=== PATIENT | male | born 1960 | race Caucasian/White ===

== ENCOUNTER 2020-01-11 12:15 | Inpatient (IN) | payer MEDICARE, SELFPAY ==
[2020-01-11] VITALS (27 sets, daily range): BP systolic 100–215; BP diastolic 79–154; PULSE 66–146; RESP 15–24; TEMP 36.6–37; O2SAT 95–100; BMI 47.4; BMI 43.9
--- NOTE | 2020-01-11 12:47 | RAD_ITS ---
STUDY: X-RAY CHEST REASON FOR EXAM: Male, 59 years old. DYSPNEA, STENT X 7 YEARS AGO, H/O HTN TECHNIQUE: PA and lateral views of the chest. COMPARISON: None. FINDINGS: Cardiac silhouette increased. Pulmonary vascularity increased. Aorta unremarkable. No focal airspace proximal nodular density within the right upper lobe. Blunting is noted at the right costophrenic angle. Upper abdomen unremarkable. Osseous structures intact. No pneumothorax. RAD/Chest PA and Lateral IMPRESSION: Cardiomegaly and pulmonary vascular congestion. Small right effusion. Possible right upper lobe nodule may be further assessed with chest CT as clinically indicated. Electronically Signed: Wan Helton, at 15:36 EST Tel , Service support ,
--- NOTE | 2020-01-11 12:47 | EKG12_ITS ---
Test Reason : Blood Pressure : / mmHG Vent. Rate : 144 BPM Atrial Rate : 256 BPM P-R Int : 000 ms QRS Dur : 120 ms QT Int : 304 ms P-R-T Axes : 000 035 043 degrees QTc Int : 470 ms Atrial flutter with variable A-V block Non-specific intra-ventricular conduction delay Abnormal ECG Confirmed by SYDNEY BAILEY ([id number]), graphics editor JONG SANTOS ([id number]) on 01/13/2020 9:37:33 AM Referred By: SHAKEEL Confirmed By:SYDNEY BAILEY
--- NOTE | 2020-01-11 12:59 | ED.RN ---
NO OLD EKG
[2020-01-11] MEDS: dilTIAZem 25 MG/5 ML Vial IV BOLUS (13:17)
[2020-01-11 13:27] LABS: Absolute Lymphocyte Count 2.09 X10^3/uL (0.83-4.51); Absolute Neutrophil Count 7.2 X10^3/uL (2.0-7.7); Basophil# 0.04 X10^3/uL; Basophil% 0.4 % (0-1); Eosinophil# 0.08 X10^3/uL; Eosinophils% 0.8 % (0-5); Hematocrit 48.1 % (40-54); Hemoglobin 15.5 g/dL (13.0-16.5); Lymphocyte # 2.09 X10^3/ul (4.0); Lymphocyte % 21.1 % (19-41); Mean Corp Hgb Conc 32.2 g/dL (32-36); Mean Corpuscular Hgb 28.3 pg (27.0-32.0); Mean Corpuscular Volume 87.8 fL (80-94); Mean Platelet Vol. 9.4 fl (6.2-12.0); Monocyte# 0.52 X10^3/uL; Monocyte% 5.2 % (0-10); NRBC Flagged by Analyzer 0 % (0-5); Neutrophil # 7.15 X10^3/uL (2.7-7.7); Neutrophil % 72.2 % (47-70); Platelet Count 333 K/mm3 (150-450); RBC Distribution Width CV 14.5 % (11.6-14.6); Red Blood Count 5.48 M/mm3 (4.6-6.2); White Blood Count 9.9 K/mm3 (4.4-11.0)
[2020-01-11 13:42] LABS: ALB/GLOB Ratio 0.8 RATIO (0.9-2.4); AST(SGOT) 29 U/L (15-37); Alanine Aminotransfer ALT/SGPT 58 U/L (16-61); Albumin, Serum 3.5 g/dL (3.2-5.0); Alkaline Phosphatase 55 U/L (45-117); Anion Gap 8 (5-15); BUN 32 mg/dL (7-18); BUN/Creat Ratio 20.1 RATIO (10-20); Calcium,Total 9.2 mg/dL (8.5-10.1); Chloride 109 mmol/L (98-107); Creatinine, Serum 1.59 mg/dL (0.70-1.30); EST Glomerular Filtration Rate 47 mL/min (>60); Est Glom Filt Rate - Afr Amer 57 mL/min (>60); Estimated Creatinine Clearance 40.85 ml/min; Globulin 4.4 g/dL (2.2-4.2); Glucose 145 mg/dL (74-106); Potassium 4.2 mmol/L (3.5-5.1); Protein, Total 7.9 g/dL (6.4-8.2); Sodium Level 141 mmol/L (136-145)
[2020-01-11 14:04] LABS: Mucous, Urine 0 SEEN /hpf (<or=2+); Squamous Epithelial Cells - UA 0 SEEN /hpf (0-5); White Blood Cells 0 SEEN /hpf (0-5)
[2020-01-11 14:08] LABS: Color, Urine Yellow (Yellow); Glucose, Dipstick Normal (Normal); Ketone-Dipstick Negative (Negative); Leukocyte Esterase-Dipstick Negative /ul (Negative); Nitrite-Dipstick Negative (Negative); Occult Blood-Urine 10 /ul (Negative); Protein-Dipstick 500 mg/dl (Negative); Specific Gravity, Urine 1.025 (1.002-1.030); Urine Bilirubin Dipstick Negative (Negative); Urine Clarity Clear (Clear); Urine Urobilinogen Normal (Normal)
[2020-01-11 14:22] LABS: Amorphous Sediment 1+; Bacteria RARE /hpf (None Seen); Fine Granular Cast- Urine 0-5 SEEN /lpf (0-5); Red Blood Cells-Urine 0-5 SEEN /hpf (0-5)
--- NOTE | 2020-01-11 14:36 | ED.RN ---
PER DR. BECKFORD VERBAL, SEPSIS SCREEN COMPLETE.
[2020-01-11] MEDS: dilTIAZem 60 MG Tablet PO (15:09)
--- NOTE | 2020-01-11 15:46 | CT_ITS ---
STUDY: CTA CHEST REASON FOR EXAM: Male, 59 years old. Dyspnea, worsening x 4 days, cough. Hx hypertension, coronary stent. RADIATION DOSAGE (If Supplied By Facility): CTDIvol = ( 17.41 ) mGy, DLP = ( 571.91 ) mGycm TECHNIQUE: The examination was performed with the intravenous administration of 100mL Isovue 370. Post-processing of the angiographic images was performed, with multiplanar reformation and 3D reconstruction. Individualized dose optimization techniques were used for this CT. COMPARISON: None. FINDINGS: Normal enhancement of the main pulmonary artery and right and left pulmonary arteries. Normal enhancement of the bilateral peripheral pulmonary arteries. There is no demonstrated pulmonary embolism. Normal thoracic aorta and visualized great vessels. There is no demonstrated aortic dissection. There is a small pericardial effusion. Normal mediastinum. Normal hilar regions. Normal visualized trachea and bronchi. The lungs are well expanded. There is evidence of compressive atelectasis at the right base. There is a small volume right sided pleural effusion. Normal chest wall structures. Normal osseous structures. Normal visualized upper abdomen. CT/CTA Chest W/WO Contrast IMPRESSION: No evidence for pulmonary embolism or aortic dissection. Moderate-sized right pleural effusion with associated compressive atelectasis. Small pericardial effusion. Electronically Signed: Wan Helton, at 16:43 EST Tel , Service support ,
[2020-01-11] MEDS: 0.9% Normal Saline 1,000 ML 1000 ML IV (15:57)
--- NOTE | 2020-01-11 16:08 | ED.DCSUM_ITS ---
- ER Visit Summary Date of Service: 01/11/20 Chief Complaint: Tachycardia and shortness of breath History of Present Illness: The patient is a 59 M who presents with shortness of breath and tachycardia that became worse today. Patient states he feels like he cannot catch his breath. Patient states this has been waxing and waning over the past 2 months. Patient states his breathing is worse when he lays flat. Patient states his breathing improves when he stands. Patient admits to subjective fevers and chills. Patient admits to some cough with a brown sputum. Patient also admits to some back pain. Patient admits to nausea but denies any vomiting. Physical Examination: Vital signs are stable except for a tachycardia of 149. Patient is afebrile. Patient is in no acute distress. Oral mucosa is pink and moist. Neck is supple. Trachea is midline. Is no JVD noted. Heart was irregularly irregular and tachycardic. Lungs are clear and equal bilaterally. Abdomen is soft. Bowel sounds are normal. There is no tenderness. Cranial nerves II through XII are intact. There are no focal motor or sensory deficits noted. Test Results: EKG shows atrial for ablation with a rate of 144. There are no acute ST or T wave changes. There are no prior EKGs available for comparison. CBC was within normal limits. Comprehensive metabolic profile showed a slightly elevated creatinine of 1.59. Troponin was slightly elevated at 0.051. Emergency Department Course and Treatment: Patient was given IV fluids. Patient was given a dose of Cardizem IV and a oral dose of Cardizem. Patient's heart rate improved to 114 but is now increasing back into the 120s. Patient was given a dose of labetalol. Due to the persistent tachycardia, and shortness of breath, a CTA of the chest was ordered. I advised the patient of his need to be admitted to the hospital due to his new onset atrial fibrillation with rapid response as well as his bump in his troponin. Patient states he does not want to be admitted to the hospital and wants to be discharged before it gets dark because he does not drive well in the dark. Patient is requesting a breathing treatment. This was not given initially because of his tachycardia. Patient was advised that the breathing treatment will make his tachycardia worse. Patient still does not want to be admitted to the hospital and will sign out AGAINST MEDICAL ADVICE. Patient was advised that his irregular heartbeat may cause blood clots and strokes. Patient understands and does not want to be admitted to the hospital. Patient will sign out AGAINST MEDICAL ADVICE. While the patient was getting his DuoNeb treatment, he change his mind and is agreeable to be admitted to the hospital. Case was discussed with the hospitalist. Disposition: Admit to hospital Impression: 1. Atrial fibrillation with rapid ventricular response 2. Elevated troponin This note was generated with [employer] dictation software. It may contain incorrect words, spelling, and punctuation that were not noted in review of the chart prior to signing ED Disposition - Plan for ED Patient: Disposition: Acute Care Hospital [facility] Diagnosis: Atrial fibrillation with rapid ventricular response, Elevated troponin Referrals: Radha Kendrick MD [Primary Care Provider] - As soon as possible
[2020-01-11] MEDS: Ipratropium/Albuterol Sulfate 3 ML AMPUL.NEB INHALATION (17:15)
--- NOTE | 2020-01-11 17:48 | NURSING ---
PCU KOTSONIS AFIB WITH RAPID VENTRICULAR RESPONCE, ELEVATED TROP
--- NOTE | 2020-01-11 18:29 | HP.PCM_ITS ---
<Ml Guadalupe - Last Filed: 01/11/20 18:46> Problem List (1) Atrial fibrillation with rapid ventricular response Status: Acute (2) Elevated troponin Status: Acute History of Present Illness Date of Admission: 01/11/20 Chief Complaint: Shortness of breath. The patient is a 59 year old M who presents emergency room due to shortness of breath. Patient reports he initially noticed increase shortness of breath around Tung time. He reports it has gradually worsened since that time. He denies weight gain or lower extremity swelling. He does note he has not been able to sleep lying flat since before Tung. He denies chest pain or palpitations. Patient reports dyspnea with minimal exertion. Patient states he thinks he has pneumonia and reports he had a few cases of severe pneumonia when he was younger. Patient reports he was on multiple medications for his heart which he stopped taking a year ago and states his blood pressure got better. He has had poor outpatient follow-up. He was recommended a sleep study which he did not complete because he did not think it was necessary. He has a past medical history of hypertension and obesity. Past Medical History Allergies No Known Allergies Allergy (Verified 01/11/20 12:19) Home Medications: Ambulatory Orders Medication Instructions Recorded Aspirin E.C. [Ecotrin] 650 mg PO BID PRN PRN 01/11/20 [place]-3/Dha/Epa/Fish Oil [Fish Oil 1,000 mg PO DAILY 01/11/20 1,000 mg Softgel] Surgical History: - - Left great toe surgery. Psychiatric History: No pertinent psych hx Lives: Alone Smoking Status: Current some day smoker Tobacco Use: Cigarettes Alcohol: Sober Drugs: None - *Family History Maternal History Items: Heart Disease Paternal History Items: Heart Disease Review of Systems Constitutional: Denies: Chills, Fever, Weight Change HEENT: Denies: Head Aches, Sinus Congestion, Sinus Drainage Cardiovascular: Denies: Chest Pain, Edema, Palpitations, Syncope Respiratory: Reports: Shortness of Breath, Sputum production. Denies: Cough Gastrointestinal: Denies: Abdominal Pain, Nausea, Vomiting Genitourinary: Denies: Dysuria Musculoskeletal: Denies: Joint Pain, Joint Tenderness Skin: Denies: Rash, Wounds Neurological: Denies: Numbness, Tingling, Focal weakness Psychiatric: Denies: Anxiety, Depression, Homicidal Ideations, Suicidal Ideations Hematologic/ Lymphatic: Denies: Easy Bruising, Easy Bleeding VTE Information - Inpt Only VTE Present on Admission: No VTE Mechan Device Prophylaxis: None VTE Pharm Prophylaxis ordered?: Yes Patient Problems: Active and Suspected Problems Atrial fibrillation with rapid ventricular response (Acute) Elevated troponin (Acute) - Physical Exam Vitals/I&O's: Vital Signs Temp Pulse Resp BP Pulse Ox 98.5 F 127 H 20 H 150/132 H 96 01/11/20 18:05 01/11/20 18:05 01/11/20 18:05 01/11/20 18:05 01/11/20 18:05 Oxygen Flow Rate (L/min) 2 Oxygen Delivery Method Room Air Weight: 276 lb 3.2 oz Body Mass Index (BMI) 47.4 Intake and Output for Last 24 Hours 01/09/20 01/10/20 01/11/20 23:59 23:59 23:59 Intake Total 1000 / 1000 Balance 1000 / 1000 General: Alert, Oriented x3, Cooperative HEENT: Atraumatic, PERRLA, EOMI, Normocephalic Neck: Supple, No JVD, Negative Carotid Bruits Lungs: Diminished, - - Crackles bilateral bases, worse on right Cardiovascular: Tachycardic, - - Atrial fibrillation Abdomen: Bowel Sounds Present, Soft, Non Tender, Non-Distended, Obese Extremities: No clubbing, No cyanosis, No edema, Capillary Refill Less than 3 Seconds Skin: No rashes, No breakdown Musculoskeletal: No Tenderness to Palpation of Joints or Extremities Neurological: Cranial nerves II-XII grossly intact, Neuro grossly intact Psych/Mental Status: Normal Affect, Appropriate Laboratory Results 01/11/20 12:35: WBC 9.9, RBC 5.48, Hgb 15.5, Hct 48.1, MCV 87.8, MCH 28.3, MCHC 32.2, RDW Std Deviation 46.0 H, RDW Coeff of Srinivas 14.5, Plt Count 333, MPV 9.4, Immature Gran % (Auto) 0.300, Neut % (Auto) 72.2 H, Lymph % (Auto) 21.1, [place] % (Auto) 5.2, Eos % (Auto) 0.8, Baso % (Auto) 0.4, Absolute Neuts (auto) 7.2, Absolute Lymphs (auto) 2.09, Nucleated RBC % 0 01/11/20 12:35: Sodium 141, Potassium 4.2, Chloride 109 H, Carbon Dioxide 24.0, Anion Gap 8, BUN 32 H, Creatinine 1.59 H, Estim Creat Clear Calc 40.85, Est GFR (MDRD) Af Amer 57 L, Est GFR (MDRD) Non-Af 47 L, BUN/Creatinine Ratio 20.1 H, Glucose 145 H, Calcium 9.2, Total Bilirubin 0.70, AST 29, ALT 58, Alkaline Phosphatase 55, Troponin I 0.051 H, Total Protein 7.9, Albumin 3.5, Globulin 4.4 H, Albumin/Globulin Ratio 0.8 L 01/11/20 12:35: B-Natriuretic Peptide Pending 01/11/20 13:55: Urine Color Yellow, Urine Clarity Clear, Urine pH 5.0, Ur Specific [place] 1.025, Urine Protein 500 H, Urine Glucose (UA) Normal, Urine Ketones Negative, Urine Occult Blood 10 H, Urine Nitrite Negative, Urine Bilirubin Negative, Urine Urobilinogen Normal, Ur Leukocyte Esterase Negative, Urine RBC 0-5 SEEN, Urine WBC 0 SEEN, Ur Squamous Epith Cells 0 SEEN, Amorphous Sediment 1+, Urine Bacteria RARE, Fine Granular Casts 0-5 SEEN, Urine Mucus 0 SEEN Assessment/Plan All Active Problems Atrial fibrillation with rapid ventricular response (Acute) Elevated troponin (Acute) 1. New onset atrial fibrillation-on Cardizem drip. Check TSH, mag. Obtain echo. Trend enzymes. 2. Abnormal troponin-trend enzymes. Suspect demand ischemia as a result of #1. 3. Right pleural effusion-noted on CTA. Suspect secondary to fluid overload secondary to #1, BNP pending. If BNP is elevated, plan to diurese and repeat imaging to evaluate for improvement. 3. Elevated creatinine-unknown baseline. Trend BMP. Suspect chronic kidney disease. 4. Hypertension-Per pharmacy records, patient previously on lisinopril/HCTZ 20- 25 mg tablet daily, metoprolol 100 mg daily and clonidine 0.2 mg twice daily. Will resume lisinopril/HCTZ alone for now and monitor blood pressure. 5. Obesity- encouraged diet lifestyle modifications. Nutrition consult. 6. Suspected HINA-patient referred for sleep study in the past which she did not complete. Recommend outpatient follow-up for PSG at discharge. DVT prophylaxis-heparin subcu. This patient was seen by HERSON Trent under the supervision of Dr. Mackenzie. <Fredo Mackenzie Jamel - Last Filed: 01/11/20 19:28> History of Present Illness The patient is a 59 year old M [] Past Medical History Allergies No Known Allergies Allergy (Verified 01/11/20 12:19) - Physical Exam Vitals/I&O's: Vital Signs Temp Pulse Resp BP Pulse Ox 98.3 F 127 H 19 H 191/143 H 97 01/11/20 18:48 01/11/20 18:48 01/11/20 18:48 01/11/20 18:48 01/11/20 18:48 Oxygen Flow Rate (L/min) 2 Oxygen Delivery Method Room Air Weight: 272 lb Body Mass Index (BMI) 43.9 Intake and Output for Last 24 Hours 01/09/20 01/10/20 01/11/20 23:59 23:59 23:59 Intake Total 1000 / 1000 Balance 1000 / 1000 Laboratory Results 01/11/20 12:35: WBC 9.9, RBC 5.48, Hgb 15.5, Hct 48.1, MCV 87.8, MCH 28.3, MCHC 32.2, RDW Std Deviation 46.0 H, RDW Coeff of Srinivas 14.5, Plt Count 333, MPV 9.4, Immature Gran % (Auto) 0.300, Neut % (Auto) 72.2 H, Lymph % (Auto) 21.1, [place] % (Auto) 5.2, Eos % (Auto) 0.8, Baso % (Auto) 0.4, Absolute Neuts (auto) 7.2, Absolute Lymphs (auto) 2.09, Nucleated RBC % 0 01/11/20 12:35: Sodium 141, Potassium 4.2, Chloride 109 H, Carbon Dioxide 24.0, Anion Gap 8, BUN 32 H, Creatinine 1.59 H, Estim Creat Clear Calc 40.85, Est GFR (MDRD) Af Amer 57 L, Est GFR (MDRD) Non-Af 47 L, BUN/Creatinine Ratio 20.1 H, Glucose 145 H, Calcium 9.2, Total Bilirubin 0.70, AST 29, ALT 58, Alkaline Phosphatase 55, Troponin I 0.051 H, Total Protein 7.9, Albumin 3.5, Globulin 4.4 H, Albumin/Globulin Ratio 0.8 L 01/11/20 12:35: B-Natriuretic Peptide 284.0 H 01/11/20 13:55: Urine Color Yellow, Urine Clarity Clear, Urine pH 5.0, Ur Specific [place] 1.025, Urine Protein 500 H, Urine Glucose (UA) Normal, Urine Ketones Negative, Urine Occult Blood 10 H, Urine Nitrite Negative, Urine Bilirubin Negative, Urine Urobilinogen Normal, Ur Leukocyte Esterase Negative, Urine RBC 0-5 SEEN, Urine WBC 0 SEEN, Ur Squamous Epith Cells 0 SEEN, Amorphous Sediment 1+, Urine Bacteria RARE, Fine Granular Casts 0-5 SEEN, Urine Mucus 0 SEEN Current Medications Enoxaparin Sodium (Lovenox) 40 mg SC DAILY MARIO Hydrochlorothiazide (Hctz) 25 mg PO DAILY MARIO Diltiazem HCl 125 mg/ Dextrose 125 mls @ 5 mls/hr IV .Q25H MARIO; Protocol Sodium Chloride () 1,000 mls @ 100 mls/hr IV .Q10H MARIO Last Admin: 01/11/20 18:38 Dose: 100 mls/hr Documented by: Lisinopril (Zestril) 20 mg PO DAILY MARIO Sodium Chloride () 10 - 40 ml IV UD PRN PRN Reason: SALINE FLUSH Code Visit Addendum: Dr. Mackenzie I personally examined the patient and reviewed the chart. I agree with the above. 59-year-old male who had previously been on blood pressure medications and he stopped them on his own, presents with shortness of breath chest pain as well as palpitations. He was found to be in A. fib with RVR and had difficulty controlling his heart rate. He was started on a Cardizem drip. Because of his shortness of breath he had a CTA of his chest performed which demonstrated a moderate sized pleural effusion. He did add a BNP that was also ordered that was 284 as well as an initial troponin of 0.051. Will obtain serial troponin as well as an echo. He stopped seeing his doctor about a year and a half ago took himself off of all of his medications. He states that this always happens whenever he gets pneumonia and that he coughs up a lot of sputum. CTA of his chest did not show any pneumonia and he has no fever and no leukocytosis. We will continue the Cardizem drip for now and restart his lisinopril and hydrochlorothiazide that he was supposed to be on. Inpatient E&M: 39215 Init Hosp L2
[2020-01-11] MEDS: 0.9% Normal Saline 1,000 ML 100 ML IV (18:38)
--- NOTE | 2020-01-11 19:20 | EKG12_ITS ---
Test Reason : A FIB Blood Pressure : / mmHG Vent. Rate : 127 BPM Atrial Rate : 254 BPM P-R Int : 000 ms QRS Dur : 118 ms QT Int : 368 ms P-R-T Axes : 256 018 -66 degrees QTc Int : 534 ms Atrial flutter Inferior infarct , age undetermined Abnormal ECG When compared with ECG of 11-JAN-2020 12:25, MANUAL COMPARISON REQUIRED, DATA IS UNCONFIRMED Confirmed by SYDNEY BAILEY ([id number]), publishing editor JONG SANTOS ([id number]) on 01/13/2020 9:59:51 AM Referred By: ELLEN Confirmed By:SYDNEY BAILEY
[2020-01-11] MEDS: Metoprolol Tartrate 5 MG/5 ML Vial IV (20:37)
[2020-01-11] MEDS: Lisinopril 20 MG Tablet PO (20:37)
[2020-01-11] MEDS: hydroCHLOROthiazide 25 MG Tablet PO (20:37)
[2020-01-11] MEDS: Metoprolol Tartrate 100 MG Tablet PO (22:23)
[2020-01-12] VITALS (58 sets, daily range): BP systolic 110–211; BP diastolic 83–145; PULSE 61–131; RESP 16–28; TEMP 36.2–37.1; O2SAT 92–100
--- NOTE | 2020-01-12 04:02 | CPS ---
Pt. was tried on BiPAP with poor tolerance. Settings were 10/5. HUMAN RESOURCES PROFESSIONAL tried multiple different pressures with pt. agreeing to try 10/5. Shortly after trying it on, pt. took BiPAP off. Told this HUMAN RESOURCES PROFESSIONAL that it was to much pressure and was hard on his lungs. Pt. refusing BiPAP for the rest of this morning.
[2020-01-12] MEDS: 0.9% Normal Saline 1,000 ML 100 ML IV (04:39)
[2020-01-12] MEDS: Ondansetron 4 MG/2 ML Vial IV (05:21)
--- NOTE | 2020-01-12 05:55 | ECHOCS_ITS ---
Reason For Study: ATRIAL FIB-FLUTTER Procedure This was a 2D Doppler, Color Flow transthoracic echocardiogram. The study was technically difficult. Exam performed portable in patient room. Left Ventricle Moderately dilated left ventricle. The estimated ejection fraction is 45-50 %. Unable to assess diastolic dysfunction due to arrhythmia. Anterio-Basal: Mildly hypokinetic. Basal anteroseptal: Mildly hypokinetic. Right Ventricle Normal size and thickness. Normal systolic function. Atria The left atrium is severely enlarged. The right atrium is severely enlarged. Normal atrial septum. Mitral Valve The mitral valve is structurally normal. No prolapse or stenosis seen. Tricuspid Valve Normal tricuspid valve. Unable to estimate RV systolic pressure due to insufficient tricuspid regurgitant envelope. Aortic Valve Normal aortic valve. Trisinus/trileaflet aortic valve. Pulmonic Valve The pulmonic valve is not well visualized. Great Vessels Normal aortic root. Normal arch. Normal inferior vena cava. Inferior vena cava collapse with sniff. Pericardium/Pleural Trivial pericardial effusion. There are no echocardiographic indications of cardiac tamponade. Medication Diluted definity 5ml given slow IV push to enhance endocardial definition. MMode/2D Measurements & Calculations LVIDd: 5.3 cm IVSd: 0.91 cm Ao root diam: 3.1 cm LVIDs: 3.8 cm LVPWd: 1.1 cm RVDd: 3.2 cm FS: 28.4 % LAV(MOD-bp): 91.2 ml LVAd ap4: 32.4 cm2 SV(MOD-sp4): 50.1 ml LAV(MOD-bp) Indexed: 40.0 ml/m2 EDV(MOD-sp4): 96.0 ml LAV(MOD-sp2): 96.0 ml EDV(sp4-el): 101.0 ml LAV(MOD-sp4): 82.5 ml LVAs ap4: 21.3 cm2 ESV(MOD-sp4): 46.0 ml ESV(sp4-el): 47.6 ml EF(MOD-sp4): 52.1 % EF(sp4-el): 52.9 % SV(sp4-el): 53.4 ml LA A4 area: 26.2 cm2 LA dimension(2D): 5.1 cm RA A4 area: 22.3 cm2 Doppler Measurements & Calculations MV E max sherif: 129.3 cm/sec Ao V2 max: 122.5 cm/sec LV V1 max: 82.8 cm/sec Ao max P.0 mmHg LV V1 max P.8 mmHg PA V2 max: 57.0 cm/sec Interpretation Summary Moderately dilated left ventricle. The estimated ejection fraction is 45-50 %. Unable to assess diastolic dysfunction due to arrhythmia. Anterio-Basal: Mildly hypokinetic Basal anteroseptal: Mildly hypokinetic The left atrium is severely enlarged. The right atrium is severely enlarged. Unable to estimate RV systolic pressure due to insufficient tricuspid regurgitant envelope. Trivial pericardial effusion. There are no echocardiographic indications of cardiac tamponade. Pt appears to be in atrial fibrillation. The study was technically difficult. Contrast injection was performed. There is no comparison study available. Ordering Physician: Fredo Mackenzie Referring Physician: TIERNEY KRISHNAN Performed By: Marie Rios RDCS
[2020-01-12 06:48] LABS: Absolute Lymphocyte Count 1.98 X10^3/uL (0.83-4.51); Absolute Neutrophil Count 9.3 X10^3/uL (2.0-7.7); Basophil# 0.03 X10^3/uL; Basophil% 0.2 % (0-1); Eosinophil# 0.04 X10^3/uL; Eosinophils% 0.3 % (0-5); Hematocrit 48.6 % (40-54); Hemoglobin 15.3 g/dL (13.0-16.5); Lymphocyte # 1.98 X10^3/ul (4.0); Lymphocyte % 16.3 % (19-41); Mean Corp Hgb Conc 31.5 g/dL (32-36); Mean Corpuscular Hgb 28.1 pg (27.0-32.0); Mean Corpuscular Volume 89.2 fL (80-94); Mean Platelet Vol. 9.1 fl (6.2-12.0); Monocyte# 0.74 X10^3/uL; Monocyte% 6.1 % (0-10); NRBC Flagged by Analyzer 0 % (0-5); Neutrophil # 9.33 X10^3/uL (2.7-7.7); Neutrophil % 76.7 % (47-70); Platelet Count 321 K/mm3 (150-450); RBC Distribution Width SD 48.1 fl (35.1-43.9); Red Blood Count 5.45 M/mm3 (4.6-6.2); White Blood Count 12.2 K/mm3 (4.4-11.0)
[2020-01-12 07:29] LABS: Anion Gap 5 (5-15); BUN 27 mg/dL (7-18); BUN/Creat Ratio 16.7 RATIO (10-20); Calcium,Total 8.6 mg/dL (8.5-10.1); Chloride 110 mmol/L (98-107); Cholesterol 188 mg/dL (200); Creatinine, Serum 1.62 mg/dL (0.70-1.30); EST Glomerular Filtration Rate 46 mL/min (>60); Est Glom Filt Rate - Afr Amer 56 mL/min (>60); Estimated Creatinine Clearance 43.21 ml/min; Glucose 121 mg/dL (74-106); High Density Lipoprotein 35 mg/dL; Potassium 4.7 mmol/L (3.5-5.1); Sodium Level 141 mmol/L (136-145); Triglycerides 153 mg/dL; Very Low Density Lipoprotein 31 mg/dL (5-40)
[2020-01-12] MEDS: Lisinopril 20 MG Tablet PO (08:44)
[2020-01-12] MEDS: Metoprolol Tartrate 100 MG Tablet PO (08:45)
[2020-01-12] MEDS: Enoxaparin 40 MG/0.4 ML Syringe SC (08:45)
[2020-01-12] MEDS: hydroCHLOROthiazide 25 MG Tablet PO (08:45)
[2020-01-12] MEDS: hydrALAZINE 20 MG/ML Vial 10 MG IV (11:14)
--- NOTE | 2020-01-12 12:13 | NURSING ---
pt frustrated and asking staff how long this is going to take because he has to get home because his pipes are going to freeze because the house has no heat. education provided that we need to monitor closely d/t elevated blood pressure and elevated and irregular heart rate. pt states 'I sat in the emergency room for 8 hours yesterday and they should have figured it out then. there's not a damn doctor here that knows what they are doing. I have had this before and they just clean out my lungs and I am good to go. I've sat here wheezing and no one will give me anything for my lungs.' explained to patient that his oxygenation is within normal limits, RR 18-22, 98-100% on RA, LS diminished. Explained that it is more than his lungs and that we are concerned about his heart rate and blood pressure. Explained that we restarted patient on his blood pressure medications that he stopped taking awhile back and it will take time to figure out if this is appropriate medication regimen to control blood pressure and heart rate. offered multiple times to call patient's son for him and patient decline stating he doesn't know when the son will be home. explained to patient that he can leave at any time but he will have to sign a paper stating he understands the risks of leaving Against medical advice. pt repeats prior statements made and education provided again.
--- NOTE | 2020-01-12 12:18 | CASEMGMT ---
MIGUEL ANGEL RUIZ assessment: Face to Face with patient for initial transition planning/care coordination assessment. MIGUEL ANGEL RUIZ introduced self and role at [facility], pt voices understanding and consents to assessment at this time. Pt is standing at bedside due to back pain per pt, Gretta MICHELLE aware and voices understanding. Pt is A/Ox4 at this time and answers questions appropriately but states that he 'wants answers and needs to get home.' Dr. Sharma aware and into room to speak with pt. Care providers, pharmacy, and demographics verified at this time. 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 Preferred Pharmacy: [facility] Insurance: [facility] A/B Prescription Benefit: [employer] Living Will/HPOA: Pt states does not have LW/HPOA but is 'working on it with my gas fitter.' Pt declines AD info. LNOK: Peewee Flores, son Living Arrangements: Pt states lives alone in home and states no concerns at home at this time. Pt states is independent with ADL's. Transportation: Pt states drives self and states no transportation concerns at this time. DME/HHC: Pt states no current DME or need for any at this time. Pt states no hx of HHC or SNF. Pt states no concerns with going home at time of discharge. Pt states is retired. Pt states smokes 3-5 cigarettes/week and does not drink ETOH. Pt states no further concerns/needs at this time. CM to follow for any further discharge planning/needs. Advised pt to ask for CM if any further questions/concerns/needs arise, voices understanding. Pt Goal: Home Plan[place] MIGUEL ANGEL RUIZ
--- NOTE | 2020-01-12 12:20 | NURSING ---
pt refusing fall bracelet to be placed on arm
--- NOTE | 2020-01-12 13:17 | CHAPLAIN ---
Type of Pastoral Visit _x__ Initial Visit ___ Follow-up Visit ___ On-call Visit ___ General Patient Visit ___ Spiritual Assessment ___ Family Conference ___ Bereavement ___ Rapid Response ___ Code Blue ___ Other (describe below) Pastoral Care Referral From _x__ Patient ___ Family ___ Nurse ___ Physician ___ Regional Controller ___ Family Preservation Caseworker ___ Other (describe below) Sacrament/Intervention _x__ Active listening ___ Anointing ___ Synagogue ___ Bereavement ___ Communion ___ Jessica exploration ___ ___ Life review ___ Prayer ___ Reconciliation ___ Sacrament of Sick _x__ Supportive presence ___ Wedding ___ Other (describe below) Pastoral Comments patient sitting at side of bed; pt states he has not slept in several days and is impatient about waiting for test results and discharge; pt given time to talk and express his feelings; pt declines any further need for support
[2020-01-12] MEDS: hydrALAZINE 50 MG Tablet PO (13:30)
[2020-01-12] MEDS: 0.9% Saline Lock 10 ML Syringe IV ×4 (13:30→23:30)
[2020-01-12] MEDS: Furosemide 40 MG/4 ML Vial IV ×2 (13:30→17:19)
[2020-01-12] MEDS: Acetaminophen 500 MG Tablet 1000 MG PO (13:30)
--- NOTE | 2020-01-12 13:33 | PN_ITS ---
<Ml Guadalupe - Last Filed: 01/12/20 13:46> Patient Problems: Active and Suspected Problems Atrial fibrillation with rapid ventricular response (Acute) Elevated troponin (Acute) Subjective: Patient seen and examined. Reports improvement in breathing however he states he sat on side of bed all night and is unable to lie flat. Denies chest pain. - Physical Exam Vitals/I&O's: Vital Signs Temp Pulse Resp BP Pulse Ox 98.1 F 91 19 H 170/114 H 99 01/12/20 07:00 01/12/20 13:30 01/12/20 11:00 01/12/20 11:00 01/12/20 11:00 Oxygen Flow Rate (L/min) 2 Oxygen Delivery Method Room Air Weight: 272 lb Body Mass Index (BMI) 43.9 Intake and Output for Last 24 Hours 01/10/20 01/11/20 01/12/20 23:59 23:59 23:59 Intake Total 1180.75 / 1183.25 1772.68 / 1772.68 Output Total 275 / 275 500 / 500 Balance 905.75 / 908.25 1272.68 / 1272.68 General: Alert, Oriented x3, Cooperative HEENT: Atraumatic, PERRLA, EOMI, Normocephalic Neck: Supple, No JVD, Negative Carotid Bruits Lungs: Diminished, - - Crackles right base Cardiovascular: - - Atrial fibrillation, tachycardic Abdomen: Bowel Sounds Present, Soft, Non Tender, Non-Distended, Obese Extremities: No clubbing, No cyanosis, No edema, Capillary Refill Less than 3 Seconds Skin: No rashes, No breakdown Musculoskeletal: No Tenderness to Palpation of Joints or Extremities Neurological: Cranial nerves II-XII grossly intact, Neuro grossly intact Psych/Mental Status: Normal Affect, Appropriate Laboratory Results 01/11/20 12:35: Sodium 141, Potassium 4.2, Chloride 109 H, Carbon Dioxide 24.0, Anion Gap 8, BUN 32 H, Creatinine 1.59 H, Estim Creat Clear Calc 40.85, Est GFR (MDRD) Af Amer 57 L, Est GFR (MDRD) Non-Af 47 L, BUN/Creatinine Ratio 20.1 H, Glucose 145 H, Calcium 9.2, Total Bilirubin 0.70, AST 29, ALT 58, Alkaline Phosphatase 55, Troponin I 0.051 H, Total Protein 7.9, Albumin 3.5, Globulin 4.4 H, Albumin/Globulin Ratio 0.8 L 01/11/20 12:35: B-Natriuretic Peptide 284.0 H 01/11/20 13:55: Urine Color Yellow, Urine Clarity Clear, Urine pH 5.0, Ur Specific [place] 1.025, Urine Protein 500 H, Urine Glucose (UA) Normal, Urine Ketones Negative, Urine Occult Blood 10 H, Urine Nitrite Negative, Urine Bilirubin Negative, Urine Urobilinogen Normal, Ur Leukocyte Esterase Negative, Urine RBC 0-5 SEEN, Urine WBC 0 SEEN, Ur Squamous Epith Cells 0 SEEN, Amorphous Sediment 1+, Urine Bacteria RARE, Fine Granular Casts 0-5 SEEN, Urine Mucus 0 SEEN 01/11/20 19:19: Troponin I 0.055 H 01/11/20 22:14: Troponin I 0.057 H 01/12/20 00:56: Troponin I 0.046 H 01/12/20 06:10: Sodium 141, Potassium 4.7, Chloride 110 H, Carbon Dioxide 26.0, Anion Gap 5, BUN 27 H, Creatinine 1.62 H, Estim Creat Clear Calc 43.21, Est GFR (MDRD) Af Amer 56 L, Est GFR (MDRD) Non-Af 46 L, BUN/Creatinine Ratio 16.7, Glucose 121 H, Calcium 8.6, Triglycerides 153, Cholesterol 188, LDL Cholesterol 122, VLDL Cholesterol 31, HDL Cholesterol 35 L, TSH 2.70 01/12/20 06:10: WBC 12.2 H, RBC 5.45, Hgb 15.3, Hct 48.6, MCV 89.2, MCH 28.1, MCHC 31.5 L, RDW Std Deviation 48.1 H, RDW Coeff of Srinivas 15.0 H, Plt Count 321, MPV 9.1, Immature Gran % (Auto) 0.400, Neut % (Auto) 76.7 H, Lymph % (Auto) 16.3 L, [place] % (Auto) 6.1, Eos % (Auto) 0.3, Baso % (Auto) 0.2, Absolute Neuts (auto) 9.3 H, Absolute Lymphs (auto) 1.98, Nucleated RBC % 0 Current Medications Acetaminophen (Tylenol) 1,000 mg PO Q8 MARIO Last Admin: 01/12/20 13:30 Dose: 1,000 mg Documented by: Enoxaparin Sodium (Lovenox) 40 mg SC DAILY [facility] Last Admin: 01/12/20 08:45 Dose: 40 mg Documented by: Furosemide (Lasix) 40 mg IV BID@1000,1800 [facility] Hydralazine HCl (Apresoline) 50 mg PO TID [facility] Last Admin: 01/12/20 13:30 Dose: 50 mg Documented by: Hydrochlorothiazide (Hctz) 25 mg PO DAILY [facility] Last Admin: 01/12/20 08:45 Dose: 25 mg Documented by: Diltiazem HCl 125 mg/ Dextrose 125 mls @ 5 mls/hr IV .Q25H [facility]; Protocol Last Titration: 01/12/20 11:00 Dose: Infused Documented by: Lisinopril (Zestril) 20 mg PO DAILY [facility] Last Admin: 01/12/20 08:44 Dose: 20 mg Documented by: Metoprolol Tartrate (Lopressor (Beta Jose Raul)) 100 mg PO BID [facility] Ondansetron HCl (Zofran) 4 mg IV Q6H PRN PRN PRN Reason: NAUSEA/VOMITING Last Admin: 01/12/20 05:21 Dose: 4 mg Documented by: Oxycodone HCl (Oxyir) 5 mg PO Q6H PRN PRN PRN Reason: Pain Score 6-10/10 Sodium Chloride () 10 - 40 ml IV UD PRN PRN Reason: SALINE FLUSH Last Admin: 01/12/20 13:30 Dose: 10 ml Documented by: Medical Necessity - Tobacco Use Smoking Status: Current some day smoker Tobacco Use: Cigarettes Assessment/Plan All Active Problems Atrial fibrillation with rapid ventricular response (Acute) Elevated troponin (Acute) 1. New onset atrial fibrillation-Cardizem drip discontinued. Continue metoprolol 100 mg twice daily. TSH within imbalance. Check mag. Echocardiogram pending. 2. Abnormal troponin-Suspect demand ischemia as a result of #1 however patient has history of CAD with stents 2012 without follow-up and stopped taking all cardiac medications 1 year ago. Echocardiogram pending as noted above. Cardiology consult placed. Patient is not established with cardiology. 3. Right pleural effusion-noted on CTA. Suspect secondary to fluid overload secondary to #1, BNP not significantly elevated, 284. Plan to diuresis and repeat chest x-ray in a.m. Oxygen currently stable on room air. Consider thoracentesis if worsening or no improvement with diuresis. 3. Elevated creatinine-unknown baseline. Trend BMP. Suspect chronic kidney disease. 4. Hypertension, uncontrolled-Per pharmacy records, patient previously on lisinopril/HCTZ 20-25 mg tablet daily, metoprolol 100 mg daily and clonidine 0.2 mg twice daily. Restarted on lisinopril/HCTZ regimen. Metoprolol increased to 100 mg twice daily. Also initiated on hydralazine 50 mg 3 times daily given blood pressure remains uncontrolled. Did not resume clonidine given rebound hypertension with sudden discontinuation and patient history with noncompliance. 5. Obesity- encouraged diet lifestyle modifications. Nutrition consult. 6. Suspected HINA-patient referred for sleep study in the past which she did not complete. Recommend outpatient follow-up for PSG at discharge. DVT prophylaxis-Lovenox subcu. This patient was seen by HERSON Trent under the supervision of Dr. Sharma. <Bonnie Sharma - Last Filed: 01/12/20 14:59> - Physical Exam Vitals/I&O's: Vital Signs Temp Pulse Resp BP Pulse Ox 97.1 F L 102 H 20 H 151/103 H 98 01/12/20 13:00 01/12/20 14:00 01/12/20 13:00 01/12/20 14:00 01/12/20 14:00 Oxygen Flow Rate (L/min) 2 Oxygen Delivery Method Room Air Weight: 123.377 kg Body Mass Index (BMI) 43.9 Intake and Output for Last 24 Hours 01/10/20 01/11/20 01/12/20 23:59 23:59 23:59 Intake Total 1180.75 / 1183.25 1892.68 / 1892.68 Output Total 275 / 275 950 / 950 Balance 905.75 / 908.25 942.68 / 942.68 Laboratory Results 01/11/20 12:35: B-Natriuretic Peptide 284.0 H 01/11/20 19:19: Troponin I 0.055 H 01/11/20 22:14: Troponin I 0.057 H 01/12/20 00:56: Troponin I 0.046 H 01/12/20 00:56: Magnesium 2.0 01/12/20 06:10: Sodium 141, Potassium 4.7, Chloride 110 H, Carbon Dioxide 26.0, Anion Gap 5, BUN 27 H, Creatinine 1.62 H, Estim Creat Clear Calc 43.21, Est GFR (MDRD) Af Amer 56 L, Est GFR (MDRD) Non-Af 46 L, BUN/Creatinine Ratio 16.7, Glucose 121 H, Calcium 8.6, Triglycerides 153, Cholesterol 188, LDL Cholesterol 122, VLDL Cholesterol 31, HDL Cholesterol 35 L, TSH 2.70 01/12/20 06:10: WBC 12.2 H, RBC 5.45, Hgb 15.3, Hct 48.6, MCV 89.2, MCH 28.1, MCHC 31.5 L, RDW Std Deviation 48.1 H, RDW Coeff of Srinivas 15.0 H, Plt Count 321, MPV 9.1, Immature Gran % (Auto) 0.400, Neut % (Auto) 76.7 H, Lymph % (Auto) 16.3 L, [place] % (Auto) 6.1, Eos % (Auto) 0.3, Baso % (Auto) 0.2, Absolute Neuts (auto) 9.3 H, Absolute Lymphs (auto) 1.98, Nucleated RBC % 0 Current Medications Acetaminophen (Tylenol) 1,000 mg PO Q8 [facility] Last Admin: 01/12/20 13:30 Dose: 1,000 mg Documented by: Enoxaparin Sodium (Lovenox) 40 mg SC DAILY [facility] Last Admin: 01/12/20 08:45 Dose: 40 mg Documented by: Furosemide (Lasix) 40 mg IV BID@1000,1800 [facility] Hydralazine HCl (Apresoline) 50 mg PO TID [facility] Last Admin: 01/12/20 13:30 Dose: 50 mg Documented by: Hydrochlorothiazide (Hctz) 25 mg PO DAILY [facility] Last Admin: 01/12/20 08:45 Dose: 25 mg Documented by: Diltiazem HCl 125 mg/ Dextrose 125 mls @ 5 mls/hr IV .Q25H [facility]; Protocol Last Titration: 01/12/20 11:00 Dose: Infused Documented by: Lisinopril (Zestril) 20 mg PO DAILY [facility] Last Admin: 01/12/20 08:44 Dose: 20 mg Documented by: Metoprolol Tartrate (Lopressor (Beta Jose Raul)) 100 mg PO BID [facility] Ondansetron HCl (Zofran) 4 mg IV Q6H PRN PRN PRN Reason: NAUSEA/VOMITING Last Admin: 01/12/20 05:21 Dose: 4 mg Documented by: Oxycodone HCl (Oxyir) 5 mg PO Q6H PRN PRN PRN Reason: Pain Score 6-10/10 Sodium Chloride () 10 - 40 ml IV UD PRN PRN Reason: SALINE FLUSH Last Admin: 01/12/20 13:30 Dose: 10 ml Documented by: Assessment/Plan This patient was seen in conjunction with Ml Guadalupe NP. I have independently interviewed and examined the patient and reviewed pertinent historical, laboratory, and other data. Please refer to her note for patient's presentation, findings, and recommendations. Patient was seen and examined. He had multiple complaints. He is frustrated that he has to stay in the hospital. Denied any chest pain. Complains of progressive shortness of breath. Has been off the Cardizem drip, remains in atrial fibrillation Vitals were reviewed -stable Physical Exam: Gen: Comfortable, not pale, not jaundiced, alert oriented x3 CVS:HS I +II, regular, no murmurs RESP: Diminished at lung bases GI: BS present and normal, nontender, no palpable organs EXT:Bilateral leg edema +1-2 Labs reviewed: ASSESSMENT: 1. New onset A. fib 2. Indeterminate troponins 3. Uncontrolled hypertension 4. POssible CHF 5. Right sided pleural effusion 6. Morbid obesity 7. Suspected HINA 8. Suspected neuropathy Meds reviewed Plan: Lasix 40mg IV BID Continue on HCTZ, lisinopril, metoprolol, hydralazine Cardiology consult Repeat imaging in a couple of days after diuresis Podiatry consult Code Visit Inpatient E&M: 55878 Subs Hosp L2
--- NOTE | 2020-01-12 14:58 | PCM.CONS.C ---
Problem List (1) Hypertensive urgency Status: Acute (2) Medical non-compliance Status: Acute (3) Coronary artery disease Status: Acute (4) Non-STEMI (non-ST elevated myocardial infarction) Status: Acute (5) Atrial fibrillation with rapid ventricular response Status: Acute (6) Elevated troponin Status: Acute Reason for Consult Date of Consultation: 01/12/20 Reason for Consultation: Dyspnea on exertion, hypertensive urgency, non-STEMI, coronary disease, medical noncompliance, obesity History of Present Illness: The patient is a 59 year old M morbidly obese gentleman, who does not follow-up with a local heart group [employer], nondiabetic, occasional tobacco use of approximately 1/2 pack/day for the past 40 years, history of atrial fibrillation on no anticoagulation, former patient of at [facility]. According to the patient he underwent a catheterization in 2012 at [facility] and apparently had an angioplasty of an unknown vessel. Patient was compliant with his medications but did not follow-up with his physician. He stopped all of his medicines about 1 year ago as he did not feel well and due to lethargy. The patient was in normal health up until around the last 1 to 2 weeks when he developed progressively worsening shortness of breath, dyspnea on exertion, lower extremity edema, but no associated chest pain. When he could not catch his breath he sought medical attention [facility] where he was found to be severely hypertensive. Initial EKG showed atrial fibrillation with rapid ventricular response with evidence of old inferior wall myocardial infarction but no acute changes. His initial troponin was 0.050, and is leveled off around that amount. Currently the patient sitting in a chair, is unable to lay down flat, with severe hypertension and atrial fibrillation with rapid ventricular response. Chest x-ray demonstrates pulmonary congestion bilaterally, and a right subpulmonic effusion which did not appear to be amenable to thoracentesis. Patient denies any palpitations or awareness that he is in atrial fibrillation. [] Past Medical History Allergies/Adverse Reactions: Allergies No Known Allergies Allergy (Verified 01/11/20 12:19) Home Medications: Ambulatory Orders Medication Instructions Recorded Aspirin E.C. [Ecotrin] 650 mg PO BID PRN PRN 01/11/20 [place]-3/Dha/Epa/Fish Oil [Fish Oil 1,000 mg PO DAILY 01/11/20 1,000 mg Softgel] Surgical History: - - Left great toe surgery. Psychiatric History: No pertinent psych hx - *Family History Maternal History Items: Heart Disease Paternal History Items: Heart Disease Lives: Alone Smoking Status: Current some day smoker Tobacco Use: Cigarettes Alcohol: Sober Drugs: None Review of Systems - Review of Systems General: Denies: Fever, Night Sweats, Fatigue Cardiovascular: Reports: Shortness of Breath, Shortness of Breath at Rest, Shortness of Breath with Exertion, Orthopnea, Peripheral Edema. Denies: Chest Discomfort, PND, Palpitations, Lightheadedness, Dizziness, Near Syncope, Syncope Respiratory: Denies: Cough, Sputum Production, Hemoptysis Gastrointestinal: Denies: Hematemesis, Hematochezia, Melena Genitourinary: Denies: Dysuria, Hematuria Skin: Denies: Rash Subjectve: Patient sitting in a chair, no acute distress. Somewhat combative with respect to his health care. Extraordinarily medically challenged. Patient states that he is illiterate, and does not read or write. Objective: Vital Signs Temp Pulse Resp BP Pulse Ox 97.1 F L 102 H 20 H 151/103 H 98 01/12/20 13:00 01/12/20 14:00 01/12/20 13:00 01/12/20 14:00 01/12/20 14:00 Oxygen Flow Rate (L/min) 2 Oxygen Delivery Method Room Air Weight: 272 lb Body Mass Index (BMI) 43.9 Intake and Output for Last 24 Hours 01/10/20 01/11/20 01/12/20 23:59 23:59 23:59 Intake Total 1180.75 / 1183.25 1892.68 / 1892.68 Output Total 275 / 275 950 / 950 Balance 905.75 / 908.25 942.68 / 942.68 General: Awake, Alert, Oriented x 3 HEENT: PERRL, EOMI, Sclera Non Icteric Neck: Supple, Good ROM, No Lymph Node Enlargement Cardiovascular: Irregular Rhythm, Normal S1, Normal S2, No Murmurs, No Rubs, No Gallops Vascular: No Carotid Bruits, Normal Femoral Pulses, Normal Radial Pulses, Normal Dorsalis Pedal Pulse, Normal Posterior Tibial Pulses Abdomen: Bowel Sounds Present, Soft, Non Tender, No HSM, No Organomegaly Extremities: No Cyanosis, No Clubbing, Bilateral Edema +2 Neurological: No Focal Motor or Sensory Deficit 01/11/20 12:35: B-Natriuretic Peptide 284.0 H 01/11/20 19:19: Troponin I 0.055 H 01/11/20 22:14: Troponin I 0.057 H 01/12/20 00:56: Troponin I 0.046 H 01/12/20 00:56: Magnesium 2.0 01/12/20 06:10: Sodium 141, Potassium 4.7, Chloride 110 H, Carbon Dioxide 26.0, Anion Gap 5, BUN 27 H, Creatinine 1.62 H, Est GFR (MDRD) Af Amer 56 L, Est GFR (MDRD) Non-Af 46 L, BUN/Creatinine Ratio 16.7, Glucose 121 H, Calcium 8.6, Triglycerides 153, Cholesterol 188, LDL Cholesterol 122, VLDL Cholesterol 31, HDL Cholesterol 35 L 01/12/20 06:10: WBC 12.2 H, RBC 5.45, Hgb 15.3, Hct 48.6, MCV 89.2, MCH 28.1, MCHC 31.5 L, Plt Count 321, MPV 9.1, Immature Gran % (Auto) 0.400, Neut % (Auto) 76.7 H, Lymph % (Auto) 16.3 L, [place] % (Auto) 6.1, Eos % (Auto) 0.3, Baso % (Auto) 0.2, Absolute Neuts (auto) 9.3 H, Nucleated RBC % 0 Rhythm: EKG: Atrial fibrillation with rapid ventricular response, old inferior wall myocardial infarction, no acute changes. ECHO: Pending Stress Test: Pending Cardiac Cath: PCI: CT Surgery: Holter monitor: EPS: PPM: CXR: Chest CT Scan: Assessment/Plan 1. Hypertensive urgency: The patient presents with dyspnea on exertion, shortness of breath, and newly discovered atrial fibrillation with rapid ventricular response superimposed on severe hypertension. I recommended the patient be treated with baby aspirin 324 mg x 1 now if not already done so followed by 81 mg p.o. daily given his previous coronary artery disease. In addition I recommend he be treated with Lasix IV 40 mg twice daily until he is reached his dry weight and his edema has resolved. In addition I recommend he undergo a 2D echo with Doppler to document function, pulmonary pressures, and valvular status. Once his medical management has been optimized, and recommend he undergo a treadmill echocardiogram or equivalent stress test to evaluate for possible ischemia. I would also recommend that we ascertain his previous catheterization and angioplasty from [facility]. Patient's hospitalist has started him on metoprolol 100 mg p.o. twice daily, hydralazine 50 mg 3 times daily, hydrochlorothiazide 25 mg daily, and lisinopril 20 mg p.o. daily. This is a fairly aggressive initiation of antihypertensive therapy, would recommend decreasing his metoprolol to 25 mg p.o. twice daily given he is in overt heart failure.. I do not see in his medical list what medicines he was on, and the patient has no idea. If the patient's stress test is abnormal, he will require repeat left heart catheterization at which time we will load him with Plavix 300 mg x 1 followed by 75 mg daily. 2. Atrial fibrillation: Would recommend the patient continue his Cardizem drip until his heart rate is well controlled and his beta-igor has been restarted. If the patient does not require catheterization I would recommend starting him on either Coumadin or Xarelto therapy for ease of use. Patient may not be able to afford Xarelto so he may need Coumadin. If he remains in atrial fibrillation we will treated with anticoagulation therapy for 3 to 4 weeks time followed by elective DC cardioversion. 3. Hyperlipidemia: Recommend obtaining a fasting lipid profile and treating his LDL less than 70 with statin based medications if he is able to tolerate it. 4. Tobacco cessation: I had a long thorough discussion with patient regarding tobacco cessation, and strongly encouraged him to discontinue all tobacco products. 5. Discussed with Dr. Shelton. Thank very much for the opportunity to participate in the [facility] of your patient. Consultation time took place between 1 PM and 1:30 PM. Code Visit Inpatient E&M: 83618 Init Hosp L2
--- NOTE | 2020-01-12 17:40 | PCM.CONS.GEN ---
Reason for Consult Date of Consultation: 01/12/20 Reason for Consultation: Feet History of Present Illness: The patient is a 59 year old male who recently came to ER for SOB, was admitted for further evaluation and treatment. Podiatry was consulted for further evaluation feet. 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 At this time patient relates feet tingle, but no pain. He relates he has been told he has neuropathy and was told nothing really can be done for that. He relates he puts capsaicin cream on feet which helps. He has no pain. He relates to history of athletes foot and also has very dry skin on feet. Past Medical History Allergies No Known Allergies Allergy (Verified 01/11/20 12:19) Home Medications: Ambulatory Orders Medication Instructions Recorded Aspirin E.C. [Ecotrin] 650 mg PO BID PRN PRN 01/11/20 [place]-3/Dha/Epa/Fish Oil [Fish Oil 1,000 mg PO DAILY 01/11/20 1,000 mg Softgel] Surgical History: - - Left great toe surgery. Psychiatric History: No pertinent psych hx Lives: Alone Smoking Status: Current some day smoker Tobacco Use: Cigarettes Alcohol: Sober Drugs: None - *Family History Maternal History Items: Heart Disease Paternal History Items: Heart Disease Review of Systems Constitutional: Denies: Chills, Fever Gastrointestinal: Denies: Nausea, Vomiting Patient Problems: Active and Suspected Problems Atrial fibrillation with rapid ventricular response (Acute) Elevated troponin (Acute) Hypertensive urgency (Acute) Medical non-compliance (Acute) Coronary artery disease (Acute) Non-STEMI (non-ST elevated myocardial infarction) (Acute) - Physical Exam Vitals/I&O's: Vital Signs Temp Pulse Resp BP Pulse Ox 97.1 F L 127 H 18 176/114 H 98 01/12/20 13:00 01/12/20 17:20 01/12/20 17:20 01/12/20 17:20 01/12/20 17:20 Oxygen Flow Rate (L/min) 2 Oxygen Delivery Method Room Air Weight: 123.377 kg Body Mass Index (BMI) 43.9 Intake and Output for Last 24 Hours 01/10/20 01/11/20 01/12/20 23:59 23:59 23:59 Intake Total 1180.75 / 1183.25 1892.68 / 1892.68 Output Total 275 / 275 1800 / 1800 Balance 905.75 / 908.25 92.68 / 92.68 General: Alert, Oriented x3, Cooperative, No apparent distress Extremities: No cyanosis, Capillary Refill Less than 3 Seconds, No Calf Tenderness, Edema - diffuse bilateral lower extremity edema, Peripheral Pulses Normal, - - Bilateral foot with no open lesions, no erythema, no cellulitis, no visible abscess, no ecchymosis, no maloder, no blistering, no necrosis, no gangrene present; there is mild 4th interdigital maceration bilateral foot c/w tinea pedis, diffuse xerosis to feet otherwise (bilateral), hair present to toes and dorsal foot bilateral, CFT < 2 seconds to all toes with normal temperature gradient bilateral foot/ankle. Motor function intact bilateral foot/ankle. Sensation is intact to bilateral foot with light touch and proprioception, patient does relate to some tingling in feet bilateral. No evidence of acute ischemia bilateral foot/ankle. Skin: No breakdown - to foot or ankle bilateral. Musculoskeletal: No Tenderness to Palpation of Joints or Extremities - No POP or pain on ROM to the foot/ankle bilateral. No evidence of charcot neuroarthropathy bilateral foot. Psych/Mental Status: Appropriate, Alert and oriented to time, place, person, mood and affect Laboratory Results 01/11/20 12:35: B-Natriuretic Peptide 284.0 H 01/11/20 19:19: Troponin I 0.055 H 01/11/20 22:14: Troponin I 0.057 H 01/12/20 00:56: Troponin I 0.046 H 01/12/20 00:56: Magnesium 2.0 01/12/20 06:10: Sodium 141, Potassium 4.7, Chloride 110 H, Carbon Dioxide 26.0, Anion Gap 5, BUN 27 H, Creatinine 1.62 H, Estim Creat Clear Calc 43.21, Est GFR (MDRD) Af Amer 56 L, Est GFR (MDRD) Non-Af 46 L, BUN/Creatinine Ratio 16.7, Glucose 121 H, Calcium 8.6, Triglycerides 153, Cholesterol 188, LDL Cholesterol 122, VLDL Cholesterol 31, HDL Cholesterol 35 L, TSH 2.70 01/12/20 06:10: WBC 12.2 H, RBC 5.45, Hgb 15.3, Hct 48.6, MCV 89.2, MCH 28.1, MCHC 31.5 L, RDW Std Deviation 48.1 H, RDW Coeff of Srinivas 15.0 H, Plt Count 321, MPV 9.1, Immature Gran % (Auto) 0.400, Neut % (Auto) 76.7 H, Lymph % (Auto) 16.3 L, [place] % (Auto) 6.1, Eos % (Auto) 0.3, Baso % (Auto) 0.2, Absolute Neuts (auto) 9.3 H, Absolute Lymphs (auto) 1.98, Nucleated RBC % 0 Current Medications Acetaminophen (Tylenol) 1,000 mg PO Q8 [facility] Last Admin: 01/12/20 13:30 Dose: 1,000 mg Documented by: Atorvastatin Calcium (Lipitor) 40 mg PO QHS [facility] Clotrimazole (Lotrimin) 1 applicatio TOPICAL DAILY [facility]; Protocol Enoxaparin Sodium (Lovenox) 40 mg SC DAILY [facility] Last Admin: 01/12/20 08:45 Dose: 40 mg Documented by: Furosemide (Lasix) 40 mg IV BID@1000,1800 [facility] Last Admin: 01/12/20 17:19 Dose: 40 mg Documented by: Hydralazine HCl (Apresoline) 50 mg PO TID [facility] Last Admin: 01/12/20 13:30 Dose: 50 mg Documented by: Hydrochlorothiazide (Hctz) 25 mg PO DAILY [facility] Last Admin: 01/12/20 08:45 Dose: 25 mg Documented by: Diltiazem HCl 125 mg/ Dextrose 125 mls @ 5 mls/hr IV .Q25H [facility]; Protocol Last Admin: 01/12/20 17:20 Dose: 5 mg/hr, 5 mls/hr Documented by: Lisinopril (Zestril) 20 mg PO DAILY [facility] Last Admin: 01/12/20 08:44 Dose: 20 mg Documented by: Metoprolol Tartrate (Lopressor (Beta Jose Raul)) 25 mg PO BID [facility] Multi-Ingredient Cream (Eucerin) 1 applic TOPICAL DAILY [facility]; Protocol Ondansetron HCl (Zofran) 4 mg IV Q6H PRN PRN PRN Reason: NAUSEA/VOMITING Last Admin: 01/12/20 05:21 Dose: 4 mg Documented by: Oxycodone HCl (Oxyir) 5 mg PO Q6H PRN PRN PRN Reason: Pain Score 6-10/10 Sodium Chloride () 10 - 40 ml IV UD PRN PRN Reason: SALINE FLUSH Last Admin: 01/12/20 17:19 Dose: 10 ml Documented by: Assessment/Plan All Active Problems Atrial fibrillation with rapid ventricular response (Acute) Elevated troponin (Acute) Hypertensive urgency (Acute) Medical non-compliance (Acute) Coronary artery disease (Acute) Non-STEMI (non-ST elevated myocardial infarction) (Acute) Mild 4th interdigital tinea pedis bilateral - chronic appearing Xerosis of skin bilateral foot - chronic Peripheral neuropathy lower extremity - chronic Foot/ankle exam performed. Reviewed findings with patient. No acute pathology present at this time. Ordered bilateral foot xrays for further evaluation. Tinea pedis: Ordered clotrimazole cream to be applied topically daily. Xerosis of skin bilateral foot: Ordered eucerin cream to be applied to feet daily, but not in between toes. Neuropathy: Chronic, patient relates to tingling otherwise really not bothering him. He uses topical capsaicin cream which he relates really helps. Further medical management per medicine and other teams following patient. Thank you for consultation. Will follow up with patient on xray results, otherwise patient can follow up as outpatient for further foot care.
--- NOTE | 2020-01-12 17:45 | NURSING ---
This RN in room to round on patient. Pt in restroom with door closed, asked patient if he was okay. Pt states 'I am here.' Opened door and patient lying on floor on his left side. Staff assist called and additional PCU staff in room. Asked pt what happened and patient stated that he went to get up off the toilet and he just fell to the left. Pt denies pain, denies hitting his head. Dr Zachary moon. Assist times 4 with gait belt to assist pt to wheelchair. Pt with signs of weakness but pt remains Alert. Pt back to bed. MD in room at this time. Pt presenting with Left sided weakness, left sided facial droop. Stroke alert called at [id number]. See stroke alert documentation.
--- NOTE | 2020-01-12 18:12 | CT_ITS ---
STUDY: CT BRAIN WITHOUT CONTRAST REASON FOR EXAM: Male, 59 years old. CVA, LEFT SIDE WEAKNESS, FACIAL DROOP RADIATION DOSAGE (If Supplied By Facility): CTDIvol = ( 44.99 ) mGy, DLP = ( 1483.96 ) mGycm TECHNIQUE: Transaxial CT imaging of the brain was performed without administration of intravenous contrast material. Individualized dose optimization techniques were used for this CT. COMPARISON: No relevant priors. FINDINGS: Normal soft tissue structures. Normal calvarium. There is mild cerebral atrophy with widening of the extra-axial spaces and ventricular dilatation. Normal white matter tracts of the cerebral hemispheres. Normal basal ganglia and thalami. Normal brainstem. Normal cerebellum. There is no intracranial hemorrhage. There are no findings of an acute ischemic infarction. Normal visualized paranasal sinuses. CT/Brain/Head without Contrast IMPRESSION: Chronic involutional changes of the brain. Results discussed with Gretta Godwin, nurse caring for the patient. N.B. : The above information has been verbally conveyed by Jeremy Adair MD to Gretta Godwin RN, RN, on 01/12/2020 18:36:43 (ET). Electronically Signed: Jeremy Adair MD at 18:37 EST , Service support ,
--- NOTE | 2020-01-12 18:12 | CT_ITS ---
STUDY: CTA HEAD AND NECK WITH CONTRAST REASON FOR EXAM: Male, 59 years old. CVA. Found on floor in bathroom. New onset lt sided facial droop RADIATION DOSAGE (If Supplied By Facility): CTDIvol = ( 23.87 ) mGy, DLP = ( 851.30 ) mGycm TECHNIQUE: CT angiography was performed with a multi-detector CT scanner. Data acquisition was obtained from the skull base through the vertex following intravenous administration of Isovue 370 75ml. MIP images were reconstructed from the axial data set. Post-processing of the angiographic images was performed, with multiplanar reformation and 3D reconstruction. Individualized dose optimization techniques were used for this CT. COMPARISON: No relevant priors. FINDINGS: Normal bilateral petrous carotid arteries. Normal right cavernous carotid artery with a normal supraclinoid bifurcation. There is calcified plaque formation of the left cavernous carotid artery, without a cross-sectional luminal stenosis. Normal right A1 segments of the anterior cerebral artery. There is hypoplastic development of the left A1 segment of the anterior cerebral arteries with an atretic but intact artery. Normal intact anterior communicating artery (ACOM). Normal bilateral A2 segments of the anterior cerebral arteries. Normal right M1 and M2 segments of the middle cerebral arteries, with a normal M1 bifurcation. Normal left M1 and M2 segments of the middle cerebral arteries, with a normal M1 bifurcation. Normal right posterior communicating artery (PCOM). There is non-visualization of the left posterior communicating artery (PCOM). Normal bilateral vertebral arteries. There is tortuosity with elongation of the basilar artery. The visualized bilateral superior cerebellar (SCA) arteries are normal. Normal bilateral P1, P2 and visualized P3 segments of the posterior cerebral arteries. There is no demonstrated aneurysm of the [place]. AORTIC ARCH: There is atherosclerotic calcific plaque formation of the aortic arch and great vessels arising from the aortic arch, without a hemodynamically significant stenosis. There is a normal origin of the brachiocephalic, left common carotid, and left subclavian arteries. Normal origins of the brachiocephalic, left common carotid, and left subclavian arteries. RIGHT CAROTID ARTERIES: Normal right common carotid artery (CCA). There is mild atherosclerotic plaque formation with minimal narrowing of the right carotid bulb. There is mild atherosclerotic plaque formation of the origin of the right internal carotid artery with less than 50% cross sectional diameter stenosis. Normal visualized cervical portion of the right internal carotid artery. Normal origin of the right external carotid artery (ECA). LEFT CAROTID ARTERIES: Normal left common carotid artery (CCA). Normal left common carotid bulb. There is moderate focal atherosclerotic plaque formation of the origin of the left internal carotid artery with an estimated stenosis of approximately 70%. Medialization of the left ICA noted. Normal visualized cervical portion of the left internal carotid artery. Normal origin of the left external carotid artery (ECA). VERTEBRAL ARTERIES: Normal bilateral vertebral arteries. CT/CTA Head AND Neck W/ Contrast IMPRESSION: 1. No hemodynamically significant stenosis or occlusion or aneurysm of the intracranial arteries. 2. There is moderate focal atherosclerotic plaque formation of the origin of the left internal carotid artery with an estimated stenosis of approximately 70%. Medialization of the left ICA noted. Normal visualized cervical portion of the left internal carotid artery. Electronically Signed: Stef García MD at 19:17 EST , Service support ,
--- NOTE | 2020-01-12 18:48 | NURSING ---
Pt transferred from PCU bed into ICU bed in Rm 5;pt alert and oriented, NIH performed and VS obtained.
--- NOTE | 2020-01-12 19:00 | NURSING ---
PRN Labetalol given IVP per during Head CT, BP remains elevated 165/110. Nicardipine gtt started at 5mg/hr as per protocol/order.
[2020-01-12 19:12] LABS: International Normalized Ratio 1.2; Partial Thromboplast Time 34.7 Seconds (24.1-36.2); Prothrombin Time (Protime)PT. 14.6 SECONDS (11.7-14.9)
--- NOTE | 2020-01-12 19:15 | NURSING ---
Nicardipine gtt 20mg/200ml increased to 7.5mg/hr d/t BP 165/119. Cont to wait on PT/INR results, alteplase bolus held at this time.
--- NOTE | 2020-01-12 19:18 | PCM.PN.HOSP ---
<Ml Guadalupe - Last Filed: 01/12/20 19:30> Patient Problems: Active and Suspected Problems Atrial fibrillation with rapid ventricular response (Acute) Elevated troponin (Acute) Hypertensive urgency (Acute) Medical non-compliance (Acute) Coronary artery disease (Acute) Non-STEMI (non-ST elevated myocardial infarction) (Acute) Subjective: Nursing staff assist called at 1745 due to patient fall in restroom. Patient was assisted by nursing staff back into bed and NIH immediately performed. Patient last seen well at 1730. Upon examination, patient's left leg noted to be flaccid and left arm with drift. Stroke alert immediately called and patient taken to CT per stroke protocol. Vitals/I&O's: Vital Signs Temp Pulse Resp BP Pulse Ox 97.1 F L 127 H 18 176/114 H 98 01/12/20 13:00 01/12/20 17:20 01/12/20 17:20 01/12/20 17:20 01/12/20 17:20 Oxygen Flow Rate (L/min) 2 Oxygen Delivery Method Room Air Weight: 272 lb Body Mass Index (BMI) 43.9 Finger Stick Blood Glucose 163 Intake and Output for Last 24 Hours 01/10/20 01/11/20 01/12/20 23:59 23:59 23:59 Intake Total 1180.75 / 1183.25 1892.68 / 1892.68 Output Total 275 / 275 1800 / 1800 Balance 905.75 / 908.25 92.68 / 92.68 General: Alert, Oriented x3, Cooperative HEENT: Atraumatic, PERRLA, EOMI, Normocephalic Neck: Supple, No JVD, Negative Carotid Bruits Lungs: Clear to auscultation, Normal air movement Cardiovascular: Regular rate, Regular Rhythm, Normal S1, Normal S2, No murmurs Abdomen: Bowel Sounds Present, Soft, Non Tender, Non-Distended, Obese Extremities: No clubbing, No cyanosis, No edema, Capillary Refill Less than 3 Seconds Skin: No rashes, No breakdown Musculoskeletal: No Tenderness to Palpation of Joints or Extremities Neurological: Cranial nerves II-XII grossly intact, - - Flaccid left lower extremity, left upper extremity weakness with drift, left facial droop Psych/Mental Status: Normal Affect, Appropriate Laboratory Results 01/11/20 19:19: Troponin I 0.055 H 01/11/20 22:14: Troponin I 0.057 H 01/12/20 00:56: Troponin I 0.046 H 01/12/20 00:56: Magnesium 2.0 01/12/20 06:10: Sodium 141, Potassium 4.7, Chloride 110 H, Carbon Dioxide 26.0, Anion Gap 5, BUN 27 H, Creatinine 1.62 H, Estim Creat Clear Calc 43.21, Est GFR (MDRD) Af Amer 56 L, Est GFR (MDRD) Non-Af 46 L, BUN/Creatinine Ratio 16.7, Glucose 121 H, Calcium 8.6, Triglycerides 153, Cholesterol 188, LDL Cholesterol 122, VLDL Cholesterol 31, HDL Cholesterol 35 L, TSH 2.70 01/12/20 06:10: WBC 12.2 H, RBC 5.45, Hgb 15.3, Hct 48.6, MCV 89.2, MCH 28.1, MCHC 31.5 L, RDW Std Deviation 48.1 H, RDW Coeff of Srinivas 15.0 H, Plt Count 321, MPV 9.1, Immature Gran % (Auto) 0.400, Neut % (Auto) 76.7 H, Lymph % (Auto) 16.3 L, Gonzales % (Auto) 6.1, Eos % (Auto) 0.3, Baso % (Auto) 0.2, Absolute Neuts (auto) 9.3 H, Absolute Lymphs (auto) 1.98, Nucleated RBC % 0 01/12/20 18:53: PT 14.6, INR 1.2, APTT 34.7 Current Medications Acetaminophen (Tylenol) 1,000 mg PO Q8 [facility] Last Admin: 01/12/20 13:30 Dose: 1,000 mg Documented by: Acetaminophen (Tylenol) 650 mg PO Q6H PRN PRN PRN Reason: Temp > 99.6 F Atorvastatin Calcium (Lipitor) 40 mg PO QHS [facility] Clotrimazole (Lotrimin) 1 applicatio TOPICAL DAILY [facility]; Protocol Diphenhydramine HCl (Benadryl) 50 mg IV X1 PRN PRN Reason: Allergic Reaction Stop: 01/14/20 18:33 Epinephrine HCl () 0.3 mg IM X1 PRN PRN Reason: Allergic Reaction Stop: 01/14/20 18:33 Furosemide (Lasix) 40 mg IV BID@1000,1800 [facility] Last Admin: 01/12/20 17:19 Dose: 40 mg Documented by: Hydralazine HCl (Apresoline) 50 mg PO TID [facility] Last Admin: 01/12/20 13:30 Dose: 50 mg Documented by: Hydrochlorothiazide (Hctz) 25 mg PO DAILY [facility] Last Admin: 01/12/20 08:45 Dose: 25 mg Documented by: Diltiazem HCl 125 mg/ Dextrose 125 mls @ 5 mls/hr IV .Q25H [facility]; Protocol Last Admin: 01/12/20 17:20 Dose: 5 mg/hr, 5 mls/hr Documented by: Nicardipine/Dextrose (Cardene-Dex 20 Mg/200 Ml Soln) 20 mg in 200 mls @ 50 mls/hr IV .Q4H PRN; Protocol PRN Reason: see instructions Famotidine 20 mg/ Sodium (Chloride) 10 mls @ 300 mls/hr IV X1 PRN PRN Reason: Allergic Reaction Stop: 01/14/20 18:33 Alteplase, Recombinant 81 mg/ (N/A) 81 mls @ 81 mls/hr IV X1 ONE Stop: 01/12/20 19:45 Labetalol HCl (Trandate) 20 mg IV X1 PRN PRN Reason: BP MANAGEMENT Lisinopril (Zestril) 20 mg PO DAILY [facility] Last Admin: 01/12/20 08:44 Dose: 20 mg Documented by: Methylprednisolone (Solu-Medrol) 125 mg IV X1 PRN PRN Reason: Allergic Reaction Stop: 01/14/20 18:33 Metoprolol Tartrate (Lopressor (Beta Jose Raul)) 25 mg PO BID [facility] Multi-Ingredient Cream (Eucerin) 1 applic TOPICAL DAILY [facility]; Protocol Ondansetron HCl (Zofran) 4 mg IV Q6H PRN PRN PRN Reason: NAUSEA/VOMITING Last Admin: 01/12/20 05:21 Dose: 4 mg Documented by: Oxycodone HCl (Oxyir) 5 mg PO Q6H PRN PRN PRN Reason: Pain Score 6-10/10 Sodium Chloride () 10 - 40 ml IV UD PRN PRN Reason: SALINE FLUSH Last Admin: 01/12/20 17:19 Dose: 10 ml Documented by: STROKE Vital Signs/Narrative: Vital Signs Pulse Resp BP Pulse Ox 01/12/20 17:20 127 H 18 176/114 H 98 Inital Vital Signs reviewed: Yes Neurological: Weakness - Left-sided, Left side facial droop Medical Necessity - Tobacco Use Smoking Status: Current some day smoker Tobacco Use: Cigarettes Assessment/Plan All Active Problems Atrial fibrillation with rapid ventricular response (Acute) Elevated troponin (Acute) Hypertensive urgency (Acute) Medical non-compliance (Acute) Coronary artery disease (Acute) Non-STEMI (non-ST elevated myocardial infarction) (Acute) [facility] telemetry stroke consulted, recommended TPA. Discussed benefits and risks with patient by neurology, patient agreeable. CTA read showing moderate focal atherosclerotic plaque formation of the origin of the left internal carotid area with an estimated stenosis of approximately 70%. Medialization of the left ICA noted. MRI of brain ordered. Discussed CTA head with [facility], did not feel significant to current presentation. We will continue with post TPA management. <Bonnie Sharma - Last Filed: 01/12/20 19:53> Reason for Visit: Acute stroke alert Vitals/I&O's: Vital Signs Temp Pulse Resp BP Pulse Ox 97.1 F L 127 H 18 176/114 H 98 01/12/20 13:00 01/12/20 17:20 01/12/20 17:20 01/12/20 17:20 01/12/20 17:20 Oxygen Flow Rate (L/min) 2 Oxygen Delivery Method Room Air Weight: 123.377 kg Body Mass Index (BMI) 43.9 Finger Stick Blood Glucose 163 Intake and Output for Last 24 Hours 01/10/20 01/11/20 01/12/20 23:59 23:59 23:59 Intake Total 1180.75 / 1183.25 1892.68 / 1892.68 Output Total 275 / 275 1800 / 1800 Balance 905.75 / 908.25 92.68 / 92.68 Laboratory Results 01/11/20 19:19: Troponin I 0.055 H 01/11/20 22:14: Troponin I 0.057 H 01/12/20 00:56: Troponin I 0.046 H 01/12/20 00:56: Magnesium 2.0 01/12/20 06:10: Sodium 141, Potassium 4.7, Chloride 110 H, Carbon Dioxide 26.0, Anion Gap 5, BUN 27 H, Creatinine 1.62 H, Estim Creat Clear Calc 43.21, Est GFR (MDRD) Af Amer 56 L, Est GFR (MDRD) Non-Af 46 L, BUN/Creatinine Ratio 16.7, Glucose 121 H, Calcium 8.6, Triglycerides 153, Cholesterol 188, LDL Cholesterol 122, VLDL Cholesterol 31, HDL Cholesterol 35 L, TSH 2.70 01/12/20 06:10: WBC 12.2 H, RBC 5.45, Hgb 15.3, Hct 48.6, MCV 89.2, MCH 28.1, MCHC 31.5 L, RDW Std Deviation 48.1 H, RDW Coeff of Srinivas 15.0 H, Plt Count 321, MPV 9.1, Immature Gran % (Auto) 0.400, Neut % (Auto) 76.7 H, Lymph % (Auto) 16.3 L, Gonzales % (Auto) 6.1, Eos % (Auto) 0.3, Baso % (Auto) 0.2, Absolute Neuts (auto) 9.3 H, Absolute Lymphs (auto) 1.98, Nucleated RBC % 0 01/12/20 18:53: PT 14.6, INR 1.2, APTT 34.7 Current Medications Acetaminophen (Tylenol) 1,000 mg PO Q8 [facility] Last Admin: 01/12/20 13:30 Dose: 1,000 mg Documented by: Acetaminophen (Tylenol) 650 mg PO Q6H PRN PRN PRN Reason: Temp > 99.6 F Atorvastatin Calcium (Lipitor) 40 mg PO QHS [facility] Clotrimazole (Lotrimin) 1 applicatio TOPICAL DAILY [facility]; Protocol Diphenhydramine HCl (Benadryl) 50 mg IV X1 PRN PRN Reason: Allergic Reaction Stop: 01/14/20 18:33 Epinephrine HCl () 0.3 mg IM X1 PRN PRN Reason: Allergic Reaction Stop: 01/14/20 18:33 Furosemide (Lasix) 40 mg IV BID@1000,1800 [facility] Last Admin: 01/12/20 17:19 Dose: 40 mg Documented by: Hydralazine HCl (Apresoline) 50 mg PO TID [facility] Last Admin: 01/12/20 13:30 Dose: 50 mg Documented by: Hydrochlorothiazide (Hctz) 25 mg PO DAILY [facility] Last Admin: 01/12/20 08:45 Dose: 25 mg Documented by: Diltiazem HCl 125 mg/ Dextrose 125 mls @ 5 mls/hr IV .Q25H [facility]; Protocol Last Admin: 01/12/20 17:20 Dose: 5 mg/hr, 5 mls/hr Documented by: Nicardipine/Dextrose (Cardene-Dex 20 Mg/200 Ml Soln) 20 mg in 200 mls @ 50 mls/hr IV .Q4H PRN; Protocol PRN Reason: see instructions Last Admin: 01/12/20 19:00 Dose: 50 mls/hr Documented by: Famotidine 20 mg/ Sodium (Chloride) 10 mls @ 300 mls/hr IV X1 PRN PRN Reason: Allergic Reaction Stop: 01/14/20 18:33 Alteplase, Recombinant 81 mg/ (N/A) 81 mls @ 81 mls/hr IV X1 ONE Stop: 01/12/20 19:45 Labetalol HCl (Trandate) 20 mg IV X1 PRN PRN Reason: BP MANAGEMENT Lisinopril (Zestril) 20 mg PO DAILY [facility] Last Admin: 01/12/20 08:44 Dose: 20 mg Documented by: Methylprednisolone (Solu-Medrol) 125 mg IV X1 PRN PRN Reason: Allergic Reaction Stop: 01/14/20 18:33 Metoprolol Tartrate (Lopressor (Beta Jose Raul)) 25 mg PO BID [facility] Multi-Ingredient Cream (Eucerin) 1 applic TOPICAL DAILY [facility]; Protocol Ondansetron HCl (Zofran) 4 mg IV Q6H PRN PRN PRN Reason: NAUSEA/VOMITING Last Admin: 01/12/20 05:21 Dose: 4 mg Documented by: Oxycodone HCl (Oxyir) 5 mg PO Q6H PRN PRN PRN Reason: Pain Score 6-10/10 Sodium Chloride () 10 - 40 ml IV UD PRN PRN Reason: SALINE FLUSH Last Admin: 01/12/20 17:19 Dose: 10 ml Documented by: STROKE Vital Signs/Narrative: Vital Signs Pulse Resp BP Pulse Ox 01/12/20 17:20 127 H 18 176/114 H 98 Assessment/Plan This patient was seen in conjunction with Ml Guadalupe NP. I have independently interviewed and examined the patient and reviewed pertinent historical, laboratory, and other data. Please refer to her note for patient's presentation, findings, and recommendations. 59-year-old male admitted with Fritz colon with RVR and uncontrolled hypertension. Patient was seen during the day. Multiple medications were tried to control his blood pressure. Patient was last known well at 5:30 PM. Found on the floor in the bathroom at 5:45 pm. He was brought back to bed. He was noted to have significant left-sided weakness, worse in the left leg. NIHSS score was 8. Stroke alert was called. CT of the head did not show any acute bleed. CTA of the head and neck was significant for 70% stenosis of the left carotid artery and less than 50% plaque in the right ICA. This was discussed with [facility] tele-neurology. Patient likely has acute stroke. Patient was recommended to have TPA. Risks and benefits explained to the patient. Patient verbalised agreement to TPA. TPA order set put in. Blood pressure initially was more than 200 systolic. IV labetalol 20 mg x 1 was given. Patient was sent to the ICU. In the ICU, patient's blood pressure was still elevated more than 150/125. Started on IV nicardipine. Blood for PT/PTT was drawn in the ICU. TPA was present in ICU but had to be started at 1930HRS because BP was not less than 185/105. TPA orderset placed; will continue per protocol. [employer] informed Discussed with [facility] tele-neurologist about results of CTA - No large vessel occlusion seen. Feels 70% Left carotid plaque is an incidental findings as it does not contribute to the neurological presentation. Will continue with Post-TPA protocol. In the ICU, patient was alert, oriented x 3 Physical Exam: CVS:HS I +II, regular, tachycardic, no murmurs RESP: Diminished at lung bases GI: BS present and normal, nontender, no palpable organs EXT:Bilateral leg edema +1 [employer]: CNii-XII intact except for mild right facial droop, Power is 5/5 in both RUE/RLE, 4/5 in LUE, 1/5 in LLE, finger to nose test is present in both upper extremities, unable to do heel to mclaughlin in left lower leg. Able to perform heel to mclaughlin in right lower leg. Time spent during stroke alert and taken to patient, coordinating with [facility], monitor in ICU >65 minutes. Code Visit Procedures: 91277 Prolonged Physician INPT
--- NOTE | 2020-01-12 19:29 | NURSING ---
BP 144/87, alteplase bolus 9mg IVP given over 1min s/p verification of pt, medication and order. Nicardipine gtt remains at 7.5mg/hr.
--- NOTE | 2020-01-12 19:30 | NURSING ---
Alteplase infusion of 81mg/hr begins
--- NOTE | 2020-01-12 20:15 | NURSING ---
Nicardipine drip reduced to 5mg/hr, BP 139/83.
--- NOTE | 2020-01-12 21:15 | NURSING ---
Nicardipine drip reduced to 2.5mg/hr, BP148/91.
--- NOTE | 2020-01-12 21:48 | PCM.PN.BLA ---
Progress Note Will discontinue all po bp meds now in the setting of acute CVA < 24 hours STROKE Vital Signs/Narrative: Vital Signs Temp Pulse Resp BP Pulse Ox 01/12/20 20:15 127 H 18 139/83 H 92 01/12/20 20:00 125 H 27 H 155/93 H 95 01/12/20 19:45 125 H 22 H 139/90 H 94 01/12/20 19:30 124 H 25 H 144/87 H 95 01/12/20 19:15 129 H 21 H 165/119 H 96 01/12/20 19:00 123 H 21 H 165/110 H 97 01/12/20 18:48 98 F 124 H 27 H 168/123 H 95 01/12/20 18:45 125 H 22 H 163/106 H 98 01/12/20 18:30 131 H 19 H 211/128 H 96 01/12/20 18:15 125 H 18 151/107 H 95 01/12/20 17:55 126 H 20 H 190/92 H 95
--- NOTE | 2020-01-12 22:30 | NURSING ---
Nicardipine gtt placed on hold prior to giving Digoxin 0.5mg IVP x1.
[2020-01-12] MEDS: Digoxin 250 MCG/ML Ampul 500 MCG IV (22:40)
--- NOTE | 2020-01-12 23:00 | NURSING ---
Nicardipine gtt remains on hold.
[2020-01-12] MEDS: Metoprolol Tartrate 5 MG/5 ML Vial IV (23:30)
[2020-01-13] VITALS (64 sets, daily range): BP systolic 109–175; BP diastolic 57–122; PULSE 72–134; RESP 11–26; TEMP 37.2–38; O2SAT 91–99; BMI 43.9
[2020-01-13] MEDS: Digoxin 250 MCG/ML Ampul IV (02:33)
[2020-01-13] MEDS: 0.9% Saline Lock 10 ML Syringe IV ×2 (02:35→05:58)
--- NOTE | 2020-01-13 02:35 | NURSING ---
Nicardipine 20mg/200ml restarted at 5mg/hr, BP 162/122 after several checks and cuff site rotation.
--- NOTE | 2020-01-13 02:45 | NURSING ---
Nicardipine gtt remains on at 5mg/hr, BP160/115; not within time parameter to titrate
--- NOTE | 2020-01-13 03:00 | NURSING ---
Nicardipine gtt at 5mg/hr, BP 169/107; cont to monitor BP trend.
--- NOTE | 2020-01-13 04:00 | NURSING ---
Nicardipine gtt remains at 5mg/hr
[2020-01-13 04:56] LABS: Hematocrit 48.7 % (40-54); Mean Corp Hgb Conc 32.9 g/dL (32-36); Mean Corpuscular Volume 85.3 fL (80-94); Platelet Count 154 K/mm3 (150-450); RBC Distribution Width CV 14.8 % (11.6-14.6); RBC Distribution Width SD 44.8 fl (35.1-43.9); Red Blood Count 5.71 M/mm3 (4.6-6.2)
--- NOTE | 2020-01-13 05:00 | NURSING ---
Nicardipine drip cont at 5mg/hr
[2020-01-13 05:07] LABS: Anion Gap 8 (5-15); BUN 28 mg/dL (7-18); BUN/Creat Ratio 18.9 RATIO (10-20); Calcium,Total 9.1 mg/dL (8.5-10.1); Chloride 103 mmol/L (98-107); Creatinine, Serum 1.48 mg/dL (0.70-1.30); EST Glomerular Filtration Rate 51 mL/min (>60); Est Glom Filt Rate - Afr Amer 62 mL/min (>60); Glucose 133 mg/dL (74-106); Potassium 3.5 mmol/L (3.5-5.1); Sodium Level 141 mmol/L (136-145)
[2020-01-13] MEDS: Metoprolol Tartrate 5 MG/5 ML Vial IV (05:57)
--- NOTE | 2020-01-13 06:50 | NURSING ---
at bedside, pt's history and careplan reviewed. Discussed holding any further metoprolol doses to avoid beta igor administration concurrently w/nicardipine.
--- NOTE | 2020-01-13 07:00 | NURSING ---
Nicardipine 20mg/200ml cont infusing at 5mg/hr thru LAC 20g.
[2020-01-13 07:18] LABS: Magnesium 1.9 mg/dL (1.6-2.6); Phosphorus 3.7 mg/dL (2.5-4.9)
--- NOTE | 2020-01-13 07:39 | PN_ITS ---
Patient Problems: Active and Suspected Problems Atrial fibrillation with rapid ventricular response (Acute) Elevated troponin (Acute) Hypertensive urgency (Acute) Medical non-compliance (Acute) Coronary artery disease (Acute) Non-STEMI (non-ST elevated myocardial infarction) (Acute) Reason for Visit: Follow-up on acute stroke Subjective: Patient was seen and examined. Overnight his blood pressure was not controlled. He also had A. fib with RVR requiring use of IV metoprolol and digoxin. He has since been started on Cardizem drip. His NIHSS score still remains high 11. He is still unable to use his left lower leg. Denies any dizziness or chest pain or shortness of breath Vitals/I&O's: Vital Signs Temp Pulse Resp BP Pulse Ox 99.2 F H 100 19 H 138/87 H 96 01/13/20 07:00 01/13/20 07:15 01/13/20 07:15 01/13/20 07:15 01/13/20 07:15 Oxygen Flow Rate (L/min) 2 Oxygen Delivery Method Nasal Cannula Weight: 123.377 kg Body Mass Index (BMI) 43.9 Finger Stick Blood Glucose 163 Intake and Output for Last 24 Hours 01/11/20 01/12/20 01/13/20 23:59 23:59 23:59 Intake Total 1180.75 / 1183.25 2315.76 / 2315.76 Output Total 275 / 275 3350 / 4450 1550 / 1550 Balance 905.75 / 908.25 -1034.24 / -2134.24 -1550 / -1550 General: Alert, Oriented x3, Cooperative HEENT: Atraumatic, PERRLA, EOMI, Normocephalic Oral: Moist Mucosa Neck: Supple Lungs: Clear to auscultation, Normal air movement Cardiovascular: Regular rate, Regular Rhythm, Normal S1, Normal S2, No murmurs Abdomen: Bowel Sounds Present, Soft, Non Tender, Non-Distended, No Hepato- splenomegaly Extremities: No edema, Capillary Refill Less than 3 Seconds Skin: No rashes, No breakdown Musculoskeletal: No Tenderness to Palpation of Joints or Extremities Neurological: Cranial nerves II-XII grossly intact - except for left facial droop, Motor Exam 5/5 strength throughout - except 4/5 in LUE and 0-1 in LLL Psych/Mental Status: Normal Affect, Appropriate Laboratory Results 01/12/20 00:56: Magnesium 2.0 01/12/20 18:53: PT 14.6, INR 1.2, APTT 34.7 01/13/20 04:40: WBC 9.0, RBC 5.71, Hgb 16.0, Hct 48.7, MCV 85.3, MCH 28.0, MCHC 32.9, RDW Std Deviation 44.8 H, RDW Coeff of Srinivas 14.8 H, Plt Count 154, MPV 9.0 01/13/20 04:40: Sodium 141, Potassium 3.5, Chloride 103, Carbon Dioxide 30.0, Anion Gap 8, BUN 28 H, Creatinine 1.48 H, Estim Creat Clear Calc 47.30, Est GFR (MDRD) Af Amer 62, Est GFR (MDRD) Non-Af 51 L, BUN/Creatinine Ratio 18.9, Glucose 133 H, Calcium 9.1 01/13/20 04:40: Phosphorus 3.7, Magnesium 1.9 Current Medications Acetaminophen (Tylenol) 1,000 mg PO Q8 [facility] Last Admin: 01/13/20 05:32 Dose: Not Given Documented by: Acetaminophen (Tylenol) 650 mg PO Q6H PRN PRN PRN Reason: Temp > 99.6 F Atorvastatin Calcium (Lipitor) 40 mg PO QHS [facility] Last Admin: 01/12/20 22:05 Dose: Not Given Documented by: Clotrimazole (Lotrimin) 1 applicatio TOPICAL DAILY [facility]; Protocol Diphenhydramine HCl (Benadryl) 50 mg IV X1 PRN PRN Reason: Allergic Reaction Stop: 01/14/20 18:33 Epinephrine HCl () 0.3 mg IM X1 PRN PRN Reason: Allergic Reaction Stop: 01/14/20 18:33 Furosemide (Lasix) 40 mg IV BID@1000,1800 [facility] Last Admin: 01/12/20 17:19 Dose: 40 mg Documented by: Diltiazem HCl 125 mg/ Dextrose 125 mls @ 5 mls/hr IV .Q25H [facility]; Protocol Last Titration: 01/12/20 17:45 Dose: Infused Documented by: Nicardipine/Dextrose (Cardene-Dex 20 Mg/200 Ml Soln) 20 mg in 200 mls @ 50 mls/hr IV .Q4H PRN; Protocol PRN Reason: see instructions Last Admin: 01/13/20 06:56 Dose: 50 mls/hr Documented by: Famotidine 20 mg/ Sodium (Chloride) 10 mls @ 300 mls/hr IV X1 PRN PRN Reason: Allergic Reaction Stop: 01/14/20 18:33 Magnesium Sulfate 2 gm/ Sodium (Chloride) 104 mls @ 52 mls/hr IV X1 ONE Stop: 01/13/20 09:31 Labetalol HCl (Trandate) 20 mg IV X1 PRN PRN Reason: BP MANAGEMENT Last Admin: 01/12/20 18:38 Dose: 20 mg Documented by: Methylprednisolone (Solu-Medrol) 125 mg IV X1 PRN PRN Reason: Allergic Reaction Stop: 01/14/20 18:33 Metoprolol Tartrate (Lopressor (Beta Jose Raul)) 5 mg IV Q6H PRN PRN PRN Reason: tachy Last Admin: 01/13/20 05:57 Dose: 5 mg Documented by: Multi-Ingredient Cream (Eucerin) 1 applic TOPICAL DAILY [facility]; Protocol Ondansetron HCl (Zofran) 4 mg IV Q6H PRN PRN PRN Reason: NAUSEA/VOMITING Last Admin: 01/12/20 05:21 Dose: 4 mg Documented by: Oxycodone HCl (Oxyir) 5 mg PO Q6H PRN PRN PRN Reason: Pain Score 6-10/10 Sodium Chloride () 10 - 40 ml IV UD PRN PRN Reason: SALINE FLUSH Last Admin: 01/13/20 05:58 Dose: 10 ml Documented by: STROKE Vital Signs/Narrative: Vital Signs Temp Pulse Resp BP BP Pulse Ox 01/13/20 07:15 100 19 H 138/87 H 96 01/13/20 07:00 99.2 F H 120 H 21 H 160/87 H 97 01/13/20 06:45 123 H 16 160/102 H 98 01/13/20 06:30 128 H 22 H 171/114 H 98 01/13/20 06:15 130 H 18 152/100 H 97 01/13/20 06:00 99.2 F H 130 H 14 154/105 H 97 01/13/20 05:57 129 H 143/100 H 01/13/20 05:45 113 H 19 H 143/100 H 97 01/13/20 05:30 120 H 19 H 162/82 H 98 01/13/20 05:15 129 H 24 H 147/102 H 99 01/13/20 05:00 99.2 F H 130 H 19 H 149/94 H 95 01/13/20 04:45 129 H 17 175/97 H 98 01/13/20 04:30 130 H 14 136/105 H 98 01/13/20 04:15 129 H 14 137/87 H 98 01/13/20 04:00 99.3 F H 105 H 18 149/91 H 95 01/13/20 03:45 127 H 19 H 139/90 H 97 Medical Necessity - Tobacco Use Smoking Status: Current some day smoker Tobacco Use: Cigarettes Assessment/Plan All Active Problems Atrial fibrillation with rapid ventricular response (Acute) Elevated troponin (Acute) Hypertensive urgency (Acute) Medical non-compliance (Acute) Coronary artery disease (Acute) Non-STEMI (non-ST elevated myocardial infarction) (Acute) 1. Acute right frontal and left occipital infarcts, likely acute cardioembolic in nature, history of underlying A. fib Status post TPA, MRI of the head confirms stroke, still on nicardipine drip per post TPA protocol We will continue post TPA protocol, CT of the head is pending at 24-hour aline, follow-up with telemetry neurology-consulted T chol 188, triglyceride 153, LDL 122, HDL is 35, TSH 2.7 Increase atorvastatin to 80mg daily, the echo shows EF of 45 to 50%, no valvular abnormalities PT/OT/ST consulted 2. A. fib with RVR, on metoprolol and Cardizem drip, will need neurology to clarify anticoagulation for the future 3. Hypertension, better controlled, continue on medications as in #1 and #2 4. Indeterminate troponins, likely secondary to uncontrolled hypertension, being followed by cardiology 5. Right-sided pleural effusion, small pericardial effusion, seen on CT, not seen on 2D echo, possible acute diastolic CHF Diuresing on Lasix, continue with strict I's and O's 6. Hypomagnesemia, magnesium is 1.9, replaced, will check in a.m. 7. CKD stage III, likely secondary to hypertension, creatinine slightly improved, will continue to trend 8. Morbid obesity, lifestyle modification recommended 9. Suspected HINA, will need sleep study on discharge 10. DVT prophylaxis-SCDs, s/p TPA Code Visit Inpatient E&M: 33471 Subs Hosp L2
--- NOTE | 2020-01-13 08:43 | PCM.PN.CARD ---
Subjectve: Patient seen and examined in ICU. At approximately 5:45 PM last evening he was found in the bathroom on the floor, and helped back to bed. At that time he was found to have weakness of his left upper and lower extremity. Acute stroke team was called, and emergent CTA of his head was negative for acute bleed. He was found to have a 70% left internal carotid stenosis and a 50% right internal carotid stenosis. Patient was transferred to the ICU, but was found to be very hypertensive which made it difficult to give TPA in a timely way. Nicardipine drip was started, and initial dose of TPA was given. This morning the patient is awake, answers minimal questions, has weakness of his left upper and left lower extremity. Telemetry showed atrial fibrillation with rapid ventricular response, PVC and he is hypertensive today 160/87. Objective: Vital Signs Temp Pulse Resp BP Pulse Ox 99.2 F H 129 H 19 H 138/87 H 96 01/13/20 07:00 01/13/20 07:53 01/13/20 07:15 01/13/20 07:15 01/13/20 07:15 Oxygen Flow Rate (L/min) 2 Oxygen Delivery Method Nasal Cannula Weight: 272 lb Body Mass Index (BMI) 43.9 Finger Stick Blood Glucose 163 Intake and Output for Last 24 Hours 01/11/20 01/12/20 01/13/20 23:59 23:59 23:59 Intake Total 1180.75 / 1183.25 2315.76 / 2315.76 Output Total 275 / 275 3350 / 4450 1550 / 1550 Balance 905.75 / 908.25 -1034.24 / -2134.24 -1550 / -1550 General: Awake, Alert, Oriented x 3 HEENT: PERRL, EOMI, Sclera Non Icteric Neck: Supple, Good ROM, No Lymph Node Enlargement Lungs: Clear to auscultation Cardiovascular: Irregular Rhythm, Normal S1, Normal S2, No Murmurs, No Rubs, No Gallops 01/12/20 00:56: Magnesium 2.0 01/12/20 18:53: PT 14.6, INR 1.2, APTT 34.7 01/13/20 04:40: WBC 9.0, RBC 5.71, Hgb 16.0, Hct 48.7, MCV 85.3, MCH 28.0, MCHC 32.9, Plt Count 154, MPV 9.0 01/13/20 04:40: Sodium 141, Potassium 3.5, Chloride 103, Carbon Dioxide 30.0, Anion Gap 8, BUN 28 H, Creatinine 1.48 H, Est GFR (MDRD) Af Amer 62, Est GFR (MDRD) Non-Af 51 L, BUN/Creatinine Ratio 18.9, Glucose 133 H, Calcium 9.1 01/13/20 04:40: Phosphorus 3.7, Magnesium 1.9 Rhythm: EKG: ECHO: EF of 45 to 50% with mild mid anterior septal hypokinesis, unable to quantitate RVSP. Stress Test: Cardiac Cath: PCI: CT Surgery: Holter monitor: EPS: PPM: CXR: Chest CT Scan: Medical Necessity - Tobacco Use Smoking Status: Current some day smoker Tobacco Use: Cigarettes Assessment/Plan 1. Hypertensive urgency: The patient presents with dyspnea on exertion, shortness of breath, and newly discovered atrial fibrillation with rapid ventricular response superimposed on severe hypertension. I recommended the patient be treated with baby aspirin 324 mg x 1 now if not already done so followed by 81 mg p.o. daily given his previous coronary artery disease. In addition I recommend he be treated with Lasix IV 40 mg twice daily until he is reached his dry weight and his edema has resolved. Patient is 2D echo with Doppler took place on 01/12/2020 which demonstrated mild to moderate LV dysfunction with an EF around 45 to 50%, unable to quantitate RVSP, and biatrial enlargement. Unfortunately several hours after I saw the patient, he suffered what appears to be an acute CVA with left upper and lower extremity weakness receiving TPA. This is superimposed on severe hypertension with atrial fibrillation with rapid ventricular response. I recommend continuing the patient on his Cardene drip, and I would re-invoke his Cardizem drip to maintain his heart rate less than 100. Will await guidance from neurology with respect to anticoagulation therapy. As his peak troponin was 0.057, and in light of his recent CVA, I would not recommend repeat catheterization at this time. We will await to determine the outcome of his stroke before we proceed with stress testing. 2. Atrial fibrillation: Would recommend the patient continue his Cardizem drip until his heart rate is well controlled and his beta-igor has been restarted. Again, we await guidance from neurology with respect anticoagulation therapy. Once his blood pressure and heart rate are optimized, and depending upon the outcome of his stroke will determine whether we will proceed with DC cardioversion in 4 to 6 weeks time. 3. Hyperlipidemia: Recommend obtaining a fasting lipid profile and treating his LDL less than 70 with statin based medications if he is able to tolerate it. 4. Tobacco cessation: I had a long thorough discussion with patient regarding tobacco cessation, and strongly encouraged him to discontinue all tobacco products. 5. Thank you very much for the opportunity to participate in the cardiac care of your patient. Code Visit Inpatient E&M: 83399 Subs Hosp L2
[2020-01-13] MEDS: Furosemide 40 MG/4 ML Vial IV (09:03)
--- NOTE | 2020-01-13 09:08 | MRI_ITS ---
We are attempting to reach an attending provider to discuss findings. An addendum with communication details will be sent when the communication is complete. STUDY: MRI BRAIN WITHOUT CONTRAST REASON FOR EXAM: Male, 59 years old. CVA, flaccid on left side, S/P TPA ON 01/12/20 TECHNIQUE: Standardized multiplanar fat and water weighted pulse sequences were obtained. COMPARISON: CT January 12, 2020 FINDINGS: Normal size of the ventricles and extra-axial spaces for the patient''s age. There is restricted diffusion with recent infarcts of the right medial frontal and left medial occipital lobes, series 4 images 56 through . There is punctate focus of restricted diffusion with recent infarct of the periphery of the left frontal lobe, series 4 image . Normal T2* images of the brain without demonstrated susceptibility artifact. There is no demonstrated hemosiderin stain. Normal bilateral basal ganglia. Normal thalami. There is no extra-axial fluid accumulation. Normal flow voids within the major intracranial circulation suggesting patency by spin echo criteria. Normal sella turcica, pituitary gland, infundibular stalk, optic chiasm and hypothalamus. Normal tectal plate and pineal gland. Normal midbrain, hemanth and medulla. Normal cerebellum. Normal basal cisterns. Normal bilateral temporal bones. Normal bilateral internal auditory canals. No demonstrated orbital abnormality, within the constraints of a routine brain study. Normal visualized paranasal sinuses. Normal calvarium and skull base. Normal visualized soft tissue structures. Normal visualized upper cervical spine. MRI/Brain without Contrast IMPRESSION: Recent, acute or subacute, right larger than left frontal and left occipital infarcts. No hemorrhage. Electronically Signed: Jeremy Adair MD at 10:53 EST , Service support ,
--- NOTE | 2020-01-13 09:10 | NURSING ---
bp 137/82 cardene decreased to 2.5mg/hr
[2020-01-13] MEDS: dilTIAZem 25 MG/5 ML Vial 10 MG IV BOLUS (11:08)
--- NOTE | 2020-01-13 11:19 | NURSING ---
cardene gtt stopped , given cardizem bolus 10 mg cardizem gtt started @ 5mg/5ml hr
[2020-01-13] MEDS: Famotidine 200 MG/20 ML MDV 20 MG in 0.9% Normal Saline (Pres. free 8 ML 300 MG IV (12:04)
--- NOTE | 2020-01-13 12:16 | CON.PCM_ITS ---
Problem List (1) Atrial fibrillation with rapid ventricular response Status: Acute (2) Elevated troponin Status: Acute (3) Hypertensive urgency Status: Acute (4) Medical non-compliance Status: Acute (5) Coronary artery disease Status: Acute (6) Non-STEMI (non-ST elevated myocardial infarction) Status: Acute Reason for Consult Date of Consultation: 01/13/20 Reason for Consultation: Hypertensive urgency, acute CVA History of Present Illness: The patient is a 59 year old M, with past medical history listed below, who presented [facility] on 01/11/2020 secondary to tachycardia and tachypnea. Patient reportedly had had a waxing and waning course over the previous 2 months, but was unable to breathe while lying flat, so came in for evaluation. Patient reportedly had subjective fevers, chills, cough with brown sputum and some back pain. Patient had also had some nausea, but no vomiting. Patient did report that he was diagnosed with hypertension the past, but discontinued all of his medications approximately a year ago. In the ER, patient was noted to be tachycardic at [address] changes. Patient also had an elevated creatinine of 1.59 and a slightly elevated troponin. Patient was given Cardizem and labetalol in the ER. CTA of the chest was obtained. Patient was not given any DuoNeb initially secondary to concerns for tachycardia. However, after receiving this he thought he was improved and agreed to be admitted to the hospital. While in the PCU, patient had acute onset of weakness leading to a fall in the restroom at 1745. Patient was taken back to bed and had an NIH performed showing 12. Patient was noted to have a left lower extremity flaccid paralysis and a left upper extremity drift. Patient was taken to CT per protocol and ended up receiving TPA at approximately 1930. Patient was transferred to the intensive care unit for further evaluation. Patient did have significant hypertension requiring nicardipine drip. Patient also had significant A. fib w ith RVR throughout the evening. Patient was given some IV Lopressor without improvement. On my evaluation this morning, patient was noted to have an NIH of 9, primarily from left arm weakness and leg paralysis. Patient was diaphoretic and reported that he felt like shit. Patient was unable to provide any additional information. Patient subsequently went down for an MRI showing a right frontal, left occipital and tiny left frontal acute changes. No hemorrhage was noted. No nausea or vomiting of been reported. Patient has subsequently been placed on a Cardizem drip. Review of systems otherwise negative from a constitutional, HEENT, respiratory, cardiovascular, GI, genitourinary, musculoskeletal, skin, neurologic, psychiatric and hematologic system unless stated above. Past Medical History Allergies No Known Allergies Allergy (Verified 01/11/20 12:19) Home Medications: Ambulatory Orders Medication Instructions Recorded Aspirin E.C. [Ecotrin] 650 mg PO BID PRN PRN 01/11/20 [place]-3/Dha/Epa/Fish Oil [Fish Oil 1,000 mg PO DAILY 01/11/20 1,000 mg Softgel] Surgical History: - - Left great toe surgery. Psychiatric History: No pertinent psych hx Lives: Alone Smoking Status: Current some day smoker Tobacco Use: Cigarettes Alcohol: Sober Drugs: None - *Family History Maternal History Items: Heart Disease Paternal History Items: Heart Disease Review of Systems Comment: See HPI Patient Problems: Active and Suspected Problems Atrial fibrillation with rapid ventricular response (Acute) Elevated troponin (Acute) Hypertensive urgency (Acute) Medical non-compliance (Acute) Coronary artery disease (Acute) Non-STEMI (non-ST elevated myocardial infarction) (Acute) Objective: All imaging was reviewed. Echocardiogram shows an EF of 45 to 50% with slightly hypokinetic basal anteroseptal area. Severely enlarged atria noted. There was no report of left ventricular thrombus. CTA of the chest showed no PE with a moderate sized right pleural effusion with associated compressive atelectasis. - Physical Exam Vitals/I&O's: Vital Signs Temp Pulse Resp BP Pulse Ox 37.3 C H 130 H 23 H 134/80 H 97 01/13/20 07:00 01/13/20 12:00 01/13/20 12:00 01/13/20 12:00 01/13/20 12:00 Oxygen Flow Rate (L/min) 2 Oxygen Delivery Method Nasal Cannula Weight: 123.377 kg Body Mass Index (BMI) 43.9 Finger Stick Blood Glucose 163 Intake and Output for Last 24 Hours 01/11/20 01/12/20 01/13/20 23:59 23:59 23:59 Intake Total 1180.75 / 1183.25 2315.76 / 2315.76 108.17 / 108.17 Output Total 275 / 275 3350 / 4450 1550 / 1550 Balance 905.75 / 908.25 -1034.24 / -2134.24 -1441.83 / -1441.83 General: Alert, Cooperative - Intermittently, - - Mild distress. Morbidly obese. HEENT: Atraumatic, PERRLA, EOMI, Normocephalic, - - Scleral injection without icterus Oral: Moist Mucosa, No Gingival or Mucosal Lesions/ Ulcerations, - - Crowded posterior pharynx. Neck: Supple, No Nodes, Trachea Midline, JVD, Right Lungs: No rhonchi, No wheeze, No rales, Diminished, - - Symmetric expansion. Cardiovascular: Normal S1, Normal S2, No murmurs, Irregular Rate, No rub noted, No Gallop, Tachycardic Abdomen: Bowel Sounds Present, Soft, Non Tender, Non-Distended, Obese Extremities: No clubbing, No cyanosis, Edema - Bilateral lower extremities Skin: No rashes, No breakdown Musculoskeletal: No Tenderness to Palpation of Joints or Extremities Lymphatic: No Cervical, Supraclavicular, or Inguinal Adenopathy Neurological: - - Left lower extremity 0 out of 5 strength, left upper extremity 4 out of 5 strength, left facial droop Psych/Mental Status: Anxious, Restless Laboratory Results 01/12/20 00:56: Magnesium 2.0 01/12/20 18:53: PT 14.6, INR 1.2, APTT 34.7 01/13/20 04:40: WBC 9.0, RBC 5.71, Hgb 16.0, Hct 48.7, MCV 85.3, MCH 28.0, MCHC 32.9, RDW Std Deviation 44.8 H, RDW Coeff of Srinivas 14.8 H, Plt Count 154, MPV 9.0 01/13/20 04:40: Sodium 141, Potassium 3.5, Chloride 103, Carbon Dioxide 30.0, Anion Gap 8, BUN 28 H, Creatinine 1.48 H, Estim Creat Clear Calc 47.30, Est GFR (MDRD) Af Amer 62, Est GFR (MDRD) Non-Af 51 L, BUN/Creatinine Ratio 18.9, Glucose 133 H, Calcium 9.1 01/13/20 04:40: Phosphorus 3.7, Magnesium 1.9 Current Medications Acetaminophen (Tylenol) 650 mg PO Q6H PRN PRN PRN Reason: Temp > 99.6 F Atorvastatin Calcium (Lipitor) 40 mg PO QHS MARIO Last Admin: 01/12/20 22:05 Dose: Not Given Documented by: Clotrimazole (Lotrimin) 1 applicatio TOPICAL DAILY [facility]; Protocol Diphenhydramine HCl (Benadryl) 50 mg IV X1 PRN PRN Reason: Allergic Reaction Stop: 01/14/20 18:33 Epinephrine HCl () 0.3 mg IM X1 PRN PRN Reason: Allergic Reaction Stop: 01/14/20 18:33 Furosemide (Lasix) 40 mg IV BID@1000,1800 [facility] Last Admin: 01/13/20 09:03 Dose: 40 mg Documented by: Diltiazem HCl 125 mg/ Dextrose 125 mls @ 10 mls/hr IV .[id number] [facility]; Protocol Last Titration: 01/13/20 12:00 Dose: 10 mg/hr, 10 mls/hr Documented by: Nicardipine/Dextrose (Cardene-Dex 20 Mg/200 Ml Soln) 20 mg in 200 mls @ 50 mls/hr IV .Q4H PRN; Protocol PRN Reason: see instructions Last Admin: 01/13/20 06:56 Dose: 50 mls/hr Documented by: Famotidine 20 mg/ Sodium (Chloride) 10 mls @ 300 mls/hr IV X1 PRN PRN Reason: Allergic Reaction Stop: 01/14/20 18:33 Famotidine 20 mg/ Sodium (Chloride) 10 mls @ 300 mls/hr IV DAILY [facility] Last Admin: 01/13/20 12:04 Dose: 300 mls/hr Documented by: Labetalol HCl (Trandate) 20 mg IV X1 PRN PRN Reason: BP MANAGEMENT Last Admin: 01/12/20 18:38 Dose: 20 mg Documented by: Methylprednisolone (Solu-Medrol) 125 mg IV X1 PRN PRN Reason: Allergic Reaction Stop: 01/14/20 18:33 Metoprolol Tartrate (Lopressor (Beta Jose Raul)) 5 mg IV Q6H PRN PRN PRN Reason: tachy Last Admin: 01/13/20 05:57 Dose: 5 mg Documented by: Multi-Ingredient Cream (Eucerin) 1 applic TOPICAL DAILY [facility]; Protocol Ondansetron HCl (Zofran) 4 mg IV Q6H PRN PRN PRN Reason: NAUSEA/VOMITING Last Admin: 01/12/20 05:21 Dose: 4 mg Documented by: Oxycodone HCl (Oxyir) 5 mg PO Q6H PRN PRN PRN Reason: Pain Score 6-10/10 Sodium Chloride () 10 - 40 ml IV UD PRN PRN Reason: SALINE FLUSH Last Admin: 01/13/20 05:58 Dose: 10 ml Documented by: Clinical Impression(s) from Imaging Studies Chest X-Ray 01/11/20 12:47 IMPRESSION: Cardiomegaly and pulmonary vascular congestion. Small right effusion. Possible right upper lobe nodule may be further assessed with chest CT as clinically indicated. Electronically Signed: Wan Helton, at 15:36 EST Tel , Service support , Chest CTA 01/11/20 15:46 IMPRESSION: No evidence for pulmonary embolism or aortic dissection. Moderate-sized right pleural effusion with associated compressive atelectasis. Small pericardial effusion. Electronically Signed: Wan Helton, at 16:43 EST Tel , Service support , Brain CT 01/12/20 18:12 IMPRESSION: Chronic involutional changes of the brain. Results discussed with Gretta Godwin, nurse caring for the patient. N.B. : The above information has been verbally conveyed by Jeremy Adair MD to Gretta Godwin RN, RN, on 01/12/2020 18:36:43 (ET). Electronically Signed: Jeremy Adair MD at 18:37 EST , Service support , ADDENDUM: 01/12/20 1844 IMPRESSION: Chronic involutional changes of the brain. Results discussed with Gretta Godwin, nurse caring for the patient. N.B. : The above information has been verbally conveyed by Jeremy Adair MD to Gretta oGdwin RN, RN, on 01/12/2020 18:36:43 (ET). Electronically Signed: Jeremy Adair MD at 18:37 EST , Service support , Head/Neck CTA 01/12/20 18:12 IMPRESSION: 1. No hemodynamically significant stenosis or occlusion or aneurysm of the intracranial arteries. 2. There is moderate focal atherosclerotic plaque formation of the origin of the left internal carotid artery with an estimated stenosis of approximately 70%. Medialization of the left ICA noted. Normal visualized cervical portion of the left internal carotid artery. Electronically Signed: Stef García MD at 19:17 EST , Service support , Brain MRI 01/13/20 09:08 IMPRESSION: Recent, acute or subacute, right larger than left frontal and left occipital infarcts. No hemorrhage. Electronically Signed: Jeremy Adair MD at 10:53 EST , Service support , ADDENDUM: 01/13/20 1105 IMPRESSION: Recent, acute or subacute, right larger than left frontal and left occipital infarcts. No hemorrhage. N.B. : The above information has been verbally conveyed by Jeremy Adair MD to Dr Jose Cody MD, on 01/13/2020 10:58:19 (ET). Electronically Signed: Jeremy Adair MD at 10:53 EST , Service support , Assessment/Plan Active and Suspected Problems Atrial fibrillation with rapid ventricular response (Acute) Elevated troponin (Acute) Hypertensive urgency (Acute) Medical non-compliance (Acute) Coronary artery disease (Acute) Non-STEMI (non-ST elevated myocardial infarction) (Acute) RECOMMENDATIONS: 1. Post TPA protocol 2. Initiate Cardizem, potentially discontinue nicardipine 3. Agree with diuresis 4. Bedside swallow evaluation, p.o. antihypertensives if tolerated 5. Wean oxygen as tolerated 6. Outpatient PSG IMPRESSIONS: 1. Acute CVA secondary to new onset A. fib Patient status post TPA, but appears to have had an infarct of multiple areas. Patient's NIH has been relatively stable despite TPA. TPA protocol in place. Therapies to evaluate. If patient is able to tolerate p.o., addition of p.o. antihypertensives would be helpful. High clinical suspicion for embolism secondary to new onset A. fib 2. Hypertensive urgency Patient with elevated blood pressures by TPA protocol. Patient was on a nicardipine drip with tachycardia. Will attempt to initiate Cardizem drip and see if nicardipine can be discontinued. Patient does need an element of permissive hypertension given recent embolic stroke. Patient has been noncompliant with antihypertensives for over a year, so will have an element of autoregulation. 3. Acute on chronic systolic congestive heart failure/right pleural effusion Cardiology is following. Patient had an echo during this hospitalization to characterize. Cannot exclude an element of coronary artery disease. Patient is receiving diuresis. Patient currently n.p.o. secondary to recent stroke, but will be evaluated by speech therapy. 4. Suspected neuropathy and HINA/noncompliance/morbid obesity Complicates care, management, recovery and prognosis. Patient will need an outpatient polysomnogram. Case management and social work currently following TIME: 40 minutes of critical care time spent addressing patient's acute CVA, hypertensive urgency, CHF, review of all data and collaboration with care team (8 AM to 12 PM) Code Visit 9xxxx: [id number] Critical care first hour
--- NOTE | 2020-01-13 16:32 | CHAPLAIN ---
Type of Pastoral Visit ___ Initial Visit _x__ Follow-up Visit ___ On-call Visit ___ General Patient Visit ___ Spiritual Assessment ___ Family Conference ___ Bereavement ___ Rapid Response ___ Code Blue ___ Other (describe below) Pastoral Care Referral From _x__ Patient ___ Family ___ Nurse ___ Physician ___ Sanitation Worker Cleaning Machinery ___ Emissions Testing And Repair Technician ___ Other (describe below) Sacrament/Intervention x__ Active listening ___ Anointing ___ Religious ___ Bereavement ___ Communion ___ Jessica exploration ___ ___ Life review _x__ Prayer ___ Reconciliation ___ Sacrament of Sick _x__ Supportive presence ___ Wedding ___ Other (describe below) Pastoral Comments since first visit with patient yesterday the pt had a stroke and is now in ICU; pt speaks of gratitude for help by staff and is open to spiritual care and prayer today;
[2020-01-13] MEDS: Furosemide 20 MG/2 ML VIAL IV (17:03)
--- NOTE | 2020-01-13 17:35 | RAD_ITS ---
STUDY: X-RAY - LEFT FOOT CLINICAL: Male, 59 years old. B/L LOWER EXTREMITY NEUROPATHY TECHNIQUE: 3 view(s) of the foot. COMPARISON: None. FINDINGS: Age-related degenerative changes of the left foot. No acute fracture or dislocation. Normal mineralization. Trace forefoot soft tissue swelling. RAD/Foot min 3 Views IMPRESSION: No acute finding Electronically Signed: Jeremy Bonilla DO at 14:51 EST Tel , Service support ,
--- NOTE | 2020-01-13 17:42 | RAD_ITS ---
STUDY: X-RAY - RIGHT FOOT CLINICAL: Male, 59 years old. B/L LOWER EXTREMITY NEUROPATHY, HX STROKE, BEST IMAGES POSSIBLE DUE TO PT INABILITY TO KEEP LEG BENT TECHNIQUE: 3 view(s) of the foot. COMPARISON: None. FINDINGS: No acute fracture or dislocation. Mild age-related degenerative changes. Small amount of forefoot soft tissue swelling. Normal mineralization. RAD/Foot min 3 Views IMPRESSION: No acute finding Electronically Signed: Jeremy Bonilla DO at 14:50 EST Tel , Service support ,
--- NOTE | 2020-01-13 20:00 | CT_ITS ---
We are attempting to reach an attending provider to discuss findings. An addendum with communication details will be sent when the communication is complete. STUDY: CT BRAIN WITHOUT CONTRAST REASON FOR EXAM: Male, 59 years old. 24HR F/U TO TPA RADIATION DOSAGE (If Supplied By Facility): CTDIvol = ( 44.99 ) mGy, DLP = ( 829.85 ) mGycm TECHNIQUE: Transaxial CT imaging of the brain was performed without administration of intravenous contrast material. Individualized dose optimization techniques were used for this CT. COMPARISON: Noncontrast head CT dated January 12, 2020. MRI of the brain dated January 13, 2020 FINDINGS: Interval development of a large acute infarct with edema, sulcal effacement, loss of lowry-white differentiation of the right frontal lobe in the parasagittal region extending up to the cranial vertex, which was not seen on the previous head CT but was detected on the MRI of the brain performed today. Acute infarction of the left parietal lobe with hypodensity and sulcal effacement is also present. Mild parenchymal volume loss in the bilateral high posterior parietal regions is likely due to previous infarcts. There is mild cerebral atrophy with widening of the extra-axial spaces and ventricular dilatation. There are areas of decreased attenuation within the white matter tracts of the supratentorial brain, consistent with microvascular disease changes. Normal basal ganglia and thalami. Normal brainstem. Normal cerebellum. There is no demonstrated intracranial hemorrhage. No midline shift. No hydrocephalus. Normal visualized paranasal sinuses. Unremarkable osseous structures. CT/Brain/Head without Contrast IMPRESSION: 1. Large acute right frontal lobe infarct which was seen on the MRI of the brain performed on January 13, 2020 2. Acute left occipital lobe infarct. 3. Both infarcts were identified on the earlier MRI of the brain dated January 13, 2020. 4. No demonstrated intracranial hemorrhage. Electronically Signed: Stef García MD at 22:01 EST , Service support ,
--- NOTE | 2020-01-13 20:50 | NURSING ---
Pt taken to/ returned from CT for repeat Head via bed w/out difficulty or complaints. Pt gee all well.
[2020-01-13] MEDS: Atorvastatin Calcium 80 MG Tablet PO (22:06)
[2020-01-13] MEDS: Acetaminophen 325 MG Tablet 650 MG PO (22:08)
[2020-01-14] VITALS (46 sets, daily range): BP systolic 118–192; BP diastolic 71–113; PULSE 73–112; RESP 12–25; TEMP 37.2–37.9; O2SAT 92–98; BMI 43.9
[2020-01-14] MEDS: 0.9% Saline Lock 10 ML Syringe IV ×4 (05:34→16:19)
[2020-01-14 05:58] LABS: ALB/GLOB Ratio 0.7 RATIO (0.9-2.4); AST(SGOT) 43 U/L (15-37); Alanine Aminotransfer ALT/SGPT 53 U/L (16-61); Albumin, Serum 3.2 g/dL (3.2-5.0); Alkaline Phosphatase 54 U/L (45-117); Anion Gap 7 (5-15); BUN 29 mg/dL (7-18); BUN/Creat Ratio 18.2 RATIO (10-20); Calcium,Total 8.7 mg/dL (8.5-10.1); Chloride 104 mmol/L (98-107); Creatinine, Serum 1.59 mg/dL (0.70-1.30); EST Glomerular Filtration Rate 47 mL/min (>60); Est Glom Filt Rate - Afr Amer 57 mL/min (>60); Estimated Creatinine Clearance 44.03 ml/min; Globulin 4.4 g/dL (2.2-4.2); Glucose 121 mg/dL (74-106); Potassium 3.5 mmol/L (3.5-5.1); Protein, Total 7.6 g/dL (6.4-8.2); Sodium Level 142 mmol/L (136-145)
--- NOTE | 2020-01-14 06:59 | PCM.PN.HOSP ---
Patient Problems: Active and Suspected Problems Atrial fibrillation with rapid ventricular response (Acute) Elevated troponin (Acute) Hypertensive urgency (Acute) Medical non-compliance (Acute) Coronary artery disease (Acute) Non-STEMI (non-ST elevated myocardial infarction) (Acute) Reason for Visit: Follow-up on acute stroke, status post TPA on 01/12/20 Subjective: Patient was seen and examined. He complains of headache that he feels it is due to sinus pressure. He denies chest pain or dizziness. His heart rate and BP remains uncontrolled. On Cardizem drip. He has progressive left upper extremity weakness. Objective: Physical exam: General: Alert, Oriented x3, Cooperative HEENT: Atraumatic, PERRLA, EOMI, Normocephalic Oral: Moist Mucosa Neck: Supple Lungs: Clear to auscultation, Normal air movement Cardiovascular: Regular rate, Regular Rhythm, Normal S1, Normal S2, No murmurs Abdomen: Bowel Sounds Present, Soft, Non Tender, Non-Distended, No Hepato-splenomegaly Extremities: No edema, Capillary Refill Less than 3 Seconds Skin: No rashes, No breakdown Musculoskeletal: No Tenderness to Palpation of Joints or Extremities Neurological: Cranial nerves II-XII grossly intact - except for left facial droop, Motor Exam 5/5 strength throughout - except 2/5 in LUE and 0-1 in LLL, sensation is intact Psych/Mental Status: Normal Affect, Appropriate Vitals/I&O's: Vital Signs Temp Pulse Resp BP Pulse Ox 98.9 F 75 20 H 169/94 H 92 01/14/20 06:00 01/14/20 06:00 01/14/20 06:00 01/14/20 06:00 01/14/20 06:00 Oxygen Flow Rate (L/min) 2 Oxygen Delivery Method Room Air Weight: 118.2 kg Body Mass Index (BMI) 43.9 Finger Stick Blood Glucose 163 Intake and Output for Last 24 Hours 01/12/20 01/13/20 01/14/20 23:59 23:59 23:59 Intake Total 2315.76 / 2315.76 830.67 / 840.67 237.83 / 237.83 Output Total 3350 / 4450 4050 / 4050 300 / 300 Balance -1034.24 / -2134.24 -3219.33 / -3209.33 -62.17 / -62.17 Laboratory Results 01/13/20 04:40: Phosphorus 3.7, Magnesium 1.9 01/14/20 05:30: Sodium 142, Potassium 3.5, Chloride 104, Carbon Dioxide 31.0, Anion Gap 7, BUN 29 H, Creatinine 1.59 H, Estim Creat Clear Calc 44.03, Est GFR (MDRD) Af Amer 57 L, Est GFR (MDRD) Non-Af 47 L, BUN/Creatinine Ratio 18.2, Glucose 121 H, Calcium 8.7, Total Bilirubin 1.60 H, AST 43 H, ALT 53, Alkaline Phosphatase 54, Total Protein 7.6, Albumin 3.2, Globulin 4.4 H, Albumin/Globulin Ratio 0.7 L Current Medications Acetaminophen (Tylenol) 650 mg PO Q6H PRN PRN PRN Reason: Temp > 99.6 F Last Admin: 01/13/20 22:08 Dose: 650 mg Documented by: Amlodipine Besylate (Norvasc) 10 mg PO DAILY [facility] Aspirin (Aspirin) 325 mg PO DAILY@0800 [facility] Atorvastatin Calcium (Lipitor) 80 mg PO QHS [facility] Last Admin: 01/13/20 22:06 Dose: 80 mg Documented by: Clotrimazole (Lotrimin) 1 applicatio TOPICAL DAILY [facility]; Protocol Last Admin: 01/13/20 17:03 Dose: 1 applicatio Documented by: Furosemide (Lasix) 20 mg IV DAILY [facility] Diltiazem HCl 125 mg/ Dextrose 125 mls @ 10 mls/hr IV .[id number] [facility]; Protocol Last Admin: 01/14/20 05:34 Dose: 5 mg/hr, 5 mls/hr Documented by: Famotidine 20 mg/ Sodium (Chloride) 10 mls @ 300 mls/hr IV DAILY [facility] Last Infusion: 01/13/20 12:15 Dose: Infused Documented by: Nicardipine/Dextrose (Cardene-Dex 20 Mg/200 Ml Soln) 20 mg in 200 mls @ 50 mls/hr IV .Q4H PRN; Protocol PRN Reason: See Instructions Labetalol HCl (Trandate) 20 mg IV X1 PRN PRN Reason: BP MANAGEMENT Last Admin: 01/12/20 18:38 Dose: 20 mg Documented by: Metoprolol Tartrate (Lopressor (Beta Jose Raul)) 5 mg IV Q6H PRN PRN PRN Reason: tachy Last Admin: 01/13/20 05:57 Dose: 5 mg Documented by: Multi-Ingredient Cream (Eucerin) 1 applic TOPICAL DAILY [facility]; Protocol Last Admin: 01/13/20 17:06 Dose: Not Given Documented by: Ondansetron HCl (Zofran) 4 mg IV Q6H PRN PRN PRN Reason: NAUSEA/VOMITING Last Admin: 01/12/20 05:21 Dose: 4 mg Documented by: Oxycodone HCl (Oxyir) 5 mg PO Q6H PRN PRN PRN Reason: Pain Score 6-10/10 Sodium Chloride () 10 - 40 ml IV UD PRN PRN Reason: SALINE FLUSH Last Admin: 01/14/20 05:34 Dose: 10 ml Documented by: STROKE Vital Signs/Narrative: Vital Signs Temp Pulse Resp BP BP Pulse Ox 01/14/20 06:00 98.9 F 75 20 H 169/94 H 92 01/14/20 05:00 98.9 F 88 24 H 164/100 H 95 01/14/20 04:00 98.9 F 97 24 H 167/87 H 92 01/14/20 03:23 147/102 H 01/14/20 03:04 171/107 H 01/14/20 03:00 99.1 F 95 22 H 165/110 H 97 Medical Necessity - Tobacco Use Smoking Status: Current some day smoker Tobacco Use: Cigarettes Assessment/Plan All Active Problems Atrial fibrillation with rapid ventricular response (Acute) Elevated troponin (Acute) Hypertensive urgency (Acute) Medical non-compliance (Acute) Coronary artery disease (Acute) Non-STEMI (non-ST elevated myocardial infarction) (Acute) 1. Acute right frontal? left parietal and left occipital infarcts, likely acute cardioembolic in nature, history of underlying A. fib Status post TPA, MRI of the head confirms stroke in both places, post TPA CT scan is negative for acute bleed T chol 188, triglyceride 153, LDL 122, HDL is 35, TSH 2.7 2d-echo shows EF of 45 to 50%, no valvular abnormalities NIHSS today is a 7; down from 11 yesterday but patient has progressive LUE weakness Will obtain repeat CT scan of brain to rule out new bleed, worsening edema Continue on aspirin 325mg daily, atorvastatin, teleneurology consult 2. A. fib with RVR, on metoprolol and Cardizem drip, HR is still not controlled Continue on cardizem drip, start coreg, continue to monitor 3. Hypertension, remains uncontrolled, continue on amlodipine, Coreg, cardizem drip 4. Indeterminate troponins, likely secondary to uncontrolled hypertension, being followed by cardiology 5. Right-sided pleural effusion, small pericardial effusion, seen on CT, not seen on 2D echo, possible acute diastolic CHF Continueon Lasix, continue with strict I's and O's 6. Hypomagnesemia, replaced 7. CKD stage III, likely secondary to hypertension, creatinine slightly improved, will continue to trend 8. Morbid obesity, lifestyle modification recommended 9. Suspected HINA, will need sleep study on discharge 10. DVT prophylaxis-SCDs, s/p TPA Code Visit Inpatient E&M: 35512 Subs Hosp L3
--- NOTE | 2020-01-14 07:05 | PCM.PN.INT ---
Subjective: Patient did well overnight. Patient continues to have a facial droop, flaccid leg paralysis and drift. However, patient appears to be improving with strength. Patient remains on a Cardizem drip, but this is been relatively stable. Patient is tolerating p.o. and is on minimal nasal cannula oxygen. Fever was noted overnight. Objective: MRI and CT scan both show significant ischemic events. General: Alert, Oriented x3, Cooperative, No apparent distress, - - Morbidly obese. Slight dysarthria. HEENT: Atraumatic, PERRLA, EOMI, Normocephalic, - - Scleral injection without icterus Oral: Moist Mucosa, No Gingival or Mucosal Lesions/ Ulcerations Neck: Supple, No JVD, No Nodes, Trachea Midline Lungs: No rhonchi, No wheeze, No rales, Diminished, - - Fair effort. Symmetric expansion. Cardiovascular: Normal S1, Normal S2, No murmurs, Irregular Rate, No rub noted, No Gallop Abdomen: Bowel Sounds Present, Soft, Non Tender, Non-Distended, Obese Extremities: No clubbing, No cyanosis, No edema, Capillary Refill Less than 3 Seconds Skin: No rashes, No breakdown Musculoskeletal: No Tenderness to Palpation of Joints or Extremities Lymphatic: No Cervical, Supraclavicular, or Inguinal Adenopathy Neurological: - - Grossly unchanged compared to yesterday except strength appears to be slightly improved. Patient is able to complete [id number] today Psych/Mental Status: Alert and oriented to time, place, person, mood and affect Vital Signs Temp Pulse Resp BP Pulse Ox 37.2 C 75 20 H 169/94 H 92 01/14/20 06:00 01/14/20 06:00 01/14/20 06:00 01/14/20 06:00 01/14/20 06:00 Oxygen Flow Rate (L/min) 2 Oxygen Delivery Method Room Air Weight: 118.2 kg Body Mass Index (BMI) 43.9 Finger Stick Blood Glucose 163 Intake and Output for Last 24 Hours 01/12/20 01/13/20 01/14/20 23:59 23:59 23:59 Intake Total 2315.76 / 2315.76 830.67 / 840.67 237.83 / 237.83 Output Total 3350 / 4450 4050 / 4050 300 / 300 Balance -1034.24 / -2134.24 -3219.33 / -3209.33 -62.17 / -62.17 Labs (Last 48 Hours) 01/12/20 01/12/20 01/12/20 00:56 06:10 18:53 WBC RBC Hgb Hct MCV MCH MCHC RDW Std Deviation RDW Coeff of Srinivas Plt Count MPV PT 14.6 INR 1.2 APTT 34.7 Sodium 141 Potassium 4.7 Chloride 110 H Carbon Dioxide 26.0 Anion Gap 5 BUN 27 H Creatinine 1.62 H Estim Creat Clear Calc 43.21 Est GFR (MDRD) Af Amer 56 L Est GFR (MDRD) Non-Af 46 L BUN/Creatinine Ratio 16.7 Glucose 121 H Calcium 8.6 Phosphorus Magnesium 2.0 Total Bilirubin AST ALT Alkaline Phosphatase Total Protein Albumin Globulin Albumin/Globulin Ratio Triglycerides 153 Cholesterol 188 LDL Cholesterol 122 VLDL Cholesterol 31 HDL Cholesterol 35 L TSH 2.70 01/13/20 01/13/20 01/13/20 04:40 04:40 04:40 WBC 9.0 RBC 5.71 Hgb 16.0 Hct 48.7 MCV 85.3 MCH 28.0 MCHC 32.9 RDW Std Deviation 44.8 H RDW Coeff of Srinivas 14.8 H Plt Count 154 MPV 9.0 PT INR APTT Sodium 141 Potassium 3.5 Chloride 103 Carbon Dioxide 30.0 Anion Gap 8 BUN 28 H Creatinine 1.48 H Estim Creat Clear Calc 47.30 Est GFR (MDRD) Af Amer 62 Est GFR (MDRD) Non-Af 51 L BUN/Creatinine Ratio 18.9 Glucose 133 H Calcium 9.1 Phosphorus 3.7 Magnesium 1.9 Total Bilirubin AST ALT Alkaline Phosphatase Total Protein Albumin Globulin Albumin/Globulin Ratio Triglycerides Cholesterol LDL Cholesterol VLDL Cholesterol HDL Cholesterol TSH 01/14/20 01/14/20 05:30 05:30 WBC RBC Hgb Hct MCV MCH MCHC RDW Std Deviation RDW Coeff of Srinivas Plt Count MPV PT INR APTT Sodium 142 Potassium 3.5 Chloride 104 Carbon Dioxide 31.0 Anion Gap 7 BUN 29 H Creatinine 1.59 H Estim Creat Clear Calc 44.03 Est GFR (MDRD) Af Amer 57 L Est GFR (MDRD) Non-Af 47 L BUN/Creatinine Ratio 18.2 Glucose 121 H Calcium 8.7 Phosphorus Magnesium Pending Total Bilirubin 1.60 H AST 43 H ALT 53 Alkaline Phosphatase 54 Total Protein 7.6 Albumin 3.2 Globulin 4.4 H Albumin/Globulin Ratio 0.7 L Triglycerides Cholesterol LDL Cholesterol VLDL Cholesterol HDL Cholesterol TSH Clinical Impression(s) from Imaging Studies Brain MRI 01/13/20 09:08 IMPRESSION: Recent, acute or subacute, right larger than left frontal and left occipital infarcts. No hemorrhage. Electronically Signed: Jeremy Adair MD at 10:53 EST , Service support , ADDENDUM: 01/13/20 1105 IMPRESSION: Recent, acute or subacute, right larger than left frontal and left occipital infarcts. No hemorrhage. N.B. : The above information has been verbally conveyed by Jeremy Adair MD to Dr Jose Cody MD, on 01/13/2020 10:58:19 (ET). Electronically Signed: Jeremy Adair MD at 10:53 EST , Service support , Foot X-Ray 01/13/20 17:35 IMPRESSION: No acute finding Electronically Signed: Jeremy Bonilla DO at 14:51 EST Tel , Service support , Foot X-Ray 01/13/20 17:42 IMPRESSION: No acute finding Electronically Signed: Jeremy Bonilla DO at 14:50 EST Tel , Service support , Brain CT 01/13/20 20:00 IMPRESSION: 1. Large acute right frontal lobe infarct which was seen on the MRI of the brain performed on January 13, 2020 2. Acute left occipital lobe infarct. 3. Both infarcts were identified on the earlier MRI of the brain dated January 13, 2020. 4. No demonstrated intracranial hemorrhage. Electronically Signed: Stef García MD at 22:01 EST , Service support , Medical Necessity - Tobacco Use Smoking Status: Current some day smoker Tobacco Use: Cigarettes Assessment/Plan All Active Problems Atrial fibrillation with rapid ventricular response (Acute) Elevated troponin (Acute) Hypertensive urgency (Acute) Medical non-compliance (Acute) Coronary artery disease (Acute) Non-STEMI (non-ST elevated myocardial infarction) (Acute) RECOMMENDATIONS: 1. Consider transition to p.o. Cardizem 2. Consider discontinuation of Blackmon catheter 3. Possibly add ARELIS inhibitor 4. Post CVA protocol 5. Wean oxygen as tolerated 6. Outpatient PSG 7. Okay to leave the intensive care unit if tolerates p.o. transition of medications IMPRESSIONS: 1. Acute CVA secondary to new onset A. fib Patient status post TPA, but appears to have had an infarct of multiple areas. Patient's NIH is slightly improved compared to yesterday at 5. Therapies are to evaluate. Patient likely could be transitioned over to p.o. medications for rate control given relatively stable Cardizem drip. Would defer to cardiology. 2. Hypertensive urgency Patient with elevated blood pressures by TPA protocol. Patient was initially on a nicardipine drip with tachycardia. Patient has responded well to Cardizem drip. Patient is able to take p.o. medications. Would defer to cardiology, but patient may benefit from transition to oral Cardizem and possible ARELIS inhibitor. 3. Acute on chronic systolic congestive heart failure/right pleural effusion Cardiology is following. Patient had an echo during this hospitalization to characterize. Cannot exclude an element of coronary artery disease. Patient is receiving diuresis. Consider discontinuation of Blackmon catheter. Patient does not have significant respiratory difficulties at this time. 4. Suspected neuropathy and HINA/noncompliance/morbid obesity Complicates care, management, recovery and prognosis. Patient will need an outpatient polysomnogram. Case management and social work currently following Code Visit Inpatient E&M: 99312 [facility] Hosp L3
[2020-01-14 07:12] LABS: Magnesium 2.4 mg/dL (1.6-2.6)
--- NOTE | 2020-01-14 08:03 | CT_ITS ---
STUDY: CT BRAIN WITHOUT CONTRAST REASON FOR EXAM: Male, 59 years old. STROKE, 24 HR FOLLOW UP TO TPA RADIATION DOSAGE (If Supplied By Facility): CTDIvol = ( 44.99 ) mGy, DLP = ( 745.49 ) mGycm TECHNIQUE: Transaxial CT imaging of the brain was performed without administration of intravenous contrast material. Individualized dose optimization techniques were used for this CT. COMPARISON: Comparison is made with prior examination dated January 13, 2020. FINDINGS: Normal soft tissue structures. Normal calvarium. Stable large acute infarct with sulcal effacement and loss of the great white matter differentiation involving the right frontal lobe in the parasagittal region which extends to the vertex of the right frontal lobe. Stable minimal amount of mass effect. Stable appearance of the hypodensity in the left posterior parietal occipital lobe. Normal basal ganglia and thalami. Normal brainstem. Normal cerebellum. There is no intracranial hemorrhage. There are no findings of an acute ischemic infarction. Normal visualized paranasal sinuses. CT/Brain/Head without Contrast IMPRESSION: Stable examination. Electronically Signed: Josafat Lopez, at 9:21 EST , Service support ,
--- NOTE | 2020-01-14 09:35 | PN.CARD_ITS ---
Subjectve: Patient down in CAT scan when I went to go see him. Discussed with Dr. Shelton the patient's condition and progress. Patient apparently has multi- focal areas of cerebral infarct, repeat CT scan pending. Telemetry overnight showed atrial fibrillation with rapid ventricular response superimposed on elevated blood pressure although improved since admission. Objective: Vital Signs Temp Pulse Resp BP Pulse Ox 98.9 F 82 20 H 169/94 H 92 01/14/20 06:00 01/14/20 07:00 01/14/20 06:00 01/14/20 06:00 01/14/20 07:15 Oxygen Flow Rate (L/min) 2 Oxygen Delivery Method Room Air Weight: 260 lb 9.382 oz Body Mass Index (BMI) 43.9 Finger Stick Blood Glucose 163 Intake and Output for Last 24 Hours 01/12/20 01/13/20 01/14/20 23:59 23:59 23:59 Intake Total 2315.76 / 2315.76 830.67 / 840.67 265.00 / 265.00 Output Total 3350 / 4450 4050 / 4050 300 / 300 Balance -1034.24 / -2134.24 -3219.33 / -3209.33 -35.00 / -35.00 General: Awake, Alert, Oriented x 3 HEENT: PERRL, EOMI, Sclera Non Icteric Neck: Supple, Good ROM, No Lymph Node Enlargement Lungs: Clear to auscultation Cardiovascular: Irregular Rhythm, Normal S1, Normal S2, No Murmurs, No Rubs, No Gallops Vascular: No Carotid Bruits, Normal Femoral Pulses, Normal Radial Pulses, Normal Dorsalis Pedal Pulse, Normal Posterior Tibial Pulses Abdomen: Bowel Sounds Present, Soft, Non Tender, No HSM, No Organomegaly Extremities: No Cyanosis, No Clubbing, No edema Neurological: No Focal Motor or Sensory Deficit 01/14/20 05:30: Sodium 142, Potassium 3.5, Chloride 104, Carbon Dioxide 31.0, Anion Gap 7, BUN 29 H, Creatinine 1.59 H, Est GFR (MDRD) Af Amer 57 L, Est GFR (MDRD) Non-Af 47 L, BUN/Creatinine Ratio 18.2, Glucose 121 H, Calcium 8.7, Total Bilirubin 1.60 H 01/14/20 05:30: Magnesium 2.4 Rhythm: EKG: ECHO: Moderately dilated left ventricle. The estimated ejection fraction is 45-50 %. Unable to assess diastolic dysfunction due to arrhythmia. Anterio-Basal: Mildly hypokinetic Basal anteroseptal: Mildly hypokinetic The left atrium is severely enlarged. The right atrium is severely enlarged. Unable to estimate RV systolic pressure due to insufficient tricuspid regurgitant envelope. Trivial pericardial effusion. There are no echocardiographic indications of cardiac tamponade. Pt appears to be in atrial fibrillation. The study was technically difficult. Contrast injection was performed. There is no comparison study available. Stress Test: Cardiac Cath: PCI: CT Surgery: Holter monitor: EPS: PPM: CXR: Chest CT Scan: Medical Necessity - Tobacco Use Smoking Status: Current some day smoker Tobacco Use: Cigarettes Assessment/Plan 1. Hypertensive urgency: The patient presents with dyspnea on exertion, shortness of breath, and newly discovered atrial fibrillation with rapid ventricular response superimposed on severe hypertension. Recommend continuing baby aspirin going forward. We will hold off on anticoagulation given his multifocal cerebral infarcts that may transition to hemorrhagic infarcts with additional antiplatelet or anti-coagulation therapy. In addition I recommend he be treated with Lasix IV 40 mg twice daily until he is reached his dry weight and his edema has resolved. Patient is 2D echo with Doppler took place on 01/12/2020 which demonstrated mild to moderate LV dysfunction with an EF around 45 to 50%, unable to quantitate RVSP, and biatrial enlargement. Unfortunately the patient suffered what appears to be an acute CVA with left upper and lower extremity weakness receiving TPA. This is superimposed on severe hypertension with atrial fibrillation with rapid ventricular response. Patient's Cardene drip was discontinued and amlodipine 10 mg p.o. daily was started. Recommend titrating up his Cardizem drip to maintain heart rate less than 100. In addition recommend starting him on Coreg 6.25 mg p.o. twice daily and titrating up every other dose to a maximum of 25 mg p.o. twice daily to assist with blood pressure and heart rate control. Once his heart rate is controlled, we can wean off his Cardizem drip. As his peak troponin was 0.057, and in light of his recent CVA, I would not recommend repeat catheterization at this time. We will await repeat CT scan today to determine the progression of his stroke before we proceed with stress testing. 2. Atrial fibrillation: Would recommend the patient continue his Cardizem drip until his heart rate is well controlled and his beta-igor has been restarted. Again, we await guidance from neurology with respect anticoagulation therapy, although it seems like we need to hold on anticoagulation for period of time to avoid converting him to a hemorrhagic stroke. His CVA was most likely embolic from his heart, and therefore he will require lifelong anticoagulation therapy should he be able to tolerate it. Once his blood pressure and heart rate are optimized, and depending upon the outcome of his stroke will determine whether we will proceed with DC cardioversion in 4 to 6 weeks time. 3. Hyperlipidemia: Recommend obtaining a fasting lipid profile and treating his LDL less than 70 with statin based medications if he is able to tolerate it. 4. Tobacco cessation: I had a long thorough discussion with patient regarding tobacco cessation, and strongly encouraged him to discontinue all tobacco products. 5. Thank you very much for the opportunity to participate in the cardiac care of your patient. Discussed with Dr. Mei Code Visit Inpatient E&M: 76523 Subs Hosp L2
[2020-01-14] MEDS: Carvedilol 6.25 MG Tablet PO ×2 (09:39→22:18)
[2020-01-14] MEDS: Aspirin 325 MG Tablet PO (09:39)
[2020-01-14] MEDS: amLODIPine 10 MG Tablet PO (11:12)
[2020-01-14] MEDS: Famotidine 200 MG/20 ML MDV 20 MG in 0.9% Normal Saline (Pres. free 8 ML 300 MG IV (11:12)
[2020-01-14] MEDS: Furosemide 20 MG/2 ML VIAL IV (11:13)
--- NOTE | 2020-01-14 11:16 | CASEMGMT ---
Social Work SW met with pt in room and introduced self. Pt alert and following SW with eyes but very little response to SW questions. SW discussed with pt discharge plan and presented option of Inpatient Rehab as staff is reporting pt is flacid on left side. Pt does state agreement to go to Inpt Rehab at time of d/c. SW asked permission to speak with pt son Peewee to inform of d/c plan and pt agreed. Phone call to Peewee and he is also agreeable to placement in inpatient rehab after hospital stay. Phone call to Margy in Inpt Rehab. They do have a bed available and are able to accept pt when medically ready. Plan: Inpatient Rehab, when medically ready FRANKLIN Suggs
[2020-01-14 12:58] LABS: Hemoglobin A1c 6.1 % (4.2-6.3)
--- NOTE | 2020-01-14 13:01 | CASEMGMT ---
Social Work Pt presenting with new stroke. SW met with pt and completed PHQ9. Pt score of 1 and no indication of depression at this time. Pt did state he feels bad about himself because of what just happened to him. SW explained that depression can follow a stroke and encouraged pt to notify staff if he starts to feel down. FRANKLIN Suggs
--- NOTE | 2020-01-14 14:07 | CHAPLAIN ---
Type of Pastoral Visit ___ Initial Visit _x__ Follow-up Visit ___ On-call Visit ___ General Patient Visit ___ Spiritual Assessment ___ Family Conference ___ Bereavement ___ Rapid Response ___ Code Blue ___ Other (describe below) Pastoral Care Referral From _x__ Patient ___ Family ___ Nurse ___ Physician ___ Plate Worker ___ Telegraph Lineman ___ Other (describe below) Sacrament/Intervention _x__ Active listening ___ Anointing ___ Synagogue ___ Bereavement ___ Communion ___ Jessica exploration ___ ___ Life review _x__ Prayer ___ Reconciliation ___ Sacrament of Sick _x__ Supportive presence ___ Wedding ___ Other (describe below) Pastoral Comments patient said he was watching yazidism programming on TV this morning and he was thinking about what it said which he told about to this architect marine
[2020-01-14] MEDS: Acetaminophen 325 MG Tablet 650 MG PO (16:17)
[2020-01-14] MEDS: hydrALAZINE 20 MG/ML Vial 10 MG IV (16:18)
[2020-01-14] MEDS: Atorvastatin Calcium 80 MG Tablet PO (22:18)
[2020-01-15] VITALS (26 sets, daily range): BP systolic 115–181; BP diastolic 77–113; PULSE 85–149; RESP 12–22; TEMP 36.4–37.7; O2SAT 92–97; BMI 43.9
[2020-01-15] MEDS: 0.9% Saline Lock 10 ML Syringe IV ×3 (04:45→21:34)
[2020-01-15 05:32] LABS: ALB/GLOB Ratio 0.7 RATIO (0.9-2.4); AST(SGOT) 33 U/L (15-37); Alanine Aminotransfer ALT/SGPT 43 U/L (16-61); Alkaline Phosphatase 50 U/L (45-117); Anion Gap 6 (5-15); BUN 31 mg/dL (7-18); BUN/Creat Ratio 23.1 RATIO (10-20); Calcium,Total 8.7 mg/dL (8.5-10.1); Chloride 106 mmol/L (98-107); Creatinine, Serum 1.34 mg/dL (0.70-1.30); EST Glomerular Filtration Rate 57 mL/min (>60); Est Glom Filt Rate - Afr Amer 70 mL/min (>60); Estimated Creatinine Clearance 52.24 ml/min; Globulin 4.5 g/dL (2.2-4.2); Glucose 121 mg/dL (74-106); Potassium 3.7 mmol/L (3.5-5.1); Protein, Total 7.5 g/dL (6.4-8.2); Sodium Level 141 mmol/L (136-145)
[2020-01-15] MEDS: hydrALAZINE 20 MG/ML Vial 10 MG IV ×2 (05:46→21:35)
--- NOTE | 2020-01-15 06:25 | PCM.PN.INT ---
Subjective: The patient was seen and examined at the bedside this morning. Events from the last 24 hours have been reviewed. The patient continues to have a low-grade fever with elevated blood pressures this morning. He remained stable from an oxygenation standpoint on room air. The patient remains in atrial fibrillation with a rapid ventricular rate this morning. He is currently without complaints of pain or shortness of breath. Objective: The patient's most recent lab work, culture data and imaging studies have all been personally reviewed. General: Alert, Cooperative, No apparent distress HEENT: Atraumatic, PERRLA, Normocephalic Oral: No Gingival or Mucosal Lesions/ Ulcerations Neck: Supple, No Nodes, Trachea Midline Lungs: No rhonchi, No wheeze, No rales, Diminished Cardiovascular: Normal S1, Normal S2, Irregular Rate, Tachycardic Abdomen: Bowel Sounds Present, Soft, Non Tender, Obese Extremities: No clubbing, No cyanosis, No edema Skin: No breakdown Musculoskeletal: No Tenderness to Palpation of Joints or Extremities Lymphatic: No Cervical, Supraclavicular, or Inguinal Adenopathy Neurological: - - Left lower extremity remains largely flaccid. Psych/Mental Status: Flat Affect Vital Signs Temp Pulse Resp BP Pulse Ox 99.3 F H 104 H 22 H 162/97 H 95 01/15/20 06:00 01/15/20 06:00 01/15/20 06:00 01/15/20 06:00 01/15/20 06:00 Oxygen Flow Rate (L/min) 2 Oxygen Delivery Method Room Air Weight: 260 lb 9.382 oz Body Mass Index (BMI) 43.9 Finger Stick Blood Glucose 163 Intake and Output for Last 24 Hours 01/13/20 01/14/20 01/15/20 23:59 23:59 23:59 Intake Total 830.67 / 840.67 1857.91 / 1857.91 0 / 0 Output Total 4050 / 4050 2150 / 2150 200 / 200 Balance -3219.33 / -3209.33 -292.09 / -292.09 -200 / -200 Labs (Last 48 Hours) 01/13/20 01/13/20 01/14/20 04:40 04:40 05:30 Sodium 142 Potassium 3.5 Chloride 104 Carbon Dioxide 31.0 Anion Gap 7 BUN 29 H Creatinine 1.59 H Estim Creat Clear Calc 44.03 Est GFR (MDRD) Af Amer 57 L Est GFR (MDRD) Non-Af 47 L BUN/Creatinine Ratio 18.2 Glucose 121 H Hemoglobin A1c 6.1 Calcium 8.7 Phosphorus 3.7 Magnesium 1.9 Total Bilirubin 1.60 H AST 43 H ALT 53 Alkaline Phosphatase 54 Total Protein 7.6 Albumin 3.2 Globulin 4.4 H Albumin/Globulin Ratio 0.7 L 01/14/20 01/15/20 05:30 04:55 Sodium 141 Potassium 3.7 Chloride 106 Carbon Dioxide 29.0 Anion Gap 6 BUN 31 H Creatinine 1.34 H Estim Creat Clear Calc 52.24 Est GFR (MDRD) Af Amer 70 Est GFR (MDRD) Non-Af 57 L BUN/Creatinine Ratio 23.1 H Glucose 121 H Hemoglobin A1c Calcium 8.7 Phosphorus Magnesium 2.4 Total Bilirubin 1.30 H AST 33 ALT 43 Alkaline Phosphatase 50 Total Protein 7.5 Albumin 3.0 L Globulin 4.5 H Albumin/Globulin Ratio 0.7 L Clinical Impression(s) from Imaging Studies Chest X-Ray 01/11/20 12:47 IMPRESSION: Cardiomegaly and pulmonary vascular congestion. Small right effusion. Possible right upper lobe nodule may be further assessed with chest CT as clinically indicated. Electronically Signed: Wan Helton, at 15:36 EST Tel , Service support , Chest CTA 01/11/20 15:46 IMPRESSION: No evidence for pulmonary embolism or aortic dissection. Moderate-sized right pleural effusion with associated compressive atelectasis. Small pericardial effusion. Electronically Signed: Wan Helton, at 16:43 EST Tel , Service support , Brain CT 01/12/20 18:12 IMPRESSION: Chronic involutional changes of the brain. Results discussed with Gretta Godwin, nurse caring for the patient. N.B. : The above information has been verbally conveyed by Jeremy Adair MD to Gretta Godwin RN, RN, on 01/12/2020 18:36:43 (ET). Electronically Signed: Jeremy Adair MD at 18:37 EST , Service support , ADDENDUM: 01/12/20 1844 IMPRESSION: Chronic involutional changes of the brain. Results discussed with Gretta Godwin, nurse caring for the patient. N.B. : The above information has been verbally conveyed by Jeremy Adair MD to Gretta Godwin RN, RN, on 01/12/2020 18:36:43 (ET). Electronically Signed: Jeremy Adair MD at 18:37 EST , Service support , Head/Neck CTA 01/12/20 18:12 IMPRESSION: 1. No hemodynamically significant stenosis or occlusion or aneurysm of the intracranial arteries. 2. There is moderate focal atherosclerotic plaque formation of the origin of the left internal carotid artery with an estimated stenosis of approximately 70%. Medialization of the left ICA noted. Normal visualized cervical portion of the left internal carotid artery. Electronically Signed: Stef García MD at 19:17 EST , Service support , Brain MRI 01/13/20 09:08 IMPRESSION: Recent, acute or subacute, right larger than left frontal and left occipital infarcts. No hemorrhage. Electronically Signed: Jeremy Adair MD at 10:53 EST , Service support , ADDENDUM: 01/13/20 1105 IMPRESSION: Recent, acute or subacute, right larger than left frontal and left occipital infarcts. No hemorrhage. N.B. : The above information has been verbally conveyed by Jeremy Adair MD to Dr Jose Cody MD, on 01/13/2020 10:58:19 (ET). Electronically Signed: Jeremy Adair MD at 10:53 EST , Service support , Foot X-Ray 01/13/20 17:35 IMPRESSION: No acute finding Electronically Signed: Jeremy Bonilla DO at 14:51 EST Tel , Service support , Foot X-Ray 01/13/20 17:42 IMPRESSION: No acute finding Electronically Signed: Jeremy Bonilla DO at 14:50 EST Tel , Service support , Brain CT 01/13/20 20:00 IMPRESSION: 1. Large acute right frontal lobe infarct which was seen on the MRI of the brain performed on January 13, 2020 2. Acute left occipital lobe infarct. 3. Both infarcts were identified on the earlier MRI of the brain dated January 13, 2020. 4. No demonstrated intracranial hemorrhage. Electronically Signed: Stef García MD at 22:01 EST , Service support , Brain CT 01/14/20 08:03 IMPRESSION: Stable examination. Electronically Signed: Josafat Lopez, at 9:21 EST , Service support , Medical Necessity - Tobacco Use Smoking Status: Current some day smoker Tobacco Use: Cigarettes Assessment/Plan All Active Problems Atrial fibrillation with rapid ventricular response (Acute) Elevated troponin (Acute) Hypertensive urgency (Acute) Medical non-compliance (Acute) Coronary artery disease (Acute) Non-STEMI (non-ST elevated myocardial infarction) (Acute) RECOMMENDATIONS: 1. Continue aspirin and high-dose statin. 2. Management of hypertension and A. fib per cardiology recommendations. 3. Repeat CT head in 7 to 10 days with plans to initiate systemic anticoagulation pending stability and head imaging. 4. PT/OT to work with the patient. 5. Continue diuretic therapy. 6. As the patient is without further ICU or pulmonary needs, will sign off. Please call with any additional questions. IMPRESSIONS: 1. Acute CVA secondary to new onset A. fib Continue current supportive measures per neurology recommendations. Per neurology, the patient will require long-term anticoagulation but recommended waiting 3 to 14 days prior to starting. They did recommend that a repeat CT head be obtained in approximately 1 week prior to starting any form of anticoagulation. Additional recommendations included high-dose statin, blood pressure control and PT/OT evaluations. 2. Hypertensive urgency/atrial fibrillation/chronic systolic heart failure Continue current medical management per cardiology recommendations. 3. Suspected neuropathy and HINA/noncompliance/morbid obesity Complicates care, management, recovery and prognosis. Recommend outpatient diagnostic polysomnogram. This note was generated with [employer] dictation software. It may contain incorrect words, spelling, and punctuation that were not noted in checking the note before signing. Code Visit Inpatient E&M: 69743 Subs Hosp L2
--- NOTE | 2020-01-15 08:26 | PN_ITS ---
Patient Problems: Active and Suspected Problems Atrial fibrillation with rapid ventricular response (Acute) Elevated troponin (Acute) Hypertensive urgency (Acute) Medical non-compliance (Acute) Coronary artery disease (Acute) Non-STEMI (non-ST elevated myocardial infarction) (Acute) Reason for Visit: Follow-up on acute CVA, s/p TPA Subjective: Patient was seen and examined. Remains tachycardic this morning after therapy. Blood pressure still is uncontrolled. Patient denies any complaints of pain on his both buttocks. Objective: Physical exam: General: Alert, Oriented x3, Cooperative HEENT: Atraumatic, PERRLA, EOMI, Normocephalic Oral: Moist Mucosa Neck: Supple Lungs: Clear to auscultation, Normal air movement Cardiovascular: Regular rate, Regular Rhythm, Normal S1, Normal S2, No murmurs Abdomen: Bowel Sounds Present, Soft, Non Tender, Non-Distended, No Hepato- splenomegaly Extremities: No edema, Capillary Refill Less than 3 Seconds Skin: No rashes, No breakdown Musculoskeletal: No Tenderness to Palpation of Joints or Extremities Neurological: Cranial nerves II-XII grossly intact - except for left facial droop, Motor Exam 5/5 strength throughout - except 3/5 in LUE and 0-1 in LLL, sensation is intact Psych/Mental Status: Normal Affect, Appropriate Vitals/I&O's: Vital Signs Temp Pulse Resp BP Pulse Ox 99.2 F H 115 H 16 168/110 H 94 01/15/20 07:00 01/15/20 07:00 01/15/20 07:00 01/15/20 07:00 01/15/20 07:00 Oxygen Flow Rate (L/min) 2 Oxygen Delivery Method Room Air Weight: 118.2 kg Body Mass Index (BMI) 43.9 Finger Stick Blood Glucose 163 Intake and Output for Last 24 Hours 01/13/20 01/14/20 01/15/20 23:59 23:59 23:59 Intake Total 830.67 / 840.67 1857.91 / 1857.91 0 / 0 Output Total 4050 / 4050 2150 / 2150 200 / 200 Balance -3219.33 / -3209.33 -292.09 / -292.09 -200 / -200 Laboratory Results 01/13/20 04:40: Hemoglobin A1c 6.1 01/15/20 04:55: Sodium 141, Potassium 3.7, Chloride 106, Carbon Dioxide 29.0, Anion Gap 6, BUN 31 H, Creatinine 1.34 H, Estim Creat Clear Calc 52.24, Est GFR (MDRD) Af Amer 70, Est GFR (MDRD) Non-Af 57 L, BUN/Creatinine Ratio 23.1 H, Glucose 121 H, Calcium 8.7, Total Bilirubin 1.30 H, AST 33, ALT 43, Alkaline Phosphatase 50, Total Protein 7.5, Albumin 3.0 L, Globulin 4.5 H, Albumin/Globulin Ratio 0.7 L Current Medications Acetaminophen (Tylenol) 650 mg PO Q6H PRN PRN PRN Reason: Temp > 99.6 F Last Admin: 01/14/20 16:17 Dose: 650 mg Documented by: Amlodipine Besylate (Norvasc) 10 mg PO DAILY [facility] Last Admin: 01/14/20 11:12 Dose: 10 mg Documented by: Aspirin (Aspirin) 325 mg PO DAILY@0800 [facility] Last Admin: 01/14/20 09:39 Dose: 325 mg Documented by: Atorvastatin Calcium (Lipitor) 80 mg PO QHS [facility] Last Admin: 01/14/20 22:18 Dose: 80 mg Documented by: Carvedilol (Coreg) 6.25 mg PO BID [facility] Last Admin: 01/14/20 22:18 Dose: 6.25 mg Documented by: Clotrimazole (Lotrimin) 1 applicatio TOPICAL DAILY [facility]; Protocol Last Admin: 01/14/20 12:00 Dose: 1 applicatio Documented by: Furosemide (Lasix) 20 mg IV DAILY [facility] Last Admin: 01/14/20 11:13 Dose: 20 mg Documented by: Hydralazine HCl (Apresoline Iv) 10 mg IV Q4H PRN PRN PRN Reason: sbp>160 Last Admin: 01/15/20 05:46 Dose: 10 mg Documented by: Diltiazem HCl 125 mg/ Dextrose 125 mls @ 10 mls/hr IV .[id number] [facility]; Protocol Last Titration: 01/15/20 05:52 Dose: Infused Documented by: Famotidine 20 mg/ Sodium (Chloride) 10 mls @ 300 mls/hr IV DAILY [facility] Last Infusion: 01/14/20 11:14 Dose: Infused Documented by: Labetalol HCl (Trandate) 20 mg IV X1 PRN PRN Reason: BP MANAGEMENT Last Admin: 01/12/20 18:38 Dose: 20 mg Documented by: Labetalol HCl (Trandate) 20 mg IV Q4H PRN PRN PRN Reason: Sbp Greater Than 159 Last Admin: 01/14/20 14:36 Dose: 20 mg Documented by: Multi-Ingredient Cream (Eucerin) 1 applic TOPICAL DAILY [facility]; Protocol Last Admin: 01/14/20 18:05 Dose: Not Given Documented by: Ondansetron HCl (Zofran) 4 mg IV Q6H PRN PRN PRN Reason: NAUSEA/VOMITING Last Admin: 01/12/20 05:21 Dose: 4 mg Documented by: Oxycodone HCl (Oxyir) 5 mg PO Q6H PRN PRN PRN Reason: Pain Score 6-10/10 Sodium Chloride () 10 - 40 ml IV UD PRN PRN Reason: SALINE FLUSH Last Admin: 01/15/20 05:46 Dose: 10 ml Documented by: STROKE Vital Signs/Narrative: Vital Signs Temp Pulse Resp BP BP Pulse Ox 01/15/20 07:00 99.2 F H 115 H 16 168/110 H 94 01/15/20 06:52 96 01/15/20 06:00 99.3 F H 104 H 22 H 162/97 H 95 01/15/20 05:46 113 H 177/109 H 01/15/20 05:00 99.4 F H 102 H 21 H 177/109 H 93 Medical Necessity - Tobacco Use Smoking Status: Current some day smoker Tobacco Use: Cigarettes Assessment/Plan All Active Problems Atrial fibrillation with rapid ventricular response (Acute) Elevated troponin (Acute) Hypertensive urgency (Acute) Medical non-compliance (Acute) Coronary artery disease (Acute) Non-STEMI (non-ST elevated myocardial infarction) (Acute) 1. Acute right frontal, ? left parietal and left occipital infarcts, likely acute cardioembolic in nature, history of underlying A. fib Status post TPA, MRI of the head confirms stroke in both places, post TPA CT scan is negative for acute bleed T chol 188, triglyceride 153, LDL 122, HDL is 35, TSH 2.7 2d-echo shows EF of 45 to 50%, no valvular abnormalities NIHSS today is a 7; down from 11 yesterday but patient has progressive LUE weakness Repeat CT scan of brain negative for worsening edema or bleed Continue on aspirin 325mg daily, atorvastatin, goal for BP <140/90, increase carvedilol to 12.5mg BID, continue on amlodipine Continue on hydralazine prn 2. A. fib with RVR, Hr fairly uncontrolled, waxes and wanes; off Cardizem Will increase Coreg to 12.5mg twice daily, will continue to monitor Continue on aspirin 3 2 5 mg daily for now, would need repeat CT scan in 1 week prior to start of Eliquis. 3. Hypertension, remains uncontrolled, continue in #1 4. Indeterminate troponins, likely secondary to uncontrolled hypertension, being followed by cardiology 5. Right-sided pleural effusion, small pericardial effusion, seen on CT, not seen on 2D echo, possible acute diastolic CHF Continueo n Lasix, continue with strict I's and O's 6. Hypomagnesemia, replaced 7. CKD stage III, likely secondary to hypertension, creatinine slightly improved, will continue to trend 8. Morbid obesity, lifestyle modification recommended 9. Suspected HINA, will need sleep study on discharge 10. DVT prophylaxis-will continue SCDs, start Heparin SC from tomorrow. Code Visit Inpatient E&M: 18339 Subs Hosp L2
[2020-01-15] MEDS: Famotidine 20 MG Tablet PO (10:17)
[2020-01-15] MEDS: Acetaminophen 325 MG Tablet 650 MG PO ×2 (10:17→21:34)
[2020-01-15] MEDS: Carvedilol 12.5 MG Tablet PO ×2 (10:18→21:34)
[2020-01-15] MEDS: Furosemide 20 MG Tablet PO ×2 (10:18→17:32)
[2020-01-15] MEDS: Aspirin 325 MG Tablet PO (10:19)
[2020-01-15] MEDS: amLODIPine 10 MG Tablet PO (10:19)
[2020-01-15] MEDS: Atorvastatin Calcium 80 MG Tablet PO (21:34)
[2020-01-16] VITALS (25 sets, daily range): BP systolic 85–181; BP diastolic 58–142; PULSE 40–131; RESP 16–27; TEMP 36.7–37; O2SAT 93–100; BMI 43.9
--- NOTE | 2020-01-16 03:09 | CPS ---
UNABLE TO TOLERATE BIPAP
[2020-01-16] MEDS: Furosemide 20 MG Tablet PO (08:45)
[2020-01-16] MEDS: Famotidine 20 MG Tablet PO (08:45)
[2020-01-16] MEDS: Heparin Injection (Vial) 5,000 UNIT/ML VIAL 5000 UNIT SC ×3 (08:45→22:18)
[2020-01-16] MEDS: Carvedilol 25 MG Tablet PO (08:45)
[2020-01-16] MEDS: amLODIPine 10 MG Tablet PO (08:45)
[2020-01-16] MEDS: Aspirin 325 MG Tablet PO (08:45)
[2020-01-16] MEDS: hydrALAZINE 25 MG Tablet PO (08:45)
--- NOTE | 2020-01-16 13:04 | PN_ITS ---
Patient Problems: Active and Suspected Problems Atrial fibrillation with rapid ventricular response (Acute) Elevated troponin (Acute) Hypertensive urgency (Acute) Medical non-compliance (Acute) Coronary artery disease (Acute) Non-STEMI (non-ST elevated myocardial infarction) (Acute) Reason for Visit: Follow-up on acute stroke Subjective: Patient was seen and examined. He complains of constipation. He denied any headache or dizziness or palpitations. He worked with physical therapy and was said to doing better than previous. Objective: Physical exam: General: Alert, Oriented x3, Cooperative HEENT: Atraumatic, PERRLA, EOMI, Normocephalic Oral: Moist Mucosa Neck: Supple Lungs: Clear to auscultation, Normal air movement Cardiovascular: Regular rate, Regular Rhythm, Normal S1, Normal S2, No murmurs Abdomen: Bowel Sounds Present, Soft, Non Tender, Non-Distended, No Hepato- splenomegaly Extremities: No edema, Capillary Refill Less than 3 Seconds Skin: No rashes, No breakdown Musculoskeletal: No Tenderness to Palpation of Joints or Extremities Neurological: Cranial nerves II-XII grossly intact - except for left facial droop, Motor Exam 5/5 strength throughout - except 3/5 in LUE and 0-1 in LLL, sensation is intact Vitals/I&O's: Vital Signs Temp Pulse Resp BP Pulse Ox 98.4 F 78 16 127/58 H 98 01/16/20 11:00 01/16/20 11:00 01/16/20 11:00 01/16/20 11:00 01/16/20 11:00 Oxygen Flow Rate (L/min) 2 Oxygen Delivery Method Room Air Weight: 118.2 kg Body Mass Index (BMI) 43.9 Finger Stick Blood Glucose 163 Intake and Output for Last 24 Hours 01/14/20 01/15/20 01/16/20 23:59 23:59 23:59 Intake Total 1857.91 / 1857.91 1190 / 1190 450 / 450 Output Total 2150 / 2150 1725 / 1725 800 / 800 Balance -292.09 / -292.09 -535 / -535 -350 / -350 Current Medications Acetaminophen (Tylenol) 650 mg PO Q6H PRN PRN PRN Reason: Temp > 99.6 F Last Admin: 01/15/20 21:34 Dose: 650 mg Documented by: Amlodipine Besylate (Norvasc) 10 mg PO DAILY [facility] Last Admin: 01/16/20 08:45 Dose: 10 mg Documented by: Aspirin (Aspirin) 325 mg PO DAILY@0800 [facility] Last Admin: 01/16/20 08:45 Dose: 325 mg Documented by: Atorvastatin Calcium (Lipitor) 80 mg PO QHS [facility] Last Admin: 01/15/20 21:34 Dose: 80 mg Documented by: Carvedilol (Coreg) 25 mg PO BID [facility] Last Admin: 01/16/20 08:45 Dose: 25 mg Documented by: Clotrimazole (Lotrimin) 1 applicatio TOPICAL DAILY [facility]; Protocol Last Admin: 01/16/20 08:44 Dose: 1 applicatio Documented by: Famotidine (Pepcid) 20 mg PO DAILY [facility] Last Admin: 01/16/20 08:45 Dose: 20 mg Documented by: Furosemide (Lasix) 20 mg PO BID@1000,1800 [facility] Last Admin: 01/16/20 08:45 Dose: 20 mg Documented by: Heparin Sodium (Porcine) (Heparin Na) 5,000 unit SC Q8 [facility] Last Admin: 01/16/20 08:45 Dose: 5,000 unit Documented by: Hydralazine HCl (Apresoline) 25 mg PO BID [facility] Last Admin: 01/16/20 08:45 Dose: 25 mg Documented by: Labetalol HCl (Trandate) 20 mg IV Q4H PRN PRN PRN Reason: Sbp Greater Than 159 Last Admin: 01/16/20 03:19 Dose: 20 mg Documented by: Multi-Ingredient Cream (Eucerin) 1 applic TOPICAL DAILY [facility]; Protocol Last Admin: 01/16/20 08:44 Dose: 1 applicatio Documented by: Ondansetron HCl (Zofran) 4 mg IV Q6H PRN PRN PRN Reason: NAUSEA/VOMITING Last Admin: 01/12/20 05:21 Dose: 4 mg Documented by: Oxycodone HCl (Oxyir) 5 mg PO Q6H PRN PRN PRN Reason: Pain Score 6-10/10 Sodium Chloride () 10 - 40 ml IV UD PRN PRN Reason: SALINE FLUSH Last Admin: 01/15/20 21:34 Dose: 10 ml Documented by: STROKE Vital Signs/Narrative: Vital Signs Temp Pulse Resp BP Pulse Ox 01/16/20 11:00 98.4 F 78 16 127/58 H 98 Medical Necessity - Tobacco Use Smoking Status: Current some day smoker Tobacco Use: Cigarettes Assessment/Plan All Active Problems Atrial fibrillation with rapid ventricular response (Acute) Elevated troponin (Acute) Hypertensive urgency (Acute) Medical non-compliance (Acute) Coronary artery disease (Acute) Non-STEMI (non-ST elevated myocardial infarction) (Acute) 1. Acute right frontal, ? left parietal and left occipital infarcts, likely acute cardioembolic in nature, history of underlying A. fib Status post TPA, MRI of the head confirms stroke in both places, post TPA CT scan is negative for acute bleed T chol 188, triglyceride 153, LDL 122, HDL is 35, TSH 2.7 2d-echo shows EF of 45 to 50%, no valvular abnormalities Repeat CT scan of brain negative for worsening edema or bleed Continue on aspirin 325mg daily, atorvastatin, goal for BP <140/90, continue on amlodipine, Coreg 25 mg twice daily, start hydralazine 25 mg twice daily 2. A. fib with RVR, Hr fairly uncontrolled, waxes and wanes; off Cardizem Coreg increased to 25 mg twice daily Continue on aspirin 3 2 5 mg daily for now, would need repeat CT scan in 1 week prior to start of Eliquis. 3. Hypertension, remains uncontrolled, continue in #1 4. Indeterminate troponins, likely secondary to uncontrolled hypertension, being followed by cardiology 5. Right-sided pleural effusion, small pericardial effusion, seen on CT, not seen on 2D echo, possible acute diastolic CHF Continue on Lasix, continue with strict I's and O's 6. Hypomagnesemia, replaced 7. CKD stage III, likely secondary to hypertension, creatinine slightly improved, will continue to trend 8. Morbid obesity, lifestyle modification recommended 9. Suspected HINA, will need sleep study on discharge 10. DVT prophylaxis- Heparin subcu Code Visit Inpatient E&M: 18064 Subs Hosp L2
--- NOTE | 2020-01-16 13:37 | EKG12_ITS ---
Test Reason : Blood Pressure : / mmHG Vent. Rate : 085 BPM Atrial Rate : 138 BPM P-R Int : 000 ms QRS Dur : 120 ms QT Int : 376 ms P-R-T Axes : 000 102 158 degrees QTc Int : 447 ms Atrial fibrillation Nonspecific ST & T wave abnormality Abnormal ECG Confirmed by BAY ROE, MAGALY ([id number]), cook candy JONG SANTOS ([id number]) on 01/19/2020 2:04:34 PM Referred By: Confirmed By:MAGALY HERMOSILLO MD
--- NOTE | 2020-01-16 13:51 | CT_ITS ---
STUDY: CT BRAIN WITHOUT CONTRAST REASON FOR EXAM: Male, 59 years old patient with recent syncope, with possible intracranial hemorrhage. Recent stroke on 01/12/2020 RADIATION DOSAGE (If Supplied By Facility): CTDIvol = ( 44.99 ) mGy, DLP = ( 846.73 ) mGycm TECHNIQUE: Transaxial CT imaging of the brain was performed without administration of intravenous contrast material. Multiplanar reformations are submitted for interpretation. Individualized dose optimization techniques were used for this CT. COMPARISON: CT of the head dated January 14, 2020. FINDINGS: Normal soft tissue structures. Normal calvarium. There is mild cerebral atrophy with widening of the extra-axial spaces and ventricular dilatation. There are areas of decreased attenuation within the white matter tracts of the supratentorial brain, consistent with microvascular disease changes. There is continued evolution of the right anterior cerebral artery territory infarct. There is also evidence of for a subacute infarct involving the left paramedian parieto-occipital lobe consistent with a left posterior cerebral artery territory infarct. This may be more acute than the right-sided infarct. Normal basal ganglia and thalami. Normal brainstem. There is mild cerebellar atrophy. There is no intracranial hemorrhage. There is mild atherosclerotic calcification of the intracranial arteries. Normal visualized paranasal sinuses. CT/Brain/Head without Contrast IMPRESSION: 1. Chronic involutional changes of the brain. 2. No CT evidence of acute intracranial hemorrhage. 3. Continued evolution of the right anterior cerebral artery territory infarct. 4. Continued evolution of a left posterior cerebral artery territory infarct. Electronically Signed: Charity Best MD at 14:57 EST , Service support ,
[2020-01-16 13:56] LABS: Base Excess -4 mmol/L (-2 to +2); Bicarbonate 20.6 mmol/L (22-26); Blood Gas Specimen Type ART; FI02 50; PO2 119 mmHG (75-100); SITE L Radial; SO2 99 % (95-99); Time Given 1350; Total Carbon Dioxide 22 mmol/L; pCO2 33.5 mmHg (35-45)
[2020-01-16 14:01] LABS: Bedside Glucose 111 mg/dL (70-110)
[2020-01-16] MEDS: 0.9% Normal Saline 1,000 ML 999 ML IV ×2 (14:51→15:54)
[2020-01-16] MEDS: Magnesium Hydroxide 30 ML UDC PO (17:46)
--- NOTE | 2020-01-16 17:55 | RRT_ITS ---
Rapid Response Note A rapid response was called at 1:40pm for patient who was found to be unresponsive. He had earlier on complained of wanting to move his bowels. His nurse was getting ready to give him a bedpan and check on his vitals. He had said that he wanted to void first. He has a Abbasi catheter. He subsequently became unresponsive. Blood sugar was 111. Blood pressure was initially hard to get. Eventually blood pressure was 80/57. Patient was unresponsive to sternal rubs. Appeared dusky. EKG done was unremarkable. ABG was also unremarkable. He was started on IV fluid bolus 1 L normal saline After about 20 minutes, patient seemed to come around. He seems to be alert oriented to his surroundings. He is able to follow commands. He denied feeling that he was going to pass out. He could not tell us exactly what happened. Review of his blood pressure profile during the day showed that his systolic blood pressure had become better controlled in the 120s and 130s around [address] of head was negative for acute bleed but showed evolution of his infarct. Impression: Acute syncopal episode, likely vasovagal related to use of the urinal We will discontinue oral hydralazine started in the morning Continue on IV fluids Monitor vitals closely Discontinue oral Lasix Hold on removing abbasi catheter Patient Problems: Active and Suspected Problems Atrial fibrillation with rapid ventricular response (Acute) Elevated troponin (Acute) Hypertensive urgency (Acute) Medical non-compliance (Acute) Coronary artery disease (Acute) Non-STEMI (non-ST elevated myocardial infarction) (Acute) - Physical Exam Vitals/I&O's: Vital Signs Temp Pulse Resp BP Pulse Ox 98.4 F 131 H 22 H 153/117 H 99 01/16/20 11:00 01/16/20 17:43 01/16/20 16:30 01/16/20 16:30 01/16/20 16:30 Oxygen Flow Rate (L/min) 3 Oxygen Delivery Method Nasal Cannula Weight: 118.2 kg Body Mass Index (BMI) 43.9 Finger Stick Blood Glucose 163 Intake and Output for Last 24 Hours 01/14/20 01/15/20 01/16/20 23:59 23:59 23:59 Intake Total 1857.91 / 1857.91 1190 / 1190 2450 / 2450 Output Total 2150 / 2150 1725 / 1725 800 / 800 Balance -292.09 / -292.09 -535 / -535 1650 / 1650 Laboratory Results 01/16/20 13:35: POC Glucose 111 H 01/16/20 13:52: Specimen Type ART, Sample Site L Radial, pH 7.40, Bicarbonate Actual 20.6 L, POC Total CO2 22, Base Excess -4 L, O2 Saturation 99, O2 % 50, ABG pCO2 33.5 L, ABG pO2 119 H, Joaquín Test NA, O2 Delivery Device Vent Mask, Blood Gas Notified Whom HOSP MD, Blood Gas Notified Time 1350 Current Medications Acetaminophen (Tylenol) 650 mg PO Q6H PRN PRN PRN Reason: Temp > 99.6 F Last Admin: 01/15/20 21:34 Dose: 650 mg Documented by: Amlodipine Besylate (Norvasc) 10 mg PO DAILY [facility] Last Admin: 01/16/20 08:45 Dose: 10 mg Documented by: Aspirin (Aspirin) 325 mg PO DAILY@0800 [facility] Last Admin: 01/16/20 08:45 Dose: 325 mg Documented by: Atorvastatin Calcium (Lipitor) 80 mg PO QHS [facility] Last Admin: 01/15/20 21:34 Dose: 80 mg Documented by: Carvedilol (Coreg) 25 mg PO BID [facility] Last Admin: 01/16/20 08:45 Dose: 25 mg Documented by: Clotrimazole (Lotrimin) 1 applicatio TOPICAL DAILY [facility]; Protocol Last Admin: 01/16/20 08:44 Dose: 1 applicatio Documented by: Famotidine (Pepcid) 20 mg PO DAILY [facility] Last Admin: 01/16/20 08:45 Dose: 20 mg Documented by: Furosemide (Lasix) 20 mg PO BID@1000,1800 [facility] Last Admin: 01/16/20 08:45 Dose: 20 mg Documented by: Heparin Sodium (Porcine) (Heparin Na) 5,000 unit SC Q8 [facility] Last Admin: 01/16/20 13:31 Dose: 5,000 unit Documented by: Hydralazine HCl (Apresoline Iv) 5 mg IV Q6H PRN PRN PRN Reason: BLOOD PRESSURE Labetalol HCl (Trandate) 20 mg IV Q4H PRN PRN PRN Reason: Sbp Greater Than 159 Last Admin: 01/16/20 03:19 Dose: 20 mg Documented by: Multi-Ingredient Cream (Eucerin) 1 applic TOPICAL DAILY [facility]; Protocol Last Admin: 01/16/20 08:44 Dose: 1 applicatio Documented by: Ondansetron HCl (Zofran) 4 mg IV Q6H PRN PRN PRN Reason: NAUSEA/VOMITING Last Admin: 01/12/20 05:21 Dose: 4 mg Documented by: Psyllium Hydrophilic Mucilloid (Metamucil) 1 packet PO DAILY [facility] Senna/Docusate Sodium (Senokot-S, Eri-Colace) 2 tablet PO DAILY PRN PRN PRN Reason: CONSTIPATION Sodium Chloride () 10 - 40 ml IV UD PRN PRN Reason: SALINE FLUSH Last Admin: 01/15/20 21:34 Dose: 10 ml Documented by: Assessment/Plan All Active Problems Atrial fibrillation with rapid ventricular response (Acute) Elevated troponin (Acute) Hypertensive urgency (Acute) Medical non-compliance (Acute) Coronary artery disease (Acute) Non-STEMI (non-ST elevated myocardial infarction) (Acute)
[2020-01-16] MEDS: 0.9% Saline Lock 10 ML Syringe IV (18:56)
[2020-01-16] MEDS: Atorvastatin Calcium 80 MG Tablet PO (22:17)
[2020-01-17] VITALS (18 sets, daily range): BP systolic 128–187; BP diastolic 80–121; PULSE 88–137; RESP 18–24; TEMP 36.2–36.8; O2SAT 95–100; BMI 43.9
[2020-01-17] MEDS: 0.9% Saline Lock 10 ML Syringe IV ×3 (03:27→22:26)
[2020-01-17] MEDS: Heparin Injection (Vial) 5,000 UNIT/ML VIAL 5000 UNIT SC ×3 (05:31→22:30)
--- NOTE | 2020-01-17 09:55 | CASEMGMT ---
CAROLE received a call from Margy in Rehab and we will need to see how he does today. There is some concern that patient may not be able to do 3 hours of therapy. CAROLE will watch fo rd/c planning. Cinthia NARVAEZ MSW
[2020-01-17] MEDS: Psyllium 1 PACKET PO (11:19)
[2020-01-17] MEDS: Famotidine 20 MG Tablet PO (11:19)
[2020-01-17] MEDS: Aspirin 325 MG Tablet PO (11:19)
--- NOTE | 2020-01-17 13:04 | PN_ITS ---
Patient Problems: Active and Suspected Problems Atrial fibrillation with rapid ventricular response (Acute) Elevated troponin (Acute) Hypertensive urgency (Acute) Medical non-compliance (Acute) Coronary artery disease (Acute) Non-STEMI (non-ST elevated myocardial infarction) (Acute) Reason for Visit: Patient was initially admitted with new onset A. fib on Cardizem drip. Right pleural effusion on CTA. Subsequently he had acute stroke and was given TPA. Patient had syncope, vasovagal syncope yesterday and rapid response was called. Vitals/I&O's: Vital Signs Temp Pulse Resp BP Pulse Ox 98 F 96 23 H 142/92 H 96 01/17/20 11:24 01/17/20 11:24 01/17/20 11:24 01/17/20 11:24 01/17/20 11:24 Oxygen Flow Rate (L/min) 2 Oxygen Delivery Method Nasal Cannula Weight: 260 lb 9.382 oz Body Mass Index (BMI) 43.9 Finger Stick Blood Glucose 163 Intake and Output for Last 24 Hours 01/15/20 01/16/20 01/17/20 23:59 23:59 23:59 Intake Total 1190 / 1190 2650 / 2650 710 / 710 Output Total 1725 / 1725 1200 / 1200 Balance -535 / -535 1450 / 1450 710 / 710 General: Oriented x3, Cooperative, Lethargic HEENT: Atraumatic, PERRLA, EOMI, Normocephalic Neck: Supple, No JVD, Negative Carotid Bruits Lungs: Diminished - air entry diminished in right lung base, Rhonchi, Short of Breath, Wheezes Cardiovascular: Regular rate, Normal S1, Normal S2, No murmurs, Murmur - systolic murmur over LLSB Abdomen: Bowel Sounds Present, Soft, Non Tender, Hyperactive Bowel Sounds, Distended Extremities: Capillary Refill Less than 3 Seconds, Edema Skin: No rashes, No breakdown Musculoskeletal: No Tenderness to Palpation of Joints or Extremities, Arthritic Changes Neurological: Cranial nerves II-XII grossly intact Psych/Mental Status: Normal Affect, Appropriate Laboratory Results 01/16/20 13:35: POC Glucose 111 H 01/16/20 13:52: Specimen Type ART, Sample Site L Radial, pH 7.40, Bicarbonate Actual 20.6 L, POC Total CO2 22, Base Excess -4 L, O2 Saturation 99, O2 % 50, ABG pCO2 33.5 L, ABG pO2 119 H, Joaquín Test NA, O2 Delivery Device Vent Mask, Blood Gas Notified Whom HOSP MD, Blood Gas Notified Time 1350 Current Medications Acetaminophen (Tylenol) 650 mg PO Q6H PRN PRN PRN Reason: Temp > 99.6 F Last Admin: 01/15/20 21:34 Dose: 650 mg Documented by: Amlodipine Besylate (Norvasc) 10 mg PO DAILY [facility] Last Admin: 01/16/20 08:45 Dose: 10 mg Documented by: Aspirin (Aspirin) 325 mg PO DAILY@0800 [facility] Last Admin: 01/16/20 08:45 Dose: 325 mg Documented by: Atorvastatin Calcium (Lipitor) 80 mg PO QHS [facility] Last Admin: 01/16/20 22:17 Dose: 80 mg Documented by: Carvedilol (Coreg) 25 mg PO BID [facility] Last Admin: 01/16/20 08:45 Dose: 25 mg Documented by: Clotrimazole (Lotrimin) 1 applicatio TOPICAL DAILY [facility]; Protocol Last Admin: 01/17/20 11:19 Dose: 1 applicatio Documented by: Famotidine (Pepcid) 20 mg PO DAILY [facility] Last Admin: 01/16/20 08:45 Dose: 20 mg Documented by: Furosemide (Lasix) 20 mg PO BID@1000,1800 [facility] Last Admin: 01/16/20 08:45 Dose: 20 mg Documented by: Heparin Sodium (Porcine) (Heparin Na) 5,000 unit SC Q8 [facility] Last Admin: 01/17/20 05:31 Dose: 5,000 unit Documented by: Hydralazine HCl (Apresoline Iv) 5 mg IV Q6H PRN PRN PRN Reason: BLOOD PRESSURE Labetalol HCl (Trandate) 20 mg IV Q4H PRN PRN PRN Reason: Sbp Greater Than 159 Last Admin: 01/17/20 03:27 Dose: 20 mg Documented by: Multi-Ingredient Cream (Eucerin) 1 applic TOPICAL DAILY [facility]; Protocol Last Admin: 01/17/20 11:20 Dose: 1 applicatio Documented by: Ondansetron HCl (Zofran) 4 mg IV Q6H PRN PRN PRN Reason: NAUSEA/VOMITING Last Admin: 01/12/20 05:21 Dose: 4 mg Documented by: Psyllium Hydrophilic Mucilloid (Metamucil) 1 packet PO DAILY [facility] Senna/Docusate Sodium (Senokot-S, Eri-Colace) 2 tablet PO DAILY PRN PRN PRN Reason: CONSTIPATION Sodium Chloride () 10 - 40 ml IV UD PRN PRN Reason: SALINE FLUSH Last Admin: 01/17/20 03:27 Dose: 10 ml Documented by: STROKE Vital Signs/Narrative: Vital Signs Temp Pulse Resp BP Pulse Ox 01/17/20 11:24 98 F 96 23 H 142/92 H 96 01/17/20 11:00 92 01/17/20 10:29 137 H 01/17/20 09:32 97.9 F 96 24 H 132/118 H 95 Medical Necessity - Tobacco Use Smoking Status: Current some day smoker Tobacco Use: Cigarettes Assessment/Plan All Active Problems Atrial fibrillation with rapid ventricular response (Acute) Elevated troponin (Acute) Hypertensive urgency (Acute) Medical non-compliance (Acute) Coronary artery disease (Acute) Non-STEMI (non-ST elevated myocardial infarction) (Acute) 1. Acute right frontal, left parietal and left occipital infarcts, likely acute cardioembolic in nature, history of underlying A. fib Status post TPA, MRI of the head confirms stroke in both places, post TPA CT scan is negative for acute bleed Fasting lipid profile T chol 188, triglyceride 153, LDL 122, HDL is 35 TSH 2.7 2d-echo shows EF of 45 to 50%, no valvular abnormalities Repeat CT scan of brain negative for worsening edema or bleed Continue on aspirin 325mg daily, atorvastatin, goal for BP <140/90, continue on amlodipine, Coreg 25 mg twice daily, start hydralazine 25 mg twice daily 2. A. fib with RVR, Hr fairly uncontrolled, waxes and wanes; Coreg increased to 25 mg twice daily Continue on aspirin 3 2 5 mg daily for now, would need repeat CT scan in 1 week prior to start of Eliquis. 3. Hypertension, remains uncontrolled, continue in #1 4. Indeterminate troponins, likely secondary to uncontrolled hypertension, being followed by cardiology 5. Right-sided pleural effusion, small pericardial effusion, seen on CT, not seen on 2D echo, possible acute diastolic CHF Continue on Lasix 40 mg IV daily. Chest x-ray review shows moderate pleural effusion on lateral semiprone position. Abdominal x-ray shows bowel gas but no clear obstruction. Mild constipation. On a stool softener. 6. Hypomagnesemia, replaced 7. CKD stage III, likely secondary to hypertension, creatinine slightly improved, will continue to trend 8. Morbid obesity, lifestyle modification recommended 9. Suspected HINA, will need sleep study on discharge 10. DVT prophylaxis- Heparin subcu Total time of the visit including total time spent in counseling or coordination of care, (more than 50% of the total time, spent in obtaining medical information from nurses and other ancillary care providers), discussion with the nurses and machine adjuster leader case trim, review of labs and imaging is 30 minutes Code Visit Inpatient E&M: 97137 Subs Hosp L2
--- NOTE | 2020-01-17 13:35 | RAD_ITS ---
STUDY: X-RAY CHEST REASON FOR EXAM: Male, 59 years old. acute stroke, right pleural effusion, sob TECHNIQUE: PA and lateral views of the chest. COMPARISON: January 11, 2020. FINDINGS: Cardiomegaly. Congestion. Aorta minimally calcified. Small right pleural effusion. Diffuse hazy airspace disease. Upper abdomen unremarkable. Osseous structures intact degenerative features. No pneumothorax. RAD/Chest PA and Lateral IMPRESSION: Diffuse hazy airspace disease likely representing edema Small right pleural effusion Cardiomegaly Electronically Signed: Jose Joy DO at 15:01 EST Tel , Service support ,
--- NOTE | 2020-01-17 13:35 | RAD_ITS ---
STUDY: X-RAY - ABDOMEN/PELVIS REASON FOR EXAM: Male, 59 years old. Abdomen distention, constipation, r/o ileus TECHNIQUE: 4 upright and supine views of the abdomen/pelvis. COMPARISON: None. FINDINGS: See dedicated chest x-ray from the same day. Nonobstructive bowel gas pattern. Mild constipation. Osseous structures intact without significant joint effusions. RAD/Abd Inc Decub and/or Erect IMPRESSION: Nonobstructive bowel gas pattern Mild constipation Electronically Signed: Jose Joy DO at 14:59 EST Tel , Service support ,
[2020-01-17] MEDS: Carvedilol 25 MG Tablet PO (17:49)
[2020-01-17] MEDS: Senna/Docusate Sodium 1 Tablet 2 TABLET PO (17:49)
[2020-01-17] MEDS: Furosemide 40 MG/4 ML Vial IV (17:49)
[2020-01-17] MEDS: Bisacodyl 10 MG Suppository RECTAL (17:49)
[2020-01-17] MEDS: Atorvastatin Calcium 80 MG Tablet PO (22:28)
--- NOTE | 2020-01-17 22:37 | CPS ---
pt unable to tolerate use of bipap
[2020-01-18] VITALS (9 sets, daily range): BP systolic 131–154; BP diastolic 82–108; PULSE 60–108; RESP 18–19; TEMP 35.9–36.7; O2SAT 94–98; BMI 43.9
[2020-01-18] MEDS: Heparin Injection (Vial) 5,000 UNIT/ML VIAL 5000 UNIT SC ×2 (05:14→13:04)
[2020-01-18 06:33] LABS: Absolute Lymphocyte Count 1.66 X10^3/uL (0.83-4.51); Basophil# 0.05 X10^3/uL; Basophil% 0.4 % (0-1); Eosinophil# 0.12 X10^3/uL; Lymphocyte # 1.66 X10^3/ul (4.0); Lymphocyte % 13.9 % (19-41); Mean Corpuscular Hgb 28.3 pg (27.0-32.0); Mean Corpuscular Volume 88.5 fL (80-94); Mean Platelet Vol. 9.9 fl (6.2-12.0); Monocyte# 0.99 X10^3/uL; Monocyte% 8.3 % (0-10); NRBC Flagged by Analyzer 0 % (0-5); Neutrophil # 9.04 X10^3/uL (2.7-7.7); Neutrophil % 75.9 % (47-70); Platelet Count 191 K/mm3 (150-450); RBC Distribution Width CV 14.6 % (11.6-14.6); Red Blood Count 5.65 M/mm3 (4.6-6.2); White Blood Count 11.9 K/mm3 (4.4-11.0)
[2020-01-18 06:56] LABS: Anion Gap 7 (5-15); BUN 37 mg/dL (7-18); BUN/Creat Ratio 28.7 RATIO (10-20); Calcium,Total 8.9 mg/dL (8.5-10.1); Chloride 108 mmol/L (98-107); Creatinine, Serum 1.29 mg/dL (0.70-1.30); EST Glomerular Filtration Rate 60 mL/min (>60); Est Glom Filt Rate - Afr Amer 73 mL/min (>60); Estimated Creatinine Clearance 54.27 ml/min; Glucose 113 mg/dL (74-106); Magnesium 2.4 mg/dL (1.6-2.6); Potassium 3.9 mmol/L (3.5-5.1); Sodium Level 142 mmol/L (136-145)
[2020-01-18] MEDS: amLODIPine 10 MG Tablet PO (08:33)
[2020-01-18] MEDS: Famotidine 20 MG Tablet PO (08:33)
[2020-01-18] MEDS: Senna/Docusate Sodium 1 Tablet 2 TABLET PO (08:34)
[2020-01-18] MEDS: Carvedilol 25 MG Tablet PO (08:34)
[2020-01-18] MEDS: Aspirin 325 MG Tablet PO (08:34)
[2020-01-18] MEDS: Furosemide 40 MG/4 ML Vial IV (08:35)
[2020-01-18] MEDS: Psyllium 1 PACKET PO (08:35)
[2020-01-18] MEDS: 0.9% Saline Lock 10 ML Syringe IV (08:35)
[2020-01-18] MEDS: Polyethylene Glycol 3350 17 GM PACKET PO (08:36)
--- NOTE | 2020-01-18 10:47 | CASEMGMT ---
CAROLE spoke with Samreen from PT and she said patient would do fine in the Inpatient Rehab Unit. CAROLE spoke with Margy and she said they will take him. Patient is up for discharge. CAROLE spoke with patient and let him know about discharge. SW asked if he would like SW to call his son and he said that would be fine. SW called patient's son, Peewee and let him know patient will be discharged to the 4th floor Rehab Unit today. Plan: d/c to [facility] 4th floor Rehab Unit. Cinthia NELSON
--- NOTE | 2020-01-18 11:45 | PCM.DC ---
- Discharge Diagnoses Current Active Problems: Current Active and Chronic Problems Atrial fibrillation with rapid ventricular response (Acute) Elevated troponin (Acute) Hypertensive urgency (Acute) Medical non-compliance (Acute) Coronary artery disease (Acute) Non-STEMI (non-ST elevated myocardial infarction) (Acute) You will use the following diet at home:: Regular - no peas Your food should be the consistency of: Regular Discharge Activity: May Not Drive Weight Bearing Status: Weight bearing as tolerated Call your doctor if you observe: Fever of 101 or Higher, Coldness, Increased Pain, Inability to urinate, Inability to have a bowel movement, Shortness of breath, Dizziness, Swelling in the ankles, Chest pain, Increased palpitations (irregular heartbeat), Calf discomfort, Uncontrolled pain Allergies/Adverse Reactions: Allergies No Known Allergies Allergy (Verified 01/11/20 12:19) Medications to take at Discharge [place]-3/Dha/Epa/Fish Oil [Fish Oil 1,000 mg Softgel] 1,000 mg PO DAILY 01/11/20 Acetaminophen [Tylenol Tablet] 650 mg PO Q6H PRN PRN tablet 01/18/20 Amlodipine [Norvasc] 10 mg PO DAILY tablet 01/18/20 Aspirin 325 mg PO DAILY@0800 tablet 01/18/20 Atorvastatin Calcium [Lipitor] 80 mg PO QHS tablet 01/18/20 Bisacodyl [Dulcolax] 10 mg RECTAL DAILY suppos. 01/18/20 Carvedilol [Coreg (Beta Jose Raul)] 25 mg PO BID tablet 01/18/20 Clotrimazole [Lotrimin] 1 applicatio TOPICAL DAILY tube 01/18/20 Famotidine [Pepcid] 20 mg PO DAILY tablet 01/18/20 Mineral Oil/Petrolatum,White [Eucerin] 1 applic TOPICAL DAILY jar 01/18/20 Polyethylene Glycol 3350 [Miralax] 17 gm PO DAILY packet 01/18/20 Psyllium [Metamucil] 1 packet PO DAILY packet 01/18/20 Senna/Docusate Sodium [Senokot-S] 2 tablet PO BID PRN PRN tablet 01/18/20 Primary Care Physician: Radha Kendrick MD [Primary Care Provider] - As soon as possible Please follow up with your Primary Care Physician in: in 2 weeks Test Results: Test results from this visit will be discussed in further detail at your follow-up appointment, if applicable. Please Follow Up With: Florian Bhakta MD When: in 2 weeks Please Follow Up With: Escobar Garcia MD When: with Edelmira Hill NP in 2 weeks Please Follow Up With: Tim Valenzuela DPM When: in wound center Please Follow Up With: Boy Reyes MD When: in 2-3 weeks for stroke
--- NOTE | 2020-01-18 11:51 | DS.PCM_ITS ---
Discharge Date and Diagnosis - Problem List Patient Problems: Active and Suspected Problems Atrial fibrillation with rapid ventricular response (Acute) Elevated troponin (Acute) Hypertensive urgency (Acute) Medical non-compliance (Acute) Coronary artery disease (Acute) Non-STEMI (non-ST elevated myocardial infarction) (Acute) Date of Admission: 01/11/20 Date of Discharge: 01/18/20 - Primary Discharge Diagnosis Active and Suspected Problems Atrial fibrillation with rapid ventricular response (Acute) Elevated troponin (Acute) Hypertensive urgency (Acute) Medical non-compliance (Acute) Coronary artery disease (Acute) Non-STEMI (non-ST elevated myocardial infarction) (Acute) Hospital Course and Treatment Summary of Care Provided: The patient is a 59 year old M with multiple comorbidities initially admitted with A. fib with RVR and then developed acute cardioembolic stroke, status post TPA and then admitted in ICU and then transferred to PCU. 1. Acute right frontal, left parietal and left occipital infarcts, likely acute cardioembolic in nature, history of underlying A. fib Status post TPA, MRI of the head confirms stroke in both places, post TPA CT scan is negative for acute bleed Fasting lipid profile T chol 188, triglyceride 153, LDL 122, HDL is 35 TSH 2.7 2d-echo shows EF of 45 to 50%, no valvular abnormalities Repeat CT scan of brain negative for worsening edema or bleed Continue on aspirin 325mg daily, atorvastatin, goal for BP <140/90, continue on amlodipine, Coreg 25 mg twice daily, hydralazine 25 mg twice daily 2. A. fib with RVR, Hr fairly uncontrolled, waxes and wanes; Coreg increased to 25 mg twice daily Continue on aspirin 3 2 5 mg daily for now, would need repeat CT scan in 1 week prior to start of Eliquis. 3. Hypertension, remains uncontrolled, continue in #1 4. Indeterminate troponins, likely secondary to uncontrolled hypertension, being followed by cardiology 5. Right-sided pleural effusion, small pericardial effusion, seen on CT, not seen on 2D echo, possible acute diastolic CHF Continue on Lasix 40 mg IV daily. Chest x-ray review shows moderate pleural effusion on lateral semiprone position. Abdominal x-ray shows bowel gas but no clear obstruction. Mild constipation. On a stool softener. 6. Hypomagnesemia, replaced 7. CKD stage III, likely secondary to hypertension, creatinine slightly improv ed, will continue to trend 8. Morbid obesity, lifestyle modification recommended 9. Suspected HINA, will need sleep study on discharge 10. DVT prophylaxis- Heparin subcu Discharge medication reconciliation done. Discharge follow-up instructions completed. Discharge process discussed with the patient and all questions were answered to patient's satisfaction. She has been discharged to acute rehab on fourth floor. Titrate antihypertensive medications to goal of systolic less than 130. Total time spent, exact 35 minutes on discharge meds reconciliation, examination, coordination of care with nurses and ancillary staff, review of imaging and blood test and discussion with the patient on follow-up instructions Patient Problems: Active and Suspected Problems Atrial fibrillation with rapid ventricular response (Acute) Elevated troponin (Acute) Hypertensive urgency (Acute) Medical non-compliance (Acute) Coronary artery disease (Acute) Non-STEMI (non-ST elevated myocardial infarction) (Acute) Subjective: Patient was mild lethargic, could not sleep last night. Follows commands and answers questions appropriately. Objective: General: Oriented x3, Cooperative, Lethargic HEENT: Atraumatic, PERRLA, EOMI, Normocephalic Neck: Supple, No JVD, Negative Carotid Bruits Lungs: air entry diminished in right lung base, Rhonchi Cardiovascular: Regular rate, Normal S1, Normal S2, No murmurs, Murmur - systolic murmur over LLSB Abdomen: Bowel Sounds Present, Soft, Non Tender, Hyperactive Bowel Sounds, Distended Extremities: Capillary Refill Less than 3 Seconds, Edema Skin: No rashes, No breakdown Musculoskeletal: No Tenderness to Palpation of Joints or Extremities, Arthritic Changes Neurological: Cranial nerves II-XII grossly intact Psych/Mental Status: Normal Affect, Appropriate - Physical Exam Vitals/I&O's: Vital Signs Temp Pulse Resp BP Pulse Ox 97.9 F 95 18 140/108 H 98 01/18/20 08:02 01/18/20 11:04 01/18/20 08:02 01/18/20 08:02 01/18/20 08:11 Oxygen Flow Rate (L/min) 2 Oxygen Delivery Method Nasal Cannula Weight: 250 lb 7.122 oz Body Mass Index (BMI) 43.9 Finger Stick Blood Glucose 163 Intake and Output for Last 24 Hours 01/16/20 01/17/20 01/18/20 23:59 23:59 23:59 Intake Total 2650 / 2650 950 / 950 700 / 700 Output Total 1200 / 1200 100 / 100 Balance 1450 / 1450 950 / 950 600 / 600 Laboratory Results 01/18/20 06:03: WBC 11.9 H, RBC 5.65, Hgb 16.0, Hct 50.0, MCV 88.5, MCH 28.3, MCHC 32.0, RDW Std Deviation 47.0 H, RDW Coeff of Srinivas 14.6, Plt Count 191, MPV 9.9, Immature Gran % (Auto) 0.500, Neut % (Auto) 75.9 H, Lymph % (Auto) 13.9 L, [place] % (Auto) 8.3, Eos % (Auto) 1.0, Baso % (Auto) 0.4, Absolute Neuts (auto) 9.0 H, Absolute Lymphs (auto) 1.66, Nucleated RBC % 0 01/18/20 06:03: Sodium 142, Potassium 3.9, Chloride 108 H, Carbon Dioxide 27.0, Anion Gap 7, BUN 37 H, Creatinine 1.29, Estim Creat Clear Calc 54.27, Est GFR (MDRD) Af Amer 73, Est GFR (MDRD) Non-Af 60, BUN/Creatinine Ratio 28.7 H, Glucose 113 H, Calcium 8.9, Magnesium 2.4 Current Medications Acetaminophen (Tylenol) 650 mg PO Q6H PRN PRN PRN Reason: Temp > 99.6 F Last Admin: 01/15/20 21:34 Dose: 650 mg Documented by: Amlodipine Besylate (Norvasc) 10 mg PO DAILY [facility] Last Admin: 01/18/20 08:33 Dose: 10 mg Documented by: Aspirin (Aspirin) 325 mg PO DAILY@0800 [facility] Last Admin: 01/18/20 08:34 Dose: 325 mg Documented by: Atorvastatin Calcium (Lipitor) 80 mg PO QHS [facility] Last Admin: 01/17/20 22:28 Dose: 80 mg Documented by: Bisacodyl (Dulcolax) 10 mg RECTAL DAILY [facility] Stop: 01/19/20 17:01 Last Admin: 01/17/20 17:49 Dose: 10 mg Documented by: Carvedilol (Coreg) 25 mg PO BID [facility] Last Admin: 01/18/20 08:34 Dose: 25 mg Documented by: Clotrimazole (Lotrimin) 1 applicatio TOPICAL DAILY [facility]; Protocol Last Admin: 01/18/20 08:36 Dose: 1 applicatio Documented by: Famotidine (Pepcid) 20 mg PO DAILY [facility] Last Admin: 01/18/20 08:33 Dose: 20 mg Documented by: Furosemide (Lasix) 40 mg IV DAILY [facility] Last Admin: 01/18/20 08:35 Dose: 40 mg Documented by: Heparin Sodium (Porcine) (Heparin Na) 5,000 unit SC Q8 [facility] Last Admin: 01/18/20 05:14 Dose: 5,000 unit Documented by: Hydralazine HCl (Apresoline Iv) 5 mg IV Q6H PRN PRN PRN Reason: BLOOD PRESSURE Labetalol HCl (Trandate) 20 mg IV Q4H PRN PRN PRN Reason: Sbp Greater Than 159 Last Admin: 01/17/20 22:26 Dose: 20 mg Documented by: Multi-Ingredient Cream (Eucerin) 1 applic TOPICAL DAILY [facility]; Protocol Last Admin: 01/18/20 08:35 Dose: 1 applicatio Documented by: Ondansetron HCl (Zofran) 4 mg IV Q6H PRN PRN PRN Reason: NAUSEA/VOMITING Last Admin: 01/12/20 05:21 Dose: 4 mg Documented by: Polyethylene Glycol (Miralax) 17 gm PO DAILY [facility] Last Admin: 01/18/20 08:36 Dose: 17 gm Documented by: Psyllium Hydrophilic Mucilloid (Metamucil) 1 packet PO DAILY [facility] Last Admin: 01/18/20 08:35 Dose: 1 packet Documented by: Senna/Docusate Sodium (Senokot-S, Eri-Colace) 2 tablet PO BID [facility] Last Admin: 01/18/20 08:34 Dose: 2 tablet Documented by: Sodium Chloride () 10 - 40 ml IV UD PRN PRN Reason: SALINE FLUSH Last Admin: 01/18/20 08:35 Dose: 10 ml Documented by: Home Medications: Medications to take at Discharge [place]-3/Dha/Epa/Fish Oil [Fish Oil 1,000 mg Softgel] 1,000 mg PO DAILY 01/11/20 Acetaminophen [Tylenol Tablet] 650 mg PO Q6H PRN PRN tab 01/18/20 Amlodipine [Norvasc] 10 mg PO DAILY tab 01/18/20 Aspirin 325 mg PO DAILY@0800 tab 01/18/20 Atorvastatin Calcium [Lipitor] 80 mg PO QHS tab 01/18/20 Bisacodyl [Dulcolax] 10 mg RECTAL DAILY suppos. 01/18/20 Carvedilol [Coreg (Beta Jose Raul)] 25 mg PO BID tab 01/18/20 Clotrimazole [Lotrimin] 1 applicatio TOPICAL DAILY tube 01/18/20 Famotidine [Pepcid] 20 mg PO DAILY tab 01/18/20 Mineral Oil/Petrolatum,White [Eucerin] 1 applic TOPICAL DAILY jar 01/18/20 Polyethylene Glycol 3350 [Miralax] 17 gm PO DAILY packet 01/18/20 Psyllium [Metamucil] 1 packet PO DAILY packet 01/18/20 Senna/Docusate Sodium [Senokot-S] 2 tab PO BID PRN PRN tab 01/18/20 Primary Care Physician: Radha Kendrick MD [Primary Care Provider] - As soon as possible Medical Necessity - Tobacco Use Smoking Status: Current some day smoker Tobacco Use: Cigarettes Meaningful Use Info Meaningful Use Diagnoses (Choose all that apply): None applicable
[2020-01-18 11:55] LABS: Bedside Glucose 163 mg/dL (70-110)
--- NOTE | 2020-01-18 14:20 | PHA.DC.MR ---
Pharmacy Service has performed discharge medication reconciliation for this patient upon transfer to inpatient rehab. The patient's discharge medication list was reviewed for discrepancies and discrepancies were resolved. Home Medications [place]-3/Dha/Epa/Fish Oil [Fish Oil 1,000 mg Softgel] 1,000 mg PO DAILY 01/11/20 Acetaminophen [Tylenol Tablet] 650 mg PO Q6H PRN PRN tab 01/18/20 Amlodipine [Norvasc] 10 mg PO DAILY tab 01/18/20 Aspirin 325 mg PO DAILY@0800 tab 01/18/20 Atorvastatin Calcium [Lipitor] 80 mg PO QHS tab 01/18/20 Bisacodyl [Dulcolax] 10 mg RECTAL DAILY suppos. 01/18/20 Carvedilol [Coreg (Beta Jose Raul)] 25 mg PO BID tab 01/18/20 Clotrimazole [Lotrimin] 1 applicatio TOPICAL DAILY tube 01/18/20 Famotidine [Pepcid] 20 mg PO DAILY tab 01/18/20 Mineral Oil/Petrolatum,White [Eucerin] 1 applic TOPICAL DAILY jar 01/18/20 Polyethylene Glycol 3350 [Miralax] 17 gm PO DAILY packet 01/18/20 Psyllium [Metamucil] 1 packet PO DAILY packet 01/18/20 Senna/Docusate Sodium [Senokot-S] 2 tab PO BID PRN PRN tab 01/18/20
--- NOTE | 2020-01-18 16:03 | NURSING ---
Called report to rehab unit
== END 2020-01-18 16:30 | DRG 308 ==
LOC: ED 17:35 → PCU 18:00 → ICU 01-12 18:42 → PCU 01-15 19:40
PROVIDERS: Internal Medicine; Internal Medicine Critical Care Medicine; Nurse Practitioner Family; Admitting Provider Family Medicine; Emergency Provider Emergency Medicine; PCP Family Medicine; Visit Provider Internal Medicine
DX: I48.91 Unspecified atrial fibrillation (principal); I50.31 Acute diastolic (congestive) heart failure; I63.40 Cerebral infarction due to embolism of unspecified cerebral artery; Z68.41 Body mass index [BMI] 40.0-44.9, adult; J91.8 Pleural effusion in other conditions classified elsewhere; I13.0 Hypertensive heart and chronic kidney disease with heart failure and stage 1 through stage 4 chronic kidney disease, or unspecified chronic kidney disease; G81.04 Flaccid hemiplegia affecting left nondominant side; F17.210 Nicotine dependence, cigarettes, uncomplicated; E66.01 Morbid (severe) obesity due to excess calories; I16.0 Hypertensive urgency; L85.3 Xerosis cutis; B35.3 Tinea pedis; G62.9 Polyneuropathy, unspecified; E83.42 Hypomagnesemia; N18.3 Chronic kidney disease, stage 3 (moderate); G47.33 Obstructive sleep apnea (adult) (pediatric); R29.810 Facial weakness; R55 Syncope and collapse; R29.712 NIHSS score 12; I25.10 Atherosclerotic heart disease of native coronary artery without angina pectoris; Z95.5 Presence of coronary angioplasty implant and graft; Z91.19 Patient's noncompliance with other medical treatment and regimen; I65.23 Occlusion and stenosis of bilateral carotid arteries
CPT/HCPCS: 36415; 36600; 70450; 70496; 70498; 70551; 71046; 71275; 73630; 74019; 80048; 80053; 80061; 81001; 82803; 82962; 83036; 83735; 83880; 84100; 84443; 84484; 85025; 85027; 85610; 85730; 93005; 93306; 94002; 94640; 97110; 97116; 97163; 97165; 97167; 97530; 97535; 99285; 99406; J2997; J7030; Q9957; Q9967; A4216; C8929; J1940; J2405; J3490

== ENCOUNTER 2020-01-18 16:54 | Inpatient (IN) | payer MEDICARE, SELFPAY ==
[2020-01-18 11:40] VITALS: BMI 43.9
[2020-01-18 17:07] VITALS: BMI 40.4
[2020-01-18 17:09] VITALS: BMI 40.4
[2020-01-18 17:36] VITALS: BP 149/91; PULSE 96; RESP 20; TEMP 37.1; O2SAT 98
--- NOTE | 2020-01-18 18:00 | NURSING ---
bed scale weight was used on admit d/t pt being unable to stand. Will get WC weight when therapy gets pt up.
[2020-01-18 19:05] VITALS: O2SAT 98
[2020-01-18 20:15] VITALS: BP 143/75; PULSE 94; RESP 18; TEMP 37; O2SAT 2; O2SAT 97
[2020-01-18] MEDS: Carvedilol 25 MG Tablet PO (20:43)
[2020-01-18] MEDS: Senna/Docusate Sodium 1 Tablet 2 TABLET PO (20:43)
[2020-01-18] MEDS: Heparin Injection 5,000 UNITS/ML Syringe 5000 UNITS SC (20:43)
[2020-01-18] MEDS: Atorvastatin Calcium 80 MG Tablet PO (20:43)
[2020-01-18] MEDS: Acetaminophen 325 MG Tablet 650 MG PO (20:51)
--- NOTE | 2020-01-18 21:11 | NURSING ---
Addendum entered by Juanita Krueger 01/18/20 21:14: Dr. Rodríguez ordered Ultram 50mg Q6H/PRN and added this order to JAN. Original Note: Hospitalist, Dr Rodríguez, paged re: pt pain. Pt c/o pain in back chest as pt claims he fell off BSC before coming to Rehab. Tylenol [address] Rodríguez stated she would look at his chart and will order something.
[2020-01-18] MEDS: traMADol 50 MG Tablet PO (22:00)
[2020-01-19] MEDS: Heparin Injection 5,000 UNITS/ML Syringe 5000 UNITS SC (06:11)
[2020-01-19 07:33] VITALS: O2SAT 95
[2020-01-19] MEDS: amLODIPine 10 MG Tablet PO (09:22)
[2020-01-19] MEDS: Famotidine 20 MG Tablet PO (09:22)
[2020-01-19] MEDS: Aspirin 325 MG Tablet PO (09:22)
[2020-01-19] MEDS: Carvedilol 25 MG Tablet PO ×2 (09:22→20:48)
[2020-01-19] MEDS: Senna/Docusate Sodium 1 Tablet 2 TABLET PO (09:22)
[2020-01-19] MEDS: 0.9% Saline Lock 10 ML Syringe IV (09:26)
[2020-01-19 09:27] VITALS: BP 133/81; PULSE 102; RESP 18; TEMP 36.8; O2SAT 94
[2020-01-19 09:32] VITALS: O2SAT 2
--- NOTE | 2020-01-19 11:42 | HP.PCM_ITS ---
Problem List (1) Syncope Status: Acute Qualifiers: Encounter type: subsequent encounter Comment: 01/16/20 etioly unknown (2) Obesity (BMI 30-39.9) Status: Chronic (3) Carotid arterial disease Status: Chronic Comment: 70% stenosis left internal carotid artery and < 50% stenosis of the right internal carotid artery (4) Cardiomyopathy Status: Acute Qualifiers: Cardiomyopathy type: dilated Qualified Code(s): I42.0 - Dilated cardiomyopathy Comment: 45-50% EF in Dec 2019 (5) Biatrial enlargement Status: Chronic Comment: severe (6) CVA (cerebral vascular accident) Status: Acute Qualifiers: CVA mechanism: embolism Laterality of affected vessel: bilateral Comment: 01/22/2020 - large R frontal and Left occipital. Pt in AF (7) Tobacco dependence Status: Chronic (8) Glucose intolerance Status: Chronic (9) Hyperbilirubinemia Status: Acute (10) Low serum HDL Status: Chronic (11) Dyslipidemia Status: Chronic (12) Coronary artery disease Status: Chronic Comment: thinks he had a stent at [facility] (13) Elevated troponin Status: Acute Comment: suspect secondary to demand ischemia related to acute CHF and hypertensive urgency (14) Medical non-compliance Status: Chronic Comment: stopped all antihypertensives for the year 2018 and then went into CHF due to hypertensive urgency and subsequently had a R frontal and left occipital CVA's (15) Non-STEMI (non-ST elevated myocardial infarction) Status: Acute Comment: suspect it was demand ischemia History of Present Illness Date of Admission: 01/18/20 Chief Complaint: Debility secondary to right frontal and left occipital ischemic CVAs with subsequent facial droop and weakness of his left side The pt is a 59-year-old male with a PMH of morbid obesity, hypertension, coronary artery disease (states he had a stent at [facility]), paroxysmal atrial fibrillation, dyslipidemia, low HDL, glucose intolerance, cardiomyopathy with a 45 to 50% EF, severe biatrial enlargement, 70% left internal carotid stenosis and less than 50% stenosis in the right internal carotid artery, tobacco dependence and noncompliance with his antihypertensives for the year 2018 who was admitted to the Inpatient rehab unit at [facility] on 01/18/2020 for debility secondary to recent ischemic/embolic CVAs in the right frontal and left occipital areas for greater than 3 hours of therapy daily with a goal of returning home at or near prior level of independence. The patient lives at home by himself and has many steps. The patient was independent with ADL's, mobility and driving prior to hospitalization. Interpretation Summary Moderately dilated left ventricle. The estimated ejection fraction is 45-50 %. Unable to assess diastolic dysfunction due to arrhythmia. Anterio-Basal: Mildly hypokinetic Basal anteroseptal: Mildly hypokinetic The left atrium is severely enlarged. The right atrium is severely enlarged. Unable to estimate RV systolic pressure due to insufficient tricuspid regurgitant envelope. Trivial pericardial effusion. There are no echocardiographic indications of cardiac tamponade. Pt appears to be in atrial fibrillation. The study was technically difficult. Contrast injection was performed. There is no comparison study available. Teleneurology/SOC was consulted after the stroke and recommended starting full dose anticoagulation 1 week after the initial stroke on 01/12 if he was doing well and a repeat CT showed no hemorrhagic transformation. He tells me that he did not get the sleep because his friends told him it was stupid. We went over the sx of HINA with him and he admits he has some of them and when I asked if he would agree to a sleep study if I arranged it he said yes. When I asked him why he stopped taking his meds he told me that too many meds isn't good for you. When I putted out that not taking anti-hypertensives caused a stroke and heart failure he had nothing to say. He used to see Dr. Kendrick before she moved to [place] and when she left her previous practise he was given the option to follow up with 1 of the other 3 docs and he said they screwed him up and then he quit going. Past Medical History Past Medical History (Chronic Problems): Chronic Problems Medical non-compliance (Chronic) stopped all antihypertensives for the year 2019 and then went into CHF due to hypertensive urgency and subsequently had a R frontal and left occipital CVA's Coronary artery disease (Chronic) thinks he had a stent at [facility] Obesity (BMI 30-39.9) (Chronic) Carotid arterial disease (Chronic) 70% stenosis left internal carotid artery and < 50% stenosis of the right internal carotid artery Biatrial enlargement (Chronic) severe Tobacco dependence (Chronic) Glucose intolerance (Chronic) Low serum HDL (Chronic) Dyslipidemia (Chronic) Allergies No Known Allergies Allergy (Verified 01/11/20 12:19) Home Medications: Ambulatory Orders Medication Instructions Recorded [place]-3/Dha/Epa/Fish Oil [Fish Oil 1,000 mg PO DAILY 01/11/20 1,000 mg Softgel] Acetaminophen [Tylenol Tablet] 650 mg PO Q6H PRN PRN 01/18/20 Amlodipine [Norvasc] 10 mg PO DAILY 01/18/20 Aspirin 325 mg PO DAILY@0800 01/18/20 Atorvastatin Calcium [Lipitor] 80 mg PO QHS 01/18/20 Carvedilol [Coreg (Beta Jose Raul)] 25 mg PO BID 01/18/20 Clotrimazole [Lotrimin] 1 applicatio TOPICAL PRN PRN 01/18/20 Famotidine [Pepcid] 20 mg PO DAILY 01/18/20 Heparin Sodium,Porcine/Pf [Heparin 5,000 units SQ Q8 01/18/20 5 Unit/5 ml (1/ml) Syr] Mineral Oil/Petrolatum,White 1 applic TOPICAL PRN PRN 01/18/20 [Eucerin] Surgical History: - - Left great toe surgery. Psychiatric History: Depression - but has never been on an antidepressant Lives: Alone - in an appt, - - he has a son who lives in the area Smoking Status: Current some day smoker - he will not talk about this....can not quantify ands averts his eyes Tobacco Use: Cigarettes Alcohol: Occasional Drugs: None - *Family History Maternal History Items: Cancer - His mother of a blood cancer, Diabetes - His grandmother had diabetes, Heart Disease, - Paternal History Items: Heart Disease, Hypertension - Father had hypertension and of kidney disease, - Sibling History Items: Heart Disease - he has a bother who has had heart disease Review of Systems Constitutional: Denies: Anorexia, Chills, Fever, Weight Change Eyes: Reports: Vision Change. Denies: Blurred vision HEENT: Denies: Difficulty Swallowing, Head Aches, Sinus Congestion, Sinus Drainage, Sore Throat Cardiovascular: Reports: Edema, Orthopnea, Paroxysmal Noc. Dyspnea. Denies: Chest Pain, Light Headedness, Palpitations Respiratory: Reports: Shortness of breath upon exertion, -. Denies: Cough, Hemoptysis, Pleuritic Pain, Shortness of breath at rest, Sputum production Gastrointestinal: Reports: Constipation. Denies: Abdominal Pain, Diarrhea, Nausea, Vomiting Genitourinary: Denies: Dysuria, Retention Musculoskeletal: Reports: Foot Pain - he has pain in both feet and also c/o numbness. Denies: Joint Pain, Joint Tenderness Skin: Reports: Dryness, - - his palms are very dry and the skin is desquamating - consistent with dishidrotic eczema. Denies: Jaundice, Rash, Wounds Neurological: Reports: Focal weakness. Denies: Double vision, Slurred speech, Numbness, Tingling, Tremor, Seizures Psychiatric: Reports: Depression - he did finally admit to me that he may be depressed after we discussed the sx of depression. Denies: Anxiety, Homicidal Ideations, Suicidal Ideations Endocrine: Denies: Hx of Irradiation, Hx of Thyroiditis Hematologic/ Lymphatic: Denies: Easy Bruising, Easy Bleeding, Hx of blood clot VTE Information - Inpt Only VTE Present on Admission: No VTE Mechan Device Prophylaxis: Knee High WERO Hose VTE Pharm Prophylaxis ordered?: Yes Patient Problems: Active and Suspected Problems Syncope (Acute) 01/16/20 etioly unknown Cardiomyopathy (Acute) 45-50% EF in Dec 2019 CVA (cerebral vascular accident) (Acute) 01/22/2020 - large R frontal and Left occipital. Pt in AF Hyperbilirubinemia (Acute) - Physical Exam Vitals/I&O's: Vital Signs Temp Pulse Resp BP Pulse Ox 98.2 F 102 H 18 133/81 H 2 01/19/20 09:27 01/19/20 09:27 01/19/20 09:27 01/19/20 09:27 01/19/20 09:32 Oxygen Flow Rate (L/min) 2 Oxygen Delivery Method Nasal Cannula Weight: 243 lb 9.773 oz Body Mass Index (BMI) 40.4 Finger Stick Blood Glucose 163 Intake and Output for Last 24 Hours 01/17/20 01/18/20 01/19/20 23:59 23:59 23:59 Intake Total 120 / 870 990 / 990 Balance 120 / 870 990 / 990 General: Alert, Oriented x3, Cooperative, No apparent distress - he is sitting in the recliner at the bedside. He is very slow to respond to questions and he will then frequently look away from me....he does make good eye at times HEENT: Atraumatic, PERRLA, EOMI, Normocephalic Oral: Dry Mucosa Neck: Supple, No JVD, Negative Carotid Bruits, No Nodes, Trachea Midline Lungs: Clear to auscultation, No rhonchi, No wheeze, No rales, Diminished, - - He is not tachypneic at rest. He has no conversational dyspnea at rest and the re is no accessory muscle use. Cardiovascular: Regular rate, Regular Rhythm, Normal S1, Normal S2, No murmurs, No Ectopic Activity, No rub noted, No Gallop Abdomen: Bowel Sounds Present, Soft, Non Tender, Non-Distended, Obese, - - No guarding with palpation Extremities: No clubbing, No cyanosis, Capillary Refill Less than 3 Seconds, No Calf Tenderness, Edema - trace of the Left ankle only Skin: No rashes, No breakdown Musculoskeletal: No Tenderness to Palpation of Joints or Extremities, No Muscle Wasting Neurological: Cranial nerves II-XII grossly intact, - - left side weakness, delayed response to questions, no facial droop and no dysarthria Psych/Mental Status: Normal Affect, Appropriate Current Medications Acetaminophen (Tylenol) 650 mg PO Q6H PRN PRN PRN Reason: fever or pain Last Admin: 01/18/20 20:51 Dose: 650 mg Documented by: Amlodipine Besylate (Norvasc) 10 mg PO DAILY [facility] Last Admin: 01/19/20 09:22 Dose: 10 mg Documented by: Aspirin (Aspirin) 325 mg PO DAILY@0800 [facility] Last Admin: 01/19/20 09:22 Dose: 325 mg Documented by: Atorvastatin Calcium (Lipitor) 80 mg PO QHS [facility] Last Admin: 01/18/20 20:43 Dose: 80 mg Documented by: Bisacodyl (Dulcolax) 10 mg RECTAL .PRN X 1 PRN PRN Reason: Constipation Carvedilol (Coreg) 25 mg PO BID [facility] Last Admin: 01/19/20 09:22 Dose: 25 mg Documented by: Clotrimazole (Lotrimin) 1 applicatio TOPICAL DAILY@0600 [facility]; Protocol Last Admin: 01/19/20 06:11 Dose: 1 applicatio Documented by: Famotidine (Pepcid) 20 mg PO DAILY [facility] Last Admin: 01/19/20 09:22 Dose: 20 mg Documented by: Heparin Sodium (Porcine) () 5,000 units SC Q8 [facility] Last Admin: 01/19/20 06:11 Dose: 5,000 units Documented by: Magnesium Hydroxide (Milk Of Magnesia) 30 ml PO .PRN X 1 PRN PRN Reason: Constipation Multi-Ingredient Cream (Eucerin) 1 applic TOPICAL PRN PRN; Protocol PRN Reason: DRY SKIN Senna/Docusate Sodium (Senokot-S, Eri-Colace) 2 tablet PO BID [facility] Last Admin: 01/19/20 09:22 Dose: 2 tablet Documented by: Sodium Chloride () 10 - 40 ml IV UD PRN PRN Reason: SALINE FLUSH Last Admin: 01/19/20 09:26 Dose: 10 ml Documented by: Tramadol HCl (Ultram) 50 mg PO Q6H PRN PRN PRN Reason: Pain Score 1-10/10 Last Admin: 01/18/20 22:00 Dose: 50 mg Documented by: Assessment/Plan All Active Problems Atrial fibrillation with rapid ventricular response (Resolved) Elevated troponin (Acute) Hypertensive urgency (Resolved) Non-STEMI (non-ST elevated myocardial infarction) (Acute) Syncope (Acute) Cardiomyopathy (Acute) CVA (cerebral vascular accident) (Acute) Hyperbilirubinemia (Acute) Impressions 1. Physical debility secondary to recent ischemic/?Embolic CVAs in the right frontal and left occipital areas in a pt admitted to [facility] with hypertensive urgency due to non-compliance with his anti-hypertensives for the past year. 2. Paroxysmal atrial fibrillation with RVR - back in sinus rhythm. Not on full dose anticoagulation due to risk of hemorrhagic transformation of large right frontal CVA and smaller left occipital CVA 3. NSTEMI vs demand ischemia due to hypertensive urgency and PAF with RVR? 4. Cardiomyopathy (more likely than not due to ischemia) - 45-50% EF with wall motion abnormalities 5. sleep disordered breathing - suspect HINA - Pt is agreeable to a sleep study post discharge and we will arrange prior to DC.......STOP BANG puts him at high risk for HINA 6. CAD with hx of a stent at [facility] - will request the records from [facility] 7. non-compliance with medications and follow up his PCP 8. Chronic medical conditions: HTN/morbid obesity/chronic knee and back pain/Glucose intolerance/carotid stenosis/tobacco dependence/dyslipidemia/low HDL - continue meds he was started on in the hospital. Complicate care, managemen, recovery and prognosis PLAN PT for gait stability OT for ADL's ST for evaluation Analgesics as needed Bowel protocol Fall precautions Assess for Anxiety/Depression GI prophylaxis with famotidine DVT prophylaxis with enoxaparin 40 mg subcu daily Follow up with Dr. Kendrick and Dr. Bhakta following DC from [facility]. Will also need to follow up with neurology. Per the SOC consult we should repeat a CT brain in 1 week and if there has been no hemorrhagic transformation start anticoagulation. Will also get a EKG in 1 week. Referral for a sleep study at [place]. Smoking cessation counselling given I suspect he will not be able to go back to his current living situation where he has 1 and 1/2 flights of stairs to climb to his appt. Will need to discuss with family and pt. He may need SNF at discharge from rehab. Despite getting TPA he has marked weakness in the LUE and the LLE. Code Visit Inpatient E&M: 38667 Init Hosp L3
[2020-01-19 12:16] VITALS: O2SAT 92
--- NOTE | 2020-01-19 14:12 | PCM.RU.PYE ---
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 Status Changes from Prescreening?: No changes Identified Actual Problem List:: Falls, Skin Intergrity, Depression, Alteration in Sleep, Mobility Impaired, Self Care Deficit, Ineffective Communication, BP, Hypertension, Alteration-Leisure Activ. Potential Problem List:: DVT, Bleeding, Infection, UTI, Aspiration, Falls, Skin Integrity, Depression Risk of Complications DVT: LMWH, WERO Hose Bleeding: Monitor Lab Values, Nursing to Teach Precautions for anti-coagulation therapy., Wound, if applicable, to be assessed every shift., Stroke patients assessed for lethargy or change in status. Infection: Clinical Staff to Monitor for S/S of infection:, S/S of infection include fever, redness, warmth, etc. Urinary Tract Infection: Monitor for frequency, burning, discomfort, or incontinence., Nursing will obtain urine sample for urinalysis and C&S when ordered. Aspiration: Clinical staff will monitor for coughing, drooling, congestion., Speech will evaluate swallowing and dsyphasia., Nursing will monitor patient swallowing during meals. Falls: Patient will be evaluated for Fall Precautions, Patient will be placed on Fall Precautions as indicated per protocol. Skin Breakdown: Nursing will assess skin daily using assessment tool., Nursing will place on Skin Breakdown Precautions as indicated. Pain: Clinical staff will assess patient's pain level per protocol., Medications will be given, if needed, and the pain level reassessed., Other methods: Massage, distraction, decrease stimulus, etc. used PRN. Plan of Care Patient requires physician specializing in physical medicine and rehab oversight to provide close medical supervision of rehab issues including: Pain Management, Sleep Problems, Bowel and Bladder, Medical and co-morbidity Management, DVT prophylaxis, Rehabilitation Leadership, Coordination of treatment team Patient needs Physical Therapy: For a minimum of 1 hour, At least 5 out of 7 days Patient needs Physical Therapy to improve:: Mobility, Mobility, Mobility, Strengthening, Transfers, Stretching, ROM, Endurance, Stairs, Gait, Balance Patient needs Occupational Therapy: For a minimum of 1 hour, At least 5 out of 7 days Patient needs Occupational Therapy to improve ADL's incl.: Eating, Grooming, Bathing, Dressing, Toileting, Toilet transfers, Community Reintegration, Higher functioning activities, Household tasks, Adaptive Equipment, Splinting, Other activities as determined Patient requires speech therapy: For a minimum of 1 hour, At least 5 out of 7 days Patient requires speech therapy for: Cognition, Language Skills, Compensatory Strategies Patient requires 24/ Rehabilitation Nursing for: Pain Issues, Identifying and preventing risk factors, Monitoring and reporting current medical conditions, Assisting with ambulation, transfer, and all ADL's, Teaching patients about disease process and medications, Family teaching, Providing safe environment, Bowel and Bladder Issues, Skin integrity, Medication Management Patient needs Fabric And Accessories Estimator/ Case Management for: Discharge Planning, Arranging Home Equipment or Services, Family Interventions Patient needs Dietary and Nutrition Services for: Adequate Nutrition, Nutritional Supplements, Nutritional Education Goals Patient will remain: free from falls, or injury at time of discharge. Patient will perform bed mobility at: MOD I level of assist. Patient will complete transfers from bed to chair at: MOD I level of assist. Patient will ambulate: 100 feet, with MOD I assist, with LRD Patient will complete upper body dressing at: MOD I level of assist. Patient will complete lower body dressing at: MOD I level of assist. Patient will complete toileting at: MOD I level of assist. Patient will perform bathing at: MOD I level of assist. Patient will complete grooming at: MOD I level of assist. Patient will complete home management skills at: MOD I level of assist. Patient will achieve: 12 stairs, at MOD I assist Patient will have pain level of: of 3 or less Patient's skin will: remain intact, free from infection. Patient will receive: adequate nutrition. Discharge Planning Pt Prognosis for Sig. Practical Improv. w/in Reasonable Time: Fair Estimated Length of stay (days): 21 Anticipated D/C Destination: he will need a new living situation on 1 floor with no steps and I suspect he may need SNF at [place] Was Preadmission Assessment Accurate?: Yes
--- NOTE | 2020-01-19 14:45 | NURSING ---
saline lock to rt hand discontinued at this time, catheter intact and pt tolerated well.
--- NOTE | 2020-01-19 17:01 | CASEMGMT ---
Social Work Completed PHQ-9 assessment, 02/17. Charity Dowell, social work video production intern Salma Peters, CLIP BOLTER AND WRAPPER TEACHING PASTOR
--- NOTE | 2020-01-19 17:04 | CASEMGMT ---
Social Work Reviewed and agreed with social work planning intern documentation on this date. Salma Peters, FILING MACHINE OPERATOR ADVERTISING COORDINATOR
[2020-01-19] MEDS: Atorvastatin Calcium 80 MG Tablet PO (20:48)
[2020-01-19] MEDS: traMADol 50 MG Tablet PO (20:51)
[2020-01-19 21:00] VITALS: BP 127/78; PULSE 93; RESP 19; TEMP 37.4; O2SAT 94
[2020-01-20 03:00] VITALS: O2SAT 2
[2020-01-20 06:32] LABS: ALB/GLOB Ratio 0.5 RATIO (0.9-2.4); AST(SGOT) 53 U/L (15-37); Alanine Aminotransfer ALT/SGPT 62 U/L (16-61); Albumin, Serum 2.6 g/dL (3.2-5.0); Alkaline Phosphatase 53 U/L (45-117); Anion Gap 5 (5-15); BUN 34 mg/dL (7-18); BUN/Creat Ratio 28.3 RATIO (10-20); Calcium,Total 8.7 mg/dL (8.5-10.1); Chloride 105 mmol/L (98-107); EST Glomerular Filtration Rate 65 mL/min (>60); Est Glom Filt Rate - Afr Amer 79 mL/min (>60); Estimated Creatinine Clearance 58.34 ml/min; Globulin 4.8 g/dL (2.2-4.2); Glucose 108 mg/dL (74-106); Potassium 3.7 mmol/L (3.5-5.1); Protein, Total 7.4 g/dL (6.4-8.2); Sodium Level 137 mmol/L (136-145)
[2020-01-20 07:49] VITALS: BP 118/74; PULSE 93; RESP 18; TEMP 37; O2SAT 94
[2020-01-20 08:10] VITALS: O2SAT 94
[2020-01-20] MEDS: Aspirin 325 MG Tablet PO (08:37)
[2020-01-20] MEDS: Enoxaparin 40 MG/0.4 ML Syringe SC (08:37)
[2020-01-20] MEDS: amLODIPine 10 MG Tablet PO (08:37)
[2020-01-20] MEDS: Famotidine 20 MG Tablet PO (08:38)
[2020-01-20] MEDS: Carvedilol 25 MG Tablet PO ×2 (08:38→20:53)
--- NOTE | 2020-01-20 10:40 | CASEMGMT ---
Social Work IDT met with pt for team meeting. Pt mod to max for transfers and can walk 20 ft at max assist. ADLS to be evaluated today, but nursing reports pt being total assistance. Left arm has limited mobility and left elbow and down is functional. ST to work on short term memory, higher level tasks and med/financial tasks. Pt on PRN Tramadol for pain and is sleeping well. Pt not eating well, is on Remeron for appetite stimulation. Educated pt on coverage and SW to assist with DC. Charity Dowell, social work internal consultant Zahraa Peters, MEDICAL EQUIPMENT REPAIR TECHNICIAN INDEPENDENT SALES REPRESENTATIVE
[2020-01-20] MEDS: traMADol 50 MG Tablet PO ×2 (11:19→22:30)
--- NOTE | 2020-01-20 11:19 | PCM.PN.BLA ---
Progress Note The patient was seen today on team rounds. There was no family present. Afebile VSS-blood pressure is well controlled. Blood pressure this morning is 118/74 and yesterday ranged from 127/78-130 3/81. Heart rate is stable but is still in the 90s. He was in NSR when I examined him yesterday Maintaining appropriate oxygen saturation on RA - 94% today. Oral intake is [] Last BM was 01/19 ( larg, non-formed and liquid - due to stool softeners. He was apparently continent with the BM. He is still incontinent of urine. No significant residuals. Discussed with nursing - no problems that need addressed Reviewed the PT/OT/ST notes Medication list reviewed. Stool softener held today. All lab was personally reviewed. He had a CMP today and this showed a BUN of 34 with a creatinine of 1.20 and both of these are decreasing. He took 1350 PO yesterday. The BUN/creatinine ratio is still markedly increased at 28.3 and he was encouraged to increase his fluid intake. He has a 45-50% EF......not requiring a diuretic. This may improve his mentation. The AST is 53 and the ALT is 62 and this is mildly elevated. Alkaline phosphatase and bilirubin are both within normal limits. Slept well last night. No CP and no N/V. No abdominal pain. MM are still very dry. Still slow to process what I am asking him and then answering me but he is oriented X 3 today Lungs - diminished but, CTA heart - regular with no ectopy and he has no gallop abd- obese, NT, ND, BS's heard in all quadrants no edema Impressions 1. debility due to recent right frontal and left occipital CVAs 2. PAF - has been in SR while in rehab 3. dehydration - encouraged to drink more 4. cognitive dysfunction with slow processing 5. HTN - controlled with Amlodipine 10 mg and Coreg 25 mg twice daily Continue therapy Sleep study referral at discharge STROKE Vital Signs/Narrative: Vital Signs Temp Pulse Resp BP Pulse Ox 01/20/20 08:10 94 01/20/20 07:49 98.6 F 93 18 118/74 94 Code Visit Inpatient E&M: 05205 Subs Hosp L2
[2020-01-20 19:29] VITALS: BP 125/79; PULSE 99; RESP 16; TEMP 36.7; O2SAT 97
[2020-01-20] MEDS: Atorvastatin Calcium 80 MG Tablet PO (20:53)
[2020-01-20 20:56] VITALS: PULSE 90; O2SAT 96
[2020-01-21 07:00] VITALS: BP 127/85; PULSE 101; RESP 16; TEMP 36.9; O2SAT 97
[2020-01-21 08:30] VITALS: PULSE 98
[2020-01-21] MEDS: Aspirin 325 MG Tablet PO (08:31)
[2020-01-21] MEDS: Famotidine 20 MG Tablet PO (08:31)
[2020-01-21] MEDS: Enoxaparin 40 MG/0.4 ML Syringe SC (08:31)
[2020-01-21] MEDS: Carvedilol 25 MG Tablet PO ×2 (08:31→21:09)
[2020-01-21] MEDS: amLODIPine 10 MG Tablet PO (08:31)
[2020-01-21] MEDS: traMADol 50 MG Tablet PO ×2 (08:34→16:21)
[2020-01-21] MEDS: Acetaminophen 500 MG Tablet 1000 MG PO ×2 (14:16→21:09)
[2020-01-21 19:27] VITALS: BP 109/67; PULSE 93; RESP 18; TEMP 36.5; O2SAT 97
[2020-01-21] MEDS: Atorvastatin Calcium 80 MG Tablet PO (21:09)
[2020-01-21] MEDS: Senna/Docusate Sodium 1 Tablet 2 TABLET PO (21:09)
[2020-01-21] MEDS: Capsaicin 0.025% 1 APPLIC Tube TOPICAL (21:11)
[2020-01-22] MEDS: Acetaminophen 500 MG Tablet 1000 MG PO ×3 (06:11→22:46)
[2020-01-22] MEDS: Capsaicin 0.025% 1 APPLIC Tube TOPICAL ×3 (06:12→22:47)
[2020-01-22] MEDS: Aspirin 325 MG Tablet PO (07:53)
[2020-01-22] MEDS: traMADol 50 MG Tablet PO ×3 (07:58→22:46)
[2020-01-22 08:47] VITALS: BP 142/74; PULSE 93; RESP 20; TEMP 36.6; O2SAT 99
[2020-01-22] MEDS: Famotidine 20 MG Tablet PO (08:53)
[2020-01-22] MEDS: amLODIPine 10 MG Tablet PO (08:53)
[2020-01-22] MEDS: Enoxaparin 40 MG/0.4 ML Syringe SC (08:53)
[2020-01-22] MEDS: Carvedilol 25 MG Tablet PO ×2 (08:53→22:46)
[2020-01-22] MEDS: Senna/Docusate Sodium 1 Tablet 2 TABLET PO ×2 (08:53→22:46)
--- NOTE | 2020-01-22 12:43 | PN_ITS ---
Patient Problems: Active and Suspected Problems Syncope (Acute) 01/16/20 etioly unknown Cardiomyopathy (Acute) 45-50% EF in Dec 2019 CVA (cerebral vascular accident) (Acute) 01/22/2020 - large R frontal and Left occipital. Pt in AF Hyperbilirubinemia (Acute) Reason for Visit: Follow-up physical debility Subjective: Patient is a 59-year-old gentleman admitted to the inpatient rehab unit following debility secondary to recent right frontal and left occipital CVA ?Patient was reported by nursing staff to have been asked to push down distress. Appears to have a flat affect low-dose SSRI started for possible depression Objective: GENERAL: cooperative HEENT: Atraumatic; EYES; Anicteric, Normal Conjunctiva NECK; supple, normal thyroid, RESPIRATORY: Diminished to auscultation CARDIOVASCULAR: Regular S1 S2, GI: soft, normoactive bowel sounds, : No Renal angle tenderness; EXTREMITIES: No edema, no clubbing, MUSCULOSKELETAL: no muscle waisting NEURO: Awake; left lower extremity weakness SKIN: No Rash PSYCH; Flat affect Vitals/I&O's: Vital Signs Temp Pulse Resp BP Pulse Ox 97.9 F 93 20 H 142/74 H 99 01/22/20 08:47 01/22/20 08:47 01/22/20 08:47 01/22/20 08:47 01/22/20 08:47 Oxygen Flow Rate (L/min) 2 Oxygen Delivery Method Room Air Weight: 110.5 kg Body Mass Index (BMI) 40.4 Finger Stick Blood Glucose 163 Intake and Output for Last 24 Hours 01/20/20 01/21/20 01/22/20 23:59 23:59 23:59 Intake Total 240 / 240 980 / 980 1500 / 1500 Output Total 200 / 200 Balance 40 / 40 980 / 980 1500 / 1500 Current Medications Acetaminophen (Tylenol) 1,000 mg PO Q8 [facility] Last Admin: 01/22/20 06:11 Dose: 1,000 mg Documented by: Amlodipine Besylate (Norvasc) 10 mg PO DAILY [facility] Last Admin: 01/22/20 08:53 Dose: 10 mg Documented by: Aspirin (Aspirin) 325 mg PO DAILY@0800 [facility] Last Admin: 01/22/20 07:53 Dose: 325 mg Documented by: Atorvastatin Calcium (Lipitor) 80 mg PO QHS [facility] Last Admin: 01/21/20 21:09 Dose: 80 mg Documented by: Bisacodyl (Dulcolax) 10 mg RECTAL .PRN X 1 PRN PRN Reason: Constipation Capsaicin (Zostrix) 1 applic TOPICAL TID [facility]; Protocol Last Admin: 01/22/20 06:12 Dose: 1 applicatio Documented by: Carvedilol (Coreg) 25 mg PO BID [facility] Last Admin: 01/22/20 08:53 Dose: 25 mg Documented by: Clotrimazole (Lotrimin) 1 applicatio TOPICAL DAILY@0600 [facility]; Protocol Last Admin: 01/22/20 06:12 Dose: 1 applicatio Documented by: Enoxaparin Sodium (Lovenox) 40 mg SC DAILY [facility] Last Admin: 01/22/20 08:53 Dose: 40 mg Documented by: Famotidine (Pepcid) 20 mg PO DAILY [facility] Last Admin: 01/22/20 08:53 Dose: 20 mg Documented by: Magnesium Hydroxide (Milk Of Magnesia) 30 ml PO .PRN X 1 PRN PRN Reason: Constipation Multi-Ingredient Cream (Eucerin) 1 applic TOPICAL PRN PRN; Protocol PRN Reason: DRY SKIN Senna/Docusate Sodium (Senokot-S, Eri-Colace) 2 tablet PO BID [facility] Last Admin: 01/22/20 08:53 Dose: 2 tablet Documented by: Sodium Chloride () 10 - 40 ml IV UD PRN PRN Reason: SALINE FLUSH Last Admin: 01/19/20 09:26 Dose: 10 ml Documented by: Tramadol HCl (Ultram) 50 mg PO Q6H PRN PRN PRN Reason: Pain Score 1-10/10 Last Admin: 01/22/20 07:58 Dose: 50 mg Documented by: STROKE Vital Signs/Narrative: Vital Signs Temp Pulse Resp BP Pulse Ox 01/22/20 08:47 97.9 F 93 20 H 142/74 H 99 Medical Necessity - Tobacco Use Smoking Status: Current some day smoker - he will not talk about this....can not quantify ands averts his eyes Tobacco Use: Cigarettes Assessment/Plan All Active Problems Atrial fibrillation with rapid ventricular response (Resolved) Elevated troponin (Acute) Hypertensive urgency (Resolved) Non-STEMI (non-ST elevated myocardial infarction) (Acute) Syncope (Acute) Cardiomyopathy (Acute) CVA (cerebral vascular accident) (Acute) Hyperbilirubinemia (Acute) Patient is a 59-year-old gentleman admitted to the inpatient rehab unit following debility secondary to recent right frontal and left occipital CVA 1. Physical debility secondary to recent left occipital as well as right frontal CVA ?Admitted to the inpatient rehab unit where patient is currently undergoing physical therapy 2. Paroxysmal atrial fibrillation ?Patient has remained in sinus rhythm 3. Dehydration managed with fluids improving 4. Hypertension ~ blood pressure controlled, home medications continued with dose adjustment as needed 5. Residual cognitive impairment ?With slow processing this was thought to be secondary to patient recent CVA 6. DVT prophylaxis ?Lovenox 7. Obesity with BMI of 39.3 ?Weight loss encouraged. Patient also has underlying suspected sleep apnea patient to undergo sleep study following discharge 8. Depression ?Patient started on low-dose SSRI Code Visit Inpatient E&M: 17027 Subs Hosp L2
[2020-01-22 19:14] VITALS: BP 100/64; PULSE 84; RESP 20; TEMP 36.6; O2SAT 96
[2020-01-22] MEDS: Atorvastatin Calcium 80 MG Tablet PO (22:46)
[2020-01-23] MEDS: Acetaminophen 500 MG Tablet 1000 MG PO ×3 (05:06→20:14)
[2020-01-23] MEDS: Capsaicin 0.025% 1 APPLIC Tube TOPICAL ×3 (05:27→20:21)
[2020-01-23] MEDS: Aspirin 325 MG Tablet PO (08:02)
[2020-01-23] MEDS: amLODIPine 10 MG Tablet PO (08:02)
[2020-01-23] MEDS: Carvedilol 25 MG Tablet PO ×2 (08:02→20:14)
[2020-01-23] MEDS: Famotidine 20 MG Tablet PO (08:02)
[2020-01-23] MEDS: Enoxaparin 40 MG/0.4 ML Syringe SC (08:03)
[2020-01-23] MEDS: Menthol/Lanolin/Calamine/Znox 113 GM Tube 1 APPLIC TOPICAL ×2 (08:05→20:15)
[2020-01-23] MEDS: Nystatin Powder 15gm Bottle 1 APPLIC TOPICAL ×2 (08:06→20:16)
[2020-01-23 08:07] VITALS: BP 141/64; PULSE 100; RESP 18; TEMP 36.7; O2SAT 97
[2020-01-23] MEDS: Escitalopram Oxalate 10 MG Tablet PO (13:15)
[2020-01-23 19:10] VITALS: BP 117/79; PULSE 79; RESP 18; TEMP 36.8; O2SAT 97
[2020-01-23 20:00] VITALS: PULSE 79; RESP 16; O2SAT 97
[2020-01-23] MEDS: Atorvastatin Calcium 80 MG Tablet PO (20:14)
[2020-01-23] MEDS: amLODIPine 5 MG Tablet PO (20:14)
--- NOTE | 2020-01-24 02:47 | NURSING ---
Reviewed and agree with GUM MIXER documentation and charting.
[2020-01-24] MEDS: Capsaicin 0.025% 1 APPLIC Tube TOPICAL ×3 (05:19→21:13)
[2020-01-24] MEDS: Enoxaparin 40 MG/0.4 ML Syringe SC (05:20)
[2020-01-24] MEDS: Acetaminophen 500 MG Tablet 1000 MG PO ×3 (05:20→21:12)
[2020-01-24 06:14] LABS: Hematocrit 46.3 % (40-54); Hemoglobin 14.8 g/dL (13.0-16.5); Mean Corpuscular Hgb 28.3 pg (27.0-32.0); Mean Corpuscular Volume 88.5 fL (80-94); Mean Platelet Vol. 9.8 fl (6.2-12.0); Platelet Count 313 K/mm3 (150-450); RBC Distribution Width SD 45.1 fl (35.1-43.9); Red Blood Count 5.23 M/mm3 (4.6-6.2); White Blood Count 10.3 K/mm3 (4.4-11.0)
[2020-01-24 06:36] LABS: Anion Gap 6 (5-15); BUN 27 mg/dL (7-18); BUN/Creat Ratio 24.3 RATIO (10-20); Calcium,Total 9.1 mg/dL (8.5-10.1); Chloride 104 mmol/L (98-107); Creatinine, Serum 1.11 mg/dL (0.70-1.30); EST Glomerular Filtration Rate 71 mL/min (>60); Est Glom Filt Rate - Afr Amer 86 mL/min (>60); Estimated Creatinine Clearance 63.07 ml/min; Glucose 110 mg/dL (74-106); Magnesium 2.1 mg/dL (1.6-2.6); Sodium Level 139 mmol/L (136-145)
[2020-01-24] MEDS: Escitalopram Oxalate 10 MG Tablet PO (08:24)
[2020-01-24] MEDS: Nystatin Powder 15gm Bottle 1 APPLIC TOPICAL ×2 (08:24→21:14)
[2020-01-24] MEDS: Carvedilol 25 MG Tablet PO ×2 (08:24→21:12)
[2020-01-24] MEDS: Aspirin 325 MG Tablet PO (08:24)
[2020-01-24] MEDS: Menthol/Lanolin/Calamine/Znox 113 GM Tube 1 APPLIC TOPICAL ×2 (08:24→21:14)
[2020-01-24] MEDS: amLODIPine 5 MG Tablet PO ×2 (08:25→21:12)
[2020-01-24] MEDS: Famotidine 20 MG Tablet PO (08:25)
[2020-01-24 08:43] VITALS: BP 121/74; PULSE 83; RESP 18; TEMP 37.1; O2SAT 99
--- NOTE | 2020-01-24 08:55 | PCM.PN.BLA ---
Progress Note Afebile VSS-blood pressure is well controlled Maintaining appropriate oxygen saturation on RA Oral intake is fair Last bowel movement 01/23/2020 and he is incontinent Also incontinent of urine Discussed with nursing - no problems that need addressed Reviewed the PT/OT/ST notes Medication list reviewed. All lab was personally reviewed. CBC is normal. BMP shows a BUN of 27 and a creatinine of 1.11, down from 34/1.212 2720. BUN creatinine ratio is 24.3. I reviewed the records we obtained from Dr. Kendrick and the patient's history also includes peripheral neuropathy. He failed Gabapentin in the past for chronic back pain. Has never had a colonoscopy. Still very slow to respond to questions, alert, oriented x2 to person and place, no apparent distress Lungs-decreased in the bases but clear to auscultation Heart-regular rate and rhythm, no gallop Abdomen-obese, soft, nontender, nondistended, no guarding with palpation, bowel sounds heard in all 4 quadrants Small amount of edema in the left ankle but the right ankle is free of edema. No calf tenderness. No rashes and no breakdown no significant change in the neuro exam. Impressions 1. S/P ischemic CVA's in the R frontal and the Left occipital areas 2. Paroxysmal atrial fibrillation with biatrial enlargement and RVR in the hospital. Has been in a regular rhythm since admission to rehab 3. Coronary artery disease with recent NSTEMI vs demand ischemia 4. suspected HINA - agreeable to a sleep study following DC 5. slow processing and thought processes. 6. chronic back pain and knee pain - will need follow up as an OP. Continue the Tramadol PRN and the Capsaicin Continue therapy STROKE Vital Signs/Narrative: Vital Signs Temp Pulse Resp BP Pulse Ox 01/24/20 08:43 98.7 F 83 18 121/74 H 99 Code Visit Inpatient E&M: 64556 Subs Hosp L2
--- NOTE | 2020-01-24 16:50 | CHAPLAIN ---
Type of Pastoral Visit ___ Initial Visit _x__ Follow-up Visit ___ On-call Visit ___ General Patient Visit ___ Spiritual Assessment ___ Family Conference ___ Bereavement ___ Rapid Response ___ Code Blue ___ Other (describe below) Pastoral Care Referral From _x__ Patient ___ Family ___ Nurse ___ Physician ___ Grinder Operator Automatic ___ Machine Riveter ___ Other (describe below) Sacrament/Intervention _x__ Active listening ___ Anointing ___ Nondenominational ___ Bereavement ___ Communion ___ Jessica exploration ___ ___ Life review _x__ Prayer ___ Reconciliation ___ Sacrament of Sick _x__ Supportive presence ___ Wedding ___ Other (describe below) Pastoral Comments
[2020-01-24] MEDS: Atorvastatin Calcium 80 MG Tablet PO (21:12)
[2020-01-24 21:15] VITALS: BP 111/76; PULSE 90; RESP 16; TEMP 36.9; O2SAT 98
--- NOTE | 2020-01-25 03:39 | NURSING ---
Reviewed and agree with PAYROLL ACCOUNTING SPECIALIST documentation and charting.
[2020-01-25] MEDS: Capsaicin 0.025% 1 APPLIC Tube TOPICAL ×3 (05:49→19:50)
[2020-01-25] MEDS: Enoxaparin 40 MG/0.4 ML Syringe SC (05:50)
[2020-01-25] MEDS: Acetaminophen 500 MG Tablet 1000 MG PO ×3 (05:50→19:49)
[2020-01-25] MEDS: Famotidine 20 MG Tablet PO (05:52)
[2020-01-25 07:00] VITALS: BP 128/80; PULSE 89; RESP 18; TEMP 36.7; O2SAT 99
[2020-01-25] MEDS: Escitalopram Oxalate 10 MG Tablet PO (08:12)
[2020-01-25] MEDS: Carvedilol 25 MG Tablet PO ×2 (08:12→19:50)
[2020-01-25] MEDS: Aspirin 325 MG Tablet PO (08:12)
[2020-01-25] MEDS: amLODIPine 5 MG Tablet PO ×2 (08:12→19:50)
[2020-01-25] MEDS: Menthol/Lanolin/Calamine/Znox 113 GM Tube 1 APPLIC TOPICAL ×2 (08:14→19:51)
[2020-01-25] MEDS: Nystatin Powder 15gm Bottle 1 APPLIC TOPICAL ×2 (08:15→19:51)
[2020-01-25 18:51] VITALS: BP 130/77; PULSE 86; RESP 17; TEMP 36.8; O2SAT 95
[2020-01-25 19:50] VITALS: PULSE 86; O2SAT 95
[2020-01-25] MEDS: Atorvastatin Calcium 80 MG Tablet PO (19:50)
[2020-01-25] MEDS: Senna/Docusate Sodium 1 Tablet 2 TABLET PO (19:50)
[2020-01-25] MEDS: traMADol 50 MG Tablet PO (21:02)
--- NOTE | 2020-01-26 04:42 | NURSING ---
Reviewed and agree with QUALITY ASSURANCE SUPERVISOR CHASSIS documentation and charting.
[2020-01-26] MEDS: Acetaminophen 500 MG Tablet 1000 MG PO ×3 (05:43→22:23)
[2020-01-26] MEDS: Enoxaparin 40 MG/0.4 ML Syringe SC (05:44)
[2020-01-26] MEDS: Capsaicin 0.025% 1 APPLIC Tube TOPICAL ×3 (08:18→22:21)
[2020-01-26 08:20] VITALS: BP 127/72; PULSE 101; RESP 20; TEMP 36.9; O2SAT 96
[2020-01-26] MEDS: Nystatin Powder 15gm Bottle 1 APPLIC TOPICAL ×2 (08:20→22:22)
[2020-01-26] MEDS: Menthol/Lanolin/Calamine/Znox 113 GM Tube 1 APPLIC TOPICAL ×2 (08:20→22:22)
[2020-01-26] MEDS: Carvedilol 25 MG Tablet PO ×2 (08:21→22:22)
[2020-01-26] MEDS: Escitalopram Oxalate 10 MG Tablet PO (08:21)
[2020-01-26] MEDS: amLODIPine 5 MG Tablet PO ×2 (08:21→22:23)
[2020-01-26] MEDS: Famotidine 20 MG Tablet PO (08:22)
[2020-01-26] MEDS: Aspirin 325 MG Tablet PO (08:22)
[2020-01-26] MEDS: Senna/Docusate Sodium 1 Tablet 2 TABLET PO (08:22)
--- NOTE | 2020-01-26 13:03 | PCM.PN.BLA ---
Progress Note Afebile VSS-blood pressure is well controlled. Better results with giving the amlodipine BID - no more systolics > 140 and no low BP's either Maintaining appropriate oxygen saturation on RA Oral intake is good. weight today is up 3 lbs from 01/24/20 Discussed with nursing - no problems that need addressed Reviewed the PT/OT/ST notes Medication list reviewed. He will now wave at me and say hello. Has been sitting in the common area more and socializing. Alert, operative, no apparent distress Lungs-clear to auscultation but diminished. No tachypnea, no conversational dyspnea Heart-regular rate and rhythm, normal S1, normal S2, no murmurs, no ectopy, no gallop Abdomen-obese, soft, nontender, nondistended, bowel sounds heard in all 4 quadrants, no guarding with palpation No significant peripheral edema No rashes, no breakdown Continues to have delayed response to questions and increased time to process. No facial droop. No dysarthria. Persistent left side weakness in both extremities Impressions 1. Debility secondary to recent CVAs in the right frontal and left occipital areas 2. Paroxysmal atrial fibrillation with biatrial enlargement 3. Coronary artery disease 4. Cardiomyopathy with a 45 to 50% EF and wall motion abnormalities 5. Hypertension-now well controlled 6. Chronic pain syndrome in the back and left knee. He is currently receiving scheduled Tylenol and capsaicin for pain control. 7. Carotid stenosis 8. Tobacco dependence 9. Dyslipidemia 10. Suspected sleep apnea We will obtain a CT scan of the brain today. If there is no evidence of hemorrhagic transformation will start anticoagulation for atrial fibrillation at the recommendation of the SOC neurologist. Referral for sleep study at discharge Code Visit Inpatient E&M: 12337 Subs Hosp L2
--- NOTE | 2020-01-26 13:15 | CT_ITS ---
STUDY: CT BRAIN WITHOUT CONTRAST REASON FOR EXAM: Male, 59 years old. Mental status change, recent CVA RADIATION DOSAGE (If Supplied By Facility): CTDIvol = ( 44.99 ) mGy, DLP = ( 745.49 ) mGycm TECHNIQUE: Transaxial CT imaging of the brain was performed without administration of intravenous contrast material. Individualized dose optimization techniques were used for this CT. COMPARISON: 01/15/2020 FINDINGS: Normal soft tissue structures. Normal calvarium. Previously described right anterior cerebral artery infarct has improved since the previous study but sequela of the infarct is still clearly noted. Previously noted left BED MAKER infarct has resolved. There is mild cerebral atrophy with widening of the extra-axial spaces and ventricular dilatation. There are areas of decreased attenuation within the white matter tracts of the supratentorial brain, consistent with microvascular disease changes. Normal basal ganglia and thalami. Normal brainstem. Normal cerebellum. There is no intracranial hemorrhage. There are no findings of an acute ischemic infarction. Normal visualized paranasal sinuses. CT/Brain/Head without Contrast IMPRESSION: Slowly resolving right ADAM infarct, less hypoattenuation noted since the previous study. No acute hemorrhage. Previously noted left BED MAKER infarct has resolved. No midline shift, or mass effect Electronically Signed: Aki Friedman MD at 14:58 EST , Service support ,
--- NOTE | 2020-01-26 14:14 | NURSING ---
spoke with sleep lab to get appointment set up for sleep study on 02/10, they do not have any openings at this time. they will call if an opening becomes available. Dr Michel aware
[2020-01-26 18:23] VITALS: BP 129/90; PULSE 94; RESP 18; TEMP 36.8; O2SAT 98
[2020-01-26 22:00] VITALS: PULSE 94; RESP 18; O2SAT 94
[2020-01-26] MEDS: Atorvastatin Calcium 80 MG Tablet PO (22:22)
[2020-01-26] MEDS: traMADol 50 MG Tablet PO (22:28)
--- NOTE | 2020-01-27 01:34 | NURSING ---
REVIEWED AND AGREE WITH EQUIPMENT VALIDATION ENGINEER'S FUNCTIONAL ASSESSMENT AND HANDOFF CHARTING.
[2020-01-27] MEDS: Enoxaparin 40 MG/0.4 ML Syringe SC (05:39)
[2020-01-27] MEDS: Capsaicin 0.025% 1 APPLIC Tube TOPICAL ×3 (05:39→20:14)
[2020-01-27] MEDS: Acetaminophen 500 MG Tablet 1000 MG PO ×3 (05:39→20:14)
[2020-01-27 07:00] VITALS: BP 127/79; PULSE 92; RESP 18; TEMP 36.7; O2SAT 93
[2020-01-27] MEDS: Aspirin 325 MG Tablet PO (08:39)
[2020-01-27] MEDS: Escitalopram Oxalate 10 MG Tablet PO (08:39)
[2020-01-27] MEDS: Carvedilol 25 MG Tablet PO ×2 (08:39→20:15)
[2020-01-27] MEDS: amLODIPine 5 MG Tablet PO ×2 (08:39→20:15)
[2020-01-27] MEDS: Famotidine 20 MG Tablet PO ×2 (08:39→20:15)
[2020-01-27] MEDS: Menthol/Lanolin/Calamine/Znox 113 GM Tube 1 APPLIC TOPICAL ×2 (09:05→20:16)
[2020-01-27] MEDS: Nystatin Powder 15gm Bottle 1 APPLIC TOPICAL ×2 (09:06→20:15)
[2020-01-27 09:46] LABS: Anion Gap 4 (5-15); BUN 26 mg/dL (7-18); BUN/Creat Ratio 20.3 RATIO (10-20); Calcium,Total 8.9 mg/dL (8.5-10.1); Chloride 105 mmol/L (98-107); Creatinine, Serum 1.28 mg/dL (0.70-1.30); EST Glomerular Filtration Rate 61 mL/min (>60); Est Glom Filt Rate - Afr Amer 73 mL/min (>60); Estimated Creatinine Clearance 54.69 ml/min; Glucose 138 mg/dL (74-106); Potassium 4.1 mmol/L (3.5-5.1); Sodium Level 139 mmol/L (136-145)
--- NOTE | 2020-01-27 09:56 | CASEMGMT ---
Social Work IDT met with patient for Team Meeting. Discussed patient's progress in therapy. Pt is walking 54 ft with FWW mod assist with w/c follow, mod x1 for bed mobility, mod x1-2 for sitting to standing, min x2 for shower transfer, total assist for LE ADLS, mod assist for UE bathing, set up for grooming and UE dressing. Pt is having improved trunk control, the brace is able to stabilize knee but still viktor, and attempted steps today but unable to safely complete. ST reports pt's problem solving and attention has improved, will continue to work on automatic tasks and higher level functioning, and will monitor swallowing. Pt's pain is controlled, sleeping well. Pt received new dx of afib and will need started on a blood thinner. Pt reports not having prescription drug coverage through insurance and pays out of pocket. , to start pt on lower cost medication, but educated pt to monitor diet and get routine blood work to ensure levels are maintained. Explained Medicare days and DC date 02/10, and alternatives to getting ti apt as pt has many steps to enter. Pt reports family looking into a stair chair/lift. Pt gave permission to discuss above with son. Spoke with son and provided above information, educated to blood thinner, diet, stair lift and DC date. Son understood and will begin working on a stair lift. Will continue to follow. OMAR Reeves SETTER INDUCTION HEATING EQUIPMENT
[2020-01-27 10:02] LABS: International Normalized Ratio 1.1; Prothrombin Time (Protime)PT. 14.3 SECONDS (11.7-14.9)
[2020-01-27 10:03] LABS: Partial Thromboplast Time 34.9 Seconds (24.1-36.2)
[2020-01-27 19:26] VITALS: BP 134/90; PULSE 88; RESP 18; TEMP 36.6; O2SAT 97
[2020-01-27] MEDS: Mag Hydrox/Al Hydrox/Simeth 30 ML UDC PO (20:13)
[2020-01-27] MEDS: Atorvastatin Calcium 80 MG Tablet PO (20:15)
[2020-01-27] MEDS: Senna/Docusate Sodium 1 Tablet 2 TABLET PO (20:15)
--- NOTE | 2020-01-27 21:07 | NURSING ---
PT STATES NAUSEA IS BETTER AFTER TAKING MYLANTA.
[2020-01-28] MEDS: Mag Hydrox/Al Hydrox/Simeth 30 ML UDC PO (05:41)
[2020-01-28] MEDS: Enoxaparin 40 MG/0.4 ML Syringe SC (05:42)
[2020-01-28] MEDS: Capsaicin 0.025% 1 APPLIC Tube TOPICAL ×3 (05:42→22:12)
[2020-01-28] MEDS: Acetaminophen 500 MG Tablet 1000 MG PO ×3 (05:43→22:11)
[2020-01-28] MEDS: Famotidine 20 MG Tablet PO ×2 (08:41→22:11)
[2020-01-28] MEDS: Carvedilol 25 MG Tablet PO ×2 (08:41→22:09)
[2020-01-28] MEDS: amLODIPine 5 MG Tablet PO ×2 (08:41→22:10)
[2020-01-28] MEDS: Aspirin 325 MG Tablet PO (08:41)
[2020-01-28] MEDS: Escitalopram Oxalate 10 MG Tablet PO (08:41)
[2020-01-28] MEDS: Nystatin Powder 15gm Bottle 1 APPLIC TOPICAL ×2 (08:42→22:15)
[2020-01-28] MEDS: Menthol/Lanolin/Calamine/Znox 113 GM Tube 1 APPLIC TOPICAL ×2 (08:43→22:15)
[2020-01-28 09:24] VITALS: BP 139/84; PULSE 93; RESP 16; TEMP 36.3; O2SAT 98
--- NOTE | 2020-01-28 14:48 | PCM.PN.BLA ---
Progress Note Afebile VSS Maintaining appropriate oxygen saturation on RA Oral intake is good Discussed with nursing - no problems that need addressed Reviewed the PT/OT/ST notes Medication list reviewed. He has no complaints today. Back pain and knee pain are better with the institution of scheduled capsaicin in addition to the scheduled Tylenol and as needed tramadol. Alert, still slow to respond to questions Lungs - decreased in the bases but CTA H- RRR, no gallop no peripheral edema Impressions 1. post stroke debility Continue therapy. Inpatient E&M: [id number] Subs Hosp L1
[2020-01-28 19:20] VITALS: BP 121/83; PULSE 90; RESP 18; TEMP 36.6; O2SAT 99
[2020-01-28] MEDS: Atorvastatin Calcium 80 MG Tablet PO (22:10)
[2020-01-29] MEDS: Enoxaparin 40 MG/0.4 ML Syringe SC (05:42)
[2020-01-29] MEDS: Capsaicin 0.025% 1 APPLIC Tube TOPICAL ×3 (05:43→21:12)
[2020-01-29] MEDS: Acetaminophen 500 MG Tablet 1000 MG PO ×3 (05:43→21:12)
[2020-01-29 07:13] VITALS: BP 148/76; PULSE 96; RESP 16; TEMP 36.9; O2SAT 97
[2020-01-29] MEDS: amLODIPine 5 MG Tablet PO ×2 (08:21→21:12)
[2020-01-29] MEDS: Carvedilol 25 MG Tablet PO ×2 (08:21→21:12)
[2020-01-29] MEDS: Escitalopram Oxalate 10 MG Tablet PO (08:21)
[2020-01-29] MEDS: Famotidine 20 MG Tablet PO ×2 (08:21→21:12)
[2020-01-29] MEDS: Aspirin 325 MG Tablet PO (08:21)
[2020-01-29] MEDS: Nystatin Powder 15gm Bottle 1 APPLIC TOPICAL ×2 (08:23→21:17)
[2020-01-29] MEDS: Menthol/Lanolin/Calamine/Znox 113 GM Tube 1 APPLIC TOPICAL ×2 (08:23→21:17)
[2020-01-29 09:20] VITALS: BMI 40.4
[2020-01-29 16:59] VITALS: BMI 40.4
[2020-01-29 19:30] VITALS: BP 122/79; PULSE 90; RESP 16; TEMP 37.1; O2SAT 98
[2020-01-29] MEDS: Mag Hydrox/Al Hydrox/Simeth 30 ML UDC PO (20:09)
[2020-01-29] MEDS: Atorvastatin Calcium 80 MG Tablet PO (21:12)
[2020-01-30] MEDS: Ondansetron ODT 4 MG Tablet PO (04:46)
[2020-01-30] MEDS: Capsaicin 0.025% 1 APPLIC Tube TOPICAL ×3 (05:44→21:12)
[2020-01-30] MEDS: Acetaminophen 500 MG Tablet 1000 MG PO ×3 (05:44→21:11)
[2020-01-30] MEDS: Enoxaparin 40 MG/0.4 ML Syringe SC (05:44)
[2020-01-30] MEDS: Aspirin 325 MG Tablet PO (07:21)
[2020-01-30] MEDS: Senna/Docusate Sodium 1 Tablet 2 TABLET PO ×2 (07:22→21:11)
[2020-01-30] MEDS: Famotidine 20 MG Tablet PO ×2 (07:22→21:12)
[2020-01-30] MEDS: Escitalopram Oxalate 10 MG Tablet PO (07:22)
[2020-01-30] MEDS: amLODIPine 5 MG Tablet PO ×2 (07:22→21:12)
[2020-01-30] MEDS: Carvedilol 25 MG Tablet PO ×2 (07:22→21:12)
[2020-01-30] MEDS: Nystatin Powder 15gm Bottle 1 APPLIC TOPICAL ×2 (07:26→21:12)
[2020-01-30] MEDS: Menthol/Lanolin/Calamine/Znox 113 GM Tube 1 APPLIC TOPICAL ×2 (07:26→21:12)
[2020-01-30 08:13] VITALS: BP 124/67; PULSE 89; RESP 16; TEMP 36.8; O2SAT 97
[2020-01-30 08:19] VITALS: BMI 40.4
[2020-01-30 19:33] VITALS: BP 123/89; PULSE 83; RESP 16; TEMP 36.9; O2SAT 97
[2020-01-30 21:10] VITALS: PULSE 83; RESP 16; O2SAT 97; BMI 40.4
[2020-01-30] MEDS: Atorvastatin Calcium 80 MG Tablet PO (21:12)
--- NOTE | 2020-01-31 03:47 | NURSING ---
Reviewed and agree with PATIENT SUPPORT ASSISTANT's functional assessment and handoff charting.
[2020-01-31] MEDS: Enoxaparin 40 MG/0.4 ML Syringe SC (05:25)
[2020-01-31] MEDS: Acetaminophen 500 MG Tablet 1000 MG PO ×3 (05:25→20:28)
[2020-01-31 08:18] VITALS: BP 149/80; PULSE 88; RESP 16; TEMP 36.6; O2SAT 97
[2020-01-31] MEDS: Escitalopram Oxalate 10 MG Tablet PO (08:19)
[2020-01-31] MEDS: Carvedilol 25 MG Tablet PO ×2 (08:19→20:27)
[2020-01-31] MEDS: Capsaicin 0.025% 1 APPLIC Tube TOPICAL ×3 (08:19→20:28)
[2020-01-31] MEDS: Famotidine 20 MG Tablet PO ×2 (08:19→20:27)
[2020-01-31] MEDS: amLODIPine 5 MG Tablet PO ×2 (08:19→20:27)
[2020-01-31] MEDS: Aspirin 325 MG Tablet PO (08:19)
[2020-01-31] MEDS: Menthol/Lanolin/Calamine/Znox 113 GM Tube 1 APPLIC TOPICAL ×2 (08:20→20:26)
[2020-01-31] MEDS: Nystatin Powder 15gm Bottle 1 APPLIC TOPICAL ×2 (08:20→20:27)
[2020-01-31] MEDS: traMADol 50 MG Tablet PO ×2 (09:43→20:30)
[2020-01-31 10:12] VITALS: BMI 40.4
--- NOTE | 2020-01-31 14:14 | PCM.PN.BLA ---
Progress Note Afebile VSS-blood pressure is adequately controlled for the most part except the AM BP......still with systolic > 135 Maintaining appropriate oxygen saturation on RA Oral intake is good Discussed with nursing - no problems that need addressed Reviewed the PT/OT/ST notes Medication list reviewed. He is still c/o nausea after taking his pills - no vomiting. He denies Heartburn. Tells me that it is about 1 hour after taking his pills. It may be the Ultram? or the Lexapro? alert and appropriate Lungs - CTA H - RRR, no gallop abd - obese, soft, NT, ND, no guarding with palpation no edema Impressions 1. post stroke debility 2. HTN 3. nausea - drug related? gastritis? Continue the Pepcid BID. Hold the SSRI in the AM although I doubt this is it since he gets the nausea every time he gets pills and he only takes this in the AM. It may be the Tramadol. 4. sleep disordered breathing, suspected sleep apnea. Hx of AF, HTN, morbid obesity, daytime sleepiness. Will order a split sleep study after DC....hopeful that we can do this on the day of DC. Hold the Lexapro in the AM for a few days and if the nausea persists will DC the Tramadol. Check a BMP in the AM Continue PRN Zofran Try giving the meds with food Continue therapy - where he will go at DC has yet to be determined. Will discuss on TEAM rounds on Inpatient E&M: [id number] Subs Hosp L2
[2020-01-31 19:30] VITALS: BP 122/82; PULSE 84; RESP 16; TEMP 36.7; O2SAT 97
[2020-01-31] MEDS: Atorvastatin Calcium 80 MG Tablet PO (20:27)
[2020-02-01 00:08] VITALS: BMI 40.4
[2020-02-01] MEDS: Capsaicin 0.025% 1 APPLIC Tube TOPICAL ×3 (04:46→19:55)
[2020-02-01] MEDS: Enoxaparin 40 MG/0.4 ML Syringe SC (04:46)
[2020-02-01] MEDS: Acetaminophen 500 MG Tablet 1000 MG PO ×3 (04:46→19:56)
[2020-02-01 06:58] LABS: Anion Gap 8 (5-15); BUN 22 mg/dL (7-18); BUN/Creat Ratio 21.4 RATIO (10-20); Calcium,Total 8.7 mg/dL (8.5-10.1); Chloride 107 mmol/L (98-107); Creatinine, Serum 1.03 mg/dL (0.70-1.30); EST Glomerular Filtration Rate 78 mL/min (>60); Est Glom Filt Rate - Afr Amer 94 mL/min (>60); Estimated Creatinine Clearance 67.96 ml/min; Glucose 100 mg/dL (74-106); Potassium 3.8 mmol/L (3.5-5.1); Sodium Level 141 mmol/L (136-145)
[2020-02-01 07:30] VITALS: BP 125/74; PULSE 83; RESP 16; TEMP 36.5; O2SAT 99
[2020-02-01] MEDS: amLODIPine 5 MG Tablet PO ×2 (07:55→19:56)
[2020-02-01] MEDS: Famotidine 20 MG Tablet PO ×2 (07:55→19:57)
[2020-02-01] MEDS: Aspirin 325 MG Tablet PO (07:55)
[2020-02-01] MEDS: Carvedilol 25 MG Tablet PO ×2 (07:55→19:56)
[2020-02-01] MEDS: Nystatin Powder 15gm Bottle 1 APPLIC TOPICAL ×2 (07:56→19:57)
[2020-02-01] MEDS: Menthol/Lanolin/Calamine/Znox 113 GM Tube 1 APPLIC TOPICAL ×2 (07:56→19:57)
[2020-02-01 10:21] VITALS: BMI 40.4
--- NOTE | 2020-02-01 10:41 | PN_ITS ---
Progress Note All events of the past 24 hours of been reviewed. Afebrile Blood pressures are very well controlled now. Blood Pressure this morning was 125/74 which is the best it has been. Heart rate is persistently in the 80s now. Good oral intake. All lab was personally reviewed. BMP today shows a potassium of 3.8, BUN of 22, down from 26 on 01/27/2020, and the creatinine is 1.03, down from 1.28 on 01/27/2020. Fasting blood sugar is 100. alert and appropriate Lungs - CTA, diminished in the bases and this is more than likely due to body habitus H - RRR, no gallop no edema no calf tenderness. Impressions 1. PAF 2. S/P CVA with left side weakness 3. HTN - controlled on the current drug regimen 4. mild dehydration - continue to encourage increased fluid intake follow up CT brain showed no hemorrhagic transformation. Per neurology recommendation will start on anti-coagulation. No Full dose Lovenox. will start Warfarin and continue the 40 mg daily of Lovenox for DVT prophylaxis Warfarin 10 mg PO today and then 6 mg daily. Daily PT/INR consult the general car yard supervisor to instruct in Vitamin K restricted diet Add a Vitamin K restriction to the current diet STROKE Vital Signs/Narrative: Vital Signs Temp Pulse Resp BP Pulse Ox 02/01/20 07:30 97.7 F L 83 16 125/74 H 99 Inpatient E&M: [id number] Subs Hosp L2
--- NOTE | 2020-02-01 12:03 | CASEMGMT ---
Social Work Spoke with son about alternative DC plans and resources. Discussed [place], SNF, skilled and nonskilled HHC, Medicare coverage in those areas, Adult Day Centers. Provided resources list above to son, including transportation and [facility] resources. Will continue to follow for DC planning. Salma Peters, PIPELINE INTEGRITY ENGINEER TELEPHONE INFORMATION CLERK
--- NOTE | 2020-02-01 12:05 | CASEMGMT ---
Social Work Spoke with patient's son to inquire about stair lift progress. Son stated all parts are ordered and the goal is to have that in place for pt DC 02/10. Otherwise, patient cannot get into home without it. Inquired if son could attend Team Meeting 02/02 - son stated he could. Will continue to follow. Salma Peters MORNING NEWS PRODUCER PARTS ADMINISTRATOR
[2020-02-01] MEDS: Atorvastatin Calcium 80 MG Tablet PO (19:56)
[2020-02-01] MEDS: BACITRACIN 15 GM Tube 1 APPLIC TOPICAL (19:56)
[2020-02-01] MEDS: Senna/Docusate Sodium 1 Tablet 2 TABLET PO (19:57)
[2020-02-01 20:00] VITALS: PULSE 94; O2SAT 97; BMI 40.4
[2020-02-01 20:33] VITALS: BP 130/88; PULSE 94; RESP 16; TEMP 36.7; O2SAT 97
--- NOTE | 2020-02-02 00:24 | NURSING ---
Reviewed and HEADLIGHT ADJUSTER agree with documentation and charting.
[2020-02-02] MEDS: Capsaicin 0.025% 1 APPLIC Tube TOPICAL ×3 (04:57→21:01)
[2020-02-02] MEDS: Enoxaparin 40 MG/0.4 ML Syringe SC (04:58)
[2020-02-02] MEDS: Acetaminophen 500 MG Tablet 1000 MG PO ×3 (04:58→21:01)
[2020-02-02 06:04] LABS: International Normalized Ratio 1.2; Prothrombin Time (Protime)PT. 14.7 SECONDS (11.7-14.9)
[2020-02-02] MEDS: Senna/Docusate Sodium 1 Tablet 2 TABLET PO (08:09)
[2020-02-02] MEDS: BACITRACIN 15 GM Tube 1 APPLIC TOPICAL ×2 (08:10→20:47)
[2020-02-02] MEDS: Carvedilol 25 MG Tablet PO ×2 (08:10→20:57)
[2020-02-02] MEDS: amLODIPine 5 MG Tablet PO ×2 (08:10→20:56)
[2020-02-02] MEDS: Famotidine 20 MG Tablet PO ×2 (08:10→20:56)
[2020-02-02] MEDS: Aspirin 325 MG Tablet PO (08:10)
[2020-02-02 08:30] VITALS: BP 147/90; PULSE 90; RESP 17; TEMP 36.6; O2SAT 99
[2020-02-02] MEDS: Menthol/Lanolin/Calamine/Znox 113 GM Tube 1 APPLIC TOPICAL ×2 (08:32→20:48)
[2020-02-02] MEDS: Nystatin Powder 15gm Bottle 1 APPLIC TOPICAL ×2 (08:33→20:53)
[2020-02-02] MEDS: Magnesium Hydroxide 30 ML UDC PO (10:02)
[2020-02-02 11:25] VITALS: BMI 40.4
[2020-02-02 19:14] VITALS: BP 141/81; PULSE 90; RESP 16; TEMP 36.7; O2SAT 98
[2020-02-02 19:38] VITALS: BMI 40.4
[2020-02-02 20:45] VITALS: PULSE 98; RESP 16; O2SAT 98
[2020-02-02] MEDS: Atorvastatin Calcium 80 MG Tablet PO (20:57)
[2020-02-03 06:06] LABS: International Normalized Ratio 1.5; Prothrombin Time (Protime)PT. 17.8 SECONDS (11.7-14.9)
[2020-02-03] MEDS: Acetaminophen 500 MG Tablet 1000 MG PO ×3 (06:52→20:26)
[2020-02-03] MEDS: Capsaicin 0.025% 1 APPLIC Tube TOPICAL ×3 (06:52→20:26)
[2020-02-03] MEDS: Enoxaparin 40 MG/0.4 ML Syringe SC (06:53)
[2020-02-03] MEDS: traMADol 50 MG Tablet PO (06:55)
[2020-02-03] MEDS: Famotidine 20 MG Tablet PO ×2 (07:56→20:26)
[2020-02-03] MEDS: Aspirin 325 MG Tablet PO (07:56)
[2020-02-03] MEDS: Carvedilol 25 MG Tablet PO ×2 (07:56→20:25)
[2020-02-03] MEDS: amLODIPine 5 MG Tablet PO ×2 (07:56→20:26)
[2020-02-03] MEDS: BACITRACIN 15 GM Tube 1 APPLIC TOPICAL ×2 (07:56→20:25)
[2020-02-03] MEDS: Nystatin Powder 15gm Bottle 1 APPLIC TOPICAL ×2 (07:58→20:27)
[2020-02-03] MEDS: Menthol/Lanolin/Calamine/Znox 113 GM Tube 1 APPLIC TOPICAL ×2 (07:58→20:27)
[2020-02-03 08:40] VITALS: BP 147/82; PULSE 101; RESP 18; TEMP 36.6; O2SAT 98
--- NOTE | 2020-02-03 09:50 | PN_ITS ---
Progress Note Geronimo was seen on TEAM rounds today. His son Peewee was present for rounds. Afebile VSS Maintaining appropriate oxygen saturation on RA Oral intake is good Last bowel movement was 02/02/2020 Discussed with nursing - no problems that need addressed Reviewed the PT/OT/ST notes Medication list reviewed. INR is 1.5 today and he is currently taking 6 mg daily Denies ARREAGA. The nausea has resolved with discontinuation of the SSRI. Not complaining of any back or knee pain today. alert and appropriate. Is now able to hold aq conversation. His son brought his banjo in today to play for dexterity Lungs - CTA, diminished in the bases H - RRR, no gallop abd - obese, soft, NT, ND, no guarding with palpation no edema L leg viktor when attempting stairs if he does not have the brace on but, with the brace he can not bend the leg thus making stairs very difficult. He is unable to let go of things from the left hand (large R frontal CVA) Impressions 1. post stroke debility 2. HTN - controlled 3. Constipation - stool softener changed to Miralax yesterday 4. glucose intolerance 5. nausea - resolved with the discontinuation of the SSRI 6. obesity - has lost 1 and 1/2 lbs since admission 7. PAF - recently started on Warfarin - continue daily INR until he is therapeutic and stable Pt is not safe to go home yet unless he has 24H supervision. Will need SNF at [place]. His safety awareness is not good and he is still slow processing He is still 50% on assistance with getting up from the bed and requires help with LE dressi ng and bathing. All questions were answered. Peewee was given a list of area SNF's and also home care agencies. STROKE Vital Signs/Narrative: Vital Signs Temp Pulse Resp BP Pulse Ox 02/03/20 08:40 97.9 F 101 H 18 147/82 H 98 Inpatient E&M: [id number] Subs Hosp L2
--- NOTE | 2020-02-03 10:24 | CASEMGMT ---
Social Work IDT met with patient and son for Team Meeting. Discussed patient's progress in therapy. Pt is mod assist for walking with FWW and knee brace, min to mod for transfers, min for LE bathing, mod for LE dressing, mod for stand-pivot transfers with FWW, set up with grooming while seated and UE dressing. ST working on poor safety awareness, med management, poor problem solving and initiation, poor mental flexibility. Pt does have initiation of tasks and requires 24/7 assistance. Explained to son DC date 02/10 and recommending SNF for continued therapy and assistance. Pt is not safe to return home alone. Pt could DC home with stair lift and 24/7 care. Provided son a list of SNFs and private duty aides. Explained Medicare benefit for SNF. Pt does not have a secondary insurance. Explained Medicaid eligibility and coverage with copays and long-term care. Will ReTeam next week. Will continue to follow. OMAR ReevesW
[2020-02-03 11:26] VITALS: BMI 40.4
[2020-02-03 19:25] VITALS: BP 122/97; PULSE 97; RESP 16; TEMP 36.6; O2SAT 96
[2020-02-03] MEDS: Atorvastatin Calcium 80 MG Tablet PO (20:25)
[2020-02-03 23:12] VITALS: BMI 40.4
[2020-02-04 06:13] LABS: International Normalized Ratio 1.7; Prothrombin Time (Protime)PT. 20.2 SECONDS (11.7-14.9)
[2020-02-04] MEDS: Enoxaparin 40 MG/0.4 ML Syringe SC (06:22)
[2020-02-04] MEDS: Acetaminophen 500 MG Tablet 1000 MG PO ×3 (06:22→20:43)
[2020-02-04] MEDS: Capsaicin 0.025% 1 APPLIC Tube TOPICAL ×3 (06:23→20:45)
[2020-02-04 08:23] VITALS: BP 127/80; PULSE 87; RESP 18; TEMP 36.7; O2SAT 98
[2020-02-04] MEDS: Aspirin 325 MG Tablet PO (08:52)
[2020-02-04] MEDS: BACITRACIN 15 GM Tube 1 APPLIC TOPICAL ×2 (08:52→20:47)
[2020-02-04] MEDS: Famotidine 20 MG Tablet PO ×2 (08:53→20:43)
[2020-02-04] MEDS: amLODIPine 5 MG Tablet PO ×2 (08:53→20:42)
[2020-02-04] MEDS: Carvedilol 25 MG Tablet PO ×2 (08:53→20:43)
[2020-02-04] MEDS: Polyethylene Glycol 3350 17 GM PACKET PO (08:54)
[2020-02-04] MEDS: traMADol 50 MG Tablet PO (08:54)
[2020-02-04] MEDS: Menthol/Lanolin/Calamine/Znox 113 GM Tube 1 APPLIC TOPICAL ×2 (08:55→20:46)
[2020-02-04] MEDS: Nystatin Powder 15gm Bottle 1 APPLIC TOPICAL ×2 (08:56→20:48)
--- NOTE | 2020-02-04 12:15 | PCM.PN.BLA ---
Progress Note Afebile VSS BP is well controlled Maintaining appropriate oxygen saturation on RA Oral intake is good Discussed with nursing - no problems that need addressed Reviewed the PT/OT/ST notes Medication list reviewed. The INR is 1.7 today. Denies ARREAGA, hematuria, hemoptysis, hematochezia. He had a trace of blood on the Kleenex when he blew his nose this AM No complaints. Denies nausea since the SSRI was discontinued. Lungs - CTA alert and appropriate H- RRR abd - soft, NT, ND, BS's present in all quadrants Impressions 1. PAF 2. chronic anticoagulation with Warfarin 3. debility post stroke. 4. HTN - controlled. CBC, PT/INR, BMP AM continue therapy. will need to go to SNF at DC STROKE Vital Signs/Narrative: Vital Signs Temp Pulse Resp BP Pulse Ox 02/04/20 08:23 98.1 F 87 18 127/80 H 98 Inpatient E&M: [id number] Subs Hosp L2
[2020-02-04 15:45] VITALS: BMI 40.4
[2020-02-04 20:11] VITALS: BP 106/77; PULSE 90; RESP 16; TEMP 36.6; O2SAT 95
[2020-02-04] MEDS: Atorvastatin Calcium 80 MG Tablet PO (20:43)
[2020-02-05 03:08] VITALS: BMI 40.4
[2020-02-05] MEDS: Acetaminophen 500 MG Tablet 1000 MG PO ×3 (05:57→21:04)
[2020-02-05] MEDS: Enoxaparin 40 MG/0.4 ML Syringe SC (05:58)
[2020-02-05] MEDS: Capsaicin 0.025% 1 APPLIC Tube TOPICAL ×3 (06:05→21:01)
[2020-02-05 07:00] VITALS: BP 139/83; PULSE 96; RESP 18; TEMP 36.8; O2SAT 98
[2020-02-05] MEDS: BACITRACIN 15 GM Tube 1 APPLIC TOPICAL ×2 (07:55→20:54)
[2020-02-05] MEDS: Aspirin 325 MG Tablet PO (07:55)
[2020-02-05] MEDS: Carvedilol 25 MG Tablet PO ×2 (07:55→20:56)
[2020-02-05] MEDS: Polyethylene Glycol 3350 17 GM PACKET PO (07:55)
[2020-02-05] MEDS: Famotidine 20 MG Tablet PO ×2 (07:56→20:59)
[2020-02-05] MEDS: amLODIPine 5 MG Tablet PO ×2 (07:56→20:58)
[2020-02-05] MEDS: Menthol/Lanolin/Calamine/Znox 113 GM Tube 1 APPLIC TOPICAL ×2 (07:59→21:04)
[2020-02-05] MEDS: traMADol 50 MG Tablet PO (07:59)
[2020-02-05] MEDS: Nystatin Powder 15gm Bottle 1 APPLIC TOPICAL ×2 (08:00→21:05)
[2020-02-05 08:06] LABS: Hemoglobin 14.6 g/dL (13.0-16.5); Mean Corp Hgb Conc 31.7 g/dL (32-36); Mean Corpuscular Hgb 27.8 pg (27.0-32.0); Mean Corpuscular Volume 87.6 fL (80-94); Mean Platelet Vol. 9.2 fl (6.2-12.0); Platelet Count 272 K/mm3 (150-450); RBC Distribution Width CV 14.1 % (11.6-14.6); Red Blood Count 5.25 M/mm3 (4.6-6.2); White Blood Count 6.7 K/mm3 (4.4-11.0)
[2020-02-05 08:17] LABS: Prothrombin Time (Protime)PT. 22.3 SECONDS (11.7-14.9)
[2020-02-05 08:29] LABS: Anion Gap 7 (5-15); BUN 24 mg/dL (7-18); BUN/Creat Ratio 20.7 RATIO (10-20); Calcium,Total 8.9 mg/dL (8.5-10.1); Chloride 106 mmol/L (98-107); Creatinine, Serum 1.16 mg/dL (0.70-1.30); EST Glomerular Filtration Rate 68 mL/min (>60); Est Glom Filt Rate - Afr Amer 82 mL/min (>60); Estimated Creatinine Clearance 60.35 ml/min; Glucose 113 mg/dL (74-106); Potassium 3.7 mmol/L (3.5-5.1); Sodium Level 142 mmol/L (136-145)
[2020-02-05 16:04] VITALS: BMI 40.4
[2020-02-05 20:52] VITALS: BP 113/67; PULSE 92; RESP 18; TEMP 36.3; O2SAT 99
[2020-02-05] MEDS: Hydrocortisone 2.5% Crm 1 APPLIC TOPICAL (20:56)
[2020-02-05] MEDS: Ammonium Lactate 225 gm Bottle 1 APPLIC TOPICAL (20:57)
[2020-02-05] MEDS: Atorvastatin Calcium 80 MG Tablet PO (20:58)
[2020-02-05] MEDS: Senna/Docusate Sodium 1 Tablet 2 TABLET PO (21:00)
[2020-02-06 04:30] VITALS: BMI 40.4
[2020-02-06 06:31] LABS: International Normalized Ratio 2.1; Prothrombin Time (Protime)PT. 23.6 SECONDS (11.7-14.9)
[2020-02-06] MEDS: Acetaminophen 500 MG Tablet 1000 MG PO ×3 (06:35→20:48)
[2020-02-06] MEDS: Ammonium Lactate 225 gm Bottle 1 APPLIC TOPICAL ×3 (06:44→20:50)
[2020-02-06] MEDS: Hydrocortisone 2.5% Crm 1 APPLIC TOPICAL ×3 (06:45→20:51)
[2020-02-06] MEDS: Capsaicin 0.025% 1 APPLIC Tube TOPICAL ×3 (06:46→20:47)
--- NOTE | 2020-02-06 06:50 | NURSING ---
HR irregular this am and rate of 111. BP 149/72. Denies feeling SOB, has no chest pain. Has no diaphoresis. Has history of afib. Has therapeutic INR on Coumadin
[2020-02-06 07:00] VITALS: BP 140/90; PULSE 111; RESP 18; TEMP 37.4; O2SAT 99
[2020-02-06] MEDS: BACITRACIN 15 GM Tube 1 APPLIC TOPICAL ×2 (08:02→20:51)
[2020-02-06] MEDS: Aspirin 325 MG Tablet PO (08:02)
[2020-02-06] MEDS: Senna/Docusate Sodium 1 Tablet 2 TABLET PO ×2 (08:03→20:49)
[2020-02-06] MEDS: Famotidine 20 MG Tablet PO ×2 (08:03→20:49)
[2020-02-06] MEDS: Carvedilol 25 MG Tablet PO ×2 (08:03→20:51)
[2020-02-06] MEDS: Polyethylene Glycol 3350 17 GM PACKET PO (08:03)
[2020-02-06] MEDS: amLODIPine 5 MG Tablet PO ×2 (08:03→20:49)
[2020-02-06] MEDS: traMADol 50 MG Tablet PO ×2 (08:04→23:14)
[2020-02-06] MEDS: Menthol/Lanolin/Calamine/Znox 113 GM Tube 1 APPLIC TOPICAL ×2 (08:07→20:51)
[2020-02-06] MEDS: Nystatin Powder 15gm Bottle 1 APPLIC TOPICAL ×2 (08:07→20:50)
[2020-02-06 12:00] VITALS: TEMP 36.8
[2020-02-06 12:26] LABS: Mucous, Urine 0 SEEN /hpf (<or=2+); Squamous Epithelial Cells - UA 0 SEEN /hpf (0-5)
[2020-02-06 12:40] LABS: Color, Urine Yellow (Yellow); Glucose, Dipstick Normal (Normal); Ketone-Dipstick Negative (Negative); Leukocyte Esterase-Dipstick 500 /ul (Negative); Nitrite-Dipstick Positive (Negative); Occult Blood-Urine 150 /ul (Negative); Protein-Dipstick 30 mg/dl (Negative); Urine Bilirubin Dipstick Negative (Negative); Urine Clarity Clear (Clear); Urine Urobilinogen Normal (Normal)
[2020-02-06 12:49] LABS: Bacteria 2+ /hpf (None Seen); Red Blood Cells-Urine 0-5 SEEN /hpf (0-5); White Blood Cells 10-25 SEEN /hpf (0-5)
[2020-02-06 15:32] VITALS: BMI 40.4
[2020-02-06 19:34] VITALS: BP 112/83; PULSE 97; RESP 16; TEMP 36.9; O2SAT 98
--- NOTE | 2020-02-06 20:07 | PCM.PN.BLA ---
Progress Note Afebile -1 temp to 99.3. Heart rate increased to 111 with the low-grade fever VSS Maintaining appropriate oxygen saturation on RA Oral intake is good Discussed with nursing -he complained of dysuria this morning and tells the nurse that he has had it for a few days. This is the first he has mentioned this. Reviewed the PT/OT/ST notes Medication list reviewed. All lab was personally reviewed. The INR is 2.1 today and prophylactic Lovenox has been discontinued. We will continue 6 mg of warfarin daily. A UA showed 10-25 WBCs per high-power field with 2+ bacteria. Nitrites are positive. Urine culture has been set up. He denies nausea/vomiting/abdominal pain/flank pain. Denies shortness of breath, cough, chest pain. Lungs-clear to auscultation throughout Heart-regular rate and rhythm, no gallop Abdomen-obese, soft, nontender, bowel sounds heard in all 4 quadrants, negative Sellers's punch No peripheral edema He has recovered good strength in the left upper extremity and can raise his arm for 10 seconds with no drift. He still has problems with fine motor coordination. Strength in the left lower extremity is 0/5. Impressions 1. UTI-start Augmentin 875 mg twice daily. Urine culture ordered. 2. Dyshidrotic eczema affecting both palms-started on Lac-Hydrin and hydrocortisone cream on 02/05/2020. Continue to monitor progress. 3. Post stroke debility-continue therapy 4. Chronic anticoagulation with warfarin-INR is therapeutic at 2.1 today. Will recheck on 02/09/2020. STROKE Vital Signs/Narrative: Vital Signs Temp Pulse Resp BP Pulse Ox 02/06/20 19:34 98.4 F 97 16 112/83 H 98 Inpatient E&M: 29809 Subs Hosp L2
[2020-02-06] MEDS: Atorvastatin Calcium 80 MG Tablet PO (20:50)
[2020-02-06] MEDS: Amox/Clavulanate 875 MG Tablet PO (20:52)
[2020-02-07] MEDS: Acetaminophen 500 MG Tablet 1000 MG PO ×3 (04:57→21:28)
[2020-02-07] MEDS: Ammonium Lactate 225 gm Bottle 1 APPLIC TOPICAL ×3 (04:58→20:03)
[2020-02-07] MEDS: Hydrocortisone 2.5% Crm 1 APPLIC TOPICAL ×3 (04:58→20:18)
[2020-02-07 05:00] VITALS: BMI 40.4
[2020-02-07] MEDS: Capsaicin 0.025% 1 APPLIC Tube TOPICAL ×3 (05:02→20:00)
[2020-02-07] MEDS: traMADol 50 MG Tablet PO ×2 (05:20→08:25)
[2020-02-07 08:22] VITALS: BP 116/75; PULSE 91; RESP 20; TEMP 36.6; O2SAT 97
[2020-02-07] MEDS: Aspirin 325 MG Tablet PO (08:23)
[2020-02-07] MEDS: BACITRACIN 15 GM Tube 1 APPLIC TOPICAL ×2 (08:25→20:14)
[2020-02-07] MEDS: Amox/Clavulanate 875 MG Tablet PO ×2 (08:25→20:07)
[2020-02-07] MEDS: Carvedilol 25 MG Tablet PO ×2 (08:26→20:06)
[2020-02-07] MEDS: Polyethylene Glycol 3350 17 GM PACKET PO (08:26)
[2020-02-07] MEDS: Famotidine 20 MG Tablet PO ×2 (08:27→20:01)
[2020-02-07] MEDS: amLODIPine 5 MG Tablet PO ×2 (08:27→20:02)
[2020-02-07] MEDS: Senna/Docusate Sodium 1 Tablet 2 TABLET PO ×2 (08:27→20:01)
[2020-02-07] MEDS: Nystatin Powder 15gm Bottle 1 APPLIC TOPICAL ×2 (08:32→20:02)
[2020-02-07] MEDS: Menthol/Lanolin/Calamine/Znox 113 GM Tube 1 APPLIC TOPICAL ×2 (08:32→20:06)
[2020-02-07 09:23] VITALS: BMI 40.4
--- NOTE | 2020-02-07 11:32 | PCM.PN.BLA ---
Progress Note Day #2 Augmentin for urinary tract infection Afebile VSS-blood pressure is very well controlled. Maintaining appropriate oxygen saturation on RA Oral intake is good Discussed with nursing - no problems that need addressed Reviewed the PT/OT/ST notes Medication list reviewed. He was started on AUgmentin yesterday for UTI. Culture is pending. He states the dysuria has improved already. He also tells me his hands are feeling better. He has been started on Lac-Hydrin for dyshidrotic eczema on the palms. The redness has improved already. Many small cracks in the skin but no sign of infection. Still with flakey dermatitis on the palms. Lungs - CTA Heart - RRR no flank pain today. No N/V Impressions 1. Urinary tract infection with urine retention intermittently. Continue Augmentin. Await the results of the urine culture. Start Flomax 0.4 mg p.o. daily 2. Dyshidrotic eczema involving the palms of both hands-continue Lac-Hydrin and hydrocortisone cream. 3. Post stroke debility -will likely be going to assisted following discharge. Continue therapy 4. Paroxysmal atrial fibrillation-started on warfarin. INR was 2.1 yesterday and prophylactic Lovenox was discontinued the day before. No headache. No change in neurologic exam. Will recheck INR on 02/09/2020 along with a CMP and CBC. STROKE Vital Signs/Narrative: Vital Signs Temp Pulse Resp BP Pulse Ox 02/07/20 08:22 97.8 F 91 20 H 116/75 97 Inpatient E&M: [id number] Subs Hosp L2
[2020-02-07] MEDS: Tamsulosin HCl 0.4 MG Capsule PO (16:20)
--- NOTE | 2020-02-07 16:39 | CASEMGMT ---
Social Work Met with patient's son to assist in completing Medicaid application. Reexplained Medicare and Medicaid coverage in a SNF. Son decided on SNFs - referrals made to [facility] and [facility]. Faxed Medicaid application to [facility]. Will await pending number. Will continue to follow for dc 02/10. OMAR ReevesW
[2020-02-07 19:16] VITALS: BP 125/82; PULSE 87; RESP 18; TEMP 36.7
[2020-02-07 19:55] VITALS: BMI 40.4
[2020-02-07] MEDS: Atorvastatin Calcium 80 MG Tablet PO (20:03)
[2020-02-08] MEDS: Hydrocortisone 2.5% Crm 1 APPLIC TOPICAL ×3 (05:48→20:41)
[2020-02-08] MEDS: Ammonium Lactate 225 gm Bottle 1 APPLIC TOPICAL ×3 (05:49→20:41)
[2020-02-08] MEDS: Capsaicin 0.025% 1 APPLIC Tube TOPICAL ×3 (05:52→20:38)
[2020-02-08] MEDS: Acetaminophen 500 MG Tablet 1000 MG PO ×3 (05:52→20:38)
[2020-02-08] MEDS: traMADol 50 MG Tablet PO ×3 (05:57→20:43)
[2020-02-08 07:53] LABS: Magnesium 1.9 mg/dL (1.6-2.6)
[2020-02-08] MEDS: amLODIPine 5 MG Tablet PO ×2 (08:11→20:38)
[2020-02-08] MEDS: Amox/Clavulanate 875 MG Tablet PO (08:11)
[2020-02-08] MEDS: Famotidine 20 MG Tablet PO ×2 (08:11→20:39)
[2020-02-08] MEDS: Carvedilol 25 MG Tablet PO ×2 (08:12→20:39)
[2020-02-08] MEDS: Aspirin 325 MG Tablet PO (08:12)
[2020-02-08] MEDS: BACITRACIN 15 GM Tube 1 APPLIC TOPICAL ×2 (08:13→20:38)
[2020-02-08] MEDS: Senna/Docusate Sodium 1 Tablet 2 TABLET PO ×2 (08:15→20:38)
[2020-02-08] MEDS: Polyethylene Glycol 3350 17 GM PACKET PO (08:15)
[2020-02-08] MEDS: Nystatin Powder 15gm Bottle 1 APPLIC TOPICAL ×2 (08:18→20:37)
[2020-02-08] MEDS: Menthol/Lanolin/Calamine/Znox 113 GM Tube 1 APPLIC TOPICAL ×2 (08:18→20:37)
[2020-02-08 09:35] VITALS: BP 126/88; PULSE 90; RESP 17; TEMP 36.6; O2SAT 94
--- NOTE | 2020-02-08 12:41 | CASEMGMT ---
Social Work Spoke with son to notify him pt was accepted at [facility] and [facility]. Will await to outcome from [facility], and son to decide with pt which SNF to DC . Will continue to follow. Salma Peters, DIGITAL MEDIA PRODUCER CARDIOVASCULAR SONOGRAPHER
[2020-02-08 13:03] VITALS: BMI 40.4
[2020-02-08] MEDS: Cefadroxil 500 MG CAPSULE 1000 MG PO ×2 (13:16→20:38)
--- NOTE | 2020-02-08 13:19 | PCM.PN.BLA ---
Progress Note Afebile VSS Maintaining appropriate oxygen saturation on RA Oral intake is good Discussed with nursing - no problems that need addressed Reviewed the PT/OT/ST notes Medication list reviewed. He denies dysuria. He is complaining of difficulty sleeping at night no other complaints alert, appropriate Lungs -diminished but clear to auscultation Heart-regular rate and rhythm, no gallop, no ectopy Abdomen-obese, nontender, nondistended, no guarding with palpation, bowel sounds in all quadrants No peripheral edema-his legs have Geovanny wraps on bilaterally for compression No calf tenderness No change in neurologic exam except that the left upper extremity has increased strength but still poor fine motor coordination. He is still not able to advance his left leg. Impressions 1. Debility secondary to CVA 2. Insomnia 3. Hjrlrvwcewms-urfo-heqbkrchfd now 4. Dyshidrotic eczema-hydrocortisone cream and Lac-Hydrin ordered. Will continue Lac-Hydrin at discharge twice daily 5. Sleep disordered breathing-he needs to have a split study as an outpatient Trazodone 50 mg p.o. nightly Will need to go to SNF at [facility]. At the present time there is no way to get him up the steps to his appt. He has decreased safety awareness and would need 24 hour supervision STROKE Vital Signs/Narrative: Vital Signs Temp Pulse Resp BP Pulse Ox 02/08/20 09:35 97.8 F 90 17 126/88 H 94 Inpatient E&M: [id number] Subs Hosp L2
[2020-02-08] MEDS: Tamsulosin HCl 0.4 MG Capsule PO (16:28)
[2020-02-08] MEDS: Atorvastatin Calcium 80 MG Tablet PO (20:38)
[2020-02-08 20:39] VITALS: BP 129/78; PULSE 85; RESP 18; TEMP 36.6; O2SAT 96
[2020-02-08] MEDS: traZODone 50 MG Tablet PO (20:39)
[2020-02-08 20:45] VITALS: PULSE 68; O2SAT 93; BMI 40.4
--- NOTE | 2020-02-09 03:39 | NURSING ---
Reviewed and agree with LABOR RELATIONS REPRESENTATIVE documentation and charting.
[2020-02-09 05:42] LABS: Absolute Lymphocyte Count 1.84 X10^3/uL (0.83-4.51); Absolute Neutrophil Count 3.9 X10^3/uL (2.0-7.7); Basophil# 0.02 X10^3/uL; Basophil% 0.3 % (0-1); Eosinophil# 0.14 X10^3/uL; Eosinophils% 2.2 % (0-5); Hematocrit 43.4 % (40-54); Hemoglobin 13.7 g/dL (13.0-16.5); Lymphocyte # 1.84 X10^3/ul (4.0); Lymphocyte % 28.4 % (19-41); Mean Corp Hgb Conc 31.6 g/dL (32-36); Mean Corpuscular Hgb 27.4 pg (27.0-32.0); Mean Corpuscular Volume 86.8 fL (80-94); Mean Platelet Vol. 9.1 fl (6.2-12.0); Monocyte# 0.53 X10^3/uL; Monocyte% 8.2 % (0-10); NRBC Flagged by Analyzer 0 % (0-5); Neutrophil # 3.94 X10^3/uL (2.7-7.7); Neutrophil % 60.6 % (47-70); Platelet Count 210 K/mm3 (150-450); RBC Distribution Width CV 14.4 % (11.6-14.6); RBC Distribution Width SD 45.2 fl (35.1-43.9); White Blood Count 6.5 K/mm3 (4.4-11.0)
[2020-02-09] MEDS: Hydrocortisone 2.5% Crm 1 APPLIC TOPICAL ×3 (05:43→20:48)
[2020-02-09] MEDS: Ammonium Lactate 225 gm Bottle 1 APPLIC TOPICAL ×3 (05:44→20:50)
[2020-02-09] MEDS: Acetaminophen 500 MG Tablet 1000 MG PO ×3 (05:45→20:47)
[2020-02-09 05:56] LABS: International Normalized Ratio 2.8; Prothrombin Time (Protime)PT. 29.6 SECONDS (11.7-14.9)
[2020-02-09] MEDS: Magnesium Hydroxide 30 ML UDC PO (06:00)
[2020-02-09] MEDS: Capsaicin 0.025% 1 APPLIC Tube TOPICAL ×3 (06:07→20:46)
[2020-02-09 06:08] LABS: ALB/GLOB Ratio 0.6 RATIO (0.9-2.4); AST(SGOT) 35 U/L (15-37); Alanine Aminotransfer ALT/SGPT 68 U/L (16-61); Albumin, Serum 2.9 g/dL (3.2-5.0); Alkaline Phosphatase 54 U/L (45-117); Anion Gap 5 (5-15); BUN 24 mg/dL (7-18); BUN/Creat Ratio 20.7 RATIO (10-20); Calcium,Total 8.9 mg/dL (8.5-10.1); Chloride 107 mmol/L (98-107); Creatinine, Serum 1.16 mg/dL (0.70-1.30); EST Glomerular Filtration Rate 68 mL/min (>60); Est Glom Filt Rate - Afr Amer 82 mL/min (>60); Estimated Creatinine Clearance 60.35 ml/min; Globulin 4.5 g/dL (2.2-4.2); Glucose 101 mg/dL (74-106); Potassium 4.2 mmol/L (3.5-5.1); Protein, Total 7.4 g/dL (6.4-8.2); Sodium Level 140 mmol/L (136-145)
[2020-02-09] MEDS: BACITRACIN 15 GM Tube 1 APPLIC TOPICAL ×2 (08:08→20:49)
[2020-02-09] MEDS: Aspirin 325 MG Tablet PO (08:09)
[2020-02-09] MEDS: Menthol/Lanolin/Calamine/Znox 113 GM Tube 1 APPLIC TOPICAL ×2 (08:09→20:49)
[2020-02-09] MEDS: Carvedilol 25 MG Tablet PO ×2 (08:10→20:49)
[2020-02-09] MEDS: Cefadroxil 500 MG CAPSULE 1000 MG PO ×2 (08:10→20:49)
[2020-02-09] MEDS: Nystatin Powder 15gm Bottle 1 APPLIC TOPICAL ×2 (08:10→20:48)
[2020-02-09] MEDS: Polyethylene Glycol 3350 17 GM PACKET PO (08:10)
[2020-02-09] MEDS: Senna/Docusate Sodium 1 Tablet 2 TABLET PO ×2 (08:11→20:47)
[2020-02-09] MEDS: amLODIPine 5 MG Tablet PO ×2 (08:11→20:48)
[2020-02-09] MEDS: Famotidine 20 MG Tablet PO ×2 (08:11→20:48)
[2020-02-09] MEDS: traMADol 50 MG Tablet PO (08:14)
[2020-02-09 09:06] VITALS: BP 114/87; PULSE 80; RESP 17; TEMP 36.5; O2SAT 99
[2020-02-09 10:49] VITALS: BMI 40.4
[2020-02-09] MEDS: Tamsulosin HCl 0.4 MG Capsule PO (17:35)
[2020-02-09] MEDS: Bisacodyl 10 MG Suppository RECTAL (19:06)
[2020-02-09 20:14] VITALS: BP 128/79; PULSE 92; RESP 18; TEMP 36.6; O2SAT 98
[2020-02-09] MEDS: traZODone 50 MG Tablet PO (20:49)
[2020-02-09] MEDS: Atorvastatin Calcium 80 MG Tablet PO (20:51)
[2020-02-10] MEDS: Capsaicin 0.025% 1 APPLIC Tube TOPICAL ×3 (06:14→20:54)
[2020-02-10] MEDS: Acetaminophen 500 MG Tablet 1000 MG PO ×3 (06:14→20:48)
[2020-02-10] MEDS: Ammonium Lactate 225 gm Bottle 1 APPLIC TOPICAL ×3 (06:15→20:51)
[2020-02-10] MEDS: Hydrocortisone 2.5% Crm 1 APPLIC TOPICAL ×3 (06:15→20:53)
[2020-02-10 07:00] VITALS: BP 110/76; PULSE 93; RESP 20; TEMP 36.6; O2SAT 96
[2020-02-10] MEDS: Carvedilol 25 MG Tablet PO ×2 (08:21→20:48)
[2020-02-10] MEDS: Aspirin 325 MG Tablet PO (08:21)
[2020-02-10] MEDS: amLODIPine 5 MG Tablet PO ×2 (08:21→20:48)
[2020-02-10] MEDS: Cefadroxil 500 MG CAPSULE 1000 MG PO ×2 (08:21→20:48)
[2020-02-10] MEDS: Famotidine 20 MG Tablet PO ×2 (08:21→20:48)
[2020-02-10] MEDS: BACITRACIN 15 GM Tube 1 APPLIC TOPICAL ×2 (08:21→20:52)
[2020-02-10] MEDS: Nystatin Powder 15gm Bottle 1 APPLIC TOPICAL ×2 (08:22→20:59)
[2020-02-10] MEDS: Menthol/Lanolin/Calamine/Znox 113 GM Tube 1 APPLIC TOPICAL ×2 (08:22→20:53)
[2020-02-10] MEDS: traMADol 50 MG Tablet PO ×2 (08:38→20:48)
[2020-02-10 10:00] VITALS: PULSE 92
--- NOTE | 2020-02-10 10:22 | CASEMGMT ---
Social Work IDT met with pt for she meeting to discuss pt progress. Pt is able to walk 65ft with FWW at mod assist. Pt is not doing steps d/t buckling of knee and is able to do 8 sit to stands in 30 seconds. Pt is able to stand for 10 minutes before needing to sit. Pt is able to survey research analyst 60lbs and getting better range of motion in shoulder. However, pt still needs occasional cues for awareness of using shoulder. Pt is transferring into the shower at min assist and is min assist for bathing and dressing. Pt toileting tasks are at min to mod assist. ST working on problem solving and sequencing with pt and pt is improving but pt still having some confusion. Pt working on medication management but is having trouble with label comprehension. Pt a bit agitated on this date, when asked about it pt stated this was normal for him. Explained Medicare days to pt. Pt given 24 days, DC 02/10. Asked pt to f/u with son to discuss DC plans and finalize. SW to call pt son to finalize SNF placement for pt. Charity Dowell, social work video editing intern Salma Peters, OPTICAL INSTRUMENT ASSEMBLY SUPERVISOR CUSTOMER ACCOUNTS ADVISOR
--- NOTE | 2020-02-10 11:29 | PN_ITS ---
Progress Note Day #5 antibiotics for Citrobacter UTI Patient was seen on team rounds today. No family was present. Afebile VSS-blood pressure is very well controlled. Maintaining appropriate oxygen saturation on RA Oral intake is fair Still incontinent of urine and he is wearing depends Discussed with nursing - no problems that need addressed Reviewed the PT/OT/ST notes. I am not sure he comprehends everything he is told. There was some confusion today regarding him being able to set up his own pill boxes. He seems to think we will not be giving him Tramadol going forward and he is angry about this explaining that he needs this medication in the morning and at bedtime. I had to explain a few times that the Tramadol is PRN and not scheduled and therefore it will not go into the pill box with the scheduled meds but, he can take it every 6 hours as needed. Still not sure he understands. Peewee has not gotten back to SW about which SNF he has chosen and DC is scheduled for tomorrow. He is doing better with ambulation. Medication list reviewed. All lab was personally reviewed. Hemoglobin is stable at 13.7. Platelets and white blood cell count and differential are within normal limits. The INR is 2.8 today, up from 2.1 on 02/06/2020. He is currently taking 6 mg of warfarin daily. BMP is unremarkable. BUN/creatinine is 24/1.16 which is identical to lab from 02/05/2020. He has no complaints other than he thinks we are trying to get rid of the Tramadol. He has seemed agitated for the past few days. Not talking much. Denies feeling depressed but, I think he is frustrated. He does not want to go to a NH and that is where he needs to go. He also has poor insight into his situation. He told the PT that he needs to go home and he has painting to do? He can not read. Family has not been here. Apparently his son Peewee was raised by his GF and not [place]. There is some discord in the family per nursing and SW. Alert, frustrated Lungs - CTA Heart - RRR, no gallop abd - soft, ND, No guarding with palpation no ankle edema Impressions 1. Urinary tract infection with urine retention intermittently. Continue D uricef until the . Urine culture was positive for Citrobacter Koseri. Flomax 0.4 mg p.o. daily started for urine retention. 2. Dyshidrotic eczema involving the palms of both hands-continue Lac-Hydrin and hydrocortisone cream....will need to be discharged on Lac-hydrin as this is a chronic problem 3. Post stroke debility - DC to SNF tomorrow. He has been accepted at 2 facilities....waiting on Peewee to tell us which facility he prefers 4. Paroxysmal atrial fibrillation-started on warfarin. INR is up to 2.8 today, from 2.1 on 02/05. Decrease the dose of the Warfarin to 5 mg daily and recheck the INR again in a few days Check the post-void residual X 3 to see if the retention has resolved with Flomax Plan on DC tomorrow to SNF. STROKE Vital Signs/Narrative: Vital Signs Pulse 02/10/20 10:00 92 Inpatient E&M: [id number] Subs Hosp L2
--- NOTE | 2020-02-10 12:17 | TREXTCAR_ITS ---
- Diet 01/18/20 18:04 Diet: Cardiac: Carb-Controlled Food consistency:: Regular Liquid Consistency:: Regular/Thin Is pt able to select menu?: No Diet Comments: No Peas, Vitamin K restricted - Routine Orders/Code Status Enema Type: Fleetz Enema Frequency: Daily PRN Suppository Type: Dulcolax 10mg Suppository Frequency: Daily PRN Routine Lab Work: - - PT/INR QODay x 3 (it was 2.8 on 02/09 and the dose was changed to 5 mg daily from 6 mg daily because the INR keeps increasing over the past few days) CBC in 1 week and BMP in 1 week Code Status: Full Code - Wound(s) umbilicus Wound Type: scratch R upper chest Wound Type: SCRATCHES left thumb nail Wound Type: torn fingernail into nailbed - Therapies Weight Bearing: Full weight bearing Extremity Affected:: Left Lower Physical Therapy: Eval and Treat Occupational Therapy: Eval and Treat Speech Therapy: Eval and Treat - Problem/Diagnosis (1) Syncope Status: Resolved Comment: 01/16/20 etiology unknown Current Visit: Yes (2) Obesity (BMI 30-39.9) Status: Chronic Current Visit: Yes (3) Carotid arterial disease Status: Chronic Comment: 70% stenosis left internal carotid artery and < 50% stenosis of the right internal carotid artery Current Visit: Yes (4) Cardiomyopathy Status: Chronic Comment: 45-50% EF in Dec 2019 Current Visit: Yes (5) Biatrial enlargement Status: Chronic Comment: severe Current Visit: Yes (6) CVA (cerebral vascular accident) Status: Chronic Comment: 01/22/2020 - large R frontal and Left occipital. Pt in AF Current Visit: Yes (7) Tobacco dependence Status: Chronic Current Visit: Yes (8) Glucose intolerance Status: Chronic Current Visit: Yes (9) Hyperbilirubinemia Status: Resolved Current Visit: Yes (10) Low serum HDL Status: Chronic Current Visit: Yes (11) Dyslipidemia Status: Chronic Current Visit: Yes (12) Coronary artery disease Status: Chronic Comment: thinks he had a stent at [facility] Current Visit: No (13) Elevated troponin Status: Resolved Comment: suspect secondary to demand ischemia related to acute CHF and hypertensive urgency Current Visit: No (14) Medical non-compliance Status: Chronic Comment: stopped all antihypertensives for the year 2018 and then went into CHF due to hypertensive urgency and subsequently had a R frontal and left occipital CVA's Current Visit: No (15) Non-STEMI (non-ST elevated myocardial infarction) Status: Chronic Comment: suspect it was demand ischemia Current Visit: No (16) Complicated UTI (urinary tract infection) Status: Acute Comment: Suspect due to urine retention. Citrobacter koseri. Started on flomax Current Visit: Yes (17) Urine retention Status: Acute Comment: started on Flomax on 02/07/20 Current Visit: Yes (18) BPH (benign prostatic hyperplasia) Status: Suspected Current Visit: Yes (19) Urinary incontinence Status: Acute Current Visit: Yes (20) Chronic anticoagulation Status: Acute Current Visit: Yes (21) Paroxysmal atrial fibrillation Status: Chronic Current Visit: Yes (22) Sleep-disordered breathing Status: Chronic Comment: PSA suspected Current Visit: Yes (23) Chronic low back pain Status: Chronic Current Visit: Yes (24) Chronic knee pain Status: Chronic Current Visit: Yes (25) Dyshidrotic eczema Status: Acute Current Visit: Yes - Allergies/Procedures Done in Hospital Allergies/Adverse Reactions: Allergies No Known Allergies Allergy (Verified 01/11/20 12:19) Procedures: None - Type of Care/Length of Stay Estimated LOS: Convalescent Care Less Than 30 days Type of Care Needed: Skilled Rehab Potential: Good Prognosis: Good - Additional Orders/Day of Discharge Additional Orders: The Cefadroxil should finish after the last dose on the 24. H&P will serve as current which was dated: 01/09/20 Day of Discharge: 02/11/20 - Dietary and Speech Recommendations Dietitian Recommendations/Changes: Continue Cardiac/carbohydrate-controlled; Vit K restricted diet. - Follow Up Care Primary Care Physician: Radha Kendrick MD [Primary Care Provider] - Please follow up with your Primary Care Physician in: following discharge [facility] Please Follow Up With: Radha Kendrick MD Please Follow Up With: Sleep Study When: when discharged from SNF Please Follow Up With: Florian Bhakta MD When: 6 weeks Please Follow Up With: neurology When: following DC from SNF
--- NOTE | 2020-02-10 12:50 | PCM.DC.SUM ---
Discharge Date and Diagnosis - Problem List Patient Problems: Active and Suspected Problems Complicated UTI (urinary tract infection) (Acute) Suspect due to urine retention. Citrobacter koseri. Started on flomax Urine retention (Acute) started on Flomax on 02/07/20 BPH (benign prostatic hyperplasia) (Suspected) Urinary incontinence (Acute) Chronic anticoagulation (Acute) Dyshidrotic eczema (Acute) Date of Admission: 01/18/20 Date of Discharge: 02/11/20 - Primary Discharge Diagnosis Active and Suspected Problems Post CVA disability Complicated UTI (urinary tract infection) (Acute) Suspect due to urine retention. Citrobacter koseri. Started on Flomax Urine retention (Acute) started on Flomax on 02/07/20 BPH (benign prostatic hyperplasia) (Suspected) Urinary incontinence (Acute) Chronic anticoagulation (Acute) - with Warfarin - started on 02/02/2020 - Secondary Discharge Diagnosis Chronic Problems Medical non-compliance (Chronic) stopped all antihypertensives for the year 2018 and then went into CHF due to hypertensive urgency and subsequently had a R frontal and left occipital CVA's Coronary artery disease (Chronic) thinks he had a stent at [facility] Non-STEMI (non-ST elevated myocardial infarction) (Chronic) suspect it was demand ischemia and not an NSTEMI Obesity (BMI 30-39.9) (Chronic) Carotid arterial disease (Chronic) 70% stenosis left internal carotid artery and < 50% stenosis of the right internal carotid artery Cardiomyopathy (Chronic) 45-50% EF in Dec 2019 Biatrial enlargement (Chronic) severe CVA (cerebral vascular accident) (Chronic) 01/22/2020 - large R frontal and Left occipital. Pt in AF Tobacco dependence (Chronic) Glucose intolerance (Chronic) Low serum HDL (Chronic) Dyslipidemia (Chronic) Paroxysmal atrial fibrillation (Chronic) - started on Warfarin on 02/07/20 Sleep-disordered breathing (Chronic) PSA suspected Chronic low back pain (Chronic) Chronic knee pain (Chronic) Dyshidrotic eczema (chronic) - hands Hospital Course and Treatment Imaging Results: Clinical Impression(s) from Imaging Studies Brain CT 01/26/20 13:15 IMPRESSION: Slowly resolving right ADAM infarct, less hypoattenuation noted since the previous study. No acute hemorrhage. Previously noted left MILK BOTTLER infarct has resolved. No midline shift, or mass effect Electronically Signed: Aki Friedman MD at 14:58 EST , Service support , none Operations: None Procedures: None Summary of Care Provided: The pt is a 59-year-old male with a PMH of morbid obesity, hypertension, coronary artery disease (states he had a stent at [place]), paroxysmal atrial fibrillation, dyslipidemia, low HDL, glucose intolerance, cardiomyopathy with a 45 to 50% EF, severe biatrial enlargement, 70% left internal carotid stenosis and less than 50% stenosis in the right internal carotid artery, tobacco dependence and noncompliance with his antihypertensives for the year 2018 who was admitted to the Inpatient rehab unit at [facility] on 01/18/2020 for debility secondary to disability due to ischemic/embolic CVAs in the right frontal and left occipital areas for greater than 3 hours of therapy daily with a goal of returning home at or near his prior level of independence. The patient lives at home by himself in an apartment and has many steps to enter his apt. He was independent with ADL's, mobility and driving prior to hospitalization. Recent significant lab includes a hemoglobin A1c of 6.1%, LDL of 122 and a low HDL at 35. Creatinine at presentation to the rehab unit was 1.59 and peaked at 1.62. Increased fluid intake was encouraged daily and the creatinine is stable at 1.16 at discharge. Hemoglobin and platelets have been normal since admission to the rehab unit. He had urine retention at times and he is incontinent of urine. He was started on Flomax 0.4 mg daily. He developed a complicated urinary tract infection (thought to be related to urine retention) while in rehab and a urine culture done 02/06/2020 was positive for Citrobacter koseri which is pansensitive. He was initially started on Augmentin but this lead to loose stools and he was transitioned to Cefadroxil. The cefadroxil will be completed after the last dose on 02/15/20. Tele-neurology at [facility] was consulted at the time of his acute stroke while in [facility] and they recommended starting anticoagulation in 1 week after the initial stroke if he was doing well and a follow-up CT did not show hemorrhagic transformation. A CT of the head was obtained on 01/26/2020 and showed a slowly resolving right anterior communicating artery infarct with less hypoattenuation. There was no acute hemorrhage. The previously noted left posterior communicating artery infarct had resolved. He was started on warfarin on on 02/02/20 and has been getting 6 mg daily. The INR on 02/05 was 2.1 and the dose was kept at 6 mg daily. On 02/10/20 the INR was 2.8 and the dose was decreased to 5 mg daily since the INR has been slowly increasing. He has done well in therapy. Cognition is still a problem and I don't always think he understands what we are telling him. Some of the deficit may have predated the CVA. He is not able to read and is slow with his thought processes although this has improved somewhat while he has been in rehab. He has chronic low back pain and chronic Left knee pain. We have treated his pain with capsaicin and tramadol. He is unable to tell staff when he is in pain and needs tramadol and so it has been scheduled twice daily. Tylenol has not been effective in controlling his pain. The past week he has been more irritable and less talkative. He denies feeling depressed but, his behavior says otherwise. He was on Lexapro for a short time but, had Nausea and this resolved with discontinuation of Lexapro. He was started on Remeron. We chose Remeron because SSRI's have a drug interaction with Warfarin and he is intolerant and he has urine retention which makes TCA's a bad choice. If he starts to gain weight will have to rethink this. His left knee is sore chronically and this is the side affected by the stroke. He has not been able to do stairs because he has a brace that does not bend on the left leg.....if he does not have the brace on the left leg viktor. His son Peewee is building him a chair lift to get him up the steps at home when he is ready for discharge form SNF. He is not ready to go home yet without 24 hour supervision. He was discharged tro [facility] on 02/11/20 for ongoing ST/OT/PT. When he is discharged home he will need to have a sleep study arranged. 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 He will follow up with Dr. Radha Kendrick following DC from [facility]. He should also follow up with Dr. Florian Bhakta for PAF and CM. Interpretation Summary Moderately dilated left ventricle. The estimated ejection fraction is 45-50 %. Unable to assess diastolic dysfunction due to arrhythmia. Anterio-Basal: Mildly hypokinetic Basal anteroseptal: Mildly hypokinetic The left atrium is severely enlarged. The right atrium is severely enlarged. Unable to estimate RV systolic pressure due to insufficient tricuspid regurgitant envelope. Trivial pericardial effusion. There are no echocardiographic indications of cardiac tamponade. Pt appears to be in atrial fibrillation. The study was technically difficult. Contrast injection was performed. There is no comparison study available. Has been given a requisition for a sleep study in the past but, did not have the test because my friends told me it was stupid. Slept well last night(has been getting Trazdone the past 3 nights for insomnia). No CP and no N/V. No abdominal pain. MM are still very dry. Still slow to process what I am asking him and then answering me but he is oriented X 3 today Lungs - diminished but, CTA heart - regular with no ectopy and he has no gallop, heart sounds are somewhat distant, likely to body habitus abd- obese, NT, ND, BS's heard in all quadrants, no guarding with palpation no edema This note was generated with [employer] dictation software. It may contain incorrect words, spelling, and punctuation that were not noted in checking the note before signing. Patient Problems: Active and Suspected Problems Complicated UTI (urinary tract infection) (Acute) Suspect due to urine retention. Citrobacter koseri. Started on flomax Urine retention (Acute) started on Flomax on 02/07/20 BPH (benign prostatic hyperplasia) (Suspected) Urinary incontinence (Acute) Chronic anticoagulation (Acute) Dyshidrotic eczema (Acute) - Physical Exam Vitals/I&O's: Vital Signs Temp Pulse Resp BP Pulse Ox 97.8 F 92 20 H 110/76 96 02/10/20 07:00 02/10/20 10:00 02/10/20 07:00 02/10/20 07:00 02/10/20 07:00 Oxygen Flow Rate (L/min) 2 Oxygen Delivery Method Room Air Weight: 240 lb 15.444 oz Body Mass Index (BMI) 40.4 Finger Stick Blood Glucose 163 Intake and Output for Last 24 Hours 03/17/20 03/18/20 03/19/20 23:59 23:59 23:59 Intake Total 1079 / 1080 1300 / 1300 200 / 200 Output Total 1625 / 1625 1600 / 1600 Balance 1079 / 1079 -325 / -325 -1400 / -1400 Microbiology Past 72 Hours 02/06/20 12:00 Urine, Catheterized Urine Culture - Final Citrobacter koseri Current Medications Acetaminophen (Tylenol) 1,000 mg PO Q8 [facility] Last Admin: 02/10/20 06:14 Dose: 1,000 mg Documented by: Al Hydroxide/Mg Hydroxide (Mylanta Ii) 15 - 30 ml PO Q6H PRN PRN PRN Reason: HEARTBURN OR INDIGESTION Last Admin: 01/29/20 20:09 Dose: 30 ml Documented by: Amlodipine Besylate (Norvasc) 5 mg PO BID [facility] Last Admin: 02/10/20 08:21 Dose: 5 mg Documented by: Aspirin (Aspirin) 325 mg PO DAILY@0800 [facility] Last Admin: 02/10/20 08:21 Dose: 325 mg Documented by: Atorvastatin Calcium (Lipitor) 80 mg PO QHS [facility] Last Admin: 02/09/20 20:51 Dose: 80 mg Documented by: Bacitracin (Bacitracin Ointment) 1 applic TOPICAL BID [facility]; Protocol Last Admin: 02/10/20 08:21 Dose: 1 applicatio Documented by: Bisacodyl (Dulcolax) 10 mg RECTAL .PRN X 1 PRN PRN Reason: Constipation Last Admin: 02/09/20 19:06 Dose: 10 mg Documented by: Calamine/Phenol (Calmoseptine Ointment) 1 applic TOPICAL BID [facility]; Protocol Last Admin: 02/10/20 08:22 Dose: 1 applicatio Documented by: Capsaicin (Zostrix) 1 applic TOPICAL TID [facility]; Protocol Last Admin: 02/10/20 06:14 Dose: 1 applicatio Documented by: Carvedilol (Coreg) 25 mg PO BID [facility] Last Admin: 02/10/20 08:21 Dose: 25 mg Documented by: Cefadroxil (Duricef) 1,000 mg PO BID [facility] Stop: 02/15/20 11:01 Last Admin: 02/10/20 08:21 Dose: 1,000 mg Documented by: Clotrimazole (Lotrimin) 1 applicatio TOPICAL DAILY@0600 [facility]; Protocol Last Admin: 02/10/20 06:14 Dose: 1 applicatio Documented by: Famotidine (Pepcid) 20 mg PO BID [facility] Last Admin: 02/10/20 08:21 Dose: 20 mg Documented by: Hydrocortisone (Hytone) 1 applic TOPICAL TID [facility]; Protocol Stop: 02/10/20 22:01 Last Admin: 02/10/20 06:15 Dose: 1 applic Documented by: Lactic Acid (Lac-Hydrin, Amlactin) 1 applic TOPICAL TID [facility]; Protocol Last Admin: 02/10/20 06:15 Dose: 1 applicatio Documented by: Magnesium Hydroxide (Milk Of Magnesia) 30 ml PO .PRN X 1 PRN PRN Reason: Constipation Last Admin: 02/09/20 06:00 Dose: 30 ml Documented by: Multi-Ingredient Cream (Eucerin) 1 applic TOPICAL PRN PRN; Protocol PRN Reason: DRY SKIN Last Admin: 02/08/20 13:19 Dose: 1 applicatio Documented by: Nystatin (Mycostatin Powder) 1 applic TOPICAL BID [facility]; Protocol Last Admin: 02/10/20 08:22 Dose: 1 applicatio Documented by: Ondansetron HCl (Zofran Odt) 4 mg PO Q6H PRN PRN PRN Reason: NAUSEA/VOMITING Last Admin: 01/30/20 04:46 Dose: 4 mg Documented by: Polyethylene Glycol (Miralax) 17 gm PO DAILY [facility] Last Admin: 02/10/20 08:35 Dose: Not Given Documented by: Senna/Docusate Sodium (Senokot-S, Eri-Colace) 2 tablet PO BID [facility] Last Admin: 02/10/20 08:36 Dose: Not Given Documented by: Sodium Chloride () 10 - 40 ml IV UD PRN PRN Reason: SALINE FLUSH Last Admin: 01/19/20 09:26 Dose: 10 ml Documented by: Tamsulosin HCl (Flomax) 0.4 mg PO DAILY@1730 [facility] Last Admin: 02/09/20 17:35 Dose: 0.4 mg Documented by: Tramadol HCl (Ultram) 50 mg PO Q6H PRN PRN PRN Reason: Pain Score 1-10/10 Last Admin: 02/08/20 20:43 Dose: 50 mg Documented by: Tramadol HCl (Ultram) 50 mg PO DAILY@0800 [facility] Last Admin: 02/10/20 08:38 Dose: 50 mg Documented by: Trazodone HCl (Desyrel) 50 mg PO QHS [facility] Last Admin: 02/09/20 20:49 Dose: 50 mg Documented by: Warfarin Sodium (Coumadin (Pbkc)) 5 mg PO DAILY@1700 [facility] Home Medications: Medications to take at Discharge [place]-3/Dha/Epa/Fish Oil [Fish Oil 1,000 mg Softgel] 1,000 mg PO DAILY 01/11/20 Aspirin 325 mg PO DAILY@0800 01/18/20 Atorvastatin Calcium [Lipitor] 80 mg PO QHS 01/18/20 Carvedilol [Coreg (Beta Jose Raul)] 25 mg PO BID 01/18/20 Famotidine [Pepcid] 20 mg PO DAILY 01/18/20 Acetaminophen [Tylenol] 1,000 mg PO Q8H PRN PRN 1 Days #1 tab 02/10/20 Amlodipine [Norvasc] 5 mg PO BID tab 02/10/20 Ammonium Lactate [Amlactin] 3 gm TP BID #1 lotion 02/10/20 Bisacodyl [Dulcolax] 10 mg RECTAL .PRN X 1 PRN suppos. 02/10/20 Capsaicin [Zostrix] 56.6 gm TP TID #1 cream..g. 02/10/20 Cefadroxil [Duricef] 1,000 mg PO BID #10 cap 02/10/20 Hydrocortisone 2.5% Crm [Hytone] 1 applic TOPICAL TID #1 tube 02/10/20 Magnesium Hydroxide [Milk Of Magnesia] 30 ml PO .PRN X 1 PRN udc 02/10/20 Menthol/Lanolin/Calamine/Znox [Calmoseptine Ointment] 1 applic TOPICAL BID tube 02/10/20 Mirtazapine [Remeron] 15 mg PO QHS #1 tablet 02/10/20 Nystatin Powder [Mycostatin Powder] 1 applic TOPICAL BID bottle 02/10/20 Ondansetron [Zofran Odt] 4 mg PO Q6H PRN PRN tab 02/10/20 Polyethylene Glycol 3350 [Miralax] 17 gm PO DAILY packet 02/10/20 Senna/Docusate Sodium [Senokot-S] 2 tab PO BID tab 02/10/20 Tamsulosin HCl [Flomax] 0.4 mg PO DAILY@1730 cap 02/10/20 traMADol [Ultram] 50 mg PO BID 30 Days #60 tab 02/10/20 traZODone [Desyrel] 50 mg PO QHS tab 02/10/20 Following Prescrptions Were Given to Patient: Ammonium Lactate [Amlactin] 3 gm TP BID #1 lotion Mirtazapine [Remeron] 15 mg PO QHS #1 tablet traMADol [Ultram] 50 mg PO BID 30 Days #60 tab Prescription Printed Capsaicin [Zostrix] 56.6 gm TP TID #1 cream..g. Other Amb Orders: Split Night Sleep Study [SL] Time Frame: 02/11/20, Facility: [facility], Location: [facility] Primary Care Physician: Radha Kendrick MD [Primary Care Provider] - Please follow up with your Primary Care Physician in: following discharge from residential Please Follow Up With: Radha Kendrick MD Please Follow Up With: Sleep Study When: when discharged from SNF Please Follow Up With: Florian Bhakta MD When: 6 weeks Please Follow Up With: neurology When: following DC from SNF Disposition: Long Term facility - [facility] Minutes spent on discharge:: 45 Patient Condition:: Stable Medical Necessity - Tobacco Use Smoking Status: Former smoker - he has not smoked since entering the hospital on 01/11/2020. Prior to that he smoked every day. 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
--- NOTE | 2020-02-10 13:27 | CASEMGMT ---
Social Work Talked with pt son on phone. Informed son that pt has received Medicaid pending number #[id number] and the case will be transferring to [facility]. Pt son requesting [facility] for SNF placement and will be transporting pt to [facility] at DC 3. pt requesting no DME needs. PASRR completed. Plan: DC 02/10, [facility], No DME Charity Dowell, social work integrated marketing intern Salma Peters, OMAR SALAZARW
--- NOTE | 2020-02-10 13:40 | CASEMGMT ---
Social Work Reviewed and agreed with social work marketing operations intern documentation on this date. Salma Peters, GREEN HOUSE MANAGER CAFE LEAD
--- NOTE | 2020-02-10 16:14 | CASEMGMT ---
Social Work Reviewed and agreed with social work copywriting intern documentation on this date. Salma Peters, BUTT WELDER MOTOR ASSEMBLY SUPERVISOR
[2020-02-10 17:00] VITALS: BMI 40.4
[2020-02-10] MEDS: Tamsulosin HCl 0.4 MG Capsule PO (17:34)
[2020-02-10] MEDS: Atorvastatin Calcium 80 MG Tablet PO (20:48)
[2020-02-10] MEDS: traZODone 50 MG Tablet PO (20:48)
[2020-02-10 22:00] VITALS: BP 99/72; PULSE 85; RESP 16; TEMP 36.9; O2SAT 98
[2020-02-11 01:18] VITALS: BMI 40.4
[2020-02-11] MEDS: Acetaminophen 500 MG Tablet 1000 MG PO ×2 (05:31→13:39)
[2020-02-11] MEDS: Ammonium Lactate 225 gm Bottle 1 APPLIC TOPICAL ×2 (05:32→13:40)
[2020-02-11] MEDS: Capsaicin 0.025% 1 APPLIC Tube TOPICAL ×2 (05:33→13:40)
[2020-02-11 08:34] VITALS: BP 121/81; PULSE 89; RESP 18; TEMP 36.6; O2SAT 100
[2020-02-11] MEDS: Aspirin 325 MG Tablet PO (08:36)
[2020-02-11] MEDS: BACITRACIN 15 GM Tube 1 APPLIC TOPICAL (08:38)
[2020-02-11] MEDS: traMADol 50 MG Tablet PO (08:38)
[2020-02-11] MEDS: Carvedilol 25 MG Tablet PO (08:39)
[2020-02-11] MEDS: Famotidine 20 MG Tablet PO (08:39)
[2020-02-11] MEDS: amLODIPine 5 MG Tablet PO (08:39)
[2020-02-11] MEDS: Cefadroxil 500 MG CAPSULE 1000 MG PO (08:39)
[2020-02-11] MEDS: Menthol/Lanolin/Calamine/Znox 113 GM Tube 1 APPLIC TOPICAL (08:42)
[2020-02-11] MEDS: Nystatin Powder 15gm Bottle 1 APPLIC TOPICAL (08:43)
[2020-02-11 10:41] VITALS: BMI 40.4
[2020-02-11 14:03] VITALS: BP 121/81; PULSE 89; RESP 18; TEMP 36.6; O2SAT 100
[2020-02-11 14:05] VITALS: BMI 40.4
--- NOTE | 2020-02-11 14:06 | NURSING ---
Discharged to [facility] via family transport. Report called to [facility].
== END 2020-02-11 14:07 | disposition skilled nursing facility (03) | DRG 57 ==
LOC: RU 17:00
PROVIDERS: Admitting Provider Internal Medicine; PCP Family Medicine; Referring Provider Internal Medicine; Visit Provider Internal Medicine
DX: I69.354 Hemiplegia and hemiparesis following cerebral infarction affecting left non-dominant side (principal); Z68.41 Body mass index [BMI] 40.0-44.9, adult; N39.0 Urinary tract infection, site not specified; I69.392 Facial weakness following cerebral infarction; I25.2 Old myocardial infarction; E78.5 Hyperlipidemia, unspecified; E66.01 Morbid (severe) obesity due to excess calories; I25.10 Atherosclerotic heart disease of native coronary artery without angina pectoris; I25.5 Ischemic cardiomyopathy; I48.0 Paroxysmal atrial fibrillation; I10 Essential (primary) hypertension; Z91.14 Patient's other noncompliance with medication regimen; F32.9 Major depressive disorder, single episode, unspecified; G89.4 Chronic pain syndrome; F17.210 Nicotine dependence, cigarettes, uncomplicated; L30.1 Dyshidrosis [pompholyx]; B96.89 Other specified bacterial agents as the cause of diseases classified elsewhere
CPT/HCPCS: 36415; 70450; 80048; 80053; 81001; 83735; 85025; 85027; 85610; 85730; 87077; 87086; 87088; 87186; 92507; 92523; 93005; 97110; 97112; 97116; 97140; 97162; 97166; 97530; 97535; 97802; A4216

== ENCOUNTER 2020-03-31 13:43 | Outpatient (RCR) | payer MEDICARE, SELFPAY ==
[2020-03-31 11:13] VITALS: BMI 43.5
[2020-03-31 14:51] LABS: International Normalized Ratio 1.3; Prothrombin Time (Protime)PT. 15.8 SECONDS (11.7-14.9)
== END 2020-03-31 18:00 | disposition home or self-care (01) ==
LOC: LAB 13:43
PROVIDERS: PCP Family Medicine; Referring Provider Internal Medicine Cardiovascular Disease; Visit Provider Internal Medicine Cardiovascular Disease
DX: I48.91 Unspecified atrial fibrillation (principal); Z79.01 Long term (current) use of anticoagulants
CPT/HCPCS: 36415; 85610

== ENCOUNTER → 2020-03-31 20:12 | Outpatient (CLI) | payer MEDICARE, SELFPAY ==
[2020-03-31 11:13] VITALS: BMI 43.5
== END ==
PROVIDERS: PCP Family Medicine; Visit Provider Family Medicine
DX: G47.30 Sleep apnea, unspecified (principal); I48.91 Unspecified atrial fibrillation; Z79.01 Long term (current) use of anticoagulants
CPT/HCPCS: 36415; 85610; 95810

== ENCOUNTER → 2020-04-01 06:56 | Outpatient (CLI) | payer MEDICARE, SELFPAY ==
[2020-03-31 11:13] VITALS: BMI 43.5
[2020-04-01 07:57] LABS: AST(SGOT) 25 U/L (15-37); Alanine Aminotransfer ALT/SGPT 19 U/L (16-61); Albumin, Serum 3.2 g/dL (3.2-5.0); Alkaline Phosphatase 72 U/L (45-117); Bilirubin, Direct 0.13 mg/dL (0.00-0.30); Cholesterol 125 mg/dL (200); Globulin 4.9 g/dL (2.2-4.2); High Density Lipoprotein 36 mg/dL; Protein, Total 8.1 g/dL (6.4-8.2); Triglycerides 145 mg/dL; Very Low Density Lipoprotein 29 mg/dL (5-40)
== END ==
PROVIDERS: PCP Family Medicine; Referring Provider Internal Medicine Cardiovascular Disease; Visit Provider Internal Medicine Cardiovascular Disease
DX: E78.00 Pure hypercholesterolemia, unspecified (principal)
CPT/HCPCS: 36415; 80061; 80076

== ENCOUNTER → 2020-07-24 11:21 | Outpatient (CLI) | payer MEDICARE, SELFPAY ==
[2020-07-24 15:48] LABS: International Normalized Ratio 1.3; Prothrombin Time (Protime)PT. 15.4 SECONDS (11.7-14.9)
== END ==
PROVIDERS: PCP Family Medicine; Visit Provider Family Medicine
DX: I48.20 Chronic atrial fibrillation, unspecified (principal); Z79.01 Long term (current) use of anticoagulants
CPT/HCPCS: 36415; 85610

== ENCOUNTER 2020-11-09 14:08 | Inpatient (IN) | payer MEDICARE, SELFPAY ==
[2020-10-30 13:56] VITALS: BMI 43.9
[2020-11-09] VITALS (11 sets, daily range): BP systolic 120–178; BP diastolic 98–111; PULSE 89–150; RESP 14–20; TEMP 36.8–37.2; O2SAT 94–98; BMI 41.3; BMI 41.4; BMI 43.2
--- NOTE | 2020-11-09 14:25 | EKG12_ITS ---
Test Reason : DYSRHYTHMIA Blood Pressure : / mmHG Vent. Rate : 140 BPM Atrial Rate : 147 BPM P-R Int : 000 ms QRS Dur : 116 ms QT Int : 336 ms P-R-T Axes : 000 -01 022 degrees QTc Int : 512 ms Atrial fibrillation Abnormal ECG Confirmed by YOLIS ROE, JOE ([id number]), associate entertainment editor JONG SANTOS ([id number]) on 11/15/2020 9:47:43 A M Referred By: MIGUE Confirmed By:MELLISSA LAGOS MD
[2020-11-09 14:46] LABS: Absolute Lymphocyte Count 1.61 X10^3/uL (0.83-4.51); Absolute Neutrophil Count 4.2 X10^3/uL (2.0-7.7); Basophil# 0.04 X10^3/uL; Basophil% 0.6 % (0-1); Eosinophil# 0.08 X10^3/uL; Eosinophils% 1.2 % (0-5); Hematocrit 51.1 % (40-54); Lymphocyte # 1.61 X10^3/ul (4.0); Lymphocyte % 24.8 % (19-41); Mean Corp Hgb Conc 33.3 g/dL (32-36); Mean Corpuscular Hgb 28.5 pg (27.0-32.0); Mean Corpuscular Volume 85.7 fL (80-94); Mean Platelet Vol. 8.9 fl (6.2-12.0); Monocyte# 0.57 X10^3/uL; Monocyte% 8.8 % (0-10); NRBC Flagged by Analyzer 0 % (0-5); Neutrophil # 4.16 X10^3/uL (2.7-7.7); Neutrophil % 64.1 % (47-70); Platelet Count 272 K/mm3 (150-450); RBC Distribution Width CV 15.8 % (11.6-14.6); RBC Distribution Width SD 48.2 fl (35.1-43.9); Red Blood Count 5.96 M/mm3 (4.6-6.2); White Blood Count 6.5 K/mm3 (4.4-11.0)
--- NOTE | 2020-11-09 14:52 | ED.VIS.GEN ---
History of Present Illness Chief Complaint: Chest Other Informant: Patient Narrative: 60-year-old male with a history of atrial fibrillation. He had a stroke earlier this year. He is on Coumadin diltiazem and carvedilol. He tells me that he has been having side effects of nausea constipation fingernail issues. He states that he was told his doctors about these issues and nobody is listening. So he took himself off of all of his medications except for his Flomax and his Coumadin. He presents now with elevated heart rate. He saw cardiology on 30 October. Their notes show that they are focusing more on rate control rather than rhythm control. Patient states he will not take those medicines again. He states that they are killing him. Patient has documented medical noncompliance on multiple visits. This is not the first time he has removed himself off of his medications. - Past Medical History (1) CVA (cerebral vascular accident) Status: Chronic Comment: 01/22/2020 - large R frontal and Left occipital. Pt in AF (2) Cardiomyopathy Status: Chronic Comment: 45-50% EF in Dec 2019 (3) Carotid arterial disease Status: Chronic Comment: 70% stenosis left internal carotid artery and < 50% stenosis of the right internal carotid artery (4) Chronic anticoagulation Status: Chronic (5) Chronic knee pain Status: Chronic (6) Chronic low back pain Status: Chronic (7) Coronary artery disease Status: Chronic (8) Dyslipidemia Status: Chronic (9) Glucose intolerance Status: Chronic (10) Medical non-compliance Status: Chronic Comment: stopped all antihypertensives for the year 2018 and then went into CHF due to hypertensive urgency and subsequently had a R frontal and left occipital CVA's (11) Non-STEMI (non-ST elevated myocardial infarction) Status: Chronic Comment: suspect it was demand ischemia (12) Obesity (BMI 30-39.9) Status: Chronic (13) Paroxysmal atrial fibrillation Status: Chronic (14) Sleep-disordered breathing Status: Chronic Comment: PSA suspected (15) Stented coronary artery Status: Chronic Comment: 3.0 X 12 mm Integrity BMS to mid RCA per Dr. Ramsay @ [facility] 06/18/2013. (16) Tobacco dependence Status: Chronic (17) BPH (benign prostatic hyperplasia) Status: Suspected Past Medical History - Allergies and Home Meds Allergies/Adverse Reactions: Allergies diphenhydramine [From Benadryl] Allergy (Verified 11/09/20 14:13) PT UNSURE OF REACTION Primary Care Physician: Radha Kendrick MD [Primary Care Provider] - Prior records reviewed: Yes Surgical History: - - Left great toe surgery. Smoking Status: Current every day smoker Drugs: None - Family History Maternal Family History: Family History (Last Reviewed 10/30/20 @ 14:06 by Jay Haynes NP, APARTMENT ASSISTANT MANAGER-C) Mother Cancer Father Hypertension Kidney disease Brother CAD (coronary artery disease) Family History: Reports: Cancer - His mother of a blood cancer, Diabetes - His grandmother had diabetes, Heart Disease, - Paternal Family History: Family History (Last Reviewed 10/30/20 @ 14:06 by Jay Haynes NP, APARTMENT ASSISTANT MANAGER-C) Mother Cancer Father Hypertension Kidney disease Brother CAD (coronary artery disease) Family History: Reports: Heart Disease, Hypertension - Father had hypertension and of kidney disease, - Sibling Family History: Family History (Last Reviewed 10/30/20 @ 14:06 by Jay Haynes NP, APARTMENT ASSISTANT MANAGER-C) Mother Cancer Father Hypertension Kidney disease Brother CAD (coronary artery disease) Family History: Reports: Heart Disease - he has a bother who has had heart disease Review of Systems General: Denies: Chills, Fever, Sweats Eyes: Denies: Visual changes - bilaterally, Diplopia ENT: Denies: Rhinorrhea, Sore throat Cardiovascular: Denies: Chest pain, Palpitations Respiratory: Denies: Dyspnea, Cough, Dyspnea on exertion Gastrointestinal: Reports: Nausea, Constipation. Denies: Abdominal pain, Vomiting, Diarrhea, Melena, Hematochezia Genitourinary: Denies: Dysuria, Hematuria, Frequency Musculoskeletal: Reports: - - Fingernail issues. Denies: Back pain, Extremity Pain Skin: Denies: Rash, Wounds Neurological: Denies: Headache, Weakness, Numbness Physical Exam Vital Signs/Narrative: Vital Signs Temp Pulse Resp BP Pulse Ox 11/09/20 14:09 98.9 F 150 H 14 137/104 H 96 Inital Vital Signs reviewed: Yes General: Well nourished, Well developed, Obese, No Acute Distress Head: Normocephalic, Atraumatic Eyes: Perrl, EOMI ENT: Moist mucous membranes, No rhinorrhea Neck: Supple, Nontender Cardiovascular: No murmurs, Irregular, Tachycardia Respiratory: No distress, CTA bilaterally, Chest nontender Abdomen: Soft, Nontender, Nondistended, Normal bowel sounds Back: Nontender, Normal Inspection Extremities: Nontender, No edema Skin: Normal color, No rash Neurological: Alert, Oriented x3, Cranial nerves II-XII grossly intact, Normal Strength, Normal Sensation Psychological: Normal affect, Normal Mood Diagnostic/Tx/Re-eval Clinical Impression(s) from Imaging Studies Chest X-Ray 11/09/20 15:00 IMPRESSION: Moderate cardiomegaly. Electronically Signed: Josafat Lopez, at 15:24 EST , Service support , Laboratory Last Values WBC 6.5 K/mm3 (4.4-11.0) 11/09/20 14:37 RBC 5.96 M/mm3 (4.6-6.2) 11/09/20 14:37 Hgb 17.0 g/dL (13.0-16.5) H 11/09/20 14:37 Hct 51.1 % (40-54) 11/09/20 14:37 MCV 85.7 fL (80-94) 11/09/20 14:37 MCH 28.5 pg (27.0-32.0) 11/09/20 14:37 MCHC 33.3 g/dL (32-36) 11/09/20 14:37 RDW Std Deviation 48.2 fl (35.1-43.9) H 11/09/20 14:37 RDW Coeff of Srinivas 15.8 % (11.6-14.6) H 11/09/20 14:37 Plt Count 272 K/mm3 (150-450) 11/09/20 14:37 MPV 8.9 fl (6.2-12.0) 11/09/20 14:37 Immature Gran % (Auto) 0.500 % (0.0-0.9) 11/09/20 14:37 Neut % (Auto) 64.1 % (47-70) 11/09/20 14:37 Lymph % (Auto) 24.8 % (19-41) 11/09/20 14:37 Porter % (Auto) 8.8 % (0-10) 11/09/20 14:37 Eos % (Auto) 1.2 % (0-5) 11/09/20 14:37 Baso % (Auto) 0.6 % (0-1) 11/09/20 14:37 Absolute Neuts (auto) 4.2 X10^3/uL (2.0-7.7) 11/09/20 14:37 Absolute Lymphs (auto) 1.61 X10^3/uL (0.83-4.51) 11/09/20 14:37 Nucleated RBC % 0 % (0-5) 11/09/20 14:37 PT 20.4 SECONDS (11.7-14.9) H 11/09/20 14:37 INR 1.8 11/09/20 14:37 Sodium 139 mmol/L (136-145) 11/09/20 14:37 Potassium 4.3 mmol/L (3.5-5.1) 11/09/20 14:37 Chloride 104 mmol/L (98-107) 11/09/20 14:37 Carbon Dioxide 28.0 mmol/L (21.0-32.0) 11/09/20 14:37 Anion Gap 7 (5-15) 11/09/20 14:37 BUN 24 mg/dL (7-18) H 11/09/20 14:37 Creatinine 1.81 mg/dL (0.70-1.30) H 11/09/20 14:37 Estim Creat Clear Calc 40.94 ml/min 11/09/20 14:37 Est GFR (MDRD) Af Amer 49 mL/min (>60) L 11/09/20 14:37 Est GFR (MDRD) Non-Af 41 mL/min (>60) L 11/09/20 14:37 BUN/Creatinine Ratio 13.3 RATIO (10-20) 11/09/20 14:37 Glucose 154 mg/dL (74-106) H 11/09/20 14:37 Calcium 8.9 mg/dL (8.5-10.1) 11/09/20 14:37 Magnesium 2.1 mg/dL (1.6-2.6) 11/09/20 14:37 Troponin I < 0.015 ng/mL (<0.045) 11/09/20 14:37 - EKG Initial EKG Interpretation: Atrial Fibrillation - EKG demonstrates atrial fibrillation at a rate of 140. ED Disposition - Plan for ED Patient: Disposition: Acute Care [facility] Diagnosis: Atrial fibrillation with RVR Referrals: Radha Kendrick MD [Primary Care Provider] -
[2020-11-09 15:00] LABS: International Normalized Ratio 1.8; Prothrombin Time (Protime)PT. 20.4 SECONDS (11.7-14.9)
--- NOTE | 2020-11-09 15:00 | RAD_ITS ---
STUDY: X-RAY CHEST REASON FOR EXAM: Male, 60 years old. Shortness of breath, Hx a-fib TECHNIQUE: Single AP portable view of the chest. COMPARISON: Comparison is made with prior study dated 01/17/2020. FINDINGS: EKG electrodes are seen. The lungs are clear and expanded. Stable calcified granuloma in the right lower lobe. There is no demonstrated pleural abnormality. There is moderate cardiac enlargement. Normal mediastinum and ann-marie. Normal visualized pulmonary arteries. There is atherosclerotic calcification of the aortic arch with tortuosity. Normal visualized thoracic spine. Normal visualized ribs, clavicles, and shoulders. There is no demonstrated abnormality of the visualized soft tissue structures of the upper abdomen. RAD/Chest 1 View (Portable) IMPRESSION: Moderate cardiomegaly. Electronically Signed: Josafat Lopez, at 15:24 EST , Service support ,
[2020-11-09 15:03] LABS: Anion Gap 7 (5-15); BUN 24 mg/dL (7-18); BUN/Creat Ratio 13.3 RATIO (10-20); Calcium,Total 8.9 mg/dL (8.5-10.1); Chloride 104 mmol/L (98-107); Creatinine, Serum 1.81 mg/dL (0.70-1.30); EST Glomerular Filtration Rate 41 mL/min (>60); Est Glom Filt Rate - Afr Amer 49 mL/min (>60); Estimated Creatinine Clearance 40.94 ml/min; Glucose 154 mg/dL (74-106); Magnesium 2.1 mg/dL (1.6-2.6); Potassium 4.3 mmol/L (3.5-5.1); Sodium Level 139 mmol/L (136-145)
[2020-11-09] MEDS: Metoprolol Tartrate 5 MG/5 ML Vial IV ×3 (15:13→15:27)
--- NOTE | 2020-11-09 15:27 | PCM.HP.STD ---
Problem List (1) Atrial fibrillation with RVR Status: Acute (2) DIANN (acute kidney injury) Status: Acute (3) Hyperglycemia Status: Acute (4) Medical non-compliance Status: Chronic Comment: stopped all antihypertensives for the year 2018 and then went into CHF due to hypertensive urgency and subsequently had a R frontal and left occipital CVA's (5) Coronary artery disease Status: Chronic Qualifiers: Coronary Disease-Associated Artery/Lesion type: false pass artery [place] vs. transplanted heart: false pass heart Associated angina: without angina Qualified Code(s): I25.10 - Atherosclerotic heart disease of false pass coronary artery without angina pectoris (6) Non-STEMI (non-ST elevated myocardial infarction) Status: Chronic Comment: suspect it was demand ischemia (7) Carotid arterial disease Status: Chronic Qualifiers: Carotid artery disease type: stenosis Laterality: bilateral Qualified Code(s): I65.23 - Occlusion and stenosis of bilateral carotid arteries Comment: 70% stenosis left internal carotid artery and < 50% stenosis of the right internal carotid artery (8) Cardiomyopathy Status: Chronic Qualifiers: Cardiomyopathy type: dilated Qualified Code(s): I42.0 - Dilated cardiomyopathy Comment: 45-50% EF in Dec 2019 (9) Tobacco dependence Status: Chronic (10) Chronic low back pain Status: Chronic Qualifiers: Back pain laterality: unspecified Sciatica presence: unspecified whether sciatica present Qualified Code(s): M54.5 - Low back pain; G89.29 - Other chronic pain History of Present Illness Date of Admission: 11/09/20 Chief Complaint: Increased heart rate, recently taken him off his medications The patient is a 60 y/o M w/ PMHx: PAF on coumadin, HTN, HLD, CVA with residual L sided weakness, Dilated Cardiomyopathy, Suspected HINA, BPH, Carotid disease with L 70% stenosis ICA/<50% R ICA, CAD s/p PCI with Hx NSTEMI, Tobacco use, Frequent UTIs who presents to the [facility] ED on 11/09/20 with history of most recent cardiology office visit on 10/30/20 with complaints of ongoing unchanged side effect (per his report from his medications) including nausea, divots in his fingernails and constipation secondary to his medications so he took himself off except coumadin and flomax ~ 3-4 days prior to his current presentation with referral to the ED from another physician office secondary to elevated HR (asymptomatic atrial fibrillation). In the ED work-up included T 98.9, heart rate 150, BP 137/104, respiratory rate 14, 96% on room air, CBC with WC 6.5, hemoglobin 17, platelet 272 without shift, INR 1.8, BMP with BUN/creatinine 24/1.81 with baseline prior noted 02/09/2020 1.16, glucose 154, magnesium 2.1, troponin less than 0.015, EKG with atrial fibrillation with RVR, chest x-ray with moderate cardiomegaly. In the ED patient ministered metoprolol 5 mg IV x3 doses with improvement of rate varying from 100-120s. Past Medical History Past Medical History (Chronic Problems): Chronic Problems (Last Reviewed 10/30/20 @ 14:06 by Jay Haynes REBAR FABRICATOR, REBAR FABRICATOR-C) Stented coronary artery (Chronic 06/18/13) 3.0 X 12 mm Integrity BMS to mid RCA per Dr. Ramsay @ [facility] 06/18/2013. Medical non-compliance (Chronic) stopped all antihypertensives for the year 2018 and then went into CHF due to hypertensive urgency and subsequently had a R frontal and left occipital CVA's Coronary artery disease (Chronic) Non-STEMI (non-ST elevated myocardial infarction) (Chronic) suspect it was demand ischemia Obesity (BMI 30-39.9) (Chronic) Carotid arterial disease (Chronic) 70% stenosis left internal carotid artery and < 50% stenosis of the right internal carotid artery Cardiomyopathy (Chronic) 45-50% EF in Dec 2019 Biatrial enlargement (Chronic) severe CVA (cerebral vascular accident) (Chronic) 01/22/2020 - large R frontal and Left occipital. Pt in AF Tobacco dependence (Chronic) Glucose intolerance (Chronic) Low serum HDL (Chronic) Dyslipidemia (Chronic) Chronic anticoagulation (Chronic) Paroxysmal atrial fibrillation (Chronic) Sleep-disordered breathing (Chronic) PSA suspected Chronic low back pain (Chronic) Chronic knee pain (Chronic) Medical History: Medical History (Last Reviewed 10/30/20 @ 14:06 by Jay Haynes NP, REBAR FABRICATOR-C) Atrial fibrillation with rapid ventricular response (Resolved) I48.91 Elevated troponin (Resolved) R79.89 suspect secondary to demand ischemia related to acute CHF and hypertensive urgency Hypertensive urgency (Resolved) I16.0 Medical non-compliance (Chronic) Z91.19 stopped all antihypertensives for the year 2018 and then went into CHF due to hypertensive urgency and subsequently had a R frontal and left occipital CVA's Coronary artery disease (Chronic) I25.10 Non-STEMI (non-ST elevated myocardial infarction) (Chronic) I21.4 suspect it was demand ischemia Obesity (BMI 30-39.9) (Chronic) E66.9 Carotid arterial disease (Chronic) I77.9 70% stenosis left internal carotid artery and < 50% stenosis of the right internal carotid artery Cardiomyopathy (Chronic) I42.9 45-50% EF in Dec 2019 Biatrial enlargement (Chronic) I51.7 severe CVA (cerebral vascular accident) (Chronic) I63.9 01/22/2020 - large R frontal and Left occipital. Pt in AF Tobacco dependence (Chronic) F17.200 Glucose intolerance (Chronic) E74.39 Low serum HDL (Chronic) R74.8 Dyslipidemia (Chronic) E78.5 Complicated UTI (urinary tract infection) (Acute) N39.0 Suspect due to urine retention. Citrobacter koseri. Started on flomax Urine retention (Acute) R33.9 started on Flomax on 02/07/20 BPH (benign prostatic hyperplasia) (Suspected) N40.0 Urinary incontinence (Acute) R32 Chronic anticoagulation (Chronic) Z79.01 Paroxysmal atrial fibrillation (Chronic) I48.0 Sleep-disordered breathing (Chronic) G47.30 PSA suspected Chronic low back pain (Chronic) M54.5, G89.29 Chronic knee pain (Chronic) M25.569, G89.29 Allergies diphenhydramine [From Benadryl] Allergy (Verified 11/09/20 14:13) PT UNSURE OF REACTION Home Medications: Ambulatory Orders Medication Instructions Recorded [place]-3/Dha/Epa/Fish Oil [Fish Oil 500 mg PO DAILY 01/11/20 1,000 mg Softgel] Ondansetron [Zofran Odt] 4 mg PO Q6H PRN PRN tab 02/10/20 Tamsulosin HCl [Flomax] 0.4 mg PO DAILY@1730 cap 02/10/20 traZODone [Desyrel] 50 mg PO QHS tab 02/10/20 atorvastatin 80 mg tablet 80 mg PO QHS #30 tab 04/04/20 carvedilol 25 mg tablet 25 mg PO BID #60 tab 04/04/20 famotidine 20 mg tablet 20 mg PO DAILY #30 tab 04/04/20 warfarin 5 mg tablet 5 mg PO .COMPLEX #30 tab 04/04/20 Aspirin [Low Dose Aspirin EC] 325 mg PO QDAY 11/09/20 Furosemide 40 mg PO BID 11/09/20 Surgical History: Surgical History (Last Reviewed 10/30/20 @ 14:06 by Jay Haynes REBAR FABRICATOR, REBAR FABRICATOR-C) Stented coronary artery (Chronic) Onset Date: 06/18/13 Z95.5 3.0 X 12 mm Integrity BMS to mid RCA per Dr. Ramsay @ [facility] 06/18/2013. Surgical History: - - Left great toe surgery, remote PCI x 1. Psychiatric History: Depression - but has never been on an antidepressant Lives: Alone Smoking Status: Current every day smoker Tobacco Use: Cigarettes Alcohol: Occasional Drugs: None - *Family History Maternal Family History: Family History (Last Reviewed 10/30/20 @ 14:06 by Jay Haynes REBAR FABRICATOR, REBAR FABRICATOR-C) Mother Cancer Father Hypertension Kidney disease Brother CAD (coronary artery disease) History Items: Cancer - His mother of a blood cancer, Diabetes - His grandmother had diabetes, Heart Disease Paternal Family History: Family History (Last Reviewed 10/30/20 @ 14:06 by Jay Haynes REBAR FABRICATOR, REBAR FABRICATOR-C) Mother Cancer Father Hypertension Kidney disease Brother CAD (coronary artery disease) History Items: Heart Disease, Hypertension - Father had hypertension and of kidney disease Sibling Family History: Family History (Last Reviewed 10/30/20 @ 14:06 by Jay Haynes REBAR FABRICATOR, REBAR FABRICATOR-C) Mother Cancer Father Hypertension Kidney disease Brother CAD (coronary artery disease) History Items: Heart Disease - he has a bother who has had heart disease Review of Systems Constitutional: Reports: Malaise, Weakness, Fatigue. Denies: Anorexia, Chills, Fever, Weight Change HEENT: Denies: Head Aches, Sinus Congestion, Sinus Drainage Cardiovascular: Reports: - - Elevated heart rate, asymptomatic with no knowledge nor any palpitations.. Denies: Chest Pain, Chest Pressure, Chest Tightness, Light Headedness, Palpitations Respiratory: Denies: Cough, Shortness of Breath, Shortness of breath at rest, Shortness of breath upon exertion, Sputum production Gastrointestinal: Reports: Constipation, Nausea, Vomiting. Denies: Abdominal Pain Genitourinary: Reports: Frequency. Denies: Dysuria Musculoskeletal: Reports: Back Pain, Joint Pain. Denies: Joint Tenderness Skin: Reports: Skin Changes. Denies: Rash, Wounds Neurological: Denies: Numbness, Tingling, Focal weakness Psychiatric: Reports: Depression. Denies: Anxiety, Homicidal Ideations, Suicidal Ideations Hematologic/ Lymphatic: Reports: Easy Bruising, Easy Bleeding VTE Information - Inpt Only VTE Present on Admission: No VTE Mechan Device Prophylaxis: SCD's VTE Pharm Prophylaxis ordered?: No Reason prophylaxis not ordered:: Treatment Not Indicated - Continue patient Coumadin with INR trending. Patient Problems: Active and Suspected Problems (Last Reviewed 10/30/20 @ 14:06 by Jay Haynes REBAR FABRICATOR, REBAR FABRICATOR-C) Atrial fibrillation with RVR (Acute) DIANN (acute kidney injury) (Acute) Hyperglycemia (Acute) BPH (benign prostatic hyperplasia) (Suspected) Subjective: Patient seated upright in the ED bed, mildly fatigued appearance otherwise no acute distress. Objective: Physical Examination: General: awake, alert, oriented x 3 and cooperative, seated upright in the ED bed in no apparent distress. Skin: normal color, turgor, no icterus, cyanosis. HEENT: AT/NC, EOMI, PERRLA, MMM, no carotid bruits or JVD noted however thickened neck makes examination difficult. Lungs: CTA bilaterally, moderate effort, moderate decrease BL bases, no rales, ronchi or wheezing. Heart: Irregular irregular; no gallop, rub audible. Abdomen: soft, morbidly obese, NTTP, ND, normal BS, no HSM however him examination difficult given morbidly obese habitus.. Extremities: no cyanosis, clubbing, or edema, chronic usage of left foot brace. Neurological: patient awake, alert, oriented as noted; cognitive function intact; pupils equally reactive to light and accomodation; cranial nerves II-XII grossly normal, moving all 4 extremities, no focal deficits, strength preserved per his report but mildly to moderately global decrease likely secondary to habitus and chronic comorbidities. Psychiatric: affect appears mildly irritable otherwise normal, no acute evidence of depressive or anxiety feelings. - Physical Exam Vitals/I&O's: Vital Signs Temp Pulse Resp BP Pulse Ox 98.9 F 105 H 14 120/103 H 94 11/09/20 14:09 11/09/20 15:26 11/09/20 15:26 11/09/20 15:26 11/09/20 15:26 Oxygen Delivery Method Room Air Weight: 272 lb 0.807 oz Body Mass Index (BMI) 41.3 Finger Stick Blood Glucose 163 Laboratory Results 11/09/20 14:37: WBC 6.5, RBC 5.96, Hgb 17.0 H, Hct 51.1, MCV 85.7, MCH 28.5, MCHC 33.3, RDW Std Deviation 48.2 H, RDW Coeff of Srinivas 15.8 H, Plt Count 272, MPV 8.9, Immature Gran % (Auto) 0.500, Neut % (Auto) 64.1, Lymph % (Auto) 24.8, [place] % (Auto) 8.8, Eos % (Auto) 1.2, Baso % (Auto) 0.6, Absolute Neuts (auto) 4.2, Absolute Lymphs (auto) 1.61, Nucleated RBC % 0 11/09/20 14:37: PT 20.4 H, INR 1.8 11/09/20 14:37: Sodium 139, Potassium 4.3, Chloride 104, Carbon Dioxide 28.0, Anion Gap 7, BUN 24 H, Creatinine 1.81 H, Estim Creat Clear Calc 40.94, Est GFR (MDRD) Af Amer 49 L, Est GFR (MDRD) Non-Af 41 L, BUN/Creatinine Ratio 13.3, Glucose 154 H, Calcium 8.9, Magnesium 2.1, Troponin I < 0.015 Assessment/Plan All Active Problems (Last Reviewed 10/30/20 @ 14:06 by Jay Haynes REBAR FABRICATOR, REBAR FABRICATOR-C) Atrial fibrillation with RVR (Acute) DIANN (acute kidney injury) (Acute) Hyperglycemia (Acute) Atrial fibrillation with rapid ventricular response (Resolved) Elevated troponin (Resolved) Hypertensive urgency (Resolved) Hyperbilirubinemia (Resolved) Complicated UTI (urinary tract infection) (Acute) Urine retention (Acute) Urinary incontinence (Acute) Dyshidrotic eczema (Acute) Syncope (Resolved) The patient is a 60 y/o M w/ PMHx: PAF on coumadin, HTN, HLD, CVA with residual L sided weakness, Dilated Cardiomyopathy, Suspected HINA, BPH, Carotid disease with L 70% stenosis ICA/<50% R ICA, CAD s/p PCI with Hx NSTEMI, Tobacco use, Frequent UTIs who presents to the [facility] ED on 11/09/20 with history of most recent cardiology office visit on 10/30/20 with complaints of ongoing unchanged side effect including nausea, divots in his fingernails and constipation secondary to his medications so he took himself off except coumadin and flomax ~ 3-4 days prior to his current presentation with referral to the ED from another physician office secondary to elevated HR. 1. Paroxsymal atrial fibrillation with RVR secondary to Medication Non-compliance: EKG in ED w/ atrial fibrillation w/ RVR. Patient administered metoprolol 5 mg IV x 3 in ED. Will admit to PCU, maintain on telemetry, obtain cardiac enzyme serial set, obtain magnesium level, continue coumadin with INR trending with additional load dose this evening given INR 1.8, initiate metoprolol given his complaints of his other medications and refusal to take. 2. Acute kidney injury versus worsening renal disease with onset chronic kidney disease: Unclear exact etiology, possibly medication related, admission BUN/Cr 24/1.81, prior baseline creatinine noted to be 1.16. Will judiciously hydrate, hold nephrotoxic medications and repeat chemistry in AM. If no improvement would plan FeNa assessment and renal ultrasound. 3. Hyperglycemia: Admission glucose 154, hemoglobin A1c requested. 4. CAD: s/p prior PCI, will encourage continuation ASA, coumadin with INR trending, transition to metoprolol, hold on any ACEI/ARB addition given DIANN but likely will refuse once renal function improves, add lower dose statin if willing. 5. Cardiomyopathy, Dilated: 12/2019 echocardiogram with moderately dilated LV, EF 45 to 50%, mildly hypokinetic anterior basal, basal anteroseptal regions, severely enlarged LA and RA, trivial pericardial effusion with no evidence of cardiac tamponade. We will continue aspirin, Coumadin with INR trending, transitioning to metoprolol, will hold on any ARELIS inhibitor/ARB addition given DIANN and suspect patient refusal but attempt once appropriate, attempting to transition to lower dose statin additionally, holding Lasix temporarily given DIANN as noted. 6. Hypertension: We will transition to metoprolol given patient concerns for usage of Coreg, hold on any ACEI/ARB usage given DIANN, add if patient willing once appropriate, PRN hydralazine. 7. Hyperlipidemia: Not on statin therapy as he had taken himself off, will decrease dose and see if he can tolerate this regimen. 8. CVA: Patient with residual left-sided weakness, will continue aspirin, Coumadin with INR trending, transition to metoprolol as noted, attempting to add lower dose statin if patient will allow. 9. Suspected HINA: We will encourage continued outpatient follow-up and sleep study although suspect patient would refuse to wear any CPAP or BiPAP. 10. Carotid disease: Patient with noted left 70% ICA stenosis and less than 50% right ICA stenosis, encourage continuation of aspirin, Coumadin with INR trending, hypertensive regimen and transitioning as noted to low-dose statin. 11. Tobacco Abuse: Encouraged cessation, inpatient consultation per RT, NR if desired. 12. BPH: Continue home flomax regimen. 13. Morbid Obesity: Weight loss and lifestyle changes encouraged. 14. DVT prophylaxis: SCDs, continue coumadin with INR trending. 15. CODE status: Patient does not have healthcare power of transactional attorney nor living will. Encouraged him to consider setting this up and have his son's healthcare power of transactional attorney especially since he lives near him. Noted that he may discuss these items with case management/social work for information and assistance. Discussed CODE status at length including difference between FULL code, DNR-CCA and DNR-CC status. Following discussions about the differences in these status, requested Full Code status. Advanced Care Planning Face to Face Time: 16 minutes. OBSV E&M: 81767 Initial observation care L3 Procedures: 74105 Advncd Care Plan 30 Min
--- NOTE | 2020-11-09 16:00 | PCS.PANDOC ---
PANDEMIC DOCUMENTATION INITIATED: Date: 11/09/2020 Time: 1600
[2020-11-09] MEDS: Psyllium 1 PACKET PO (17:33)
[2020-11-09] MEDS: Metoprolol Tartrate 50 MG Tablet PO (17:33)
[2020-11-09] MEDS: 0.9% Normal Saline 1,000 ML 100 ML IV (17:33)
[2020-11-09] MEDS: Tamsulosin HCl 0.4 MG Capsule PO (17:34)
[2020-11-09] MEDS: Jantoven 2 MG Tablet PO (18:31)
[2020-11-09] MEDS: Atorvastatin Calcium 10 MG Tablet PO (21:23)
[2020-11-10] VITALS (12 sets, daily range): BP systolic 130–156; BP diastolic 97–109; PULSE 80–167; RESP 16–20; TEMP 36.1–37.1; O2SAT 96–99
[2020-11-10] MEDS: 0.9% Normal Saline 1,000 ML 100 ML IV ×3 (03:03→22:21)
[2020-11-10 07:36] LABS: Absolute Lymphocyte Count 2.24 X10^3/uL (0.83-4.51); Absolute Neutrophil Count 3.2 X10^3/uL (2.0-7.7); Basophil# 0.03 X10^3/uL; Basophil% 0.5 % (0-1); Eosinophil# 0.16 X10^3/uL; Eosinophils% 2.5 % (0-5); Hematocrit 47.7 % (40-54); Hemoglobin 15.7 g/dL (13.0-16.5); Lymphocyte # 2.24 X10^3/ul (4.0); Lymphocyte % 35.6 % (19-41); Mean Corp Hgb Conc 32.9 g/dL (32-36); Mean Corpuscular Hgb 28.2 pg (27.0-32.0); Mean Corpuscular Volume 85.8 fL (80-94); Mean Platelet Vol. 9.2 fl (6.2-12.0); Monocyte# 0.59 X10^3/uL; Monocyte% 9.4 % (0-10); NRBC Flagged by Analyzer 0 % (0-5); Neutrophil # 3.24 X10^3/uL (2.7-7.7); Neutrophil % 51.5 % (47-70); Platelet Count 231 K/mm3 (150-450); RBC Distribution Width CV 15.9 % (11.6-14.6); RBC Distribution Width SD 48.9 fl (35.1-43.9); Red Blood Count 5.56 M/mm3 (4.6-6.2); White Blood Count 6.3 K/mm3 (4.4-11.0)
[2020-11-10 07:46] LABS: International Normalized Ratio 1.6; Prothrombin Time (Protime)PT. 18.6 SECONDS (11.7-14.9)
[2020-11-10] MEDS: Metoprolol Tartrate 50 MG Tablet PO ×2 (07:54→22:20)
[2020-11-10] MEDS: Aspirin 81 MG TAB.CHEW PO (07:54)
[2020-11-10] MEDS: Psyllium 1 PACKET PO (07:54)
[2020-11-10 08:08] LABS: ALB/GLOB Ratio 0.8 RATIO (0.9-2.4); AST(SGOT) 31 U/L (15-37); Alanine Aminotransfer ALT/SGPT 34 U/L (16-61); Albumin, Serum 3.3 g/dL (3.2-5.0); Alkaline Phosphatase 57 U/L (45-117); Anion Gap 8 (5-15); BUN 23 mg/dL (7-18); BUN/Creat Ratio 16.7 RATIO (10-20); Calcium,Total 8.7 mg/dL (8.5-10.1); Chloride 105 mmol/L (98-107); Cholesterol 231 mg/dL (200); Creatinine, Serum 1.38 mg/dL (0.70-1.30); EST Glomerular Filtration Rate 55 mL/min (>60); Est Glom Filt Rate - Afr Amer 67 mL/min (>60); Globulin 4.3 g/dL (2.2-4.2); Glucose 137 mg/dL (74-106); Hemoglobin A1c 6.7 % (3.8-5.6); High Density Lipoprotein 36 mg/dL; Potassium 3.5 mmol/L (3.5-5.1); Protein, Total 7.6 g/dL (6.4-8.2); Sodium Level 138 mmol/L (136-145); Triglycerides 387 mg/dL; Very Low Density Lipoprotein 77 mg/dL (5-40)
[2020-11-10] MEDS: dilTIAZem CD 180 MG Capsule PO (09:24)
[2020-11-10] MEDS: Enoxaparin 150 MG/ML Syringe 130 MG SC ×2 (09:24→17:11)
--- NOTE | 2020-11-10 12:15 | CASEMGMT ---
MIGUEL ANGEL RUIZ assessment: Face to Face with patient for initial transition planning/care coordination assessment. RN SARA introduced self and role at [facility], pt voices understanding and consents to assessment at this time. Pt is sitting up on side of bed in no distress at this time. Pt is A/Ox4 at this time and answers all questions appropriately at this time. Care providers, pharmacy, and demographics verified at this time. Presentation: Sent in by Dr. Kendrick, recently stopped taking meds for afib, c/o mild SOB, HR 150 Admitting dx: Afib RVR PCP: Mireille Specialists: Jay Haynes WATER PURIFIER, cardio Preferred Pharmacy: [facility] Insurance: [facility] A/B Prescription Benefit: None, per [facility], they have been using discount cards-Heidy SW aware-Pt states has been having trouble paying for meds and then also states that he has quit taking some because 'I don't feel well.' Living Will/HPOA: Pt states does not have LW/HPOA and declines AD info at this time, stating 'I have an appt set up to get this taken care of.' LNOK: Peewee Flores, son Living Arrangements: Pt states lives alone in apt with elevator access and states no concerns at home at this time. Pt states is independent with ADL's. Transportation: Pt states drives self and states no transportation concerns at this time. DME/HHC: Pt states has the following DME: cane, hospital bed, rollator, walker x2, w/c x2, electric w/c x2, raised toilet seat, tub bench and grab bars. Pt states no need for any further DME at this time. Pt states no hx of HHC but has been to [facility] rehab unit and [facility] in the past. Pt states no concerns with going home at time of discharge. Pt states is disabled. Pt states smokes 'a couple' of cigarettes daily and does not drink ETOH. Pt states no further concerns/needs at this time. CM to follow for any further discharge planning/needs. Advised pt to ask for CM if any further questions/concerns/needs arise, voices understanding. Pt Goal: [place] MIGUEL ANGEL RUIZ
--- NOTE | 2020-11-10 14:09 | PN_ITS ---
<Ml Guadalupe [employer]OUNTER [employer]OM[employer] - Last Filed: 11/10/20 14:20> Patient Problems: Active and Suspected Problems (Last Reviewed 10/30/20 @ 14:06 by Jay Haynes [employer], M[employer]TER [employer]-C) Atrial fibrillation with RVR (Acute) DIANN (acute kidney injury) (Acute) Hyperglycemia (Acute) BPH (benign prostatic hyperplasia) (Suspected) Subjective: Patient seen and examined. Complains of generally feeling unwell. States he came in because he felt blah. Patient admits to not taking his home medication. He states one of his medications gives him a rash however he is unable to state which medication this is. He also states his medications cost too much. He denies chest pain, palpitations, shortness of breath. - Physical Exam Vitals/I&O's: Vital Signs Temp Pulse Resp BP Pulse Ox 97.4 F L 108 H 20 H 151/102 H 99 11/10/20 09:22 11/10/20 09:22 11/10/20 09:22 11/10/20 09:22 11/10/20 09:22 Oxygen Delivery Method Room Air Weight: 288 lb 2.307 oz Body Mass Index (BMI) 43.2 Finger Stick Blood Glucose 163 Intake and Output for Last 24 Hours 11/08/20 11/09/20 11/10/20 23:59 23:59 23:59 Intake Total 240 / 240 2190 / 2190 Output Total 325 / 325 Balance 240 / 240 1865 / 1865 General: Alert, Oriented x3, Cooperative HEENT: Atraumatic, PERRLA, EOMI, Normocephalic Neck: Supple, No JVD, Negative Carotid Bruits Lungs: Clear to auscultation, Diminished Cardiovascular: - - Atrial fibrillation, tachycardic Abdomen: Bowel Sounds Present, Soft, Non Tender, Non-Distended, Obese Extremities: No clubbing, No cyanosis, No edema, Capillary Refill Less than 3 Seconds Skin: No rashes, No breakdown Musculoskeletal: No Tenderness to Palpation of Joints or Extremities Neurological: Cranial nerves II-XII grossly intact, Neuro grossly intact Psych/Mental Status: Normal Affect, Appropriate Laboratory Results 11/09/20 14:37: WBC 6.5, RBC 5.96, Hgb 17.0 H, Hct 51.1, MCV 85.7, MCH 28.5, MCHC 33.3, RDW Std Deviation 48.2 H, RDW Coeff of Srinivas 15.8 H, Plt Count 272, MPV 8.9, Immature Gran % (Auto) 0.500, Neut % (Auto) 64.1, Lymph % (Auto) 24.8, Woodson % (Auto) 8.8, Eos % (Auto) 1.2, Baso % (Auto) 0.6, Absolute Neuts (auto) 4.2, Absolute Lymphs (auto) 1.61, Nucleated RBC % 0 11/09/20 14:37: PT 20.4 H, INR 1.8 11/09/20 14:37: Sodium 139, Potassium 4.3, Chloride 104, Carbon Dioxide 28.0, Anion Gap 7, BUN 24 H, Creatinine 1.81 H, Estim Creat Clear Calc 40.94, Est GFR (MDRD) Af Amer 49 L, Est GFR (MDRD) Non-Af 41 L, BUN/Creatinine Ratio 13.3, Glucose 154 H, Calcium 8.9, Magnesium 2.1, Troponin I < 0.015 11/10/20 06:44: WBC 6.3, RBC 5.56, Hgb 15.7, Hct 47.7, MCV 85.8, MCH 28.2, MCHC 32.9, RDW Std Deviation 48.9 H, RDW Coeff of Srinivas 15.9 H, Plt Count 231, MPV 9.2, Immature Gran % (Auto) 0.500, Neut % (Auto) 51.5, Lymph % (Auto) 35.6, Woodson % (Auto) 9.4, Eos % (Auto) 2.5, Baso % (Auto) 0.5, Absolute Neuts (auto) 3.2, Absolute Lymphs (auto) 2.24, Nucleated RBC % 0 11/10/20 06:44: Sodium 138, Potassium 3.5, Chloride 105, Carbon Dioxide 25.0, Anion Gap 8, BUN 23 H, Creatinine 1.38 H, Estim Creat Clear Calc 53.70, Est GFR (MDRD) Af Amer 67, Est GFR (MDRD) Non-Af 55 L, BUN/Creatinine Ratio 16.7, Glucose 137 H, Calcium 8.7, Total Bilirubin 0.70, AST 31, ALT 34, Alkaline Phosphatase 57, Total Protein 7.6, Albumin 3.3, Globulin 4.3 H, Albumin/Globulin Ratio 0.8 L, Triglycerides 387 H, Cholesterol 231 H, LDL Cholesterol 118, VLDL Cholesterol 77 H, HDL Cholesterol 36 L 11/10/20 06:44: Hemoglobin A1c 6.7 H 11/10/20 06:44: PT 18.6 H, INR 1.6 Current Medications Acetaminophen (Acetaminophen 325 Mg Tablet) 650 mg PO Q6H PRN PRN PRN Reason: Pain Score 1-10/Temp > 100.7 F Al Hydroxide/Mg Hydroxide (Mag Hydrox/Al Hydrox/Simeth 30 Ml Udc) 30 ml PO Q6H PRN PRN PRN Reason: Gastric Burning Albuterol Sulfate (Albuterol 2.5 Mg/3 Ml Vial.Neb.) 2.5 mg INHALATION Q2H PRN PRN PRN Reason: Dyspnea, wheezing Aspirin (Aspirin 81 Mg Tab.Chew) 81 mg PO DAILY@0800 [facility] Last Admin: 11/10/20 07:54 Dose: 81 mg Documented by: Atorvastatin Calcium (Atorvastatin Calcium 10 Mg Tablet) 10 mg PO QHS [facility] Last Admin: 11/09/20 21:23 Dose: 10 mg Documented by: Enoxaparin Sodium (Enoxaparin 150 Mg/Ml Syringe) 130 mg SC Q12@0600,1800 [facility] Last Admin: 11/10/20 09:24 Dose: 130 mg Documented by: Guaifenesin (Guaifenesin 10 Ml Udc (200mg/10ml)) 20 ml PO Q4H PRN PRN PRN Reason: COUGH Hydralazine HCl (Hydralazine 20 Mg/Ml Vial) 10 mg IV Q4H PRN PRN PRN Reason: SBP > 160 Sodium Chloride () 1,000 mls @ 100 mls/hr IV .Q10H [facility] Last Admin: 11/10/20 12:27 Dose: 100 mls/hr Documented by: Magnesium Hydroxide (Magnesium Hydroxide 30 Ml Udc) 30 ml PO DAILY PRN PRN PRN Reason: Constipation Melatonin (Melatonin 3 Mg Tablet) 3 mg PO QHS PRN PRN PRN Reason: INSOMNIA Metoprolol Tartrate (Metoprolol Tartrate 50 Mg Tablet) 50 mg PO BID [facility] Last Admin: 11/10/20 07:54 Dose: 50 mg Documented by: Morphine Sulfate (Morphine 2 Mg/Ml Syringe) 2 mg IV Q3H PRN PRN PRN Reason: Pain Score 6-10 Nitroglycerin (Nitroglycerin (Inpatient Use) 0.4 Mg Tab.Subl) 0.4 mg SUBLINGUAL Q5M PRN PRN Reason: CARDIAC/CHEST PAIN Ondansetron HCl (Ondansetron 4 Mg/2 Ml Vial) 4 mg IV Q8H PRN PRN PRN Reason: NAUSEA/VOMITING Oxycodone HCl (Oxycodone 5 Mg Tablet) 5 mg PO Q4H PRN PRN PRN Reason: Pain Score 4-5 Prochlorperazine Edisylate (Prochlorperazine 10 Mg/2 Ml Vial) 5 mg IV Q4H PRN PRN PRN Reason: Breakthrough Nausea/Vomiting Psyllium Hydrophilic Mucilloid (Psyllium 1 Packet) 1 packet PO DAILY [facility] Last Admin: 11/10/20 07:54 Dose: 1 packet Documented by: Senna/Docusate Sodium (Senna/Docusate Sodium 1 Tablet) 2 tablet PO BID PRN PRN PRN Reason: Constipation Sodium Chloride (0.9% Saline Lock 10 Ml Syringe) 10 - 40 ml IV UD PRN PRN Reason: SALINE FLUSH Tamsulosin HCl (Tamsulosin Hcl 0.4 Mg Capsule) 0.4 mg PO DAILY@1730 [facility] Last Admin: 11/09/20 17:34 Dose: 0.4 mg Documented by: Throat Lozenges (Benzocaine/Menthol 1 Lozenge) 1 lozenge MUCOUS MEM Q2H PRN PRN PRN Reason: SORE THROAT Warfarin Sodium (Warfarin 5 Mg Tablet) 5 mg PO MoTuWeThFr@1700 [facility] Last Admin: 11/09/20 18:31 Dose: 5 mg Documented by: Warfarin Sodium (Warfarin 7.5 Mg Tablet) 7.5 mg PO SuSa@1700 [facility] Medical Necessity - Tobacco Use Smoking Status: Current every day smoker Tobacco Use: Cigarettes Assessment/Plan All Active Problems (Last Reviewed 10/30/20 @ 14:06 by Jay Haynes [employer], [employer]-C) Atrial fibrillation with RVR (Acute) DIANN (acute kidney injury) (Acute) Hyperglycemia (Acute) Atrial fibrillation with rapid ventricular response (Resolved) Elevated troponin (Resolved) Hypertensive urgency (Resolved) Hyperbilirubinemia (Resolved) Complicated UTI (urinary tract infection) (Acute) Urine retention (Acute) Urinary incontinence (Acute) Dyshidrotic eczema (Acute) Syncope (Resolved) 1. Paroxysmal atrial fibrillation with RVR-rate improved. Continues to have tachycardia with ambulation. Patient previously not taking home medications. Continue metoprolol 50 mg twice a day. Initiated on Cardizem 180 mg daily. On Coumadin. Requested records from PCP for current medication list and recent office visit notes. 2. Acute kidney injury versus CKD-improving, trend BMP. 3. New diagnosis type 2 diabetes mellitus-hemoglobin A1c 6.7%. Accu-Cheks with sliding scale insulin. Will need addition of oral agent at discharge. 4. CAD with history of PCI-continue aspirin, Coumadin, beta-igor. 5. Dilated cardiomyopathy-echocardiogram December 2019 demonstrated an EF of 45 to 50% with severely enlarged left atrium and right atrium. 6. Hypertension-unclear what patient has been taking at home, home medication list not current. Requested records from primary care office. Continue metoprolol. As needed hydralazine for systolic blood pressure greater than 160. 7. History of CVA with residual left-sided weakness-continue aspirin, Coumadin, statin. PT/OT. INR subtherapeutic secondary to noncompliance. 8. Carotid artery disease-left ICA stenosis 70%, right ICA stenosis less than 50%. Continue aspirin, statin. 9.Tobacco dependence-encouraged cessation. 10. BPH-continue Flomax. 11. Morbid obesity-encouraged diet lifestyle modifications. DVT prophylaxis-Coumadin, Lovenox bridge This patient was seen by HERSON Trent under the supervision of Dr. Cabrera. <Nic Cabrera - Last Filed: 11/10/20 16:12> - Physical Exam Vitals/I&O's: Vital Signs Temp Pulse Resp BP Pulse Ox 97.0 F L 117 H 20 H 156/97 H 99 11/10/20 15:20 11/10/20 15:20 11/10/20 15:20 11/10/20 15:20 11/10/20 15:20 Oxygen Delivery Method Room Air Weight: 130.7 kg Body Mass Index (BMI) 43.2 Finger Stick Blood Glucose 163 Intake and Output for Last 24 Hours 11/08/20 11/09/20 11/10/20 23:59 23:59 23:59 Intake Total 240 / 240 2670 / 2670 Output Total 1725 / 1725 Balance 240 / 240 945 / 945 Laboratory Results 11/10/20 06:44: WBC 6.3, RBC 5.56, Hgb 15.7, Hct 47.7, MCV 85.8, MCH 28.2, MCHC 32.9, RDW Std Deviation 48.9 H, RDW Coeff of Srinivas 15.9 H, Plt Count 231, MPV 9.2, Immature Gran % (Auto) 0.500, Neut % (Auto) 51.5, Lymph % (Auto) 35.6, Woodson % (Auto) 9.4, Eos % (Auto) 2.5, Baso % (Auto) 0.5, Absolute Neuts (auto) 3.2, Absolute Lymphs (auto) 2.24, Nucleated RBC % 0 11/10/20 06:44: Sodium 138, Potassium 3.5, Chloride 105, Carbon Dioxide 25.0, Anion Gap 8, BUN 23 H, Creatinine 1.38 H, Estim Creat Clear Calc 53.70, Est GFR (MDRD) Af Amer 67, Est GFR (MDRD) Non-Af 55 L, BUN/Creatinine Ratio 16.7, Glucose 137 H, Calcium 8.7, Total Bilirubin 0.70, AST 31, ALT 34, Alkaline Phosphatase 57, Total Protein 7.6, Albumin 3.3, Globulin 4.3 H, Albumin/Globulin Ratio 0.8 L, Triglycerides 387 H, Cholesterol 231 H, LDL Cholesterol 118, VLDL Cholesterol 77 H, HDL Cholesterol 36 L 11/10/20 06:44: Hemoglobin A1c 6.7 H 11/10/20 06:44: PT 18.6 H, INR 1.6 Current Medications Acetaminophen (Acetaminophen 325 Mg Tablet) 650 mg PO Q6H PRN PRN PRN Reason: Pain Score 1-10/Temp > 100.7 F Al Hydroxide/Mg Hydroxide (Mag Hydrox/Al Hydrox/Simeth 30 Ml Udc) 30 ml PO Q6H PRN PRN PRN Reason: Gastric Burning Albuterol Sulfate (Albuterol 2.5 Mg/3 Ml Vial.Neb.) 2.5 mg INHALATION Q2H PRN PRN PRN Reason: Dyspnea, wheezing Aspirin (Aspirin 81 Mg Tab.Chew) 81 mg PO DAILY@0800 [facility] Last Admin: 11/10/20 07:54 Dose: 81 mg Documented by: Atorvastatin Calcium (Atorvastatin Calcium 80 Mg Tablet) 80 mg PO QHS [facility] Diltiazem HCl (Diltiazem Cd 180 Mg Capsule) 180 mg PO DAILY [facility] Enoxaparin Sodium (Enoxaparin 150 Mg/Ml Syringe) 130 mg SC Q12@0600,1800 [facility] Last Admin: 11/10/20 09:24 Dose: 130 mg Documented by: Guaifenesin (Guaifenesin 10 Ml Udc (200mg/10ml)) 20 ml PO Q4H PRN PRN PRN Reason: COUGH Hydralazine HCl (Hydralazine 20 Mg/Ml Vial) 10 mg IV Q4H PRN PRN PRN Reason: SBP > 160 Sodium Chloride () 1,000 mls @ 100 mls/hr IV .Q10H [facility] Last Admin: 11/10/20 12:27 Dose: 100 mls/hr Documented by: Magnesium Hydroxide (Magnesium Hydroxide 30 Ml Udc) 30 ml PO DAILY PRN PRN PRN Reason: Constipation Melatonin (Melatonin 3 Mg Tablet) 3 mg PO QHS PRN PRN PRN Reason: INSOMNIA Metoprolol Tartrate (Metoprolol Tartrate 50 Mg Tablet) 50 mg PO BID [facility] Last Admin: 11/10/20 07:54 Dose: 50 mg Documented by: Morphine Sulfate (Morphine 2 Mg/Ml Syringe) 2 mg IV Q3H PRN PRN PRN Reason: Pain Score 6-10 Nitroglycerin (Nitroglycerin (Inpatient Use) 0.4 Mg Tab.Subl) 0.4 mg SUBLINGUAL Q5M PRN PRN Reason: CARDIAC/CHEST PAIN Ondansetron HCl (Ondansetron 4 Mg/2 Ml Vial) 4 mg IV Q8H PRN PRN PRN Reason: NAUSEA/VOMITING Oxycodone HCl (Oxycodone 5 Mg Tablet) 5 mg PO Q4H PRN PRN PRN Reason: Pain Score 4-5 Prochlorperazine Edisylate (Prochlorperazine 10 Mg/2 Ml Vial) 5 mg IV Q4H PRN PRN PRN Reason: Breakthrough Nausea/Vomiting Psyllium Hydrophilic Mucilloid (Psyllium 1 Packet) 1 packet PO DAILY [facility] Last Admin: 11/10/20 07:54 Dose: 1 packet Documented by: Senna/Docusate Sodium (Senna/Docusate Sodium 1 Tablet) 2 tablet PO BID PRN PRN PRN Reason: Constipation Sodium Chloride (0.9% Saline Lock 10 Ml Syringe) 10 - 40 ml IV UD PRN PRN Reason: SALINE FLUSH Tamsulosin HCl (Tamsulosin Hcl 0.4 Mg Capsule) 0.4 mg PO DAILY@1730 [facility] Last Admin: 11/09/20 17:34 Dose: 0.4 mg Documented by: Throat Lozenges (Benzocaine/Menthol 1 Lozenge) 1 lozenge MUCOUS MEM Q2H PRN PRN PRN Reason: SORE THROAT Warfarin Sodium (Warfarin 5 Mg Tablet) 5 mg PO MoTuWeThFr@1700 [facility] Last Admin: 11/09/20 18:31 Dose: 5 mg Documented by: Warfarin Sodium (Warfarin 7.5 Mg Tablet) 7.5 mg PO SuSa@1700 [facility] Assessment/Plan This patient was seen in conjunction with HERSON Trent . I have independently interviewed and examined the patient and reviewed pertinent historical, laboratory, and other data. Please refer to HERSON Trent note for details of this patient's presentation, findings, and recommendations. I have reviewed HERSON Trent note and concur with documented findings. In brief, patient is a 60-year-old gentleman noncompliant with medical therapy admitted with generalized weakness. Found to be in A. fib with RVR admitted to monitored bed for further management Physical Examination: GENERAL: cooperative HEENT: Atraumatic; EYES; Anicteric, Normal Conjunctiva NECK; supple, normal thyroid, RESPIRATORY: Diminished to auscultation CARDIOVASCULAR: Slightly irregular GI: soft, normoactive bowel sounds, : No Renal angle tenderness; EXTREMITIES: No edema, no clubbing, MUSCULOSKELETAL: no muscle waisting NEURO: Awake; Lsided weakness SKIN: No Rash PSYCH; Flat affect Assessment: 1. Paroxysmal A. fib 2. Acute kidney injury 3. Newly diagnosed diabetes mellitus type 2 4. Coronary artery disease with previous PCI 5. Essential hypertension 6. History of previous CVA with residual left-sided weakness 7. Carotid artery disease with known left ICA stenosis 70% and right ICA stenosis less than 50% 8. Tobacco dependence 9. BPH 10. Morbid obesity with BMI of 43.8 Recommendations: 1. I have discussed the results of my overview and impressions with the patient 2. Options for management were reviewed OBSV E&M: 61010 Subsequent observation care L3
[2020-11-10] MEDS: Tamsulosin HCl 0.4 MG Capsule PO (17:11)
[2020-11-10] MEDS: Atorvastatin Calcium 80 MG Tablet PO (22:20)
[2020-11-11] VITALS (7 sets, daily range): BP systolic 131–160; BP diastolic 71–88; PULSE 82–137; RESP 16–20; TEMP 36.4–36.7; O2SAT 96–99
[2020-11-11] MEDS: Enoxaparin 150 MG/ML Syringe 130 MG SC (05:50)
[2020-11-11 07:19] LABS: International Normalized Ratio 1.8; Prothrombin Time (Protime)PT. 20.2 SECONDS (11.7-14.9)
[2020-11-11 07:29] LABS: Anion Gap 4 (5-15); BUN 24 mg/dL (7-18); BUN/Creat Ratio 17.8 RATIO (10-20); Calcium,Total 8.7 mg/dL (8.5-10.1); Chloride 112 mmol/L (98-107); Creatinine, Serum 1.35 mg/dL (0.70-1.30); EST Glomerular Filtration Rate 57 mL/min (>60); Est Glom Filt Rate - Afr Amer 69 mL/min (>60); Estimated Creatinine Clearance 54.89 ml/min; Glucose 127 mg/dL (74-106); Potassium 3.6 mmol/L (3.5-5.1); Sodium Level 141 mmol/L (136-145)
[2020-11-11] MEDS: Metoprolol Tartrate 50 MG Tablet PO (08:21)
[2020-11-11] MEDS: Aspirin 81 MG TAB.CHEW PO (08:21)
[2020-11-11] MEDS: dilTIAZem CD 180 MG Capsule PO (08:21)
[2020-11-11] MEDS: Psyllium 1 PACKET PO (08:22)
[2020-11-11] MEDS: 0.9% Normal Saline 1,000 ML 100 ML IV (08:23)
--- NOTE | 2020-11-11 11:40 | PCM.DC ---
- Discharge Diagnoses Current Active Problems: Current Active and Chronic Problems (Last Reviewed 10/30/20 @ 14:06 by Jay Haynes HSE ADVISOR, HSE ADVISOR-C) Atrial fibrillation with RVR (Acute) DIANN (acute kidney injury) (Acute) Hyperglycemia (Acute) Stented coronary artery (Chronic 06/18/13) 3.0 X 12 mm Integrity BMS to mid RCA per Dr. Ramsay @ [facility] 06/18/2013. Medical non-compliance (Chronic) stopped all antihypertensives for the year 2018 and then went into CHF due to hypertensive urgency and subsequently had a R frontal and left occipital CVA's Coronary artery disease (Chronic) Non-STEMI (non-ST elevated myocardial infarction) (Chronic) suspect it was demand ischemia Obesity (BMI 30-39.9) (Chronic) Carotid arterial disease (Chronic) 70% stenosis left internal carotid artery and < 50% stenosis of the right internal carotid artery Cardiomyopathy (Chronic) 45-50% EF in Dec 2019 CVA (cerebral vascular accident) (Chronic) 01/22/2020 - large R frontal and Left occipital. Pt in AF Tobacco dependence (Chronic) Glucose intolerance (Chronic) Dyslipidemia (Chronic) Chronic anticoagulation (Chronic) Paroxysmal atrial fibrillation (Chronic) Sleep-disordered breathing (Chronic) PSA suspected Chronic low back pain (Chronic) Chronic knee pain (Chronic) You will use the following diet at home:: Calorie/Carbohydrate Controlled (specify 1200, 1400, etc), Cardiac Discharge Activity: Return to Normal Activity Call your doctor if you observe: Shortness of breath, Dizziness, Fainting spells, Chest pain, Increased palpitations (irregular heartbeat) Allergies/Adverse Reactions: Allergies diphenhydramine [From Benadryl] Allergy (Verified 11/09/20 14:13) PT UNSURE OF REACTION Medications to take at Discharge [place]-3/Dha/Epa/Fish Oil [Fish Oil 1,000 mg Softgel] 500 mg PO DAILY 01/11/20 Tamsulosin HCl [Flomax] 0.4 mg PO DAILY@1730 cap 02/10/20 Famotidine 20 mg PO DAILY 11/09/20 Warfarin Sodium 5 mg PO MOTUWETHFR 11/09/20 Warfarin Sodium [Coumadin] 7.5 mg PO SUSA 11/09/20 Aspirin [Aspirin, Baby] 81 mg PO DAILY@0800 #30 tab.chew 11/11/20 Atorvastatin Calcium [Lipitor] 80 mg PO QHS #30 tab 11/11/20 Diltiazem CD [Cardizem CD] 180 mg PO DAILY #30 cap 11/11/20 Furosemide 40 mg PO DAILY #30 tab 11/11/20 Metformin HCl [Metformin HCl ER] 500 mg PO DAILY #30 tab.er.24h 11/11/20 Metoprolol(XL)Succ [Toprol Xl (Beta Jose Raul)] 50 mg PO DAILY #30 tab 11/11/20 The following prescriptions were given: Aspirin [Aspirin, Baby] 81 mg PO DAILY@0800 #30 tab.chew Transmission Status: Received by [facility]/pharmacy #[id number] Diltiazem CD [Cardizem CD] 180 mg PO DAILY #30 cap Transmission Status: Pending to [facility]/pharmacy #[id number] Furosemide 40 mg PO DAILY #30 tab Transmission Status: Sent to [facility]/pharmacy #[id number] Atorvastatin Calcium [Lipitor] 80 mg PO QHS #30 tab Transmission Status: Sent to [facility]/pharmacy #[id number] Metformin HCl [Metformin HCl ER] 500 mg PO DAILY #30 tab.er.24h Transmission Status: Pending to [facility]/pharmacy #[id number] Metoprolol(XL)Succ [Toprol Xl (Beta Jose Raul)] 50 mg PO DAILY #30 tab Transmission Status: Pending to [facility]/pharmacy #[id number] Primary Care Physician: Radha Kendrick MD [Primary Care Provider] - Please follow up with your Primary Care Physician in: 1 Week Test Results: Test results from this visit will be discussed in further detail at your follow-up appointment, if applicable. Please Follow Up With: Jay Haynes NP, HSE ADVISOR-C When: 2 Weeks Proposed Discharge Date: 11/11/20
--- NOTE | 2020-11-11 11:45 | DS.PCM_ITS ---
<Ml Guadalupe PROGRAM DEVELOPMENT SPECIALIST - Last Filed: 11/11/20 12:07> Discharge Date and Diagnosis - Problem List Patient Problems: Active and Suspected Problems (Last Reviewed 10/30/20 @ 14:06 by Jay Haynes PROGRAM DEVELOPMENT SPECIALIST, PROGRAM DEVELOPMENT SPECIALIST-C) Atrial fibrillation with RVR (Acute) DIANN (acute kidney injury) (Acute) Hyperglycemia (Acute) BPH (benign prostatic hyperplasia) (Suspected) Date of Admission: 11/09/20 Date of Discharge: 11/11/20 - Primary Discharge Diagnosis Acute Problems: Active Problems (Last Reviewed 10/30/20 @ 14:06 by Jay Haynes PROGRAM DEVELOPMENT SPECIALIST, PROGRAM DEVELOPMENT SPECIALIST-C) 1. Paroxysmal atrial fibrillation with RVR 2. Acute kidney injury versus CKD, suspect CKD stage III 3. New diagnosis type 2 diabetes mellitus 4. CAD with history of PCI 5. Dilated cardiomyopathy 6. Hypertension 7. History of CVA with residual left-sided weakness 8. Carotid artery disease-left ICA stenosis 70%, right ICA stenosis less than 50%. 9.Tobacco dependence 10. BPH 11. Morbid obesity Suspected Problems: Suspected Problems (Last Reviewed 10/30/20 @ 14:06 by Jay Haynes PROGRAM DEVELOPMENT SPECIALIST, PROGRAM DEVELOPMENT SPECIALIST-C) BPH (benign prostatic hyperplasia) (Suspected) - Secondary Discharge Diagnosis Chronic Problems: Chronic Problems (Last Reviewed 10/30/20 @ 14:06 by Jay Haynes PROGRAM DEVELOPMENT SPECIALIST, PROGRAM DEVELOPMENT SPECIALIST-C) Stented coronary artery (Chronic 06/18/13) 3.0 X 12 mm Integrity BMS to mid RCA per Dr. Ramsay @ [facility] 06/18/2013. Medical non-compliance (Chronic) stopped all antihypertensives for the year 2018 and then went into CHF due to hypertensive urgency and subsequently had a R frontal and left occipital CVA's Coronary artery disease (Chronic) Non-STEMI (non-ST elevated myocardial infarction) (Chronic) suspect it was demand ischemia Obesity (BMI 30-39.9) (Chronic) Carotid arterial disease (Chronic) 70% stenosis left internal carotid artery and < 50% stenosis of the right internal carotid artery Cardiomyopathy (Chronic) 45-50% EF in Dec 2019 Biatrial enlargement (Chronic) severe CVA (cerebral vascular accident) (Chronic) 01/22/2020 - large R frontal and Left occipital. Pt in AF Tobacco dependence (Chronic) Glucose intolerance (Chronic) Low serum HDL (Chronic) Dyslipidemia (Chronic) Chronic anticoagulation (Chronic) Paroxysmal atrial fibrillation (Chronic) Sleep-disordered breathing (Chronic) PSA suspected Chronic low back pain (Chronic) Chronic knee pain (Chronic) Hospital Course and Treatment Imaging Results: Diagnostic Data Chest X-Ray 11/09/20 15:00 IMPRESSION: Moderate cardiomegaly. Electronically Signed: Josafat Lopez, at 15:24 EST , Service support , Operations: None Procedures: None Summary of Care Provided: The patient is a 60 year old M admitted 11/09/2020 due to increased heart rate and patient had not been taking his medications. 1. Paroxysmal atrial fibrillation with RVR- Patient previously not taking home medications. Continue Cardizem CD 180 mg daily and metoprolol XL 50 mg daily. Heart rate stable on current regimen. Attempted to simplify home regimen and u se daily dosing when possible given patient's noncompliance. Continue Coumadin with outpatient INR follow-up. INR at discharge 1.8. Follow-up with PCP in 1 week. Follow-up with cardiology in 2 weeks. 2. Acute kidney injury versus CKD-mildly improved. Suspect CKD stage III. 3. New diagnosis type 2 diabetes mellitus-hemoglobin A1c 6.7%. Initiated Metformin extended release 500 mg daily. Follow-up with PCP for further management. 4. CAD with history of PCI-continue aspirin, Coumadin, beta-jose raul. 5. Dilated cardiomyopathy-echocardiogram December 2019 demonstrated an EF of 45 to 50% with severely enlarged left atrium and right atrium. Lasix 40 mg daily. 6. Hypertension-patient has been off of his home medications. Blood pressure stable on Cardizem and metoprolol however will need further outpatient follow- up. It appears he was previously on amlodipine. 7. History of CVA with residual left-sided weakness-continue aspirin, Coumadin, statin. 8. Carotid artery disease-left ICA stenosis 70%, right ICA stenosis less than 50%. Continue aspirin, statin. 9.Tobacco dependence-encouraged cessation. 10. BPH-continue Flomax. 11. Morbid obesity-encouraged diet lifestyle modifications. General: Alert, Oriented x3, Cooperative HEENT: Atraumatic, PERRLA, EOMI, Normocephalic Neck: Supple, No JVD, Negative Carotid Bruits Lungs: Clear to auscultation, Diminished Cardiovascular: - - Atrial fibrillation, tachycardic Abdomen: Bowel Sounds Present, Soft, Non Tender, Non-Distended, Obese Extremities: No clubbing, No cyanosis, No edema, Capillary Refill Less than 3 Seconds Skin: No rashes, No breakdown Musculoskeletal: No Tenderness to Palpation of Joints or Extremities Neurological: Cranial nerves II-XII grossly intact, Neuro grossly intact Psych/Mental Status: Normal Affect, Appropriate Patient seen and examined prior to discharge. Physical assessment as noted above. Patient is stable for discharge with follow up recommendations as noted above. This patient was seen by HERSON Trent under the supervision of Dr. Cabrera. Patient Problems: Active and Suspected Problems (Last Reviewed 10/30/20 @ 14:06 by Jay Haynes NP, ELIZABETH-C) Atrial fibrillation with RVR (Acute) DIANN (acute kidney injury) (Acute) Hyperglycemia (Acute) BPH (benign prostatic hyperplasia) (Suspected) - Physical Exam Vitals/I&O's: Vital Signs Temp Pulse Resp BP Pulse Ox 97.9 F 90 20 H 131/88 H 99 11/11/20 08:14 11/11/20 08:21 11/11/20 08:14 11/11/20 08:21 11/11/20 08:14 Oxygen Delivery Method Room Air Weight: 289 lb 7.471 oz Body Mass Index (BMI) 43.2 Finger Stick Blood Glucose 163 Intake and Output for Last 24 Hours 11/09/20 11/10/20 11/11/20 23:59 23:59 23:59 Intake Total 240 / 240 4140 / 4340 1600 / 1600 Output Total 2125 / 3400 1625 / 1625 Balance 240 / 240 2014 -25 / -25 Laboratory Results 11/11/20 06:38: PT 20.2 H, INR 1.8 11/11/20 06:38: Sodium 141, Potassium 3.6, Chloride 112 H, Carbon Dioxide 25.0, Anion Gap 4 L, BUN 24 H, Creatinine 1.35 H, Estim Creat Clear Calc 54.89, Est GFR (MDRD) Af Amer 69, Est GFR (MDRD) Non-Af 57 L, BUN/Creatinine Ratio 17.8, Glucose 127 H, Calcium 8.7 Current Medications Acetaminophen (Acetaminophen 325 Mg Tablet) 650 mg PO Q6H PRN PRN PRN Reason: Pain Score 1-10/Temp > 100.7 F Al Hydroxide/Mg Hydroxide (Mag Hydrox/Al Hydrox/Simeth 30 Ml Udc) 30 ml PO Q6H PRN PRN PRN Reason: Gastric Burning Albuterol Sulfate (Albuterol 2.5 Mg/3 Ml Vial.Neb.) 2.5 mg INHALATION Q2H PRN PRN PRN Reason: Dyspnea, wheezing Aspirin (Aspirin 81 Mg Tab.Chew) 81 mg PO DAILY@0800 [facility] Last Admin: 11/11/20 08:21 Dose: 81 mg Documented by: Atorvastatin Calcium (Atorvastatin Calcium 80 Mg Tablet) 80 mg PO QHS [facility] Last Admin: 11/10/20 22:20 Dose: 80 mg Documented by: Diltiazem HCl (Diltiazem Cd 180 Mg Capsule) 180 mg PO DAILY [facility] Last Admin: 11/11/20 08:21 Dose: 180 mg Documented by: Enoxaparin Sodium (Enoxaparin 150 Mg/Ml Syringe) 130 mg SC Q12@0600,1800 [facility] Last Admin: 11/11/20 05:50 Dose: 130 mg Documented by: Guaifenesin (Guaifenesin 10 Ml Udc (200mg/10ml)) 20 ml PO Q4H PRN PRN PRN Reason: COUGH Hydralazine HCl (Hydralazine 20 Mg/Ml Vial) 10 mg IV Q4H PRN PRN PRN Reason: SBP > 160 Sodium Chloride () 1,000 mls @ 100 mls/hr IV .Q10H [facility] Last Admin: 11/11/20 08:23 Dose: 100 mls/hr Documented by: Magnesium Hydroxide (Magnesium Hydroxide 30 Ml Udc) 30 ml PO DAILY PRN PRN PRN Reason: Constipation Melatonin (Melatonin 3 Mg Tablet) 3 mg PO QHS PRN PRN PRN Reason: INSOMNIA Metoprolol Tartrate (Metoprolol Tartrate 50 Mg Tablet) 50 mg PO BID [facility] Last Admin: 11/11/20 08:21 Dose: 50 mg Documented by: Morphine Sulfate (Morphine 2 Mg/Ml Syringe) 2 mg IV Q3H PRN PRN PRN Reason: Pain Score 6-10 Nitroglycerin (Nitroglycerin (Inpatient Use) 0.4 Mg Tab.Subl) 0.4 mg SUBLINGUAL Q5M PRN PRN Reason: CARDIAC/CHEST PAIN Ondansetron HCl (Ondansetron 4 Mg/2 Ml Vial) 4 mg IV Q8H PRN PRN PRN Reason: NAUSEA/VOMITING Oxycodone HCl (Oxycodone 5 Mg Tablet) 5 mg PO Q4H PRN PRN PRN Reason: Pain Score 4-5 Prochlorperazine Edisylate (Prochlorperazine 10 Mg/2 Ml Vial) 5 mg IV Q4H PRN PRN PRN Reason: Breakthrough Nausea/Vomiting Psyllium Hydrophilic Mucilloid (Psyllium 1 Packet) 1 packet PO DAILY [facility] Last Admin: 11/11/20 08:22 Dose: 1 packet Documented by: Senna/Docusate Sodium (Senna/Docusate Sodium 1 Tablet) 2 tablet PO BID PRN PRN PRN Reason: Constipation Sodium Chloride (0.9% Saline Lock 10 Ml Syringe) 10 - 40 ml IV UD PRN PRN Reason: SALINE FLUSH Tamsulosin HCl (Tamsulosin Hcl 0.4 Mg Capsule) 0.4 mg PO DAILY@1730 [facility] Last Admin: 11/10/20 17:11 Dose: 0.4 mg Documented by: Throat Lozenges (Benzocaine/Menthol 1 Lozenge) 1 lozenge MUCOUS MEM Q2H PRN PRN PRN Reason: SORE THROAT Warfarin Sodium (Warfarin 5 Mg Tablet) 5 mg PO MoTuWeThFr@1700 [facility] Last Admin: 11/10/20 17:11 Dose: 5 mg Documented by: Warfarin Sodium (Warfarin 7.5 Mg Tablet) 7.5 mg PO SuSa@1700 [facility] Discharge Diet: Low fat/ Low Cholesterol, Carb Control Diet Discharge Activity: Return to Normal Activity Call your doctor if you observe: Shortness of breath, Dizziness, Fainting spells, Chest pain, Increased palpitations (irregular heartbeat) Home Medications: Medications to take at Discharge Sanderson-3/Dha/Epa/Fish Oil [Fish Oil 1,000 mg Softgel] 500 mg PO DAILY 01/11/20 Tamsulosin HCl [Flomax] 0.4 mg PO DAILY@1730 [facility] 02/10/20 Famotidine 20 mg PO DAILY 11/09/20 Warfarin Sodium 5 mg PO MOTUWETHFR 11/09/20 Warfarin Sodium [Coumadin] 7.5 mg PO SUSA 12/17/20 Aspirin [Aspirin, Baby] 81 mg PO DAILY@0800 #30 tab.chew 11/11/20 Atorvastatin Calcium [Lipitor] 80 mg PO QHS #30 tab 11/11/20 Diltiazem CD [Cardizem CD] 180 mg PO DAILY #30 cap 11/11/20 Furosemide 40 mg PO DAILY #30 tab 11/11/20 Metformin HCl [Metformin HCl ER] 500 mg PO DAILY #30 tab.er.24h 11/11/20 Metoprolol(XL)Succ [Toprol Xl (Beta Jose Raul)] 50 mg PO DAILY #30 tab 11/11/20 Following Prescriptions Were Given to Patient: Aspirin [Aspirin, Baby] 81 mg PO DAILY@0800 #30 tab.chew Transmission Status: Received by [facility]/pharmacy #[id number] Diltiazem CD [Cardizem CD] 180 mg PO DAILY #30 cap Transmission Status: Received by [facility]/pharmacy #[id number] Furosemide 40 mg PO DAILY #30 tab Transmission Status: Received by [facility]/pharmacy #[id number] Atorvastatin Calcium [Lipitor] 80 mg PO QHS #30 tab Transmission Status: Received by [facility]/pharmacy #[id number] Metformin HCl [Metformin HCl ER] 500 mg PO DAILY #30 tab.er.24h Transmission Status: Received by [facility]/pharmacy #[id number] Metoprolol(XL)Succ [Toprol Xl (Beta Jose Raul)] 50 mg PO DAILY #30 tab Transmission Status: Received by [facility]/pharmacy #[id number] Primary Care Physician: Radha Kendrick MD [Primary Care Provider] - Please follow up with your Primary Care Physician in: 1 Week Please Follow Up With: Jay Haynes NP, PROGRAM DEVELOPMENT SPECIALIST-C When: 2 Weeks Disposition: Home Minutes spent on discharge:: 35 Patient Condition:: Stable Medical Necessity - Tobacco Use Smoking Status: Current every day smoker Tobacco Use: Cigarettes Meaningful Use Info Meaningful Use Diagnoses (Choose all that apply): None applicable <Nic Cabrera - Last Filed: 11/11/20 13:50> Discharge Date and Diagnosis - Primary Discharge Diagnosis Acute Problems: Active Problems (Last Reviewed 10/30/20 @ 14:06 by Jay Haynes NP, PROGRAM DEVELOPMENT SPECIALIST-C) Atrial fibrillation with RVR (Acute) DIANN (acute kidney injury) (Acute) Hyperglycemia (Acute) Suspected Problems: Suspected Problems (Last Reviewed 10/30/20 @ 14:06 by Jay Haynes NP, PROGRAM DEVELOPMENT SPECIALIST-C) BPH (benign prostatic hyperplasia) (Suspected) - Secondary Discharge Diagnosis Chronic Problems: Chronic Problems (Last Reviewed 10/30/20 @ 14:06 by Jay Haynes NP, PROGRAM DEVELOPMENT SPECIALIST-C) Stented coronary artery (Chronic 06/18/13) 3.0 X 12 mm Integrity BMS to mid RCA per Dr. Ramsay @ [facility] 06/18/2013. Medical non-compliance (Chronic) stopped all antihypertensives for the year 2018 and then went into CHF due to hypertensive urgency and subsequently had a R frontal and left occipital CVA's Coronary artery disease (Chronic) Non-STEMI (non-ST elevated myocardial infarction) (Chronic) suspect it was demand ischemia Obesity (BMI 30-39.9) (Chronic) Carotid arterial disease (Chronic) 70% stenosis left internal carotid artery and < 50% stenosis of the right internal carotid artery Cardiomyopathy (Chronic) 45-50% EF in Dec 2019 Biatrial enlargement (Chronic) severe CVA (cerebral vascular accident) (Chronic) 01/22/2020 - large R frontal and Left occipital. Pt in AF Tobacco dependence (Chronic) Glucose intolerance (Chronic) Low serum HDL (Chronic) Dyslipidemia (Chronic) Chronic anticoagulation (Chronic) Paroxysmal atrial fibrillation (Chronic) Sleep-disordered breathing (Chronic) PSA suspected Chronic low back pain (Chronic) Chronic knee pain (Chronic) Hospital Course and Treatment Summary of Care Provided: This patient was seen in conjunction with HERSON Trent . I have independently interviewed and examined the patient and reviewed pertinent historical, laboratory, and other data. Please refer to HERSON Trent note for details of this patient's presentation, findings, and recommendations. I have reviewed HERSON Trent note and concur with documented findings. In brief, patient is a 60-year-old gentleman noncompliant with medical therapy admitted with generalized weakness. Found to be in A. fib with RVR admitted to monitored bed for further management Assessment: 1. Paroxysmal A. fib 2. Acute kidney injury 3. Newly diagnosed diabetes mellitus type 2 4. Coronary artery disease with previous PCI 5. Essential hypertension 6. History of previous CVA with residual left-sided weakness 7. Carotid artery disease with known left ICA stenosis 70% and right ICA stenosis less than 50% 8. Tobacco dependence 9. BPH 10. Morbid obesity with BMI of 43.8 Hospital course: As documented above - Physical Exam Vitals/I&O's: Vital Signs Temp Pulse Resp BP Pulse Ox 97.9 F 90 20 H 131/88 H 99 11/11/20 08:14 11/11/20 08:21 11/11/20 08:14 11/11/20 08:21 11/11/20 08:14 Oxygen Delivery Method Room Air Weight: 131.3 kg Body Mass Index (BMI) 43.2 Finger Stick Blood Glucose 163 Intake and Output for Last 24 Hours 11/09/20 11/10/20 11/11/20 23:59 23:59 23:59 Intake Total 240 / 240 4140 / 4340 1600 / 1600 Output Total 2125 / 3400 1625 / 1625 Balance 240 / 240 2014 - / Laboratory Results 11/11/20 06:38: PT 20.2 H, INR 1.8 11/11/20 06:38: Sodium 141, Potassium 3.6, Chloride 112 H, Carbon Dioxide 25.0, Anion Gap 4 L, BUN 24 H, Creatinine 1.35 H, Estim Creat Clear Calc 54.89, Est GFR (MDRD) Af Amer 69, Est GFR (MDRD) Non-Af 57 L, BUN/Creatinine Ratio 17.8, Glucose 127 H, Calcium 8.7 OBSV E&M: [id number] Observation care discharge
== END 2020-11-11 13:00 | disposition home or self-care (01) | DRG 309 ==
LOC: ED 14:58 → PCU 15:55
PROVIDERS: Nurse Practitioner Family; Admitting Provider Family Medicine; Emergency Provider Emergency Medicine; PCP Family Medicine; Visit Provider Internal Medicine
DX: I48.0 Paroxysmal atrial fibrillation (principal); I69.354 Hemiplegia and hemiparesis following cerebral infarction affecting left non-dominant side; Z68.41 Body mass index [BMI] 40.0-44.9, adult; N17.9 Acute kidney failure, unspecified; E11.65 Type 2 diabetes mellitus with hyperglycemia; I25.10 Atherosclerotic heart disease of native coronary artery without angina pectoris; I42.0 Dilated cardiomyopathy; I11.0 Hypertensive heart disease with heart failure; I50.9 Heart failure, unspecified; N40.0 Benign prostatic hyperplasia without lower urinary tract symptoms; E66.01 Morbid (severe) obesity due to excess calories; Z91.19 Patient's noncompliance with other medical treatment and regimen; G89.29 Other chronic pain; E78.5 Hyperlipidemia, unspecified; I25.2 Old myocardial infarction; F17.210 Nicotine dependence, cigarettes, uncomplicated
CPT/HCPCS: 36415; 71045; 80048; 80053; 80061; 83036; 83735; 84484; 85025; 85610; 93005; 97802; 99251; 99285; J7030; A4216; G0463

== ENCOUNTER 2021-05-11 18:07 | Inpatient (IN) | payer MEDICARE, SELFPAY ==
[2021-05-03 14:04] VITALS: BMI 45.7
[2021-05-11] VITALS (14 sets, daily range): BP systolic 109–200; BP diastolic 79–120; PULSE 85–165; RESP 14–27; TEMP 36.2–36.7; O2SAT 92–96; BMI 45.6; BMI 44.6
--- NOTE | 2021-05-11 19:39 | CT_ITS ---
STUDY: CT ABDOMEN AND PELVIS WITH CONTRAST REASON FOR EXAM: Male, 61 years old. Distention, guarding, mottled RADIATION DOSAGE (If Supplied By Facility): CTDIvol = ( 20.4 ) mGy, DLP = ( 1319.14 ) mGycm TECHNIQUE: Transaxial images were obtained from the dome of the diaphragm to the symphysis pubis without oral contrast. IV 100mL Isovue-300 was administered. Sagittal and coronal images were reconstructed. Individualized dose optimization techniques were used for this CT. COMPARISON: None. FINDINGS: Calcified granuloma in the right lung base.. Heart is enlarged and there is mild coronary artery calcification Normal liver. Normal gallbladder and extrahepatic biliary system. Tiny granulomatous calcification in the spleen.. Normal pancreas. Normal bilateral adrenal glands. Normal right kidney. Normal left kidney. Normal visualized stomach. Normal small intestine. Mildly distended fecal filled colon to the level of the proximal sigmoid. No evidence for acute appendicitis. Mild atherosclerotic changes of the aorta without evidence for aneurysm Normal inferior vena cava. Normal retroperitoneum. Normal urinary bladder. Normal abdominal wall. Lumbar spine demonstrates mild degenerative change CT/Abdomen/Pelvis W IV Cont ONLY IMPRESSION: Mild nonspecific fecal retention in the colon. No evidence for small bowel obstruction. No acute abnormalities within the abdomen or pelvis Electronically Signed: Tim Leger MD at 21:23 EDT , Service support ,
[2021-05-11 20:06] LABS: Absolute Lymphocyte Count 0.28 X10^3/uL (0.83-4.51); Absolute Neutrophil Count 10.4 X10^3/uL (2.0-7.7); Basophil# 0.02 X10^3/uL; Basophil% 0.2 % (0-1); Eosinophils% 0.9 % (0-5); Hematocrit 49.4 % (40-54); Hemoglobin 15.7 g/dL (13.0-16.5); Lymphocyte # 0.28 X10^3/ul (0.83-4.51); Lymphocyte % 2.5 % (19-41); Mean Corp Hgb Conc 31.8 g/dL (32-36); Mean Corpuscular Hgb 28.3 pg (27.0-32.0); Mean Corpuscular Volume 89.2 fL (80-94); Mean Platelet Vol. 9.8 fl (6.2-12.0); Monocyte# 0.46 X10^3/uL; Monocyte% 4.1 % (0-10); NRBC Flagged by Analyzer 0 % (0-5); Neutrophil # 10.41 X10^3/uL (2.7-7.7); Neutrophil % 91.9 % (47-70); POSITIVE DIFFERENTIAL YES; Platelet Count 323 K/mm3 (150-450); RBC Distribution Width CV 14.9 % (11.6-14.6); RBC Distribution Width SD 48.8 fl (35.1-43.9); Red Blood Count 5.54 M/mm3 (4.6-6.2); White Blood Count 11.3 K/mm3 (4.4-11.0)
--- NOTE | 2021-05-11 20:07 | EKG12_ITS ---
Test Reason : ABD PAIN Blood Pressure : / mmHG Vent. Rate : 152 BPM Atrial Rate : 131 BPM P-R Int : 000 ms QRS Dur : 112 ms QT Int : 298 ms P-R-T Axes : 000 061 056 degrees QTc Int : 473 ms Atrial fibrillation with rapid ventricular response with premature ventricular or aberrantly conducte d complexes Nonspecific ST abnormality Abnormal ECG Confirmed by YOLIS ROE, JOE ([id number]), editor magazine JONG SANTOS ([id number]) on 05/14/2021 11:11:28 A M Referred By: DONELL Confirmed By:MELLISSA LAGOS MD
--- NOTE | 2021-05-11 20:07 | EX.ED.DYSGE1 ---
HPI History of Present Illness Chief Complaint: Abd Pain Informant: patient Onset/Context/Timing Onset: Month(s) Context: Gradual Onset Timing: Continuous Quality: Abdominal discomfort bilaterally and prominent abdomen Location: Right and left side anterior to posterior axillary line Current Severity: Mild Maximum Severity: Moderate Worsened by: Bending and movement Relieved by: Nothing Associated Symptoms Associated Symptoms: Nausea Narrative Narrative: Patient is a 61-year-old male with multiple medical problems which include atrial fibrillation, non-ST elevation NM, coronary disease with placement of 1 stent, dyslipidemia, type 2 diabetes, hypertension and CVA. Per records he has a history of a cardiomyopathy. Patient denies any recent weight gain or weight loss. He denies headache. He denies visual, ocular auditory symptoms. No trouble with speech or swallowing. He denies chest discomfort. He does report dyspnea on exertion. He denies obstructive sleep apnea. He does endorse increased swelling of his legs. He was on aware that his legs were mottled. Prior similar symptoms: No Recent Illness/Hospitalization: No PFSH PFS Medical History Atrial fibrillation with rapid ventricular response Biatrial enlargement BPH (benign prostatic hyperplasia) Cardiomyopathy Carotid arterial disease Chronic anticoagulation Chronic knee pain Chronic low back pain Complicated UTI (urinary tract infection) Coronary artery disease CVA (cerebral vascular accident) Dyslipidemia Glucose intolerance Hypertensive urgency Low serum HDL Medical non-compliance Non-STEMI (non-ST elevated myocardial infarction) Obesity (BMI 30-39.9) Paroxysmal atrial fibrillation Sleep-disordered breathing Tobacco dependence Urinary incontinence Urine retention Home Medications omega 0-hgz-cfr-fish oil 500 mg PO DAILY 01/11/20 [History Last Taken 01/10/20] Warfarin Sodium [Coumadin] 7.5 mg PO SUSA 11/09/20 [History Last Taken Unknown] warfarin 5 mg PO MOTUWETHFR 11/09/20 [History Last Taken Unknown] furosemide 40 mg PO DAILY #30 tab 11/11/20 [Rx Last Taken Unknown] metformin 500 mg PO DAILY #30 tab.er.24h 11/11/20 [Rx Last Taken Unknown] metoprolol succinate 50 mg PO DAILY #30 tab 11/11/20 [Rx Last Taken Unknown] diltiazem HCl 180 mg capsule,24 hr,extended release 180 mg PO DAILY #30 cap 05/03/21 [Rx Last Taken Unknown] Allergy/AdvReac Type Severity Reaction Status Date / Time diphenhydramine Allergy PT UNSURE Verified 05/11/21 18:09 [From Benadryl] OF REACTION Family History Mother Cancer blood type of cancer, maybe leukemia? Father Hypertension Kidney disease Brother CAD (coronary artery disease) Surgical History Stented coronary artery (06/18/13) Social History (Updated 05/11/21 @ 20:[address] Joshua Negron MD) household members: none Smoking Status: Current every day smoker tobacco type: cigarettes alcohol intake: current alcohol intake frequency: other substance use type: does not use ROS ROS ED Constitutional Constitutional ED: Denies chills, fever(s), subjective, sweats or weight loss Eyes Eyes: Denies blurry vision, change in vision or diplopia ENT ENT ED: Denies ear pain, rhinorrhea or sore throat Cardiovascular Cardiovascular: Denies chest pain, orthopnea, palpitations or racing heartbeat Respiratory/Chest Respiratory/Chest: Reports dyspnea and dyspnea on exertion; Denies cough, orthopnea or sputum Gastrointestinal Gastrointestinal: Reports abdominal pain and nausea; Denies constipation, diarrhea, melena or vomiting Genitourinary Genitourinary ED: Denies dysuria, hematuria or urinary frequency Musculoskeletal Musculoskeletal: Denies arthralgias, back pain, myalgias or neck pain Integumentary Denies Abrasions or rash Neurologic Neurologic: Reports weakness; Denies headache(s) or paresthesias Endocrine Endocrinology: Denies polydipsia, polyphagia or polyuria Allergic/Immunologic Allergic/Immunologic ED: Denies urticaria EXAM Physical Exam Const Vital Signs: 05/11/21 18:09 05/11/21 20:47 05/11/21 21:05 Temperature 97.1 F L Temperature Source Temporal Pulse Rate 85 165 H 165 H Respiratory Rate 14 24 H 24 H Blood Pressure 147/102 H 152/120 H 144/86 H Blood Pressure Mean 117 130 105 Blood Pressure Source Monitor Pulse Ox 96 95 95 Oxygen Delivery Method Room Air Room Air Positive well nourished, well developed and obese General Appearance ED: well developed and other Patient appears ill. He is mottled. Uncertain whether he is jaundiced. His sclera appear muddy and not jaundiced. Nutritional Appearance: obese HEENT Reports TM's clear and moist mucous membranes HEENT Narrative: Nares patent. Ears normal. Posterior pharynx without erythema exudate no evidence of angioedema. Tympanic Membrane ED: Yes TM's clear Eyes PERRL and EOMs intact bilaterally General Eye ED: Negative for pale conjunctiva or scleral icterus Neck no lymphadenopathy, supple and no JVD Neck Narrative: Trachea is midline. There is no inspiratory stridor. Chest Wall inspection of chest normal Resp normal respiratory effort and clear to auscultation bilaterally Cardio regular rhythm, S1 normal heart sound, S2 normal heart sound and no murmurs Rate: tachycardic GI no masses Inspection: abdominal distention Auscultation: hypoactive bowel sounds Palpation: tender and guarding; Negative for rebound tenderness present Rectal Exam: other Other Details: Unable to turn the patient has splenomegaly because of his very prominent abdomen. He is very tamponaded. Back/Spine no CVA tenderness Thoracic Spine / Upper Back: Negative for thoracic spinal tenderness or paraspinal muscle tenderness Extremity Extremity Narrative: Legs are mottled with capillary refill of 3 to 4 seconds. General Extremety ED: Yes edema General Extremity: edema Neuro oriented x3 and CN's II-XII intact bilaterally Sensorium / Orientation: alert Motor Exam: strength 5/5 throughout Psych mental status grossly normal Skin no wounds MDM MDM MDM Narrative Medical decision making narrative: When patient was placed on the monitor he appears to be either in a flutter or possibly A. fib. Twelve-lead EKG was obtained. Because of his abdominal girth with distention tympana and mottling will obtain CT of the abdomen to evaluate for any acute intra-abdominal pathology. Patient had point tenderness in the proximity McBurney's point. Will obtain appropriate blood work. In light of the rapid heart rate we will add a troponin if not initially ordered. Patient was started on Cardizem drip and given bolus. His home meds includes diltiazem. CAT scan reveals an obstructing ureteral stone. Urology was consulted. Lab Data Attestation: I reviewed the patient's lab results. Lab results narrative: Blood work is remarkable for slight elevation of white count 11.3 with no bandemia. There is a shift with 92% neutrophils. Creatinine is elevated 1.75. Troponin is normal at 0.032. Glucose is elevated 128. Labs: Laboratory Results - last 24 hr 05/11/21 05/11/21 05/11/21 19:30 19:30 19:30 WBC 11.3 H RBC 5.54 Hgb 15.7 Hct 49.4 MCV 89.2 MCH 28.3 MCHC 31.8 L RDW Std Deviation 48.8 H RDW Coeff of Srinivas 14.9 H Plt Count 323 MPV 9.8 Immature Gran % (Auto) 0.400 Neut % (Auto) 91.9 H Lymph % (Auto) 2.5 L [place] % (Auto) 4.1 Eos % (Auto) 0.9 Baso % (Auto) 0.2 Absolute Neuts (auto) 10.4 H Absolute Lymphs (auto) 0.28 L Nucleated RBC % 0 Differential Comment SCANNED Sodium 139 Potassium 4.1 Chloride 105 Carbon Dioxide 26.0 Anion Gap 8 BUN 24 H Creatinine 1.74 H Estim Creat Clear Calc 42.04 Est GFR (MDRD) Af Amer 51 L Est GFR (MDRD) Non-Af 42 L BUN/Creatinine Ratio 13.8 Glucose 128 H Lactic Acid Calcium 9.0 Total Bilirubin 1.30 H AST 25 ALT 35 Alkaline Phosphatase 67 Troponin I 0.032 Total Protein 8.2 Albumin 3.3 Globulin 4.9 H Albumin/Globulin Ratio 0.7 L Lipase 42 L 05/11/21 19:55 WBC RBC Hgb Hct MCV MCH MCHC RDW Std Deviation RDW Coeff of Srinivas Plt Count MPV Immature Gran % (Auto) Neut % (Auto) Lymph % (Auto) [place] % (Auto) Eos % (Auto) Baso % (Auto) Absolute Neuts (auto) Absolute Lymphs (auto) Nucleated RBC % Differential Comment Sodium Potassium Chloride Carbon Dioxide Anion Gap BUN Creatinine Estim Creat Clear Calc Est GFR (MDRD) Af Amer Est GFR (MDRD) Non-Af BUN/Creatinine Ratio Glucose Lactic Acid 1.7 Calcium Total Bilirubin AST ALT Alkaline Phosphatase Troponin I Total Protein Albumin Globulin Albumin/Globulin Ratio Lipase Radiography Diagnostic Testing: Radiology Impression Abdomen/Pelvis CT 05/11/21 19:39 IMPRESSION: Mild nonspecific fecal retention in the colon. No evidence for small bowel obstruction. No acute abnormalities within the abdomen or pelvis Electronically Signed: Tim Leger MD at 21:23 EDT , Service support , CT reveals no significant abnormality. EKG Initial EKG: Attestation: I personally reviewed and interpreted this EKG as follows: Interpretation: Atrial Fibrillation (Ventricular rate is 152. Cures duration 112 ms. QT intervals 298 ms. [place] is normal. There is no ossific ST-T wave changes which may be rate dependent.) Critical Care Time Critical care time (excluding procedures): 30-74 minutes (33 minutes), Including time spent: (History, physical exam, documentation, interpretation of laboratory results, initiation of treatment for dysrhythmia, consultation with urology and hospitalist for admission), Discussing w/Patient &/or Family/Wireless Watcher, Discussing w/Consultants and Arranging Admission or Transfer Discharge Plan Dx/Rx/DC Orders Clinical Impression: Atrial fibrillation with rapid ventricular response, Anticoagulant long-term use, Acute on chronic renal insufficiency, Obesity (BMI 30-39.9) Disposition Disposition: Acute Care Hospital [facility]
[2021-05-11 20:10] LABS: Differential Indicated SCAN CRITERIA MET
[2021-05-11 20:31] LABS: ALB/GLOB Ratio 0.7 RATIO (0.9-2.4); AST(SGOT) 25 U/L (15-37); Alanine Aminotransfer ALT/SGPT 35 U/L (16-61); Albumin, Serum 3.3 g/dL (3.2-5.0); Alkaline Phosphatase 67 U/L (45-117); Anion Gap 8 (5-15); BUN 24 mg/dL (7-18); BUN/Creat Ratio 13.8 RATIO (10-20); Chloride 105 mmol/L (98-107); Creatinine, Serum 1.74 mg/dL (0.70-1.30); EST Glomerular Filtration Rate 42 mL/min (>60); Est Glom Filt Rate - Afr Amer 51 mL/min (>60); Estimated Creatinine Clearance 42.04 ml/min; Globulin 4.9 g/dL (2.2-4.2); Glucose 128 mg/dL (74-106); Lipase 42 U/L (73-393); Potassium 4.1 mmol/L (3.5-5.1); Protein, Total 8.2 g/dL (6.4-8.2); Sodium Level 139 mmol/L (136-145)
[2021-05-11 20:33] LABS: Lactic Acid 1.7 mmol/L (0.4-1.9)
[2021-05-11 20:36] LABS: Differential Comment SCANNED
[2021-05-11] MEDS: dilTIAZem 25 MG/5 ML Vial 20 MG IV BOLUS (21:05)
[2021-05-11] MEDS: HYDROmorphone 0.5 MG/0.5 ML SYRINGE IV (21:44)
[2021-05-11] MEDS: Ondansetron 4 MG/2 ML Vial IV (21:44)
[2021-05-11 21:58] LABS: International Normalized Ratio 2.1; Prothrombin Time (Protime)PT. 23.1 SECONDS (11.7-14.9)
--- NOTE | 2021-05-11 22:00 | HP.PCM.HOS_ITS ---
[facility] - General General Date of Admission: 05/11/21 HPI Narrative LIZZETTE FORD, is a 61 M with a significant history of cardiomyopathy; CVA and paroxysmal A. fib who presents to the emergency department with bilateral flank pain x1 months. He described the pain as sharp. The pain increases with movement and improves somewhat with rest. The pain radiates to his entire abdomen. He reports that on day of presentation the pain was so severe that he could not stand. Associated with symptoms is nausea and vomiting. He felt nauseous on the same day of presentation. He reported last time he vomited was at least a week ago. He reported because of the pain he has been drinking and smoking. He also with pain of pain at his coccyx. Reportedly he has seen pain management about 2 times. He feels that pain management does not care about his pain but rather his money. At the emergent department he was found to be in A. fib with RVR. Patient reports chronic shortness of breath. [facility] Medical History Atrial fibrillation with rapid ventricular response Biatrial enlargement BPH (benign prostatic hyperplasia) Cardiomyopathy Carotid arterial disease Chronic anticoagulation Chronic knee pain Chronic low back pain Complicated UTI (urinary tract infection) Coronary artery disease CVA (cerebral vascular accident) Dyslipidemia Glucose intolerance Hypertensive urgency Low serum HDL Medical non-compliance Non-STEMI (non-ST elevated myocardial infarction) Obesity (BMI 30-39.9) Paroxysmal atrial fibrillation Sleep-disordered breathing Tobacco dependence Urinary incontinence Urine retention Home Medications omega 7-qip-luc-fish oil 500 mg PO DAILY 01/11/20 [History Last Taken 01/10/20] Warfarin Sodium [Coumadin] 7.5 mg PO SUSA 11/09/20 [History Last Taken Unknown] warfarin 5 mg PO MOTUWETHFR 11/09/20 [History Last Taken Unknown] furosemide 40 mg PO DAILY #30 tab 11/11/20 [Rx Last Taken Unknown] metformin 500 mg PO DAILY #30 tab.er.24h 11/11/20 [Rx Last Taken Unknown] metoprolol succinate 50 mg PO DAILY #30 tab 11/11/20 [Rx Last Taken Unknown] diltiazem HCl 180 mg capsule,24 hr,extended release 180 mg PO DAILY #30 cap 05/03/21 [Rx Last Taken Unknown] Allergy/AdvReac Type Severity Reaction Status Date / Time diphenhydramine Allergy PT UNSURE Verified 05/11/21 18:09 [From Benadryl] OF REACTION Family History Mother Cancer blood type of cancer, maybe leukemia? Father Hypertension Kidney disease Brother CAD (coronary artery disease) Surgical History Stented coronary artery (06/18/13) Social History household members: none Smoking Status: Current every day smoker tobacco type: cigarettes alcohol intake: current alcohol intake frequency: other substance use type: does not use ROS ROS Narrative 12 point review of system is negative except as stated in HPI. Vital Signs Vital Signs Vital Signs: 05/11/21 18:09 05/11/21 20:47 05/11/21 21:05 Temperature 97.1 F L Temperature Source Temporal Pulse Rate 85 165 H 165 H Respiratory Rate 14 24 H 24 H Blood Pressure 147/102 H 152/120 H 144/86 H Blood Pressure Mean 117 130 105 Blood Pressure Source Monitor Pulse Ox 96 95 95 Oxygen Delivery Method Room Air Room Air Weight Weight: 136.078 kg Body Mass Index (BMI) 45.6 Physical Exam Narrative Physical exam: General: Well-nourished, well-developed, no acute distress Head: Normocephalic, atraumatic, no tenderness Eyes: PERRLA, EOMI ENT, no trauma, moist mucous membranes, no rhinorrhea Neck: Nontender, full range of motion, no spinal tenderness, deformities, step- off CVS: Tachycardia. Irregularly irregular rate and rhythm. Respiratory no acute distress, clear to auscultation bilaterally, chest wall nontender, no wheezing Abdomen: Soft, nontender, nondistended, normal bowel sounds, no masses : Deferred Back: Nontender, no CVA tenderness, no midline spinal tenderness, deformities, step-offs Extremities: Nontender full range of motion, no trauma Skin: Normal color, no trauma, abrasions Neuro: Alert, oriented, cranial nerves II through XII grossly intact. Results Lab / Micro Data Result Diagrams: 05/11/21 19:30 05/11/21 19:30 Labs: Laboratory Results - last 24 hr 05/11/21 05/11/21 05/11/21 19:30 19:30 19:30 WBC 11.3 H RBC 5.54 Hgb 15.7 Hct 49.4 MCV 89.2 MCH 28.3 MCHC 31.8 L RDW Std Deviation 48.8 H RDW Coeff of Srinivas 14.9 H Plt Count 323 MPV 9.8 Immature Gran % (Auto) 0.400 Neut % (Auto) 91.9 H Lymph % (Auto) 2.5 L [place] % (Auto) 4.1 Eos % (Auto) 0.9 Baso % (Auto) 0.2 Absolute Neuts (auto) 10.4 H Absolute Lymphs (auto) 0.28 L Nucleated RBC % 0 Differential Comment SCANNED PT INR Sodium 139 Potassium 4.1 Chloride 105 Carbon Dioxide 26.0 Anion Gap 8 BUN 24 H Creatinine 1.74 H Estim Creat Clear Calc 42.04 Est GFR (MDRD) Af Amer 51 L Est GFR (MDRD) Non-Af 42 L BUN/Creatinine Ratio 13.8 Glucose 128 H Lactic Acid Calcium 9.0 Total Bilirubin 1.30 H AST 25 ALT 35 Alkaline Phosphatase 67 Troponin I 0.032 Total Protein 8.2 Albumin 3.3 Globulin 4.9 H Albumin/Globulin Ratio 0.7 L Lipase 42 L 05/11/21 05/11/21 19:55 21:35 WBC RBC Hgb Hct MCV MCH MCHC RDW Std Deviation RDW Coeff of Srinivas Plt Count MPV Immature Gran % (Auto) Neut % (Auto) Lymph % (Auto) [place] % (Auto) Eos % (Auto) Baso % (Auto) Absolute Neuts (auto) Absolute Lymphs (auto) Nucleated RBC % Differential Comment PT 23.1 H INR 2.1 Sodium Potassium Chloride Carbon Dioxide Anion Gap BUN Creatinine Estim Creat Clear Calc Est GFR (MDRD) Af Amer Est GFR (MDRD) Non-Af BUN/Creatinine Ratio Glucose Lactic Acid 1.7 Calcium Total Bilirubin AST ALT Alkaline Phosphatase Troponin I Total Protein Albumin Globulin Albumin/Globulin Ratio Lipase Radiology Impression Abdomen/Pelvis CT 05/11/21 19:39 IMPRESSION: Mild nonspecific fecal retention in the colon. No evidence for small bowel obstruction. No acute abnormalities within the abdomen or pelvis Electronically Signed: Tim Leger MD at 21:23 EDT , Service support , Assessment & Plan Assessment/Plan (1) Atrial fibrillation with rapid ventricular response: (2) Flank pain: (3) Pain, coccyx: PLAN: A. fib with RVR Impression of chest x-ray by radiology: Moderate cardiomegaly. Actual chest x- ray image was independently interpreted. I agree with radiologist interpretation. Patient admit that on the day of presentation he had not taken any of his home medications which includes p.o. Cardizem and p.o. metoprolol. At the emergency department his ventricular rate was more than 140s. Received a Cardizem bolus x2 and Cardizem drip. We will continue Cardizem drip. Metoprolol 50 mg p.o. x1 now ordered and then metoprolol 50 mg daily ordered. Hold home Cardizem p.o. for now since patient received IV Cardizem bolus and is on Cardizem drip. Old records were reviewed. Echocardiogram on 01/12/2020: Moderately dilated left ventricle. Estimated ejection fraction 45 to 50%. Obtain echo INR 2.1. Home Coumadin continued. Trend PT/INR. Emergency department labs reviewed showed potassium of 4.1. Magnesium level and TSH ordered. Trend BMP. Flank pain/ coccygeal pain Received Dilaudid at the emergency department. Oxycodone as needed ordered. By protocol and antiemetics in place. Constipation Impression of abdomen/pelvis CT: Mild nonspecific fecal retention the colon. No evidence of small bowel obstruction. No acute abnormalities within the abdomen or pelvis. Senokot-S ordered. DIANN Review of Emergency Department labs showed a creatinine of 1.74. His creatinine in 2019 in our Hospital system was anywhere from 1.03-1.81. Will estimate baseline creatinine to be around 1.20. BUN is 24. BUN over creatinine is 13.8. Avoid nephrotoxins. Hold home Lasix. Because of history of dilated cardiomyopathy will avoid IV fluids at this time. We will trend BMP and will get an echocardiogram. Diabetes mellitus Patient with hyperglycemia on presentation Home Metformin held. Accu-Chek QA CHS with correction scale insulin ordered. Morbid obesity BMI: 45.6 KG/meter square. Complicates care. Lifestyle modification recommended. History of dilated cardiomyopathy Echocardiogram as above. Tobacco abuse Counseled Nicotine patch ordered. Alcoholism Drink 4-5 beers a day. We will put on CIWA protocol with as needed Ativan. Thiamine; multivitamins and folic acid ordered. DVT prophylaxis: INR therapeutic on Coumadin. Coumadin continued. Charges/Coding Visit Charges Inpatient E&M: 27881 Init Hosp L3
[2021-05-11 22:11] LABS: Bacteria 0 SEEN /hpf (None Seen); Mucous, Urine 0 SEEN /hpf (<or=2+); Red Blood Cells-Urine 0 SEEN /hpf (0-5); Squamous Epithelial Cells - UA 0 SEEN /hpf (0-5); White Blood Cells 0 SEEN /hpf (0-5)
[2021-05-11 22:12] LABS: Color, Urine Yellow (Yellow); Glucose, Dipstick Normal (Normal); Ketone-Dipstick Negative (Negative); Leukocyte Esterase-Dipstick Negative /ul (Negative); Nitrite-Dipstick Negative (Negative); Occult Blood-Urine 10 /ul (Negative); Protein-Dipstick 100 mg/dl (Negative); Urine Bilirubin Dipstick Negative (Negative); Urine Clarity Clear (Clear); Urine Urobilinogen Normal (Normal)
[2021-05-11] MEDS: dilTIAZem 25 MG/5 ML Vial IV BOLUS (22:16)
[2021-05-11 22:17] LABS: Magnesium 2.1 mg/dL (1.6-2.6)
--- NOTE | 2021-05-11 22:51 | ECHOCS_ITS ---
Version 2 Reason For Study: AFIB Procedure This was a 2D Doppler, Color Flow transthoracic echocardiogram. The study was technically difficult. Contrast injection was performed. Exam performed portable in patient room. Left Ventricle Normal LV size. The estimated ejection fraction is 45-50 %. Unable to assess diastolic dysfunction. hypokinesis of the lateral wall and septum. Right Ventricle Normal RV size. Normal systolic function. Atria The left atrium is moderately enlarged. The right atrium is moderately enlarged. No doppler evidence for ASD. Mitral Valve There is no mitral valve stenosis. Mild (1+) mitral valve insufficiency. Tricuspid Valve There is no tricuspid stenosis. Trivial tricuspid valve insufficiency. Unable to estimate RV systolic pressure due to insufficient tricuspid regurgitant envelope. Aortic Valve The aortic valve is not well visualized. There is no aortic stenosis. No aortic valve insufficiency. Pulmonic Valve There is no pulmonic valvular stenosis. No pulmonic valve insufficiency. Great Vessels Normal aortic root. Pericardium/Pleural No pericardial effusion. Medication Diluted definity 4ml given slow IV push to enhance endocardial definition. MMode/2D Measurements & Calculations LVIDd: 5.3 cm IVSd: 1.0 cm Ao root diam: 3.8 cm LVIDs: 5.0 cm LVPWd: 1.1 cm RVDd: 4.2 cm FS: 6.5 % LAV(MOD-bp): 90.9 ml LVAd ap4: 39.1 cm2 LVAd ap2: 43.6 cm2 LAV(MOD-bp) Indexed: 37.8 ml/m2 LVLd ap4: 9.7 cm LVLd ap2: 9.7 cm LAV(MOD-sp2): 82.9 ml EDV(MOD-sp4): 130.8 ml EDV(MOD-sp2): 161.7 ml LAV(MOD-sp4): 102.0 ml EDV(sp4-el): 134.1 ml EDV(sp2-el): 166.3 ml LVAs ap4: 35.0 cm2 LVAs ap2: 30.1 cm2 LVLs ap4: 9.0 cm LVLs ap2: 7.9 cm ESV(MOD-sp4): 114.7 ml ESV(MOD-sp2): 95.1 ml ESV(sp4-el): 115.0 ml ESV(sp2-el): 97.4 ml EF(MOD-sp4): 12.3 % EF(MOD-sp2): 41.2 % EF(sp4-el): 14.3 % SV(MOD-sp4): 16.1 ml SV(MOD-sp2): 66.6 ml SV(sp4-el): 19.1 ml LA A4 area: 29.5 cm2 LA dimension(2D): 4.7 cm RA A4 area: 34.6 cm2 Time Measurements MV dec time: 0.12 sec Doppler Measurements & Calculations MV E max sherif: 120.0 cm/sec Ao V2 max: 137.6 cm/sec LV V1 max: 76.9 cm/sec Ao max P.7 mmHg LV V1 max P.4 mmHg PA V2 max: 67.2 cm/sec ECHO/Echo Complete W/ Contrast Interpretation Summary The estimated ejection fraction is 45-50 %. Unable to assess diastolic dysfunction. Mild (1+) mitral valve insufficiency. The left atrium is moderately enlarged. The right atrium is moderately enlarged. Ordering Physician: Prince Chambers Performed By: Rhonda Bazan, ANOOPCS, RVT
[2021-05-11] MEDS: Metoprolol Tartrate 25 MG Tablet 50 MG PO (23:57)
[2021-05-11] MEDS: Senna/Docusate Sodium 1 Tablet 2 TABLET PO (23:58)
[2021-05-12] VITALS (30 sets, daily range): BP systolic 103–148; BP diastolic 75–108; PULSE 83–111; RESP 16–27; TEMP 36.2–37.1; O2SAT 89–98
[2021-05-12 06:26] LABS: Bedside Glucose 139 mg/dL (70-110)
[2021-05-12 07:47] LABS: Absolute Lymphocyte Count 0.55 X10^3/uL (0.83-4.51); Absolute Neutrophil Count 6.2 X10^3/uL (2.0-7.7); Basophil# 0.02 X10^3/uL; Basophil% 0.3 % (0-1); Eosinophil# 0.19 X10^3/uL; Eosinophils% 2.5 % (0-5); Hematocrit 44.2 % (40-54); Hemoglobin 13.8 g/dL (13.0-16.5); Lymphocyte # 0.55 X10^3/ul (0.83-4.51); Lymphocyte % 7.4 % (19-41); Mean Corp Hgb Conc 31.2 g/dL (32-36); Mean Corpuscular Hgb 28.6 pg (27.0-32.0); Mean Corpuscular Volume 91.5 fL (80-94); Mean Platelet Vol. 9.7 fl (6.2-12.0); Monocyte# 0.46 X10^3/uL; Monocyte% 6.2 % (0-10); NRBC Flagged by Analyzer 0 % (0-5); Neutrophil # 6.23 X10^3/uL (2.7-7.7); Neutrophil % 83.3 % (47-70); POSITIVE DIFFERENTIAL YES; Platelet Count 280 K/mm3 (150-450); RBC Distribution Width CV 15.3 % (11.6-14.6); Red Blood Count 4.83 M/mm3 (4.6-6.2); White Blood Count 7.5 K/mm3 (4.4-11.0)
[2021-05-12 07:48] LABS: Differential Indicated SCAN CRITERIA MET
[2021-05-12 08:07] LABS: Prothrombin Time (Protime)PT. 21.5 SECONDS (11.7-14.9)
[2021-05-12] MEDS: Multivitamins,Ther W-Minerals Tablet 1 TABLET PO (08:14)
[2021-05-12] MEDS: Folic Acid 1 MG Tablet PO (08:14)
[2021-05-12] MEDS: Senna/Docusate Sodium 1 Tablet 2 TABLET PO (08:15)
[2021-05-12] MEDS: Thiamine Hydrochloride 100 MG Tablet PO (08:15)
[2021-05-12 08:18] LABS: Anion Gap 4 (5-15); BUN 29 mg/dL (7-18); BUN/Creat Ratio 14.6 RATIO (10-20); Calcium,Total 8.6 mg/dL (8.5-10.1); Chloride 104 mmol/L (98-107); Creatinine, Serum 1.98 mg/dL (0.70-1.30); EST Glomerular Filtration Rate 36 mL/min (>60); Est Glom Filt Rate - Afr Amer 44 mL/min (>60); Estimated Creatinine Clearance 36.94 ml/min; Glucose 129 mg/dL (74-106); Potassium 4.2 mmol/L (3.5-5.1); Sodium Level 138 mmol/L (136-145); Thyroid Stim Hormone (TSH) 1.89 uIU/mL (0.358-3.74)
[2021-05-12 08:32] LABS: Differential Comment SCANNED
[2021-05-12] MEDS: Metoprolol(XL)Succ 50 MG Tablet PO (10:02)
[2021-05-12] MEDS: dilTIAZem CD 180 MG Capsule PO (10:02)
--- NOTE | 2021-05-12 10:15 | CASEMGMT ---
RN [employer] ATTENDANT CM to room to meet with patient for initial transition planning/care coordination assessment. RN SARA introduced self and role at [facility].? Pt voices understanding and consents to assessment at this time.? Pt resting in bed in no distress at this time.? Pt is A/O at this time and answers all questions appropriately.?? Care providers, pharmacy, and demographics verified/updated at this time. PCP: Dr Kendrick--pt states would like to switch PCP's. Provided w/list of local PCP's. Specialists: Jay Haynes NP--cardiology, Dr Zuñiga--pain mgmt. Preferred Pharmacy: [facility] Insurance: [facility] Prescription Benefit:? None. Pt states he has been able to pay for his prescriptions lately w/out difficulty Living Will/HPOA:? Pt states has not completed. Denies need for AD information. LNOK: Has 2 sons and a daughter. Son, Peewee, is listed on demographics. Living Arrangements: Lives alone in apt w/elevator access. Independent Transportation: Pt states drives self and states no transportation concerns at this time.? DME: ?States has the following DME:? cane, hospital bed, rollator, Walker x 2, w/c x 2, electric w/c, RTS, tub bench, grab bars. ?Pt states no need for further DME at this time.? SNF/ HHC: Has been to [facility] and [facility] in the past. No history of HHC and denies need for HHC or OP therapy. Pt wishes to return home. Pt states he smokes couple cigarettes a day and germain been drinking ETOH more lately d/t back and abdominal pain, stating he sometimes will drink up to 4-5 bottles ETOH/day, with last drink being 3 day ago. Pt states he has no concerns w/going home @ discharge, but states, I just hope they figure out what's wrong w/my belly. GAS WELDER APPRENTICE, Kaye, made aware of pt voices concerns w/abdominal pain and w/ETOH use for back and abd pain. She states she will talk w/pt re: abdominal pain and recommends pt f/u with GI MD. CM to follow for any further discharge planning/needs.? Pt voices no further concerns/needs at this time.? Advised pt to ask for CM if any further questions/concerns/needs arise.? Voices understanding. PLAN: ?Home w/discharge plans in place. Eloy GARCIA RN CM
[2021-05-12] MEDS: 0.9% Saline Lock 10 ML Syringe IV (12:02)
--- NOTE | 2021-05-12 12:23 | PCM.DC ---
Discharge Instructions Diet Discharge Diet: Low fat / Low cholesterol and Carb Control Diet Activity Discharge Activity: Return to Normal Activity Weight Bearing Status: Full weight bearing Dressing / Incision Call your doctor if you observe: Shortness of breath, Dizziness, Swelling in the ankles, Chest pain and Increased palpitations (irregular heartbeat) Follow Up Care Test Results: Test results from this visit will be discussed in further detail at your follow-up appointment, if applicable. Discharge Plan Admission Admit Date/Time: 05/11/21 21:59 Primary Reason for Your Visit: Afib with RVR Attending Provider: Nic Cabrera Primary Care Provider: Radha Kendrick Instructions Patient Instructions: What Is Atrial Flutter/Atrial Fibrillation?, Hyperglycemia (High Blood Sugar), Atrial Fibrillation Discharge Orders/Prescriptions Prescriptions: New diltiazem HCl 180 mg Capsule,Extended Release 24hr 180 mg PO DAILY Qty: 30 RF: 0 Continued diltiazem HCl 180 mg capsule,extended release 24 hr 180 mg PO DAILY Qty: 30 RF: 11 omega 1-jik-nyn-fish oil 1 EACH capsule 500 mg PO DAILY RF: 0 warfarin 5 MG tablet 5 mg PO MOTUWETHFR RF: 0 Warfarin Sodium [Coumadin] 5 MG tablet 7.5 mg PO SUSA RF: 0 metoprolol succinate 50 MG tablet 50 mg PO DAILY Qty: 30 RF: 0 Held furosemide 40 MG tablet 40 mg PO DAILY Qty: 30 RF: 0 Hold Instructions: Resume on 05/15/21. metformin 500 MG tablet extended release 24 hr 500 mg PO DAILY Qty: 30 RF: 0 Hold Instructions: Resume on 05/14/21. Due to administration of iv dye Other Ambulatory Orders: Basic Metabolic Profile (BMP) (Routine) Timeframe: 3 Days Facility: [facility] - Location: Laboratory Ordered By: Danielle Gunn Referrals / Follow Up: Radha Kendrick MD [Primary Care Provider] - Within 1 Week Sawyer Shine MD [NON-STAFF] - Within 2 Weeks (for abdominal pain, CT negative) Care Physician,No Primary [NON-STAFF] - Disposition Disposition (needs filled in before D/C Order can be placed): Home, self care
--- NOTE | 2021-05-12 12:33 | PCM.DC.SUM ---
Documented by User: HERSON Suarez 05/12/21 13:15 Providers Date of Admission: 05/11/21 Primary Care Physician: Dr. Radha Kendrick MD Reason For Visit: AFIB WITH RVR, DIANN Diagnosis Discharge Diagnosis (1) Atrial fibrillation with rapid ventricular response: Status: Acute Code(s): I48.91 - Unspecified atrial fibrillation (2) Flank pain: Status: Acute Code(s): R10.9 - Unspecified abdominal pain (3) Pain, coccyx: Status: Acute Code(s): M53.3 - Sacrococcygeal disorders, not elsewhere classified Medications at Discharge Home Medications omega 3-oim-dpp-fish oil 500 mg PO DAILY 01/11/20 Warfarin Sodium [Coumadin] 7.5 mg PO SUSA 11/09/20 warfarin 5 mg PO MOTUWETHFR 11/09/20 furosemide 40 mg PO DAILY #30 tab 11/11/20 metformin 500 mg PO DAILY #30 tab.er.24h 11/11/20 metoprolol succinate 50 mg PO DAILY #30 tab 11/11/20 diltiazem HCl 180 mg capsule,24 hr,extended release 180 mg PO DAILY #30 cap 05/03/21 diltiazem HCl 180 mg PO DAILY #30 cap 05/12/21 Hospital Course Operations None Procedures 2-D Echocardiogram, EKG and - (Abdominal CT negative for acute findings) Summary of Care Provided Minutes Spent on Discharge: 35 Hospital Course: 1. A. fib with rapid ventricular rate -Currently rate controlled with Cardizem and metoprolol. Patient was on Cardizem drip and transitioned to p.o. earlier today. Upon presentation patient had stated that he had not taken his home medications which include Cardizem p.o. and metoprolol. -Continue home Coumadin regimen -Echo complete, EF 45 to 50% 2. Acute kidney injury -Worsened today likely due to administration of contrast dye for CT -We will hold Metformin for 48 hours following CAT scan -We will hold Lasix as well for 48 hours due to DIANN, BMP scheduled for 3 days. 3. Diabetes mellitus type 2 -Hold Metformin for [address] scan. May restart morning of 05/14/2021 DVT prophylaxis-anticoagulated with warfarin This patient was seen by HERSON Suarez under the supervision of Dr. Cabrera. Physical Exam Const alert, oriented x3 and no apparent distress General Appearance: cooperative and comfortable Eyes conjunctivae normal and no scleral icterus Neck full ROM, no lymphadenopathy, supple and no JVD General: trachea midline Resp normal respiratory effort, normal air movement and clear to auscultation bilaterally Cardio regular rate, S1 normal heart sound and S2 normal heart sound Rhythm: abnormal rhythm irregularly irregular (Chronic A. fib) Peripheral Pulses: pulses 2+ throughout GI normal to inspection, nondistended, normoactive bowel sounds, soft to palpation and non-tender Extremity normal to inspection, full ROM, normal capillary refill and no clubbing, cyanosis or edema Skin no rashes or lesions noted and no wounds Neuro oriented x3, moves all extremities and no focal motor deficits Psych mental status grossly normal, thought process normal, cooperative, affect normal and speech normal Weight / BMI Weight Weight: 293 lb 3.437 oz Body Mass Index (BMI) 44.6 ABG / Lab / Microbiology Data Result Diagrams: 05/12/21 06:59 05/12/21 06:59 Laboratory: Laboratory Results - last 24 hr 05/11/21 05/11/21 05/11/21 19:30 19:30 19:30 WBC 11.3 H RBC 5.54 Hgb 15.7 Hct 49.4 MCV 89.2 MCH 28.3 MCHC 31.8 L RDW Std Deviation 48.8 H RDW Coeff of Srinivas 14.9 H Plt Count 323 MPV 9.8 Immature Gran % (Auto) 0.400 Neut % (Auto) 91.9 H Lymph % (Auto) 2.5 L [place] % (Auto) 4.1 Eos % (Auto) 0.9 Baso % (Auto) 0.2 Absolute Neuts (auto) 10.4 H Absolute Lymphs (auto) 0.28 L Nucleated RBC % 0 Differential Comment SCANNED PT INR Sodium 139 Potassium 4.1 Chloride 105 Carbon Dioxide 26.0 Anion Gap 8 BUN 24 H Creatinine 1.74 H Estim Creat Clear Calc 42.04 Est GFR (MDRD) Af Amer 51 L Est GFR (MDRD) Non-Af 42 L BUN/Creatinine Ratio 13.8 Glucose 128 H Lactic Acid Calcium 9.0 Magnesium Total Bilirubin 1.30 H AST 25 ALT 35 Alkaline Phosphatase 67 Troponin I 0.032 Total Protein 8.2 Albumin 3.3 Globulin 4.9 H Albumin/Globulin Ratio 0.7 L Lipase 42 L TSH Urine Color Urine Clarity Urine pH Ur Specific [place] Urine Protein Urine Glucose (UA) Urine Ketones Urine Occult Blood Urine Nitrite Urine Bilirubin Urine Urobilinogen Ur Leukocyte Esterase Urine RBC Urine WBC Ur Squamous Epith Cells Urine Bacteria Urine Mucus POC Glucose 05/11/21 05/11/21 05/11/21 19:30 19:55 21:35 WBC RBC Hgb Hct MCV MCH MCHC RDW Std Deviation RDW Coeff of Srinivas Plt Count MPV Immature Gran % (Auto) Neut % (Auto) Lymph % (Auto) [place] % (Auto) Eos % (Auto) Baso % (Auto) Absolute Neuts (auto) Absolute Lymphs (auto) Nucleated RBC % Differential Comment PT 23.1 H INR 2.1 Sodium Potassium Chloride Carbon Dioxide Anion Gap BUN Creatinine Estim Creat Clear Calc Est GFR (MDRD) Af Amer Est GFR (MDRD) Non-Af BUN/Creatinine Ratio Glucose Lactic Acid 1.7 Calcium Magnesium 2.1 Total Bilirubin AST ALT Alkaline Phosphatase Troponin I Total Protein Albumin Globulin Albumin/Globulin Ratio Lipase TSH Urine Color Urine Clarity Urine pH Ur Specific [place] Urine Protein Urine Glucose (UA) Urine Ketones Urine Occult Blood Urine Nitrite Urine Bilirubin Urine Urobilinogen Ur Leukocyte Esterase Urine RBC Urine WBC Ur Squamous Epith Cells Urine Bacteria Urine Mucus POC Glucose 05/11/21 05/12/21 05/12/21 22:05 06:13 06:59 WBC RBC Hgb Hct MCV MCH MCHC RDW Std Deviation RDW Coeff of Srinivas Plt Count MPV Immature Gran % (Auto) Neut % (Auto) Lymph % (Auto) [place] % (Auto) Eos % (Auto) Baso % (Auto) Absolute Neuts (auto) Absolute Lymphs (auto) Nucleated RBC % Differential Comment PT 21.5 H INR 2.0 Sodium Potassium Chloride Carbon Dioxide Anion Gap BUN Creatinine Estim Creat Clear Calc Est GFR (MDRD) Af Amer Est GFR (MDRD) Non-Af BUN/Creatinine Ratio Glucose Lactic Acid Calcium Magnesium Total Bilirubin AST ALT Alkaline Phosphatase Troponin I Total Protein Albumin Globulin Albumin/Globulin Ratio Lipase TSH Urine Color Yellow Urine Clarity Clear Urine pH 7.0 Ur Specific [place] 1.010 Urine Protein 100 H Urine Glucose (UA) Normal Urine Ketones Negative Urine Occult Blood 10 H Urine Nitrite Negative Urine Bilirubin Negative Urine Urobilinogen Normal Ur Leukocyte Esterase Negative Urine RBC 0 SEEN Urine WBC 0 SEEN Ur Squamous Epith Cells 0 SEEN Urine Bacteria 0 SEEN Urine Mucus 0 SEEN POC Glucose 139 H 05/12/21 05/12/21 06:59 06:59 WBC 7.5 RBC 4.83 Hgb 13.8 Hct 44.2 MCV 91.5 MCH 28.6 MCHC 31.2 L RDW Std Deviation 51.0 H RDW Coeff of Srinivas 15.3 H Plt Count 280 MPV 9.7 Immature Gran % (Auto) 0.300 Neut % (Auto) 83.3 H Lymph % (Auto) 7.4 L [place] % (Auto) 6.2 Eos % (Auto) 2.5 Baso % (Auto) 0.3 Absolute Neuts (auto) 6.2 Absolute Lymphs (auto) 0.55 L Nucleated RBC % 0 Differential Comment SCANNED PT INR Sodium 138 Potassium 4.2 Chloride 104 Carbon Dioxide 30.0 Anion Gap 4 L BUN 29 H Creatinine 1.98 H Estim Creat Clear Calc 36.94 Est GFR (MDRD) Af Amer 44 L Est GFR (MDRD) Non-Af 36 L BUN/Creatinine Ratio 14.6 Glucose 129 H Lactic Acid Calcium 8.6 Magnesium Total Bilirubin AST ALT Alkaline Phosphatase Troponin I Total Protein Albumin Globulin Albumin/Globulin Ratio Lipase TSH 1.89 Urine Color Urine Clarity Urine pH Ur Specific [place] Urine Protein Urine Glucose (UA) Urine Ketones Urine Occult Blood Urine Nitrite Urine Bilirubin Urine Urobilinogen Ur Leukocyte Esterase Urine RBC Urine WBC Ur Squamous Epith Cells Urine Bacteria Urine Mucus POC Glucose Radiography Diagnostic Testing: Radiology Impression Abdomen/Pelvis CT 05/11/21 19:39 IMPRESSION: Mild nonspecific fecal retention in the colon. No evidence for small bowel obstruction. No acute abnormalities within the abdomen or pelvis Electronically Signed: Tim Leger MD at 21:23 EDT , Service support , D/C Instructions Discharge Diet: Low fat / Low cholesterol and Carb Control Diet Weight Bearing Status: Full weight bearing Call your doctor if you observe: Shortness of breath, Dizziness, Swelling in the ankles, Chest pain and Increased palpitations (irregular heartbeat) Meaningful Use Info Meaningful Use Diagnoses (Choose all that apply): None applicable Discharge Plan Admission Admit Date/Time: 05/11/21 21:59 Primary Reason for Your Visit: Afib with RVR Attending Provider: Nic Cabrera Primary Care Provider: Radha Kendrick Instructions Patient Instructions: What Is Atrial Flutter/Atrial Fibrillation?, Hyperglycemia (High Blood Sugar), Atrial Fibrillation Additional Instructions / Restrictions: Patient Problems: Altered Health Status related to Hospitalization Patient Goals: *Optimal Level of Health *Keep Appointments *Medication Compliance *Remain Safe Discharge Orders/Prescriptions Prescriptions: New diltiazem HCl 180 mg Capsule,Extended Release 24hr 180 mg PO DAILY Qty: 30 RF: 0 Continued diltiazem HCl 180 mg capsule,extended release 24 hr 180 mg PO DAILY Qty: 30 RF: 11 omega 9-oif-ewz-fish oil 1 EACH capsule 500 mg PO DAILY RF: 0 warfarin 5 MG tablet 5 mg PO MOTUWETHFR RF: 0 Warfarin Sodium [Coumadin] 5 MG tablet 7.5 mg PO SUSA RF: 0 metoprolol succinate 50 MG tablet 50 mg PO DAILY Qty: 30 RF: 0 Held furosemide 40 MG tablet 40 mg PO DAILY Qty: 30 RF: 0 Hold Instructions: Resume on 05/15/21. metformin 500 MG tablet extended release 24 hr 500 mg PO DAILY Qty: 30 RF: 0 Hold Instructions: Resume on 05/14/21. Due to administration of iv dye Other Ambulatory Orders: Basic Metabolic Profile (BMP) (Routine) Timeframe: 3 Days Facility: [facility] - Location: Laboratory Ordered By: Danielle Gunn Referrals / Follow Up: Radha Kendrick MD [Primary Care Provider] - Within 1 Week (Please call to schedule follow up appointment) Sawyer Shine MD [NON-STAFF] - Within 2 Weeks (for abdominal pain, CT negative Please call to schedule follow up appointment) Care Physician,No Primary [NON-STAFF] - (Please call to schedule follow up appointment) Disposition Disposition (needs filled in before D/C Order can be placed): Home, self care Documented by User: Dr. Nic Cabrera MD 05/12/21 14:27 Providers Date of Admission: 05/11/21 Reason For Visit: AFIB WITH RVR, DIANN Medications at Discharge Home Medications omega 0-hbl-unj-fish oil 500 mg PO DAILY 01/11/20 Warfarin Sodium [Coumadin] 7.5 mg PO SUSA 11/09/20 warfarin 5 mg PO MOTUWETHFR 11/09/20 furosemide 40 mg PO DAILY #30 tab 11/11/20 metformin 500 mg PO DAILY #30 tab.er.24h 11/11/20 metoprolol succinate 50 mg PO DAILY #30 tab 11/11/20 diltiazem HCl 180 mg capsule,24 hr,extended release 180 mg PO DAILY #30 cap 05/03/21 diltiazem HCl 180 mg PO DAILY #30 cap 05/12/21 Hospital Course Operations None Summary of Care Provided Hospital Course: This patient was seen in conjunction withDanielle Gunn NP-C. I have independently interviewed and examined the patient and reviewed pertinent historical, laboratory, and other data. Please refer Paola Gunn NP-C's note for details of this patient's presentation, findings, and recommendations. I have reviewed Danielle Gunn NP-C's note and concur with documented findings. In brief, patient is a 61-year-old gentleman admitted with abdominal discomfort. CT of the abdomen obtained was unremarkable. Patient was also found to be in A. fib with RVR admitted to monitored bed for subsequent management Hospital course; as documented above ABG / Lab / Microbiology Data Result Diagrams: 05/12/21 06:59 05/12/21 06:59 Discharge Plan Admission Admit Date/Time: 05/11/21 21:59 Primary Reason for Your Visit: Afib with RVR Attending Provider: Nic Cabrera Primary Care Provider: Radha Kendrick Instructions Patient Instructions: What Is Atrial Flutter/Atrial Fibrillation?, Hyperglycemia (High Blood Sugar), Atrial Fibrillation Additional Instructions / Restrictions: Patient Problems: Altered Health Status related to Hospitalization Patient Goals: *Optimal Level of Health *Keep Appointments *Medication Compliance *Remain Safe Discharge Orders/Prescriptions Prescriptions: New diltiazem HCl 180 mg Capsule,Extended Release 24hr 180 mg PO DAILY Qty: 30 RF: 0 Continued diltiazem HCl 180 mg capsule,extended release 24 hr 180 mg PO DAILY Qty: 30 RF: 11 omega 4-dok-eet-fish oil 1 EACH capsule 500 mg PO DAILY RF: 0 warfarin 5 MG tablet 5 mg PO MOTUWETHFR RF: 0 Warfarin Sodium [Coumadin] 5 MG tablet 7.5 mg PO SUSA RF: 0 metoprolol succinate 50 MG tablet 50 mg PO DAILY Qty: 30 RF: 0 Held furosemide 40 MG tablet 40 mg PO DAILY Qty: 30 RF: 0 Hold Instructions: Resume on 05/15/21. metformin 500 MG tablet extended release 24 hr 500 mg PO DAILY Qty: 30 RF: 0 Hold Instructions: Resume on 05/14/21. Due to administration of iv dye Other Ambulatory Orders: Basic Metabolic Profile (BMP) (Routine) Timeframe: 3 Days Facility: [facility] - Location: Laboratory Ordered By: Danielle Gunn Referrals / Follow Up: Radha Kendrick MD [Primary Care Provider] - Within 1 Week (Please call to schedule follow up appointment) Sawyer Shine MD [NON-STAFF] - Within 2 Weeks (for abdominal pain, CT negative Please call to schedule follow up appointment) Care Physician,No Primary [NON-STAFF] - (Please call to schedule follow up appointment) Disposition Disposition (needs filled in before D/C Order can be placed): Home, self care Charges/Coding Visit Charges OBSV E&M: 37042 Observation care discharge Hospital Course Operations None
[2021-05-12 12:41] LABS: Bedside Glucose 121 mg/dL (70-110)
--- NOTE | 2021-05-12 14:32 | NURSING ---
Discharge instructions reviewed with patient. Patient voices understanding of same.
== END 2021-05-12 17:59 | disposition home or self-care (01) | DRG 309 ==
LOC: ED 21:40 → PCU 22:27
PROVIDERS: Admitting Provider Hospitalist; Emergency Provider Emergency Medicine; PCP Family Medicine; Visit Provider Internal Medicine
DX: I48.0 Paroxysmal atrial fibrillation (principal); Z68.42 Body mass index [BMI] 45.0-49.9, adult; N17.9 Acute kidney failure, unspecified; E78.5 Hyperlipidemia, unspecified; I10 Essential (primary) hypertension; I25.2 Old myocardial infarction; I42.0 Dilated cardiomyopathy; I16.0 Hypertensive urgency; I25.10 Atherosclerotic heart disease of native coronary artery without angina pectoris; N40.0 Benign prostatic hyperplasia without lower urinary tract symptoms; F17.210 Nicotine dependence, cigarettes, uncomplicated; E66.01 Morbid (severe) obesity due to excess calories; E11.65 Type 2 diabetes mellitus with hyperglycemia; F10.20 Alcohol dependence, uncomplicated; M53.3 Sacrococcygeal disorders, not elsewhere classified; Z79.01 Long term (current) use of anticoagulants; Z79.899 Other long term (current) drug therapy; Z91.19 Patient's noncompliance with other medical treatment and regimen; Z79.84 Long term (current) use of oral hypoglycemic drugs
CPT/HCPCS: 36415; 74177; 80048; 80053; 81001; 82962; 83605; 83690; 83735; 84443; 84484; 85025; 85610; 93005; 93306; 99284; 99406; J7030; Q9957; Q9967; A4216; C8929; J2405; J3490

== ENCOUNTER → 2021-05-15 09:55 | Outpatient (CLI) | payer MEDICARE, SELFPAY ==
[2021-05-11 23:07] VITALS: BMI 44.6
[2021-05-15 11:21] LABS: Anion Gap 9 (5-15); BUN 23 mg/dL (7-18); BUN/Creat Ratio 13.9 RATIO (10-20); Calcium,Total 8.7 mg/dL (8.5-10.1); Chloride 106 mmol/L (98-107); Creatinine, Serum 1.65 mg/dL (0.70-1.30); EST Glomerular Filtration Rate 45 mL/min (>60); Est Glom Filt Rate - Afr Amer 54 mL/min (>60); Glucose 129 mg/dL (74-106); Potassium 3.7 mmol/L (3.5-5.1); Sodium Level 140 mmol/L (136-145)
== END ==
PROVIDERS: PCP Family Medicine; Referring Provider Nurse Practitioner Family; Visit Provider Nurse Practitioner Family
DX: N17.9 Acute kidney failure, unspecified (principal)
CPT/HCPCS: 36415; 80048

== ENCOUNTER → 2021-06-14 13:22 | Outpatient (CLI) | payer MEDICARE, SELFPAY ==
[2021-05-31 15:17] VITALS: BMI 45.7
[2021-06-14 13:24] LABS: Mucous, Urine 0 SEEN /hpf (<or=2+); Squamous Epithelial Cells - UA 0 SEEN /hpf (0-5)
[2021-06-14 15:52] LABS: Color, Urine Yellow (Yellow); Glucose, Dipstick Normal (Normal); Ketone-Dipstick 5 mg/dl (Negative); Leukocyte Esterase-Dipstick 25 /ul (Negative); Nitrite-Dipstick Positive (Negative); Occult Blood-Urine 10 /ul (Negative); Protein-Dipstick 30 mg/dl (Negative); Urine Clarity Sl. Cloudy (Clear); Urine Urobilinogen 4 mg/dl (Normal)
[2021-06-14 16:09] LABS: Urine Bilirubin Dipstick 3 mg/dL (Negative)
[2021-06-14 16:39] LABS: Hyaline Cast 0-5 SEEN /lpf (0-5)
[2021-06-14 16:41] LABS: Amorphous Sediment 1+
[2021-06-14 16:43] LABS: Red Blood Cells-Urine 0-5 SEEN /hpf (0-5); White Blood Cells 5-10 SEEN /hpf (0-5)
[2021-06-14 16:45] LABS: Bacteria 1+ /hpf (None Seen)
[2021-06-14 16:51] LABS: Coarse Granular Cast 0 SEEN /lpf (0-5 /lpf)
[2021-06-14 16:52] LABS: Fine Granular Cast- Urine 10-25 SEEN /lpf (0-5)
== END ==
PROVIDERS: PCP Family Medicine; Referring Provider Urology; Visit Provider Urology
DX: R31.0 Gross hematuria (principal)
CPT/HCPCS: 81001; 87077; 87086; 87088

== ENCOUNTER → 2021-07-24 12:27 | Outpatient (CLI) | payer MEDICARE, SELFPAY ==
[2021-07-24 14:16] LABS: BNP,B-Type NATRIURETIC PEPTIDE 480.8 pg/mL (0-100)
[2021-07-24 14:17] LABS: ALB/GLOB Ratio 0.6 RATIO (0.9-2.4); AST(SGOT) 41 U/L (15-37); Alanine Aminotransfer ALT/SGPT 47 U/L (16-61); Albumin, Serum 3.3 g/dL (3.2-5.0); Alkaline Phosphatase 68 U/L (45-117); Anion Gap 7 (5-15); BUN 17 mg/dL (7-18); BUN/Creat Ratio 11.5 RATIO (10-20); Calcium,Total 8.8 mg/dL (8.5-10.1); Chloride 106 mmol/L (98-107); Creatinine, Serum 1.48 mg/dL (0.70-1.30); EST Glomerular Filtration Rate 51 mL/min (>60); Est Glom Filt Rate - Afr Amer 62 mL/min (>60); Globulin 5.2 g/dL (2.2-4.2); Glucose 157 mg/dL (74-106); Magnesium 1.8 mg/dL (1.6-2.6); Potassium 3.9 mmol/L (3.5-5.1); Protein, Total 8.5 g/dL (6.4-8.2); Sodium Level 140 mmol/L (136-145)
== END ==
PROVIDERS: PCP Family Medicine; Referring Provider Nurse Practitioner Gerontology; Visit Provider Nurse Practitioner Gerontology
DX: R06.02 Shortness of breath (principal); I10 Essential (primary) hypertension
CPT/HCPCS: 36415; 80053; 83735; 83880